=== PATIENT | male | born 1945 | race Caucasian/White ===

== ENCOUNTER 2018-07-14 09:45 | Inpatient (IN) ==
--- NOTE | 2018-07-14 09:51 | ED ---
HPI General Chief Complaint: Neuro Symptoms/Deficit Stated Complaint: Neuro Symptoms/Evac Time Seen by Provider: 07/14/18 09:47 Source: patient and EMS Mode of arrival: ambulatory Limitations: language barrier (aphasia) History of Present Illness HPI Narrative: 72-year-old man brought in for right-sided neurological deficit. He was found down in his house at about 930 this morning. His family yelled at him through the door at about 8:30 AM and asked if he was okay to which she responded in the affirmative. However patient's last known normal was last night prior to bed. When asked the patient states that he woke up with his neurological symptoms. He is unable to articulate how he fell and ended up on the floor. He was found covered in stool. He had jumbled dysarthric speech, right arm weakness and right leg weakness. The history is limited by the patient's poor recall the events and aphasia. Related Data Home Medications Medication Instructions Recorded Confirmed atorvastatin 20 mg PO DAILY 07/14/18 07/14/18 buspirone 5 mg PO BID 07/14/18 07/14/18 glimepiride 4 mg PO QAM 07/14/18 07/14/18 lisinopril-hydrochlorothiazide 1 tab PO DAILY 07/14/18 07/14/18 metformin 1,000 mg PO BID 07/14/18 07/14/18 Allergies Allergy/AdvReac Type Severity Reaction Status Date / Time No Known Allergies Allergy Unverified 07/14/18 09:47 Review of Systems ROS Unobtainable ROS Unobtainable: other (aphasia) PENDING SALE TO [facility] Medical History Medical History High cholesterol (Acute) Diabetes type 2, controlled (Acute) Hypertension (Acute) Surgical History Surgical History No history of previous surgery (Acute) Family History Family History Other CAD (coronary artery disease) Diabetes Social History Social History Substance History: No History of Abuse Second Hand Smoke Exposure: No Smoking Status: Light tobacco smoker Tobacco Type: Cigars How Often Do You Have a Drink Containing Alcohol: 2 to 3 times a week Recent Travel in [facility] within the Last 8 Weeks: No Recent Out of Country Travel within the Last 8 Weeks: No Exam Narrative Exam Narrative: GENERAL: 72-year-old man lying on stretcher calmly. He smells of stool and there are streaks of stool on his hands and clothing. No family at bedside. SKIN: Focused skin assessment warm/dry. No lacerations, hematomas, or bruising. HEAD: Atraumatic. Normocephalic. No trauma visible above the level the clavicles. EYES: Pupils equal and round. No scleral icterus. No injection or drainage. ENT: No nasal bleeding or discharge. Mucous membranes pink and moist. NECK: Trachea midline. No JVD. CARDIOVASCULAR: Normal rate and irregularly irregular rhythm.. No murmur appreciated. RESPIRATORY: No accessory muscle use. Clear to auscultation. Breath sounds equal bilaterally. GASTROINTESTINAL: Abdomen soft, non-tender, nondistended. Overweight abdomen. MUSCULOSKELETAL: No obvious deformities. No clubbing. No cyanosis. No edema. NEUROLOGICAL: Awake and alert. Dysarthric and jumbled speech; expressive aphasia. Follows commands. Right upper extremity 3 out of 5, left upper extremity 5 out of 5, right lower extremity 2 out of 5, left lower extremity 5 out of 5. Decreased sensation to light touch right upper and lower extremity, with worse loss of sensation in lower extremity. Unable to test gait as patient is unable to stand. PSYCHIATRIC: Calm but unable to fully assess due to patient's aphasia. Course Reevaluation(s) Reevaluation #1: Patient's and adult daughter here at this time in the emergency department. Per their recounts patient was last normal last night and they found him like this this morning on the floor. He is never had a stroke before. He is never been diagnosed with atrial fibrillation before. He has never had a heart attack before. On reassessment patient's right arm and right leg weakness is resolving, and is almost completely back to normal. Likewise his speech is recovering. Time: 10:35 Consultations Consultation #1: I spoke with Dr. Walsh of neurology regarding the patient's resolving neurological symptoms. Discussed the negative head imaging with her. She recommends admission to floor for TIA workup. She requested a call [facility] for hospitalist admission. Time: 11:17 Consultation #2: Spoke with Dr. CARTER regarding the patient's case. He will admit for TIA workup. Time: 11:23 Initial Documented Vital Signs Pulse Oximetry 100 07/14/18 09:45 Last Documented Vital Signs Temperature 98.9 F 07/14/18 17:00 Pulse Rate 81 07/14/18 17:00 Respiratory Rate 18 07/14/18 17:00 Blood Pressure 154/88 H 07/14/18 17:00 Pulse Oximetry 97 07/14/18 17:00 NIH Stroke Scale NIHSS Time Completed NIHSS Time Completed: 09:46 NIH Stroke Scale Level of Consciousness: 0-Alert Orientation Questions: 2-Neither task correct Responds to Commands: 0-Both tasks correct Gaze Eye Movement: 0-Horizontal movement WNL Visual Henson: 0-No visual field defect Facial Movement: 1-Minor facial palsy Motor Functions Arm LEFT: 0-No drift Motor Functions Arm RIGHT: 2-Falls before 10 seconds Motor Functions Leg LEFT: 0-No drift Motor Functions Leg RIGHT: 3-No effort against gravity Limb Ataxia: 0-No ataxia Sensory Loss: 2-Severe sensory loss Best Language: 2-Severe aphasia Articulation: 1-Mild dysarthia Extinction or Inattention Sensory: 0-Absent Total: 13 Medical Decision Making MDM Narrative Medical decision making narrative: 72-year-old man with what appears to be a wake-up stroke. He does not meet stroke alert criteria. IH stroke scale is 13. I will order CT of brain in addition to CTA of head and neck to evaluate for large vessel occlusion. He may be a candidate for interventional radiology but he is not a TPA candidate at this time. Shortly after returning from CT, the patient's neurological symptoms resolved completely. Most likely this event was a transient ischemic attack. Medical Screen Exam Complete: Yes Emergency Medical Condition: Yes Differential Diagnosis Differential Diagnosis: Cerebrovascular accident, brain bleed, transient ischemic attack, complex migraine Medical Records Medical records reviewed: Yes I reviewed the patient's medical records. Lab Data Lab results reviewed: Yes I reviewed the patient's lab results. Result diagrams: 07/14/18 18:04 07/14/18 09:50 Lab Results 07/14/18 07/14/18 07/14/18 Range/Units 09:48 09:50 09:50 CBC w Diff Slide review pending WBC 10.6 (4.0-11.0) th/mm3 RBC 4.29 L (4.50-5.90) mil/mm3 Hgb 14.3 (13.0-17.0) gm/dL Hct 41.3 (39.0-51.0) % MCV 96.3 (80.0-100.0) fL MCH 33.2 (27.0-34.0) pg MCHC 34.5 (32.0-36.0) % RDW 12.6 (11.6-17.2) % Plt Count 173 (150-450) th/mm3 MPV 8.7 (7.0-11.0) fL Neut % (Auto) 81.6 H (16.0-70.0) % Lymph % (Auto) 10.7 (9.0-44.0) % [place] % (Auto) 3.0 (0.0-8.0) % Eos % (Auto) 2.0 (0.0-4.0) % Baso % (Auto) 2.7 H (0.0-2.0) % Neut # (Auto) 8.7 H (1.8-7.7) th/mm3 Lymph # (Auto) 1.1 (1.0-4.8) th/mm3 [place] # (Auto) 0.3 (0.0-0.9) th/mm3 Eos # (Auto) 0.2 (0.0-0.4) th/mm3 Baso # (Auto) 0.3 H (0.0-0.2) th/mm3 WBC Differential . Diff Scan Auto diff confirmed Differential Comment . Platelet Estimate Normal (Normal) Platelet Morphology Normal (Normal) PT 10.6 (9.8-11.6) sec INR 1.0 Ratio APTT 23.8 L (24.3-30.1) sec Fibrinogen 282 (227-377) mg/dL Sodium 139 (136-145) meq/L Potassium 3.8 (3.5-5.1) meq/L Chloride 102 (98-107) meq/L Carbon Dioxide 22.9 (21.0-32.0) meq/L Anion Gap 14 (5-15) meq/L BUN 15 (7-18) mg/dL Creatinine 0.97 (0.60-1.30) mg/dL Estimated GFR 77 L (>89) mL/min POC Glucose (68-110) mg/dl Random Glucose 180 H (74-106) mg/dL Calcium 9.1 (8.5-10.1) mg/dL Total Bilirubin 0.6 (0.2-1.0) mg/dL AST 24 (15-37) U/L ALT 31 (12-78) U/L Alkaline Phosphatase 58 (45-117) U/L Total Creatine Kinase 95 (39-308) U/L Troponin I Less than 0.02 L (0.02-0.05) ng/mL Total Protein 8.1 (6.4-8.2) g/dL Albumin 4.0 (3.4-5.0) g/dL Ur Collection Type Urine Color Urine Clarity Urine pH Ur Specific Preemption Urine Protein Urine Glucose (UA) Urine Ketones Urine Occult Blood Urine Nitrate Urine Bilirubin Urine Ictotest Urine Urobilinogen Ur Leukocyte Esterase Urine RBC Urine WBC Urine WBC Clumps Ur Squamous Epith Cells Ur Transition Epith Cell Ur Renal Epithelial Cell Calcium Carbonate Cryst Calcium Oxalate Crystal Leucine Crystals Cystine Crystals Uric Acid Crystals Triple Phos Crystals Cholesterol Crystals Tyrosine Crystals Amorphous Sediment Urine Bacteria Hyaline Casts Granular Casts Fine Granular Casts Coarse Granular Casts Waxy Casts RBC Casts WBC Casts Urine Mucus Urine Trichomonas Urine Yeast Ur Yeast w Hyphae Urine Sperm Ur Oval Fat Bodies Micro UA Comment Ur Microscopic Review Urine Culture Comments Urine Collection Time Urine Comment Urine Opiates Screen (Neg) Ur Barbiturates Screen (Neg) Ur Amphetamines Screen (Neg) U Benzodiazepines Scrn (Neg) Urine Cocaine Screen (Neg) U Cannabinoids Screen (Neg) Blood Type Blood Type Recheck Antibody Screen 07/14/18 07/14/18 07/14/18 Range/Units 09:50 10:28 12:15 CBC w Diff WBC (4.0-11.0) th/mm3 RBC (4.50-5.90) mil/mm3 Hgb (13.0-17.0) gm/dL Hct (39.0-51.0) % MCV (80.0-100.0) fL MCH (27.0-34.0) pg MCHC (32.0-36.0) % RDW (11.6-17.2) % Plt Count (150-450) th/mm3 MPV (7.0-11.0) fL Neut % (Auto) (16.0-70.0) % Lymph % (Auto) (9.0-44.0) % [place] % (Auto) (0.0-8.0) % Eos % (Auto) (0.0-4.0) % Baso % (Auto) (0.0-2.0) % Neut # (Auto) (1.8-7.7) th/mm3 Lymph # (Auto) (1.0-4.8) th/mm3 [place] # (Auto) (0.0-0.9) th/mm3 Eos # (Auto) (0.0-0.4) th/mm3 Baso # (Auto) (0.0-0.2) th/mm3 WBC Differential Diff Scan Differential Comment Platelet Estimate (Normal) Platelet Morphology (Normal) PT (9.8-11.6) sec INR Ratio APTT (24.3-30.1) sec Fibrinogen (227-377) mg/dL Sodium (136-145) meq/L Potassium (3.5-5.1) meq/L Chloride (98-107) meq/L Carbon Dioxide (21.0-32.0) meq/L Anion Gap (5-15) meq/L BUN (7-18) mg/dL Creatinine (0.60-1.30) mg/dL Estimated GFR (>89) mL/min POC Glucose 167 H 172 H (68-110) mg/dl Random Glucose (74-106) mg/dL Calcium (8.5-10.1) mg/dL Total Bilirubin (0.2-1.0) mg/dL AST (15-37) U/L ALT (12-78) U/L Alkaline Phosphatase (45-117) U/L Total Creatine Kinase (39-308) U/L Troponin I (0.02-0.05) ng/mL Total Protein (6.4-8.2) g/dL Albumin (3.4-5.0) g/dL Ur Collection Type Urine Color Urine Clarity Urine pH Ur Specific Preemption Urine Protein Urine Glucose (UA) Urine Ketones Urine Occult Blood Urine Nitrate Urine Bilirubin Urine Ictotest Urine Urobilinogen Ur Leukocyte Esterase Urine RBC Urine WBC Urine WBC Clumps Ur Squamous Epith Cells Ur Transition Epith Cell Ur Renal Epithelial Cell Calcium Carbonate Cryst Calcium Oxalate Crystal Leucine Crystals Cystine Crystals Uric Acid Crystals Triple Phos Crystals Cholesterol Crystals Tyrosine Crystals Amorphous Sediment Urine Bacteria Hyaline Casts Granular Casts Fine Granular Casts Coarse Granular Casts Waxy Casts RBC Casts WBC Casts Urine Mucus Urine Trichomonas Urine Yeast Ur Yeast w Hyphae Urine Sperm Ur Oval Fat Bodies Micro UA Comment Ur Microscopic Review Urine Culture Comments Urine Collection Time Urine Comment Urine Opiates Screen (Neg) Ur Barbiturates Screen (Neg) Ur Amphetamines Screen (Neg) U Benzodiazepines Scrn (Neg) Urine Cocaine Screen (Neg) U Cannabinoids Screen (Neg) Blood Type AB Positive Blood Type Recheck Required Antibody Screen Negative 07/14/18 07/14/18 07/14/18 Range/Units 13:00 13:00 13:00 CBC w Diff WBC (4.0-11.0) th/mm3 RBC (4.50-5.90) mil/mm3 Hgb (13.0-17.0) gm/dL Hct (39.0-51.0) % MCV (80.0-100.0) fL MCH (27.0-34.0) pg MCHC (32.0-36.0) % RDW (11.6-17.2) % Plt Count (150-450) th/mm3 MPV (7.0-11.0) fL Neut % (Auto) (16.0-70.0) % Lymph % (Auto) (9.0-44.0) % [place] % (Auto) (0.0-8.0) % Eos % (Auto) (0.0-4.0) % Baso % (Auto) (0.0-2.0) % Neut # (Auto) (1.8-7.7) th/mm3 Lymph # (Auto) (1.0-4.8) th/mm3 [place] # (Auto) (0.0-0.9) th/mm3 Eos # (Auto) (0.0-0.4) th/mm3 Baso # (Auto) (0.0-0.2) th/mm3 WBC Differential Diff Scan Differential Comment Platelet Estimate (Normal) Platelet Morphology (Normal) PT (9.8-11.6) sec INR Ratio APTT (24.3-30.1) sec Fibrinogen (227-377) mg/dL Sodium (136-145) meq/L Potassium (3.5-5.1) meq/L Chloride (98-107) meq/L Carbon Dioxide (21.0-32.0) meq/L Anion Gap (5-15) meq/L BUN (7-18) mg/dL Creatinine (0.60-1.30) mg/dL Estimated GFR (>89) mL/min POC Glucose (68-110) mg/dl Random Glucose (74-106) mg/dL Calcium (8.5-10.1) mg/dL Total Bilirubin (0.2-1.0) mg/dL AST (15-37) U/L ALT (12-78) U/L Alkaline Phosphatase (45-117) U/L Total Creatine Kinase (39-308) U/L Troponin I (0.02-0.05) ng/mL Total Protein (6.4-8.2) g/dL Albumin (3.4-5.0) g/dL Ur Collection Type Cancelled Cath Urine Color Cancelled Straw Urine Clarity Cancelled Clear Urine pH Cancelled 8.5 Ur Specific Preemption Cancelled 1.010 Urine Protein Cancelled 100 H Urine Glucose (UA) Cancelled 500 H Urine Ketones Cancelled 80 or greater H Urine Occult Blood Cancelled Small H Urine Nitrate Cancelled Negative Urine Bilirubin Cancelled Negative Urine Ictotest Cancelled Urine Urobilinogen Cancelled 1.0 Ur Leukocyte Esterase Cancelled Negative Urine RBC Cancelled Urine WBC Cancelled Urine WBC Clumps Cancelled Ur Squamous Epith Cells Cancelled Ur Transition Epith Cell Cancelled Ur Renal Epithelial Cell Cancelled Calcium Carbonate Cryst Cancelled Calcium Oxalate Crystal Cancelled Leucine Crystals Cancelled Cystine Crystals Cancelled Uric Acid Crystals Cancelled Triple Phos Crystals Cancelled Cholesterol Crystals Cancelled Tyrosine Crystals Cancelled Amorphous Sediment Cancelled Urine Bacteria Cancelled Hyaline Casts Cancelled Granular Casts Cancelled Fine Granular Casts Cancelled Coarse Granular Casts Cancelled Waxy Casts Cancelled RBC Casts Cancelled WBC Casts Cancelled Urine Mucus Cancelled Urine Trichomonas Cancelled Urine Yeast Cancelled Ur Yeast w Hyphae Cancelled Urine Sperm Cancelled Ur Oval Fat Bodies Cancelled Micro UA Comment Cancelled Culture not ind Ur Microscopic Review Cancelled Microscopic reviewed Urine Culture Comments Cancelled Culture not ind Urine Collection Time Cancelled Urine Comment Cancelled Urine Opiates Screen Neg (Neg) Ur Barbiturates Screen Neg (Neg) Ur Amphetamines Screen Neg (Neg) U Benzodiazepines Scrn Neg (Neg) Urine Cocaine Screen Neg (Neg) U Cannabinoids Screen Neg (Neg) Blood Type Blood Type Recheck Antibody Screen 07/14/18 07/14/18 07/14/18 Range/Units 17:35 18:04 18:04 CBC w Diff WBC 12.6 H (4.0-11.0) th/mm3 RBC 4.42 L (4.50-5.90) mil/mm3 Hgb 14.3 (13.0-17.0) gm/dL Hct 43.0 (39.0-51.0) % MCV 97.3 (80.0-100.0) fL MCH 32.3 (27.0-34.0) pg MCHC 33.2 (32.0-36.0) % RDW 13.3 (11.6-17.2) % Plt Count 174 (150-450) th/mm3 MPV 9.4 (7.0-11.0) fL Neut % (Auto) (16.0-70.0) % Lymph % (Auto) (9.0-44.0) % [place] % (Auto) (0.0-8.0) % Eos % (Auto) (0.0-4.0) % Baso % (Auto) (0.0-2.0) % Neut # (Auto) (1.8-7.7) th/mm3 Lymph # (Auto) (1.0-4.8) th/mm3 [place] # (Auto) (0.0-0.9) th/mm3 Eos # (Auto) (0.0-0.4) th/mm3 Baso # (Auto) (0.0-0.2) th/mm3 WBC Differential Diff Scan Differential Comment Platelet Estimate (Normal) Platelet Morphology (Normal) PT (9.8-11.6) sec INR Ratio APTT 27.5 (24.3-30.1) sec Fibrinogen (227-377) mg/dL Sodium (136-145) meq/L Potassium (3.5-5.1) meq/L Chloride (98-107) meq/L Carbon Dioxide (21.0-32.0) meq/L Anion Gap (5-15) meq/L BUN (7-18) mg/dL Creatinine (0.60-1.30) mg/dL Estimated GFR (>89) mL/min POC Glucose 150 H (68-110) mg/dl Random Glucose (74-106) mg/dL Calcium (8.5-10.1) mg/dL Total Bilirubin (0.2-1.0) mg/dL AST (15-37) U/L ALT (12-78) U/L Alkaline Phosphatase (45-117) U/L Total Creatine Kinase (39-308) U/L Troponin I (0.02-0.05) ng/mL Total Protein (6.4-8.2) g/dL Albumin (3.4-5.0) g/dL Ur Collection Type Urine Color Urine Clarity Urine pH Ur Specific Preemption Urine Protein Urine Glucose (UA) Urine Ketones Urine Occult Blood Urine Nitrate Urine Bilirubin Urine Ictotest Urine Urobilinogen Ur Leukocyte Esterase Urine RBC Urine WBC Urine WBC Clumps Ur Squamous Epith Cells Ur Transition Epith Cell Ur Renal Epithelial Cell Calcium Carbonate Cryst Calcium Oxalate Crystal Leucine Crystals Cystine Crystals Uric Acid Crystals Triple Phos Crystals Cholesterol Crystals Tyrosine Crystals Amorphous Sediment Urine Bacteria Hyaline Casts Granular Casts Fine Granular Casts Coarse Granular Casts Waxy Casts RBC Casts WBC Casts Urine Mucus Urine Trichomonas Urine Yeast Ur Yeast w Hyphae Urine Sperm Ur Oval Fat Bodies Micro UA Comment Ur Microscopic Review Urine Culture Comments Urine Collection Time Urine Comment Urine Opiates Screen (Neg) Ur Barbiturates Screen (Neg) Ur Amphetamines Screen (Neg) U Benzodiazepines Scrn (Neg) Urine Cocaine Screen (Neg) U Cannabinoids Screen (Neg) Blood Type Blood Type Recheck Antibody Screen Imaging Data Radiologist's impression: Head MRI 07/14/18 00:00 CONCLUSION: 1. Large left-sided cerebral stroke with the abnormal area on diffusion measuring 4.5 x 9.0 cm across. 2 small areas of stroke within the external capsule on the left. Chest X-Ray 07/14/18 09:48 CONCLUSION: Prominence of the cardiac silhouette and pulmonary vasculature may be secondary to supine technique. No evidence of pneumonia or pneumothorax. Head CT 07/14/18 09:48 CONCLUSION: 1. Negative CT Head non contrast. . Head CTA 07/14/18 09:48 CONCLUSION: 1. Atherosclerosis. No significant stenosis is present. There is a small right- sided pleural effusion present. Neck CTA 07/14/18 09:48 CONCLUSION: 1. Negative CTA Carotid. ECG Data Attestation: I personally reviewed and interpreted this ECG as follows: Interpretation: Atrial fibrillation with rate of 88 bpm, QRS interval 114 ms, QTc interval 426 ms, incomplete right bundle branch block, ST segment depression in leads V2, V3, V4, V5 and V6 as well as some in the inferior lead, no STEMI present. Discharge Plan Discharge Disposition Patient Disposition: 30 Still Patient Discharge Condition Condition: Fair Discharge Details Diagnosis: Transient ischemic attack Physicians Team ED Provider: Asad Main Primary Care Provider: UNKNOWN, Attending Provider: Kaushik Atkins Other Providers: Ashley Holden ; Rohit Gomez Carolyn Discharge Interventions Interventions: ED Discharge Assessment Last Done: 07/14/18 11:57 Status ED Status: Left Department Discharge Information Discharge Date/Time: 07/14/18 12:22
[2018-07-14 10:00] LABS: Baso # (Auto) 0.3 th/mm3 (0.0-0.2); Baso % (Auto) 2.7 % (0.0-2.0); Eos # (Auto) 0.2 th/mm3 (0.0-0.4); Hematocrit 41.3 % (39.0-51.0); Hemoglobin 14.3 gm/dL (13.0-17.0); Lymph # (Auto) 1.1 th/mm3 (1.0-4.8); Lymph % (Auto) 10.7 % (9.0-44.0); Mean Corpuscular HGB Conc 34.5 % (32.0-36.0); Mean Corpuscular Hemoglobin 33.2 pg (27.0-34.0); Mean Corpuscular Volume 96.3 fL (80.0-100.0); Mean Platelet Volume 8.7 fL (7.0-11.0); Mono # (Auto) 0.3 th/mm3 (0.0-0.9); Neut # (Auto) 8.7 th/mm3 (1.8-7.7); Neut % (Auto) 81.6 % (16.0-70.0); Platelet Count 173 th/mm3 (150-450); Red Blood Count 4.29 mil/mm3 (4.50-5.90); Red Cell Distribution Width 12.6 % (11.6-17.2); White Blood Count 10.6 th/mm3 (4.0-11.0)
[2018-07-14 10:14] LABS: Chloride 102 meq/L (98-107); Potassium 3.8 meq/L (3.5-5.1); Sodium 139 meq/L (136-145)
[2018-07-14 10:14] LABS: Activated Partial Thrombo Time 23.8 sec (24.3-30.1); Prothrombin Time 10.6 sec (9.8-11.6)
[2018-07-14 10:17] LABS: Calcium 9.1 mg/dL (8.5-10.1)
[2018-07-14 10:18] LABS: Anion Gap 14 meq/L (5-15); Carbon Dioxide 22.9 meq/L (21.0-32.0); Glucose,Random 180 mg/dL (74-106)
[2018-07-14 10:19] LABS: Blood Urea Nitrogen 15 mg/dL (7-18)
[2018-07-14 10:21] LABS: Alanine Aminotransferase 31 U/L (12-78); Aspartate Aminotransferase 24 U/L (15-37); Glomerular Filtration Rate 77 mL/min (>89)
[2018-07-14 10:23] LABS: Total Protein 8.1 g/dL (6.4-8.2)
[2018-07-14 10:24] LABS: Alkaline Phosphatase 58 U/L (45-117)
--- NOTE | 2018-07-14 10:25 | CT ---
EXAM DATE: 07/14/2018 10:21 AM EDT AGE/SEX: 72 years / Male INDICATIONS: Found on floor. Right upper and lower extremity weakness. CLINICAL DATA: This is the patient's initial encounter. Patient reports that signs and symptoms have been present for 1 day and indicates a pain score of 0/10. MEDICAL/SURGICAL HISTORY: None. None. RADIATION DOSE: 58.46 CTDI (mGy) COMPARISON: No prior exams available for comparison. TECHNIQUE: CT of the head without contrast. Using automated exposure control and adjustment of the mA and/or kV according to patient size, radiation dose was kept as low as reasonably achievable to ob tain optimal diagnostic quality images. DICOM format image data is available electronically for revi ew and comparison. FINDINGS: Cerebrum: The ventricles are normal for age. No evidence of midline shift, mass lesion, hemorrhage or acute infarction. No extraaxial fluid collections are seen. Posterior Fossa: The cerebellum and brainstem are intact. The 4th ventricle is midline. The cerebe llopontine angle is unremarkable. Extracranial: The visualized portion of the orbits is intact. Skull: The calvaria is intact. No evidence of skull fracture. CONCLUSION: 1. Negative CT Head non contrast. . Electronically signed by: Pallavi Elizondo MD 07/14/2018 10:24 AM EDT
--- NOTE | 2018-07-14 10:33 | XR ---
EXAM DATE: 07/14/2018 10:30 AM EDT AGE/SEX: 72 years / Male INDICATIONS: Neurological deficits, found on floor CLINICAL DATA: This is the patient's initial encounter. Patient reports that signs and symptoms have been present for 1 day and indicates a pain score of Nonresponsive. MEDICAL/SURGICAL HISTORY: Non-responsive. Non-responsive. COMPARISON: No prior exams available for comparison. FINDINGS: A single AP view of the chest demonstrates the lungs to be symmetrically aerated without evidence of mass, infiltrate or effusion. Heart size appears mildly enlarged and there is prominence of the centr al pulmonary vasculature. Osseous structures are intact. CONCLUSION: Prominence of the cardiac silhouette and pulmonary vasculature may be secondary to supine technique. No evidence of pneumonia or pneumothorax. Electronically signed by: Pallavi Elizondo MD 07/14/2018 10:32 AM EDT
[2018-07-14 10:37] LABS: Creatine Kinase 95 U/L (39-308)
[2018-07-14 10:42] LABS: Platelet Estimate Normal (Normal); Platelet Morphology Normal (Normal)
[2018-07-14] MEDS: Sod Chloride 0.9% Inj 1,000 ML IV.CONT SCH (10:45)
--- NOTE | 2018-07-14 10:55 | CT ---
EXAM DATE: 07/14/2018 10:46 AM EDT AGE/SEX: 72 years / Male INDICATIONS: Found on floor. Right upper and lower extremity weakness. CLINICAL DATA: This is the patient's initial encounter. Patient reports that signs and symptoms have been present for 1 day and indicates a pain score of 0/10. MEDICAL/SURGICAL HISTORY: None. None. RADIATION DOSE: 42.25 CTDI (mGy) ; Combined studies COMPARISON: [facility], CT HEAD W/O CONTRAST, 07/14/2018. . TECHNIQUE: Volumetric scanning was performed using a multi-row detector CT scanner during bolus infu parveen of 95 ml Visipaque 320 (iodixanol) nonionic water-soluble contrast as a cumulative dose for mul tiple exams. The data was post processed with a variety of visualization algorithms including full volume maximum intensity projection, multi-planar sliding thin slab reformation, curved planar reform ation, and surface rendering techniques. Using automated exposure control and adjustment of the mA a nd/or kV according to patient size, radiation dose was kept as low as reasonably achievable to obtain optimal diagnostic quality images. DICOM format image data is available electronically for review a nd comparison. FINDINGS: There is excellent visualization of the major intracranial arteries out to the second-order branch ve ssels. There is no evidence for aneurysm, vessel truncation or stenosis, and no evidence for vascula r malformation. Imaged portions of the lungs demonstrate a small right-sided pleural effusion. CONCLUSION: 1. Atherosclerosis. No significant stenosis is present. There is a small right-sided pleural effusio n present. Electronically signed by: Pallavi Elizondo MD 07/14/2018 10:54 AM EDT
--- NOTE | 2018-07-14 11:10 | CT ---
EXAM DATE: 07/14/2018 11:05 AM EDT AGE/SEX: 72 years / Male INDICATIONS: Found on floor. Right upper and lower extremity weakness. CLINICAL DATA: This is the patient's initial encounter. Patient reports that signs and symptoms have been present for 1 day and indicates a pain score of 0/10. MEDICAL/SURGICAL HISTORY: None. None. RADIATION DOSE: 42.25 CTDI (mGy) ; Combined studies COMPARISON: No prior exams available for comparison. TECHNIQUE: Volumetric scanning was performed using a multirow detector CT scanner during bolus infus ion of 95 ml Visipaque 320 (iodixanol) nonionic water-soluble contrast as a cumulative dose for mult iple exams. The data was postprocessed with a variety of visualization algorithms including full-vo lume maximum intensity projection, multiplanar sliding thin-slab reformation, curved-planar reformati on, and surface-rendering techniques. Using automated exposure control and adjustment of the mA and/ or kV according to patient size, radiation dose was kept as low as reasonably achievable to obtain op timal diagnostic quality images. DICOM format image data is available electronically for review and comparison. FINDINGS: Aortic Arch: There is a three-vessel origin of the great vessels from the aorta. No evidence of ost ial narrowing Right Carotid: The common carotid artery is intact. The carotid bulb has a normal configuration wit hout ulceration or narrowing. The internal carotid artery lumen is smooth without stenosis. The ext ernal carotid artery is intact. Left Carotid: The common carotid artery is intact. The carotid bulb has a normal configuration with out ulceration or narrowing. The internal carotid artery lumen is smooth without stenosis. The exte rnal carotid artery is intact. Vertebrals: The vertebral arteries have a symmetric diameter. No stenotic lesions are seen. Percent stenosis is calculated using the diameter of the stenotic region over the diameter of the nor mal distal internal carotid artery. CONCLUSION: 1. Negative CTA Carotid. Electronically signed by: Pallavi Elizondo MD 07/14/2018 11:09 AM EDT
[2018-07-14] MEDS ORDERED: Dextrose 50% in Water 50 ML Vial IV.PUSH PRN (11:23)
[2018-07-14] MEDS ORDERED: Enoxaparin Inj 30 MG/0.3 ML Syringe SQ SCH (12:00)
[2018-07-14] MEDS: Insulin NovoLOG Aspart Correctional Sugar Inj SQ SCH ×3 (13:07→22:59)
[2018-07-14] MEDS: Heparin Drip 25,000 UNIT/250 ML BAG IV.CONT PRN (13:43)
--- NOTE | 2018-07-14 13:48 | P.HPIM ---
History of Present Illness Primary Care Physician: UNKNOWN Chief Complaint: Speech disturbance History of Present Illness: The patient is a 72-year-old male with a past medical history of diabetes and hypertension who is presenting to the hospital with speech disturbances. The patient was seen doing well last night where he was celebrating somebody's birthday alliance party. At around 830 this morning he was noted to have difficulty speaking. He could not say the words that he intended to say. EMS was called and noticed that the patient had some right sided weakness on top of speech difficulties. The patient complained of severe pain in the bladder area. He denied any fevers. He said he was breathing sufficiently. The family denies any new medications. They deny any recent travel or any sick contacts. In the emergency department the patient's symptoms improved but once on the floor he did continue to have difficulty with speech and right-sided weakness. Review of Systems All other systems reviewed negative except as stated in HPI PMFSH - History History Provided By: Family Member - Medical History Medical History: Medical History (Last Updated 07/14/18 @ 13:52 by Kaushik Atkins DO) High cholesterol (Acute) Diabetes type 2, controlled (Acute) Hypertension - Surgical History Surgical History: Surgical History (Last Updated 07/14/18 @ 10:32 by Aubrie Wells RN) No history of previous surgery - Family History Family History: Family History (Last Updated 07/14/18 @ 13:52 by Kaushik Atkins DO) Other CAD (coronary artery disease) Diabetes - Social History I have reviewed the patient's Social History: Yes - Tobacco History Second Hand Smoke Exposure: No Tobacco Use In Past 30 Days: Yes Smoking Status: Current some day smoker Tobacco Type: Cigars - Alcohol History How Often Do You Have a Drink Containing Alcohol: 2 to 4 times a month - Substance Use History Substance History: No History of Abuse - Immunization History Tetanus Immunization: Unsure Medications and Allergies Active Medications: Active Medications Acetaminophen (Tylenol) 650 mg PO Q4H PRN PRN Reason: Temp > 100.4 Atorvastatin Calcium (Lipitor) 20 mg PO DAILY [facility] Last Admin: 07/14/18 13:08 Dose: Not Given Buspirone HCl (Buspar) 5 mg PO BID [facility] Dextrose (D50w Vial) 50 ml IV.PUSH UNSCH PRN PRN Reason: PER HYPOGLYCEMIA PROTOCOL Glucagon (Glucagon Inj) 1 mg OTHER PRN PRN PRN Reason: for Hypoglycemia Protocol Sodium Chloride (Ns Inj) 1,000 mls @ 70 mls/hr IV.CONT .[id number] [facility] Last Admin: 07/14/18 10:45 Dose: 70 mls/hr Heparin Sodium/Dextrose (Heparin/D5w 25,000 U/250 Ml) 25,000 unit in 250 mls @ 0 mls/hr IV.CONT TITRATE PRN; Protocol PRN Reason: Per Protocol Last Admin: 07/14/18 13:43 Dose: 900 units/hr, 9 mls/hr Insulin Aspart (Novolog Insulin Correctional Sugar Inj) 0 unit SQ ACHS [facility]; Protocol Last Admin: 07/14/18 13:07 Dose: Not Given Allergies Allergy/AdvReac Type Severity Reaction Status Date / Time No Known Allergies Allergy Unverified 07/14/18 09:47 Home Medications Medication Instructions Recorded Confirmed Type atorvastatin 20 mg PO DAILY 07/14/18 07/14/18 History buspirone 5 mg PO BID 07/14/18 07/14/18 History glimepiride 4 mg PO QAM 07/14/18 07/14/18 History lisinopril-hydrochlorothiazide 1 tab PO DAILY 07/14/18 07/14/18 History metformin 1,000 mg PO BID 07/14/18 07/14/18 History Exam Vital signs: Vital Signs 07/14/18 09:45 07/14/18 11:35 Pulse Rate 90 Respiratory Rate 17 Blood Pressure 152/74 H Pulse Oximetry 100 95 Intake & Output 07/13/18 07/14/18 07/14/18 18:59 06:59 18:59 Weight 77.5 kg Narrative: GENERAL: Appears comfortable. SKIN: Focused skin assessment warm/dry. No lacerations, hematomas, or bruising. HEAD: Atraumatic. Normocephalic. No trauma visible above the level the clavicles. EYES: Pupils equal and round. No scleral icterus. No injection or drainage. Horizontal nystagmus. ENT: No nasal bleeding or discharge. Mucous membranes pink and moist. NECK: Trachea midline. No JVD. CARDIOVASCULAR: Irregularly irregular rhythm. No murmur appreciated. RESPIRATORY: No accessory muscle use. Clear to auscultation. Breath sounds equal bilaterally. GASTROINTESTINAL: Abdomen soft, non-tender, nondistended. Overweight abdomen. MUSCULOSKELETAL: No obvious deformities. No clubbing. No cyanosis. No edema. NEUROLOGICAL: Awake and alert. Dysarthric and jumbled speech; expressive aphasia. Follows commands. Right upper extremity 3 out of 5, left upper extremity 5 out of 5, right lower extremity 2 out of 5, left lower extremity 5 out of 5. Results - Labs CBC & Chem 7: 07/14/18 09:50 07/14/18 09:50 Labs: Short CBC 07/14/18 Range/Units 09:50 WBC 10.6 (4.0-11.0) th/mm3 Hgb 14.3 (13.0-17.0) gm/dL Hct 41.3 (39.0-51.0) % Plt Count 173 (150-450) th/mm3 BMP 07/14/18 09:50 Sodium 139 Potassium 3.8 Chloride 102 Carbon Dioxide 22.9 BUN 15 Creatinine 0.97 Calcium 9.1 Cardiac Enzymes 07/14/18 Range/Units 09:50 Total Creatine Kinase 95 (39-308) U/L Troponin I Less than 0.02 L (0.02-0.05) ng/mL Liver Function 07/14/18 Range/Units 09:50 Total Bilirubin 0.6 (0.2-1.0) mg/dL AST 24 (15-37) U/L ALT 31 (12-78) U/L Alkaline Phosphatase 58 (45-117) U/L Albumin 4.0 (3.4-5.0) g/dL - Imaging Impressions Chest X-Ray 07/14/18 09:48 CONCLUSION: Prominence of the cardiac silhouette and pulmonary vasculature may be secondary to supine technique. No evidence of pneumonia or pneumothorax. Head CT 07/14/18 09:48 CONCLUSION: 1. Negative CT Head non contrast. . Head CTA 07/14/18 09:48 CONCLUSION: 1. Atherosclerosis. No significant stenosis is present. There is a small right- sided pleural effusion present. Neck CTA 07/14/18 09:48 CONCLUSION: 1. Negative CTA Carotid. Caprini VTE Risk Assessment Caprini VTE Risk Assessment: Moderate/High Risk (score >= 2) Caprini Risk Assessment Model: Point Value = 1 Point Value = 2 Point Value = 3 Point Value = 5 Age 41-60 Minor surgery BMI > 25 kg/m2 Swollen legs Varicose veins or History of unexplained or recurrent spontaneous Oral contraceptives or hormone replacement Sepsis (< 1 month) Serious lung disease, including pneumonia (< 1 month) Abnormal pulmonary function Acute myocardial infarction Congestive heart failure (< 1 month) History of inflammatory bowel disease Medical patient at bed rest Age 61-74 Arthroscopic surgery Major open surgery (> 45 min) Laparoscopic surgery (> 45 min) Malignancy Confined to bed (> 72 hours) Immobilizing plaster cast Central venous access Age >= 75 History of VTE Family history of VTE Factor V Leiden Prothrombin [id number] Lupus anticoagulant Anticardiolipin antibodies Elevated serum homocysteine Heparin-induced thrombocytopenia Other congenital or acquired thrombophilia Stroke (< 1 month) Elective arthroplasty Hip, pelvis, or leg fracture Acute spinal cord injury (< 1 month) Prophylaxis Regimen: Total Risk Factor Score Risk Level Prophylaxis Regimen 0-1 Low Early ambulation 2 Moderate Order ONE of the following: *Sequential Compression Device (SCD) *Heparin 5000 units SQ BID 3-4 Higher Order ONE of the following medications: *Heparin 5000 units SQ TID *Enoxaparin/Lovenox 40 mg SQ daily (WT < 150 kg, CrCl > 30 mL/min) *Enoxaparin/Lovenox 30 mg SQ daily (WT < 150 kg, CrCl > 10-29 mL/min) *Enoxaparin/Lovenox 30 mg SQ BID (WT < 150 kg, CrCl > 30 mL/min) AND/OR *Sequential Compression Device (SCD) 5 or more Highest Order ONE of the following medications: *Heparin 5000 units SQ TID (Preferred with Epidurals) *Enoxaparin/Lovenox 40 mg SQ daily (WT < 150 kg, CrCl > 30 mL/min) *Enoxaparin/Lovenox 30 mg SQ daily (WT < 150 kg, CrCl > 10-29 mL/min) *Enoxaparin/Lovenox 30 mg SQ BID (WT < 150 kg, CrCl > 30 mL/min) AND *Sequential Compression Device (SCD) Assessment and Plan - Plan CVA/ TIA The patient presented with expressive aphasia and found to have right sided weakness. Has A fib on EKG. Imaging negative for acute CVA. -neurology consulted. -check an MRI and echocardiogram. -check an EEG. -PT/OT/ST. -IVFs. Keep NPO for now. -heparin gtt. A fib. Rate controlled at this time. No prior history. -heparin gtt. -cardiology consult. -echocardiogram. -telemetry. DM On glimepiride and metformin as an outpt. -hold home meds. -insulin sliding scale. HTN On lisinopril/HCTZ as an outpt. -hold home meds for now. PPx: Heparin gtt
[2018-07-14 14:51] LABS: Amphetamine Screen,Urine Neg (Neg); Barbiturate Screen,Urine Neg (Neg); Cannabinoid Screen,Urine Neg (Neg); Cocaine Screen,Urine Neg (Neg)
[2018-07-14 14:59] LABS: Opiate Screen,Urine Neg (Neg)
--- NOTE | 2018-07-14 15:56 | MR ---
EXAM DATE: 07/14/2018 3:51 PM EDT AGE/SEX: 72 years / Male INDICATIONS: Right sided weakness. Aphasia. CLINICAL DATA: This is the patient's initial encounter. Patient reports that signs and symptoms have been present for 1 day and indicates a pain score of 8/10. MEDICAL/SURGICAL HISTORY: Diabetes mellitus type II. Hypertension. Hypercholesterolemia. None . COMPARISON: [facility], CT HEAD W/O CONTRAST, 07/14/2018. . TECHNIQUE: Multiplanar, multisequence examination of the brain was performed without contrast. FINDINGS: Cerebrum: The ventricles are normal for age. No evidence of midline shift, mass lesion, hemorrhage or acute infarction. No extraaxial fluid collections are seen. The pituitary gland and suprasellar cistern are normal in configuration. White Matter: No significant signal abnormalities are seen in the white matter. Posterior Fossa: The cerebellum and brainstem are intact. The 4th ventricle is midline. The cerebel lopontine angle is unremarkable. The cerebellar tonsils are normal in position. Diffusion Imaging: There is abnormal areas of signal within the external capsule on the left side co nsistent with 2 small lacunar strokes. There is a large area of abnormal diffusion involving the left occipital lobe and medial temporal lobe and the left [employer] distribution of stroke. Extracranial: The visualized portions of the orbits and paranasal sinuses are unremarkable. CONCLUSION: 1. Large left-sided cerebral stroke with the abnormal area on diffusion measuring 4.5 x 9.0 cm acros s. 2 small areas of stroke within the external capsule on the left. Electronically signed by: Juanjo Leblanc MD 07/14/2018 3:55 PM EDT
[2018-07-14 15:58] LABS: Bilirubin,Urine Negative (Negative); Clarity,Urine Clear (Clear); Glucose,Urine (UA) 500 mg/dL (Negative); Leukocyte Esterase,Urine Negative (Negative); Nitrite,Urine Negative (Negative); PH,Urine 8.5 (5.0-8.5)
[2018-07-14 16:00] LABS: Color,Urine Straw (Yellw/Straw)
--- NOTE | 2018-07-14 17:15 | ECHRPT ---
Indication: CVA/TIA CONCLUSIONS The left ventricular systolic function is normal with an estimated ejection fraction in the range of 60-65%. Normal left ventricular size. Wall thickness is normal. No regional wall motion abnormalities are present. Mild thickening of the mitral valve leaflets. Mitral annular calcification is present. Aortic valve sclerosis is present. There is trace tricuspid valve regurgitation. The estimated pulmonary arterial pressure is 31.7 mmHg. BP: / HR: Rhythm: Sinus MEASUREMENTS (Male / Female) Normal Values Technical Quality:Fair 2D ECHO LV Diastolic Diameter PLAX 4.0 cm 4.2 - 5.9 / 3.9 - 5.3 cm LV Systolic Diameter PLAX 2.8 cm IVS Diastolic Thickness 1.1 cm 0.6 - 1.0 / 0.6 - 0.9 cm LVPW Diastolic Thickness 1.1 cm 0.6 - 1.0 / 0.6 - 0.9 cm LV Relative Wall Thickness 0.6 RV Internal Dim ED PLAX 2.1 cm LVOT Diameter 1.9 cm LA Systolic Diameter LX 3.2 cm 3.0 - 4.0 / 2.7 - 3.8 cm LV Ejection Fraction MOD 4C 63.2 % LV Ejection Fraction 4C AL 64.4 % M-MODE Aortic Root Diameter MM 2.1 cm LA Systolic Diameter MM 3.6 cm LA Ao Ratio MM 1.7 AV Cusp Separation MM 1.3 cm DOPPLER AV Peak Velocity 117.0 cm/s AV Peak Gradient 5.5 mmHg LVOT Peak Velocity 106.0 cm/s LVOT Peak Gradient 4.5 mmHg AV Area Cont Eq pk 2.6 cm MV Area PHT 4.9 cm LV E' Lateral Velocity 3.3 cm/s LV E' Septal Velocity 3.0 cm/s TR Peak Velocity 233.0 cm/s TR Peak Gradient 21.7 mmHg Right Atrial Pressure 10.0 mmHg Pulmonary Artery Systolic Pressu 31.7 mmHg Right Ventricular Systolic Press 31.7 mmHg PV Peak Velocity 124.0 cm/s PV Peak Gradient 6.2 mmHg FINDINGS LEFT VENTRICLE The left ventricular systolic function is normal with an estimated ejection fraction in the range of 60-65%. Normal left ventricular size. Wall thickness is normal. No regional wall motion abnormalities are present. RIGHT VENTRICLE Normal right ventricular size and systolic function. LEFT ATRIUM The left atrial size is normal. RIGHT ATRIUM The right atrial size is normal. ATRIAL SEPTUM Normal atrial septal thickness without atrial level shunting by limited color doppler interrogation. AORTA The aortic root and proximal ascending aorta are normal in size on limited imaging. MITRAL VALVE Mild thickening of the mitral valve leaflets. Mitral annular calcification is present. AORTIC VALVE Trileaflet aortic valve. Aortic valve sclerosis is present. TRICUSPID VALVE Structurally normal tricuspid valve. There is trace tricuspid valve regurgitation. The estimated pulmonary arterial pressure is 31.7 mmHg. PULMONARY VALVE No pulmonary valve regurgitation or stenosis. VESSELS The inferior vena cava is normal in size. PERICARDIUM No pericardial effusion. Juanjo Ricks MD, FACC (Electronically Signed) Final Date:14 July 2018 17:15
--- NOTE | 2018-07-14 18:21 | MB ---
cc: Ashley Holden MD DATE: 07/14/2018 REASON FOR CONSULTATION: Stroke. HISTORY OF PRESENT ILLNESS: The patient is a 72-year-old man, brought in for right-sided deficits and aphasia. Found down in house about 9:30 in the morning. Apparently, the family yelled at him through the door about 8:30 in the morning, asked if he was okay, to which he said yes, per chart notes; however, last known normal was prior to going to bed last night. He was unable to tell the ED how he ended up on the floor, found covered in stool, aphasic, right-sided weakness. The patient has a history of hyperlipidemia, diabetes. No surgical history. SOCIAL HISTORY: He is a daily smoker of cigars, drinks 2-4 times a month. [facility] care [facility] ALLERGIES TO MEDICINE: NONE. MEDICATIONS: Please refer to his EMR. OBJECTIVE: VITAL SIGNS: Temperature 96.5, pulse 97, respiratory rate 17, blood pressure 163/97, saturating at 97% on room air. NECK: Supple, currently no bruits. HEART: Irregularly irregular. NEUROLOGIC: He is awake and alert. He is aphasic, receptive as well as expressive. Does not really follow any commands appropriately with cueing. He can lift his right arm up, the best of 4/5 in the right arm and the right leg; left is intact. He has a right facial droop as well. Toes withdraw. Cerebellar, does not follow. Gait is not to be assessed at this time. LABORATORY DATA: Reviewed. UDS is negative. Urine not done. Glucose 172. GFR 77. Coag panel: PTT 23.8. CBC: White count is normal, platelets 173,000. Neck CTA negative. Head CTA: Arthrosclerosis, but no significant stenosis. Head CT was negative, noncontrast. IMPRESSION: This is a 72-year-old man with a history of hypertension, diabetes, hyperlipidemia, with stroke symptoms; right-sided deficit, expressive and receptive aphasia, and new onset atrial fibrillation. RECOMMENDATIONS: He is started on a heparin drip without bolus. Get an MRI brain, get a 2-D echo. Check a lipid panel. PT, OT, speech therapy, rehab consult, Stroke navigator consult, SCDs. Permissible hypertension. Further recommendations will be made accordingly. I would recommend transferring him [place] to the ICU at least overnight to make sure he does not progress and is able to protect his airway. At this point in time, I think he can, but clinical course may vary. Continue current recommendations. MD CIARRA Mata/tavon , 03:26 PM , 03:35 PM
[2018-07-14 19:40] LABS: Hemoglobin 14.3 gm/dL (13.0-17.0); Mean Corpuscular HGB Conc 33.2 % (32.0-36.0); Mean Corpuscular Hemoglobin 32.3 pg (27.0-34.0); Mean Corpuscular Volume 97.3 fL (80.0-100.0); Mean Platelet Volume 9.4 fL (7.0-11.0); Platelet Count 174 th/mm3 (150-450); Red Blood Count 4.42 mil/mm3 (4.50-5.90); Red Cell Distribution Width 13.3 % (11.6-17.2); White Blood Count 12.6 th/mm3 (4.0-11.0)
[2018-07-14 20:31] LABS: Chol/HDL Ratio 1.84 Ratio; HDL Cholesterol 49.9 mg/dL (40.0-60.0); Thyroid Stimulating Hormone 0.326 uIU/mL (0.358-3.740); Troponin I 0.03 ng/mL (0.02-0.05)
[2018-07-15] MEDS: Sod Chloride 0.9% Inj 1,000 ML IV.CONT SCH ×2 (01:00→15:37)
[2018-07-15 03:57] LABS: Baso % (Auto) 0.1 % (0.0-2.0); Eos % (Auto) 0.1 % (0.0-4.0); Hematocrit 37.1 % (39.0-51.0); Hemoglobin 12.7 gm/dL (13.0-17.0); Lymph # (Auto) 0.9 th/mm3 (1.0-4.8); Lymph % (Auto) 8.1 % (9.0-44.0); Mean Corpuscular HGB Conc 34.3 % (32.0-36.0); Mean Corpuscular Hemoglobin 32.8 pg (27.0-34.0); Mean Corpuscular Volume 95.7 fL (80.0-100.0); Mean Platelet Volume 8.9 fL (7.0-11.0); Mono # (Auto) 0.8 th/mm3 (0.0-0.9); Mono % (Auto) 6.6 % (0.0-8.0); Neut # (Auto) 9.9 th/mm3 (1.8-7.7); Neut % (Auto) 85.1 % (16.0-70.0); Platelet Count 162 th/mm3 (150-450); Red Blood Count 3.88 mil/mm3 (4.50-5.90); Red Cell Distribution Width 13.4 % (11.6-17.2); White Blood Count 11.7 th/mm3 (4.0-11.0)
[2018-07-15 04:15] LABS: Albumin 3.4 g/dL (3.4-5.0); Anion Gap 15 meq/L (5-15); Aspartate Aminotransferase 20 U/L (15-37); Blood Urea Nitrogen 17 mg/dL (7-18); Chloride 101 meq/L (98-107); Glomerular Filtration Rate 76 mL/min (>89); Glucose,Random 149 mg/dL (74-106); Potassium 3.6 meq/L (3.5-5.1); Sodium 138 meq/L (136-145)
[2018-07-15 04:16] LABS: Alanine Aminotransferase 23 U/L (12-78)
[2018-07-15 04:18] LABS: Alkaline Phosphatase 49 U/L (45-117); Total Protein 7.1 g/dL (6.4-8.2)
[2018-07-15] MEDS: Insulin NovoLOG Aspart Correctional Sugar Inj SQ SCH ×4 (08:32→21:27)
--- NOTE | 2018-07-15 10:01 | P.CONCA ---
History of Present Illness Consult date: 07/15/18 Primary Care Provider: UNKNOWN Chief Complaint: Speech disturbance History of Present Illness: The patient is a very pleasant 72 year old gentleman who has a PMH of Dm2, HTN who presented with aphasia. The patient reportedly was at a birthday celebration when he was found to have aphasia and right sided weakness. He presented to [facility] and was found to be in afib. Curently he is in aflutter with variable AV block. No prior history of atrial arrhythmias per patient's . No CP/SOB/PND/Orthopnea. Review of Systems All other systems reviewed negative except as stated in [facility] - History History Provided By: Family Member, Significant Other - Medical History Medical History: Medical History (Last Reviewed 07/15/18 @ 10:14 by Paulino Bowser) High cholesterol (Acute) Diabetes type 2, controlled (Acute) Hypertension - Surgical History Surgical History: Surgical History (Last Reviewed 07/15/18 @ 10:14 by Paulino Bowser) No history of previous surgery - Family History Family History: Family History (Last Reviewed 07/14/18 @ 19:41 by Asad Main MD) Other CAD (coronary artery disease) Diabetes - Tobacco History Second Hand Smoke Exposure: No Tobacco Use In Past 30 Days: No Smoking Status: Light tobacco smoker Tobacco Type: Cigars - Alcohol History How Often Do You Have a Drink Containing Alcohol: 2 to 3 times a week - Substance Use History Substance History: No History of Abuse - Travel History Recent Travel in the [place] Within the Last 8 Weeks: No Recent Travel Out of the Country Within the Last 8 Weeks: No - Immunization History Tetanus Immunization: Unsure Hx Influenza Vaccine This Season: No Medications and Allergies Active Medications: Active Medications Acetaminophen (Tylenol) 650 mg PO Q4H PRN PRN Reason: Temp > 100.4 Atorvastatin Calcium (Lipitor) 20 mg PO DAILY [facility] Last Admin: 07/15/18 08:32 Dose: Not Given Buspirone HCl (Buspar) 5 mg PO BID [facility] Last Admin: 07/15/18 08:32 Dose: Not Given Dextrose (D50w Vial) 50 ml IV.PUSH UNSCH PRN PRN Reason: PER HYPOGLYCEMIA PROTOCOL Glucagon (Glucagon Inj) 1 mg OTHER PRN PRN PRN Reason: for Hypoglycemia Protocol Sodium Chloride (Ns Inj) 1,000 mls @ 70 mls/hr IV.CONT .[id number] [facility] Last Admin: 07/15/18 01:00 Dose: 70 mls/hr Heparin Sodium/Dextrose (Heparin/D5w 25,000 U/250 Ml) 25,000 unit in 250 mls @ 0 mls/hr IV.CONT TITRATE PRN; Protocol PRN Reason: Per Protocol Last Admin: 07/14/18 13:43 Dose: 900 units/hr, 9 mls/hr Insulin Aspart (Novolog Insulin Correctional Sugar Inj) 0 unit SQ ACHS [facility]; Protocol Last Admin: 07/15/18 08:32 Dose: Not Given Allergies Allergy/AdvReac Type Severity Reaction Status Date / Time No Known Allergies Allergy Unverified 07/14/18 09:47 Home Medications Medication Instructions Recorded Confirmed Type atorvastatin 20 mg PO DAILY 07/14/18 07/14/18 History buspirone 5 mg PO BID 07/14/18 07/14/18 History glimepiride 4 mg PO QAM 07/14/18 07/14/18 History lisinopril-hydrochlorothiazide 1 tab PO DAILY 07/14/18 07/14/18 History metformin 1,000 mg PO BID 07/14/18 07/14/18 History Exam Vital signs: Vital Signs 07/14/18 11:35 07/14/18 12:08 07/14/18 17:00 Temperature 96.5 F L 98.9 F Pulse Rate 90 97 H 81 Respiratory Rate 17 17 18 Blood Pressure 152/74 H 163/97 H 154/88 H Pulse Oximetry 95 97 97 07/14/18 20:00 07/15/18 00:00 07/15/18 04:00 Temperature 98.5 F 98.8 F 98.8 F Pulse Rate 85 81 78 Respiratory Rate 18 18 18 Blood Pressure 140/72 126/68 126/66 Pulse Oximetry 96 96 99 Intake & Output 07/14/18 07/15/18 07/15/18 18:59 06:59 18:59 Intake Total 1000 / 1000 Output Total 1075 / 1075 250 / 250 Balance -1075 / -1075 750 / 750 Weight 76.7 kg 76.9 kg Intake: IV 1000 / 1000 NS Inj 1,000 ML @ 70 mls/hr IV. 1000 / 1000 CONT .[id number] [facility] Rx#: [id number] Oral 0 / 0 Output: Urine Amount (Catheter) 1075 / 1075 250 / 250 Indwelling Urethral Catheter 1075 / 1075 250 / 250 Other: Date of Last Bowel Movement 07/14/18 07/14/18 Weight On Admission 76.7 kg - Constitutional no acute distress - Routine HEENT Exam Head: Present: normocephalic Eye: Present: EOMI ENT: Present: mucous membranes moist - Routine Neck Exam Present: supple. Absent: JVD - Routine Chest/Breast/Axilla Exam Chest wall: Absent: tenderness - Routine Respiratory Exam Present: CTA bilaterally - Routine Cardiovascular Exam Present: S1, S2, irregular rhythm. Absent: murmur - Routine Abdominal Exam Present: soft, normoactive bowel sounds. Absent: tenderness - Routine Extremities Exam Absent: edema - Routine Neurological Exam Present: alert, sensory deficit (expressive aphasia), motor deficit (RUE 3/5 strengt, RLE 2/5 strength) Results 07/16/18 02:23 07/15/18 03:30 Cardiac Enzymes 07/14/18 07/14/18 07/15/18 Range/Units 09:50 18:04 00:01 AST 24 (15-37) U/L Troponin I Less than 0.02 L 0.03 0.02 (0.02-0.05) ng/mL 07/15/18 Range/Units 03:30 AST 20 (15-37) U/L Troponin I (0.02-0.05) ng/mL Coagulation 07/14/18 07/14/18 07/15/18 Range/Units 09:48 18:04 03:30 PT 10.6 (9.8-11.6) sec APTT 23.8 L 27.5 42.7 H D (24.3-30.1) sec Lipids 07/14/18 Range/Units 18:04 Triglycerides 42 (42-150) mg/dL Cholesterol 92 L (120-200) mg/dL HDL Cholesterol 49.9 (40.0-60.0) mg/dL Cholesterol/HDL Ratio 1.84 Ratio CBC 07/14/18 07/14/18 07/15/18 Range/Units 09:50 18:04 03:30 WBC 10.6 12.6 H 11.7 H (4.0-11.0) th/mm3 RBC 4.29 L 4.42 L 3.88 L (4.50-5.90) mil/mm3 Hgb 14.3 14.3 12.7 L (13.0-17.0) gm/dL Hct 41.3 43.0 37.1 L (39.0-51.0) % Plt Count 173 174 162 (150-450) th/mm3 Neut # (Auto) 8.7 H 9.9 H (1.8-7.7) th/mm3 Lymph # (Auto) 1.1 0.9 L (1.0-4.8) th/mm3 [place] # (Auto) 0.3 0.8 (0.0-0.9) th/mm3 Eos # (Auto) 0.2 0.0 (0.0-0.4) th/mm3 Baso # (Auto) 0.3 H 0.0 (0.0-0.2) th/mm3 Comprehensive Metabolic Panel 07/14/18 07/15/18 Range/Units 09:50 03:30 Sodium 139 138 (136-145) meq/L Potassium 3.8 3.6 (3.5-5.1) meq/L Chloride 102 101 (98-107) meq/L Carbon Dioxide 22.9 22.0 (21.0-32.0) meq/L BUN 15 17 (7-18) mg/dL Creatinine 0.97 0.98 (0.60-1.30) mg/dL Calcium 9.1 8.0 L D (8.5-10.1) mg/dL AST 24 20 (15-37) U/L ALT 31 23 (12-78) U/L Alkaline Phosphatase 58 49 (45-117) U/L Total Protein 8.1 7.1 D (6.4-8.2) g/dL Albumin 4.0 3.4 D (3.4-5.0) g/dL Intake and Output 07/14/18 07/15/18 07/15/18 22:59 06:59 14:59 Intake Total 1000 / 1000 Output Total 225 / 225 250 / 250 Balance -225 / -225 750 / 750 Intake: IV 1000 / 1000 NS Inj 1,000 ML @ 70 mls/hr IV. 1000 / 1000 CONT .[id number] [facility] Rx#: [id number] Oral 0 / 0 Output: Urine Amount (Catheter) 225 / 225 250 / 250 Indwelling Urethral Catheter 225 / 225 250 / 250 Other: Date of Last Bowel Movement 07/14/18 07/14/18 Weight 76.9 kg EKG interpretations - Dysrhythmias Supraventricular dysrhythmia: atrial flutter Assessment and Plan - Plan Afib/Aflutter-rate controlled on telemetry appears to be in aflutter Agree with heparin, when cleared by Neurology would start Eliquis 5mg po BID. Would hold off on DCCV at this time in the setting of an acute stroke and asymptomatic rate controlled flutter TTE pending Allowing for permissive HTN so hold on antihypertensive or AV laquita unless in RVR Will have patient follow up as outpatient and re-evaluate need for DCCV at that time. Thank you for allowing me to participate please feel free to contact me with further questions.
--- NOTE | 2018-07-15 11:19 | P.PNIM ---
Subjective Interval history: Patient sitting in a chair. Does not appear to be in any acute distress. Dysphasia noted. Physical Exam Vital signs: Vital Signs 07/14/18 11:35 07/14/18 12:08 07/14/18 17:00 Temperature 96.5 F L 98.9 F Pulse Rate 90 97 H 81 Respiratory Rate 17 18 Blood Pressure 152/74 H 163/97 H 154/88 H Pulse Oximetry 95 97 97 07/14/18 20:00 07/15/18 00:00 07/15/18 04:00 Temperature 98.5 F 98.8 F 98.8 F Pulse Rate 85 81 78 Respiratory Rate 18 18 18 Blood Pressure 140/72 126/68 126/66 Pulse Oximetry 96 96 99 07/15/18 08:00 07/15/18 10:05 Temperature 98.6 F Pulse Rate 79 Respiratory Rate 12 Blood Pressure 133/66 Pulse Oximetry 98 96 Intake & Output 07/14/18 07/15/18 07/15/18 18:59 06:59 18:59 Intake Total 1000 / 1000 Output Total 1075 / 1075 250 / 250 Balance -1075 / -1075 750 / 750 Weight 76.7 kg 76.9 kg Intake: IV 1000 / 1000 NS Inj 1,000 ML @ 70 mls/hr IV. 1000 / 1000 CONT .[id number] [facility] Rx#: [id number] Oral 0 / 0 Output: Urine Amount (Catheter) 1075 / 1075 250 / 250 Indwelling Urethral Catheter 1075 / 1075 250 / 250 Other: Date of Last Bowel Movement 07/14/18 07/14/18 07/14/18 Weight On Admission 76.7 kg Narrative: General patient in no acute distress HEENT extraocular movements are intact, clear oropharyngeal mucosa, no JVD Cardiovascular S1-S2 audible, irregularly irregular rhythm. Respiratory clear to auscultation bilaterally Abdomen soft, nontender, nondistended, normal bowel sounds Extremities no edema 2+ distal pulses in bilateral upper and lower extremities Neuro right-sided facial droop, patient has weakness of the right upper extremity 2-3 out of 5 strength, 2 out of 3 strength of the right lower extremity. Significant dysarthria also noted. Expressive aphasia. Does not follow commands however is able to imitate. - Urinary Catheter Management Indwelling Urethral Catheter Cath placed during this visit: yes Reason for continuing: Acute urinary retention Insertion date: 07/14/18 Insertion time: 12:40 Results - Labs CBC & Chem 7: 07/15/18 03:30 07/15/18 03:30 Laboratory Results - last 24 hr 07/14/18 07/14/18 07/14/18 09:50 12:15 13:00 WBC RBC Hgb Hct MCV MCH MCHC RDW Plt Count MPV Neut % (Auto) Lymph % (Auto) [place] % (Auto) Eos % (Auto) Baso % (Auto) Neut # (Auto) Lymph # (Auto) [place] # (Auto) Eos # (Auto) Baso # (Auto) WBC Differential Differential Comment APTT Sodium Potassium Chloride Carbon Dioxide Anion Gap BUN Creatinine Estimated GFR POC Glucose 172 H Random Glucose Calcium Total Bilirubin AST ALT Alkaline Phosphatase Troponin I Total Protein Albumin Triglycerides Cholesterol LDL Cholesterol, Calc HDL Cholesterol Cholesterol/HDL Ratio TSH Ur Collection Type Urine Color Urine Clarity Urine pH Ur Specific [place] Urine Protein Urine Glucose (UA) Urine Ketones Urine Occult Blood Urine Nitrate Urine Bilirubin Urine Ictotest Urine Urobilinogen Ur Leukocyte Esterase Urine RBC Urine WBC Urine WBC Clumps Ur Squamous Epith Cells Ur Transition Epith Cell Ur Renal Epithelial Cell Calcium Carbonate Cryst Calcium Oxalate Crystal Leucine Crystals Cystine Crystals Uric Acid Crystals Triple Phos Crystals Cholesterol Crystals Tyrosine Crystals Amorphous Sediment Urine Bacteria Hyaline Casts Granular Casts Fine Granular Casts Coarse Granular Casts Waxy Casts RBC Casts WBC Casts Urine Mucus Urine Trichomonas Urine Yeast Ur Yeast w Hyphae Urine Sperm Ur Oval Fat Bodies Micro UA Comment Ur Microscopic Review Urine Culture Comments Urine Collection Time Urine Comment Nasal Screen MRSA (PCR) Urine Opiates Screen Neg Ur Barbiturates Screen Neg Ur Amphetamines Screen Neg U Benzodiazepines Scrn Neg Urine Cocaine Screen Neg U Cannabinoids Screen Neg Blood Type AB Positive Blood Type Recheck Required Antibody Screen Negative 07/14/18 07/14/18 07/14/18 13:00 13:00 17:25 WBC RBC Hgb Hct MCV MCH MCHC RDW Plt Count MPV Neut % (Auto) Lymph % (Auto) [place] % (Auto) Eos % (Auto) Baso % (Auto) Neut # (Auto) Lymph # (Auto) [place] # (Auto) Eos # (Auto) Baso # (Auto) WBC Differential Differential Comment APTT Sodium Potassium Chloride Carbon Dioxide Anion Gap BUN Creatinine Estimated GFR POC Glucose Random Glucose Calcium Total Bilirubin AST ALT Alkaline Phosphatase Troponin I Total Protein Albumin Triglycerides Cholesterol LDL Cholesterol, Calc HDL Cholesterol Cholesterol/HDL Ratio TSH Ur Collection Type Cancelled Cath Urine Color Cancelled Straw Urine Clarity Cancelled Clear Urine pH Cancelled 8.5 Ur Specific [place] Cancelled 1.010 Urine Protein Cancelled 100 H Urine Glucose (UA) Cancelled 500 H Urine Ketones Cancelled 80 or greater H Urine Occult Blood Cancelled Small H Urine Nitrate Cancelled Negative Urine Bilirubin Cancelled Negative Urine Ictotest Cancelled Urine Urobilinogen Cancelled 1.0 Ur Leukocyte Esterase Cancelled Negative Urine RBC Cancelled Urine WBC Cancelled Urine WBC Clumps Cancelled Ur Squamous Epith Cells Cancelled Ur Transition Epith Cell Cancelled Ur Renal Epithelial Cell Cancelled Calcium Carbonate Cryst Cancelled Calcium Oxalate Crystal Cancelled Leucine Crystals Cancelled Cystine Crystals Cancelled Uric Acid Crystals Cancelled Triple Phos Crystals Cancelled Cholesterol Crystals Cancelled Tyrosine Crystals Cancelled Amorphous Sediment Cancelled Urine Bacteria Cancelled Hyaline Casts Cancelled Granular Casts Cancelled Fine Granular Casts Cancelled Coarse Granular Casts Cancelled Waxy Casts Cancelled RBC Casts Cancelled WBC Casts Cancelled Urine Mucus Cancelled Urine Trichomonas Cancelled Urine Yeast Cancelled Ur Yeast w Hyphae Cancelled Urine Sperm Cancelled Ur Oval Fat Bodies Cancelled Micro UA Comment Cancelled Culture not ind Ur Microscopic Review Cancelled Microscopic reviewed Urine Culture Comments Cancelled Culture not ind Urine Collection Time Cancelled Urine Comment Cancelled Nasal Screen MRSA (PCR) Not detected Urine Opiates Screen Ur Barbiturates Screen Ur Amphetamines Screen U Benzodiazepines Scrn Urine Cocaine Screen U Cannabinoids Screen Blood Type Blood Type Recheck Antibody Screen 07/14/18 07/14/18 07/14/18 17:35 18:04 18:04 WBC 12.6 H RBC 4.42 L Hgb 14.3 Hct 43.0 MCV 97.3 MCH 32.3 MCHC 33.2 RDW 13.3 Plt Count 174 MPV 9.4 Neut % (Auto) Lymph % (Auto) [place] % (Auto) Eos % (Auto) Baso % (Auto) Neut # (Auto) Lymph # (Auto) [place] # (Auto) Eos # (Auto) Baso # (Auto) WBC Differential Differential Comment APTT Sodium Potassium Chloride Carbon Dioxide Anion Gap BUN Creatinine Estimated GFR POC Glucose 150 H Random Glucose Calcium Total Bilirubin AST ALT Alkaline Phosphatase Troponin I 0.03 Total Protein Albumin Triglycerides 42 Cholesterol 92 L LDL Cholesterol, Calc 34 HDL Cholesterol 49.9 Cholesterol/HDL Ratio 1.84 TSH 0.326 L Ur Collection Type Urine Color Urine Clarity Urine pH Ur Specific [place] Urine Protein Urine Glucose (UA) Urine Ketones Urine Occult Blood Urine Nitrate Urine Bilirubin Urine Ictotest Urine Urobilinogen Ur Leukocyte Esterase Urine RBC Urine WBC Urine WBC Clumps Ur Squamous Epith Cells Ur Transition Epith Cell Ur Renal Epithelial Cell Calcium Carbonate Cryst Calcium Oxalate Crystal Leucine Crystals Cystine Crystals Uric Acid Crystals Triple Phos Crystals Cholesterol Crystals Tyrosine Crystals Amorphous Sediment Urine Bacteria Hyaline Casts Granular Casts Fine Granular Casts Coarse Granular Casts Waxy Casts RBC Casts WBC Casts Urine Mucus Urine Trichomonas Urine Yeast Ur Yeast w Hyphae Urine Sperm Ur Oval Fat Bodies Micro UA Comment Ur Microscopic Review Urine Culture Comments Urine Collection Time Urine Comment Nasal Screen MRSA (PCR) Urine Opiates Screen Ur Barbiturates Screen Ur Amphetamines Screen U Benzodiazepines Scrn Urine Cocaine Screen U Cannabinoids Screen Blood Type Blood Type Recheck Antibody Screen 07/14/18 07/14/18 07/15/18 18:04 22:28 00:01 WBC RBC Hgb Hct MCV MCH MCHC RDW Plt Count MPV Neut % (Auto) Lymph % (Auto) [place] % (Auto) Eos % (Auto) Baso % (Auto) Neut # (Auto) Lymph # (Auto) [place] # (Auto) Eos # (Auto) Baso # (Auto) WBC Differential Differential Comment APTT 27.5 Sodium Potassium Chloride Carbon Dioxide Anion Gap BUN Creatinine Estimated GFR POC Glucose 134 H Random Glucose Calcium Total Bilirubin AST ALT Alkaline Phosphatase Troponin I 0.02 Total Protein Albumin Triglycerides Cholesterol LDL Cholesterol, Calc HDL Cholesterol Cholesterol/HDL Ratio TSH Ur Collection Type Urine Color Urine Clarity Urine pH Ur Specific [place] Urine Protein Urine Glucose (UA) Urine Ketones Urine Occult Blood Urine Nitrate Urine Bilirubin Urine Ictotest Urine Urobilinogen Ur Leukocyte Esterase Urine RBC Urine WBC Urine WBC Clumps Ur Squamous Epith Cells Ur Transition Epith Cell Ur Renal Epithelial Cell Calcium Carbonate Cryst Calcium Oxalate Crystal Leucine Crystals Cystine Crystals Uric Acid Crystals Triple Phos Crystals Cholesterol Crystals Tyrosine Crystals Amorphous Sediment Urine Bacteria Hyaline Casts Granular Casts Fine Granular Casts Coarse Granular Casts Waxy Casts RBC Casts WBC Casts Urine Mucus Urine Trichomonas Urine Yeast Ur Yeast w Hyphae Urine Sperm Ur Oval Fat Bodies Micro UA Comment Ur Microscopic Review Urine Culture Comments Urine Collection Time Urine Comment Nasal Screen MRSA (PCR) Urine Opiates Screen Ur Barbiturates Screen Ur Amphetamines Screen U Benzodiazepines Scrn Urine Cocaine Screen U Cannabinoids Screen Blood Type Blood Type Recheck Antibody Screen 07/15/18 07/15/18 07/15/18 03:30 03:30 03:30 WBC 11.7 H RBC 3.88 L Hgb 12.7 L Hct 37.1 L MCV 95.7 MCH 32.8 MCHC 34.3 RDW 13.4 Plt Count 162 MPV 8.9 Neut % (Auto) 85.1 H Lymph % (Auto) 8.1 L [place] % (Auto) 6.6 Eos % (Auto) 0.1 Baso % (Auto) 0.1 Neut # (Auto) 9.9 H Lymph # (Auto) 0.9 L [place] # (Auto) 0.8 Eos # (Auto) 0.0 Baso # (Auto) 0.0 WBC Differential . Differential Comment Auto diff final APTT 42.7 H D Sodium 138 Potassium 3.6 Chloride 101 Carbon Dioxide 22.0 Anion Gap 15 BUN 17 Creatinine 0.98 Estimated GFR 76 L POC Glucose Random Glucose 149 H Calcium 8.0 L D Total Bilirubin 0.8 AST 20 ALT 23 Alkaline Phosphatase 49 Troponin I Total Protein 7.1 D Albumin 3.4 D Triglycerides Cholesterol LDL Cholesterol, Calc HDL Cholesterol Cholesterol/HDL Ratio TSH Ur Collection Type Urine Color Urine Clarity Urine pH Ur Specific [place] Urine Protein Urine Glucose (UA) Urine Ketones Urine Occult Blood Urine Nitrate Urine Bilirubin Urine Ictotest Urine Urobilinogen Ur Leukocyte Esterase Urine RBC Urine WBC Urine WBC Clumps Ur Squamous Epith Cells Ur Transition Epith Cell Ur Renal Epithelial Cell Calcium Carbonate Cryst Calcium Oxalate Crystal Leucine Crystals Cystine Crystals Uric Acid Crystals Triple Phos Crystals Cholesterol Crystals Tyrosine Crystals Amorphous Sediment Urine Bacteria Hyaline Casts Granular Casts Fine Granular Casts Coarse Granular Casts Waxy Casts RBC Casts WBC Casts Urine Mucus Urine Trichomonas Urine Yeast Ur Yeast w Hyphae Urine Sperm Ur Oval Fat Bodies Micro UA Comment Ur Microscopic Review Urine Culture Comments Urine Collection Time Urine Comment Nasal Screen MRSA (PCR) Urine Opiates Screen Ur Barbiturates Screen Ur Amphetamines Screen U Benzodiazepines Scrn Urine Cocaine Screen U Cannabinoids Screen Blood Type Blood Type Recheck Antibody Screen 07/15/18 07/15/18 08:23 09:50 WBC RBC Hgb Hct MCV MCH MCHC RDW Plt Count MPV Neut % (Auto) Lymph % (Auto) [place] % (Auto) Eos % (Auto) Baso % (Auto) Neut # (Auto) Lymph # (Auto) [place] # (Auto) Eos # (Auto) Baso # (Auto) WBC Differential Differential Comment APTT 35.2 H Sodium Potassium Chloride Carbon Dioxide Anion Gap BUN Creatinine Estimated GFR POC Glucose 141 H Random Glucose Calcium Total Bilirubin AST ALT Alkaline Phosphatase Troponin I Total Protein Albumin Triglycerides Cholesterol LDL Cholesterol, Calc HDL Cholesterol Cholesterol/HDL Ratio TSH Ur Collection Type Urine Color Urine Clarity Urine pH Ur Specific [place] Urine Protein Urine Glucose (UA) Urine Ketones Urine Occult Blood Urine Nitrate Urine Bilirubin Urine Ictotest Urine Urobilinogen Ur Leukocyte Esterase Urine RBC Urine WBC Urine WBC Clumps Ur Squamous Epith Cells Ur Transition Epith Cell Ur Renal Epithelial Cell Calcium Carbonate Cryst Calcium Oxalate Crystal Leucine Crystals Cystine Crystals Uric Acid Crystals Triple Phos Crystals Cholesterol Crystals Tyrosine Crystals Amorphous Sediment Urine Bacteria Hyaline Casts Granular Casts Fine Granular Casts Coarse Granular Casts Waxy Casts RBC Casts WBC Casts Urine Mucus Urine Trichomonas Urine Yeast Ur Yeast w Hyphae Urine Sperm Ur Oval Fat Bodies Micro UA Comment Ur Microscopic Review Urine Culture Comments Urine Collection Time Urine Comment Nasal Screen MRSA (PCR) Urine Opiates Screen Ur Barbiturates Screen Ur Amphetamines Screen U Benzodiazepines Scrn Urine Cocaine Screen U Cannabinoids Screen Blood Type Blood Type Recheck Antibody Screen - Imaging Impressions Head MRI 07/14/18 00:00 CONCLUSION: 1. Large left-sided cerebral stroke with the abnormal area on diffusion measuring 4.5 x 9.0 cm across. 2 small areas of stroke within the external capsule on the left. Assessment and Plan - Plan This patient is a 72-year-old male with a diagnosis of hypertension, diabetes mellitus, dyslipidemia. Patient presented to our emergency department after he was found down by family members and had dysarthria, and significant right- sided hemiparesis. He was sent to our emergency department for evaluation. 1. Acute ischemic left sided CVA with right-sided hemiparesis. He was out of the window for TPA. MRI of the brain shows a large left-sided infarct. Blood pressure medications were held to allow for permissive hypertension. 2D echocardiogram did not show any significant findings, CT of the head and neck negative, CT head is negative. Continue PT/OT, he is tolerating a mechanical soft diet patient was evaluated by speech therapy. Heparin drip will be discontinued patient will be started on Eliquis as per cardiology and neurology recommendations. I will follow up with neurology on their recommendations for when to switch to po anticoagulant. Continue statin. Repeat CT Head tomorrow AM. 2. Diabetes mellitus type 2 Continue low-dose insulin sliding scale. His diabetes medication regimen will be adjusted as needed 3. Hypertension Allowing for permissive hypertension, currently blood pressure is within normal limits. 4. Dyslipidemia Continue statin.
--- NOTE | 2018-07-15 11:39 | P.PN ---
Subjective Interval history: sitting up in chair in icu aphasic Physical Exam Vital signs: Vital Signs 07/14/18 11:35 07/14/18 12:08 07/14/18 17:00 Temperature 96.5 F L 98.9 F Pulse Rate 90 97 H 81 Respiratory Rate 17 17 18 Blood Pressure 152/74 H 163/97 H 154/88 H Pulse Oximetry 95 97 97 07/14/18 20:00 07/15/18 00:00 07/15/18 04:00 Temperature 98.5 F 98.8 F 98.8 F Pulse Rate 85 81 78 Respiratory Rate 18 18 18 Blood Pressure 140/72 126/68 126/66 Pulse Oximetry 96 96 99 07/15/18 08:00 07/15/18 10:05 Temperature 98.6 F Pulse Rate 79 Respiratory Rate 12 Blood Pressure 133/66 Pulse Oximetry 98 96 Intake & Output 07/14/18 07/15/18 07/15/18 18:59 06:59 18:59 Intake Total 1000 / 1000 Output Total 1075 / 1075 250 / 250 Balance -1075 / -1075 750 / 750 Weight 76.7 kg 76.9 kg Intake: IV 1000 / 1000 NS Inj 1,000 ML @ 70 mls/hr IV. 1000 / 1000 CONT .[id number] [facility] Rx#: [id number] Oral 0 / 0 Output: Urine Amount (Catheter) 1075 / 1075 250 / 250 Indwelling Urethral Catheter 1075 / 1075 250 / 250 Other: Date of Last Bowel Movement 07/14/18 07/14/18 07/14/18 Weight On Admission 76.7 kg Narrative: awake alert right droop of face moves right side ?mild weakness aphasic not able to follow commands only imitate gait held - Constitutional no acute distress - Routine HEENT Exam Head: Present: normocephalic Eye: Present: EOMI - Urinary Catheter Management Indwelling Urethral Catheter Cath placed during this visit: yes Reason for continuing: Acute urinary retention Insertion date: 07/14/18 Insertion time: 12:40 Results - Labs CBC & Chem 7: 07/15/18 03:30 07/15/18 03:30 Laboratory Results - last 24 hr 07/14/18 07/14/18 07/14/18 09:50 12:15 13:00 WBC RBC Hgb Hct MCV MCH MCHC RDW Plt Count MPV Neut % (Auto) Lymph % (Auto) [place] % (Auto) Eos % (Auto) Baso % (Auto) Neut # (Auto) Lymph # (Auto) [place] # (Auto) Eos # (Auto) Baso # (Auto) WBC Differential Differential Comment APTT Sodium Potassium Chloride Carbon Dioxide Anion Gap BUN Creatinine Estimated GFR POC Glucose 172 H Random Glucose Calcium Total Bilirubin AST ALT Alkaline Phosphatase Troponin I Total Protein Albumin Triglycerides Cholesterol LDL Cholesterol, Calc HDL Cholesterol Cholesterol/HDL Ratio TSH Ur Collection Type Urine Color Urine Clarity Urine pH Ur Specific [place] Urine Protein Urine Glucose (UA) Urine Ketones Urine Occult Blood Urine Nitrate Urine Bilirubin Urine Ictotest Urine Urobilinogen Ur Leukocyte Esterase Urine RBC Urine WBC Urine WBC Clumps Ur Squamous Epith Cells Ur Transition Epith Cell Ur Renal Epithelial Cell Calcium Carbonate Cryst Calcium Oxalate Crystal Leucine Crystals Cystine Crystals Uric Acid Crystals Triple Phos Crystals Cholesterol Crystals Tyrosine Crystals Amorphous Sediment Urine Bacteria Hyaline Casts Granular Casts Fine Granular Casts Coarse Granular Casts Waxy Casts RBC Casts WBC Casts Urine Mucus Urine Trichomonas Urine Yeast Ur Yeast w Hyphae Urine Sperm Ur Oval Fat Bodies Micro UA Comment Ur Microscopic Review Urine Culture Comments Urine Collection Time Urine Comment Nasal Screen MRSA (PCR) Urine Opiates Screen Neg Ur Barbiturates Screen Neg Ur Amphetamines Screen Neg U Benzodiazepines Scrn Neg Urine Cocaine Screen Neg U Cannabinoids Screen Neg Blood Type AB Positive Blood Type Recheck Required Antibody Screen Negative 07/14/18 07/14/18 07/14/18 13:00 13:00 17:25 WBC RBC Hgb Hct MCV MCH MCHC RDW Plt Count MPV Neut % (Auto) Lymph % (Auto) [place] % (Auto) Eos % (Auto) Baso % (Auto) Neut # (Auto) Lymph # (Auto) [place] # (Auto) Eos # (Auto) Baso # (Auto) WBC Differential Differential Comment APTT Sodium Potassium Chloride Carbon Dioxide Anion Gap BUN Creatinine Estimated GFR POC Glucose Random Glucose Calcium Total Bilirubin AST ALT Alkaline Phosphatase Troponin I Total Protein Albumin Triglycerides Cholesterol LDL Cholesterol, Calc HDL Cholesterol Cholesterol/HDL Ratio TSH Ur Collection Type Cancelled Cath Urine Color Cancelled Straw Urine Clarity Cancelled Clear Urine pH Cancelled 8.5 Ur Specific [place] Cancelled 1.010 Urine Protein Cancelled 100 H Urine Glucose (UA) Cancelled 500 H Urine Ketones Cancelled 80 or greater H Urine Occult Blood Cancelled Small H Urine Nitrate Cancelled Negative Urine Bilirubin Cancelled Negative Urine Ictotest Cancelled Urine Urobilinogen Cancelled 1.0 Ur Leukocyte Esterase Cancelled Negative Urine RBC Cancelled Urine WBC Cancelled Urine WBC Clumps Cancelled Ur Squamous Epith Cells Cancelled Ur Transition Epith Cell Cancelled Ur Renal Epithelial Cell Cancelled Calcium Carbonate Cryst Cancelled Calcium Oxalate Crystal Cancelled Leucine Crystals Cancelled Cystine Crystals Cancelled Uric Acid Crystals Cancelled Triple Phos Crystals Cancelled Cholesterol Crystals Cancelled Tyrosine Crystals Cancelled Amorphous Sediment Cancelled Urine Bacteria Cancelled Hyaline Casts Cancelled Granular Casts Cancelled Fine Granular Casts Cancelled Coarse Granular Casts Cancelled Waxy Casts Cancelled RBC Casts Cancelled WBC Casts Cancelled Urine Mucus Cancelled Urine Trichomonas Cancelled Urine Yeast Cancelled Ur Yeast w Hyphae Cancelled Urine Sperm Cancelled Ur Oval Fat Bodies Cancelled Micro UA Comment Cancelled Culture not ind Ur Microscopic Review Cancelled Microscopic reviewed Urine Culture Comments Cancelled Culture not ind Urine Collection Time Cancelled Urine Comment Cancelled Nasal Screen MRSA (PCR) Not detected Urine Opiates Screen Ur Barbiturates Screen Ur Amphetamines Screen U Benzodiazepines Scrn Urine Cocaine Screen U Cannabinoids Screen Blood Type Blood Type Recheck Antibody Screen 07/14/18 07/14/18 07/14/18 17:35 18:04 18:04 WBC 12.6 H RBC 4.42 L Hgb 14.3 Hct 43.0 MCV 97.3 MCH 32.3 MCHC 33.2 RDW 13.3 Plt Count 174 MPV 9.4 Neut % (Auto) Lymph % (Auto) [place] % (Auto) Eos % (Auto) Baso % (Auto) Neut # (Auto) Lymph # (Auto) [place] # (Auto) Eos # (Auto) Baso # (Auto) WBC Differential Differential Comment APTT Sodium Potassium Chloride Carbon Dioxide Anion Gap BUN Creatinine Estimated GFR POC Glucose 150 H Random Glucose Calcium Total Bilirubin AST ALT Alkaline Phosphatase Troponin I 0.03 Total Protein Albumin Triglycerides 42 Cholesterol 92 L LDL Cholesterol, Calc 34 HDL Cholesterol 49.9 Cholesterol/HDL Ratio 1.84 TSH 0.326 L Ur Collection Type Urine Color Urine Clarity Urine pH Ur Specific [place] Urine Protein Urine Glucose (UA) Urine Ketones Urine Occult Blood Urine Nitrate Urine Bilirubin Urine Ictotest Urine Urobilinogen Ur Leukocyte Esterase Urine RBC Urine WBC Urine WBC Clumps Ur Squamous Epith Cells Ur Transition Epith Cell Ur Renal Epithelial Cell Calcium Carbonate Cryst Calcium Oxalate Crystal Leucine Crystals Cystine Crystals Uric Acid Crystals Triple Phos Crystals Cholesterol Crystals Tyrosine Crystals Amorphous Sediment Urine Bacteria Hyaline Casts Granular Casts Fine Granular Casts Coarse Granular Casts Waxy Casts RBC Casts WBC Casts Urine Mucus Urine Trichomonas Urine Yeast Ur Yeast w Hyphae Urine Sperm Ur Oval Fat Bodies Micro UA Comment Ur Microscopic Review Urine Culture Comments Urine Collection Time Urine Comment Nasal Screen MRSA (PCR) Urine Opiates Screen Ur Barbiturates Screen Ur Amphetamines Screen U Benzodiazepines Scrn Urine Cocaine Screen U Cannabinoids Screen Blood Type Blood Type Recheck Antibody Screen 07/14/18 07/14/18 07/15/18 18:04 22:28 00:01 WBC RBC Hgb Hct MCV MCH MCHC RDW Plt Count MPV Neut % (Auto) Lymph % (Auto) [place] % (Auto) Eos % (Auto) Baso % (Auto) Neut # (Auto) Lymph # (Auto) [place] # (Auto) Eos # (Auto) Baso # (Auto) WBC Differential Differential Comment APTT 27.5 Sodium Potassium Chloride Carbon Dioxide Anion Gap BUN Creatinine Estimated GFR POC Glucose 134 H Random Glucose Calcium Total Bilirubin AST ALT Alkaline Phosphatase Troponin I 0.02 Total Protein Albumin Triglycerides Cholesterol LDL Cholesterol, Calc HDL Cholesterol Cholesterol/HDL Ratio TSH Ur Collection Type Urine Color Urine Clarity Urine pH Ur Specific [place] Urine Protein Urine Glucose (UA) Urine Ketones Urine Occult Blood Urine Nitrate Urine Bilirubin Urine Ictotest Urine Urobilinogen Ur Leukocyte Esterase Urine RBC Urine WBC Urine WBC Clumps Ur Squamous Epith Cells Ur Transition Epith Cell Ur Renal Epithelial Cell Calcium Carbonate Cryst Calcium Oxalate Crystal Leucine Crystals Cystine Crystals Uric Acid Crystals Triple Phos Crystals Cholesterol Crystals Tyrosine Crystals Amorphous Sediment Urine Bacteria Hyaline Casts Granular Casts Fine Granular Casts Coarse Granular Casts Waxy Casts RBC Casts WBC Casts Urine Mucus Urine Trichomonas Urine Yeast Ur Yeast w Hyphae Urine Sperm Ur Oval Fat Bodies Micro UA Comment Ur Microscopic Review Urine Culture Comments Urine Collection Time Urine Comment Nasal Screen MRSA (PCR) Urine Opiates Screen Ur Barbiturates Screen Ur Amphetamines Screen U Benzodiazepines Scrn Urine Cocaine Screen U Cannabinoids Screen Blood Type Blood Type Recheck Antibody Screen 07/15/18 07/15/18 07/15/18 03:30 03:30 03:30 WBC 11.7 H RBC 3.88 L Hgb 12.7 L Hct 37.1 L MCV 95.7 MCH 32.8 MCHC 34.3 RDW 13.4 Plt Count 162 MPV 8.9 Neut % (Auto) 85.1 H Lymph % (Auto) 8.1 L [place] % (Auto) 6.6 Eos % (Auto) 0.1 Baso % (Auto) 0.1 Neut # (Auto) 9.9 H Lymph # (Auto) 0.9 L [place] # (Auto) 0.8 Eos # (Auto) 0.0 Baso # (Auto) 0.0 WBC Differential . Differential Comment Auto diff final APTT 42.7 H D Sodium 138 Potassium 3.6 Chloride 101 Carbon Dioxide 22.0 Anion Gap 15 BUN 17 Creatinine 0.98 Estimated GFR 76 L POC Glucose Random Glucose 149 H Calcium 8.0 L D Total Bilirubin 0.8 AST 20 ALT 23 Alkaline Phosphatase 49 Troponin I Total Protein 7.1 D Albumin 3.4 D Triglycerides Cholesterol LDL Cholesterol, Calc HDL Cholesterol Cholesterol/HDL Ratio TSH Ur Collection Type Urine Color Urine Clarity Urine pH Ur Specific [place] Urine Protein Urine Glucose (UA) Urine Ketones Urine Occult Blood Urine Nitrate Urine Bilirubin Urine Ictotest Urine Urobilinogen Ur Leukocyte Esterase Urine RBC Urine WBC Urine WBC Clumps Ur Squamous Epith Cells Ur Transition Epith Cell Ur Renal Epithelial Cell Calcium Carbonate Cryst Calcium Oxalate Crystal Leucine Crystals Cystine Crystals Uric Acid Crystals Triple Phos Crystals Cholesterol Crystals Tyrosine Crystals Amorphous Sediment Urine Bacteria Hyaline Casts Granular Casts Fine Granular Casts Coarse Granular Casts Waxy Casts RBC Casts WBC Casts Urine Mucus Urine Trichomonas Urine Yeast Ur Yeast w Hyphae Urine Sperm Ur Oval Fat Bodies Micro UA Comment Ur Microscopic Review Urine Culture Comments Urine Collection Time Urine Comment Nasal Screen MRSA (PCR) Urine Opiates Screen Ur Barbiturates Screen Ur Amphetamines Screen U Benzodiazepines Scrn Urine Cocaine Screen U Cannabinoids Screen Blood Type Blood Type Recheck Antibody Screen 07/15/18 07/15/18 08:23 09:50 WBC RBC Hgb Hct MCV MCH MCHC RDW Plt Count MPV Neut % (Auto) Lymph % (Auto) [place] % (Auto) Eos % (Auto) Baso % (Auto) Neut # (Auto) Lymph # (Auto) [place] # (Auto) Eos # (Auto) Baso # (Auto) WBC Differential Differential Comment APTT 35.2 H Sodium Potassium Chloride Carbon Dioxide Anion Gap BUN Creatinine Estimated GFR POC Glucose 141 H Random Glucose Calcium Total Bilirubin AST ALT Alkaline Phosphatase Troponin I Total Protein Albumin Triglycerides Cholesterol LDL Cholesterol, Calc HDL Cholesterol Cholesterol/HDL Ratio TSH Ur Collection Type Urine Color Urine Clarity Urine pH Ur Specific [place] Urine Protein Urine Glucose (UA) Urine Ketones Urine Occult Blood Urine Nitrate Urine Bilirubin Urine Ictotest Urine Urobilinogen Ur Leukocyte Esterase Urine RBC Urine WBC Urine WBC Clumps Ur Squamous Epith Cells Ur Transition Epith Cell Ur Renal Epithelial Cell Calcium Carbonate Cryst Calcium Oxalate Crystal Leucine Crystals Cystine Crystals Uric Acid Crystals Triple Phos Crystals Cholesterol Crystals Tyrosine Crystals Amorphous Sediment Urine Bacteria Hyaline Casts Granular Casts Fine Granular Casts Coarse Granular Casts Waxy Casts RBC Casts WBC Casts Urine Mucus Urine Trichomonas Urine Yeast Ur Yeast w [place]phae Urine Sperm Ur Oval Fat Bodies Micro UA Comment Ur Microscopic Review Urine Culture Comments Urine Collection Time Urine Comment Nasal Screen MRSA (PCR) Urine Opiates Screen Ur Barbiturates Screen Ur Amphetamines Screen U Benzodiazepines Scrn Urine Cocaine Screen U Cannabinoids Screen Blood Type Blood Type Recheck Antibody Screen - Imaging Impressions Head MRI 07/14/18 00:00 CONCLUSION: 1. Large left-sided cerebral stroke with the abnormal area on diffusion measuring 4.5 x 9.0 cm across. 2 small areas of stroke within the external capsule on the left. Assessment and Plan - Assessment (1) CVA (cerebral vascular accident) Code(s): I63.9 - Cerebral infarction, unspecified Status: Acute - Plan large left sided cva-on heparin needs to be monitored for worsening symptoms and will need ct in am watch for hemor conversion-if stable next 48hrs anticipate change to po [id number],rehab permissible htn next 1-2 days avoid hypotension. a fib/flutter-cardiology on case w/u ongoing.
--- NOTE | 2018-07-15 13:16 | MG ---
cc: Kevin Dangelo MD, PhD TEST NUMBER: [id number] TECHNIQUE: This is a 17-channel EEG. DESCRIPTION: Background rhythm reveals slowing in the theta frequency, roughly 5-6 Hz. There is some beta activity, which is probably medication effect as well as muscle artifact. There are no lateralizing features seen. There are no epileptiform discharges present. Hyperventilation was not performed. Photic results in a modest driving response. INTERPRETATION: Mildly abnormal study consistent with a mild to moderate encephalopathy. Kevin Dangelo MD, PhD ARIE/viviana , 12:52 PM , 12:58 PM
[2018-07-15 15:55] LABS: Hemoglobin A1c 6.8 % (4.3-6.0)
--- NOTE | 2018-07-15 16:46 | ECG ---
Date Performed: 07/14/2018 Time Performed: 10:32:51 PTAGE: 72 years EKG: Atrial fibrillation/flutter. INCOMPLETE RIGHT BUNDLE BRANCH BLOCK with secondary ST-T Wave changes. POSSIBLE LATERAL MYOCARDIAL INFARCTION ABNORMAL ECG NO PREVIOUS TRACING DOCTOR: Juan Alberto Dias Interpretating Date/Time 07/15/2018 16:46:11
[2018-07-16 02:47] LABS: Hematocrit 38.2 % (39.0-51.0); Hemoglobin 13.1 gm/dL (13.0-17.0); Mean Corpuscular HGB Conc 34.4 % (32.0-36.0); Mean Corpuscular Hemoglobin 33.3 pg (27.0-34.0); Mean Platelet Volume 8.9 fL (7.0-11.0); Platelet Count 144 th/mm3 (150-450); Red Blood Count 3.94 mil/mm3 (4.50-5.90); Red Cell Distribution Width 13.2 % (11.6-17.2); White Blood Count 10.1 th/mm3 (4.0-11.0)
--- NOTE | 2018-07-16 04:56 | CT ---
EXAM DATE: 07/16/2018 4:40 AM EDT AGE/SEX: 72 years / Male INDICATIONS: Follow up stroke. CLINICAL DATA: This is the patient's subsequent encounter. Patient reports that signs and symptoms h ave been present for 2 days and indicates a pain score of Nonresponsive. MEDICAL/SURGICAL HISTORY: Cardiovascular disease. Hypertension. Diabetes mellitus type II. None. RADIATION DOSE: 44.52 CTDI (mGy) COMPARISON: [facility], MR HEAD W/O CONTRAST, 07/14/2018. . TECHNIQUE: CT of the head without contrast. Using automated exposure control and adjustment of the mA and/or kV according to patient size, radiation dose was kept as low as reasonably achievable to ob tain optimal diagnostic quality images. DICOM format image data is available electronically for revi ew and comparison. FINDINGS: Cerebrum: There is an evolving infarct in the left occipital lobe and medial temporal lobe and in th e area of the left external capsule. Mild localized sulcal effacement. No significant midline shift. No significant hemorrhage. Posterior Fossa: The cerebellum and brainstem are intact. The 4th ventricle is midline. The cerebe llopontine angle is unremarkable. Extracranial: The visualized portion of the orbits is intact. Skull: The calvaria is intact. No evidence of skull fracture. CONCLUSION: 1. Evolving infarct on the left as above without significant mass effect or shift. . Electronically signed by: Mars White MD 07/16/2018 4:54 AM EDT
[2018-07-16] MEDS: Insulin NovoLOG Aspart Correctional Sugar Inj SQ SCH ×4 (10:49→20:40)
[2018-07-16] MEDS: Heparin Drip 25,000 UNIT/250 ML BAG IV.CONT PRN (10:50)
--- NOTE | 2018-07-16 14:03 | P.PNIM ---
Subjective Interval history: Patient remains aphasic. Discussed with his daughter at bedside. He does not follow commands well. Physical Exam Vital signs: Vital Signs 07/15/18 16:00 07/15/18 20:00 07/15/18 20:53 Temperature 98.3 F 98.5 F Pulse Rate 80 76 Respiratory Rate 17 19 Blood Pressure 137/70 158/74 H Pulse Oximetry 94 L 95 95 07/16/18 00:00 07/16/18 04:00 07/16/18 08:00 Temperature 98.8 F 98.8 F 98.5 F Pulse Rate 78 78 78 Respiratory Rate 16 16 14 Blood Pressure 168/81 H 160/79 H 148/83 H Pulse Oximetry 92 L 95 94 L 07/16/18 12:00 Temperature 98.4 F Pulse Rate 86 Respiratory Rate 18 Blood Pressure 149/81 H Pulse Oximetry 97 Intake & Output 07/15/18 07/16/18 07/16/18 18:59 06:59 18:59 Intake Total 1480 / 1480 250 / 250 Output Total 450 / 450 700 / 700 Balance 1030 / 1030 -450 / -450 Weight 79.3 kg Intake: IV 1000 / 1000 250 / 250 Heparin/D5W 25,000 U/250 mL 25, 250 / 250 000 unit In 250 ml @ Per Protocol IV.CONT TITRATE PRN Rx #:[id number] NS Inj 1,000 ML @ 70 mls/hr IV. 1000 / 1000 CONT .[id number] Rx#: [id number] Oral 480 / 480 Output: Urine Amount (Catheter) 450 / 450 700 / 700 Indwelling Urethral Catheter 450 / 450 700 / 700 Other: Date of Last Bowel Movement 07/14/18 07/14/18 07/14/18 # Bowel Movements 0 0 Narrative: GENERAL: This is a well-nourished, well-developed patient, in no apparent distress. CARDIOVASCULAR: Normal rate and regular rhythm without murmurs, gallops, or rubs. RESPIRATORY: Good respiratory efforts. Breath sounds equal and clear to auscultation bilaterally. GASTROINTESTINAL: Abdomen soft, non-tender, non-distended. Normal active bowel sounds MUSCULOSKELETAL: Extremities without cyanosis, or edema. NEURO: right-sided facial droop, right upper extremity 1 out of 5 strength. He does not following commands for the lower extremities. Does not follow commands. PSYCH: Calm - Urinary Catheter Management Indwelling Urethral Catheter Cath placed during this visit: yes Reason for continuing: Acute urinary retention Insertion date: 07/14/18 Insertion time: 12:40 Results - Labs CBC & Chem 7: 07/16/18 02:23 07/15/18 03:30 Laboratory Results - last 24 hr 07/14/18 07/15/18 07/15/18 09:50 17:30 18:02 WBC RBC Hgb Hct MCV MCH MCHC RDW Plt Count MPV APTT 38.3 H POC Glucose 225 H Hemoglobin A1c 6.8 H 07/15/18 07/16/18 07/16/18 21:01 02:23 03:20 WBC 10.1 RBC 3.94 L Hgb 13.1 Hct 38.2 L MCV 97.0 MCH 33.3 MCHC 34.4 RDW 13.2 Plt Count 144 L MPV 8.9 APTT 47.3 H D POC Glucose 168 H Hemoglobin A1c 07/16/18 07/16/18 08:12 12:20 WBC RBC Hgb Hct MCV MCH MCHC RDW Plt Count MPV APTT POC Glucose 197 H 160 H Hemoglobin A1c - Imaging Impressions Head CT 07/16/18 10:00 CONCLUSION: 1. Evolving infarct on the left as above without significant mass effect or shift. . Assessment and Plan - Plan 72-year-old male with acute left-sided CVA: 1. 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 He was out of the window for TPA. MRI of the brain shows a large left-sided infarct. Blood pressure medications were held to allow for permissive hypertension. 2D echocardiogram did not show any significant findings, CT of the head and neck negative, CT head is negative. Continue PT/OT, he is tolerating a mechanical soft diet Continue heparin drip. To be transitioned to Eliquis in another 24 hours per neurology recommendations. Continue statin. 2. Diabetes mellitus type 2 Continue low-dose insulin sliding scale. Diabetes medication regimen will be adjusted as needed 3. Hypertension Allowing for permissive hypertension, currently blood pressure acceptable. 4. Dyslipidemia Continue statin. Discharge Planning: Stable for transfer to the medical floor.
[2018-07-16] MEDS: Sod Chloride 0.9% Inj 1,000 ML IV.CONT SCH ×2 (15:15→20:43)
[2018-07-16] MEDS: Acetaminophen 325 MG Tablet PO PRN (19:56)
--- NOTE | 2018-07-17 09:29 | P.PNIM ---
Subjective Interval history: Patient remains aphasic. He does not follow commands well. Discussed with RN. No new issues. Physical Exam Vital signs: Vital Signs 07/16/18 12:00 07/16/18 16:00 07/16/18 19:54 Temperature 98.4 F 98.3 F Pulse Rate 86 80 Respiratory Rate 18 18 Blood Pressure 149/81 H 158/85 H Pulse Oximetry 97 95 96 07/16/18 20:00 07/17/18 00:00 07/17/18 04:00 Temperature 100.1 F H 98.4 F 98.1 F Pulse Rate 86 80 86 Respiratory Rate 17 19 21 Blood Pressure 164/82 H 162/84 H 175/81 H Pulse Oximetry 95 92 L 95 07/17/18 07:51 Temperature Pulse Rate Respiratory Rate Blood Pressure Pulse Oximetry 97 Intake & Output 07/16/18 07/17/18 07/17/18 18:59 06:59 18:59 Intake Total 1480 / 1480 Output Total 725 / 725 725 / 725 Balance 755 / 755 -725 / -725 Weight 79.7 kg Intake: IV 1000 / 1000 NS Inj 1,000 ML @ 70 mls/hr IV. 1000 / 1000 CONT .[id number] Rx#: [id number] Oral 480 / 480 Output: Stool 0 / 0 Urine Amount (Catheter) 725 / 725 725 / 725 Indwelling Urethral Catheter 725 / 725 725 / 725 Other: Date of Last Bowel Movement 07/14/18 07/14/18 # Bowel Movements 0 Narrative: GENERAL: This is a well-nourished, well-developed patient, in no apparent distress. CARDIOVASCULAR: Normal rate and regular rhythm without murmurs, gallops, or rubs. RESPIRATORY: Good respiratory efforts. Breath sounds equal and clear to auscultation bilaterally. GASTROINTESTINAL: Abdomen soft, non-tender, non-distended. Normal active bowel sounds MUSCULOSKELETAL: Extremities without cyanosis, or edema. NEURO: right-sided facial droop, right upper extremity 1 out of 5 strength. He is able to move the lower extremities but has significant weakness. PSYCH: Calm - Urinary Catheter Management Indwelling Urethral Catheter Cath placed during this visit: yes Reason for continuing: Acute urinary retention Insertion date: 07/14/18 Insertion time: 12:40 Results - Labs CBC & Chem 7: 07/16/18 02:23 07/15/18 03:30 Laboratory Results - last 24 hr 07/16/18 07/16/18 07/16/18 12:20 17:17 20:06 APTT POC Glucose 160 H 195 H 220 H 07/16/18 07/17/18 23:22 08:22 APTT 42.0 H POC Glucose 162 H Assessment and Plan - Plan 72-year-old male with acute left-sided CVA: 1. 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 He was out of the window for TPA. MRI of the brain shows a large left-sided infarct. Blood pressure medications were held to allow for permissive hypertension. 2D echocardiogram did not show any significant findings, CT of the head and neck negative, CT head is negative. Continue PT/OT, he is tolerating a mechanical soft diet Discontinue heparin drip. Transition to Eliquis Continue statin. 2. Diabetes mellitus type 2 Continue low-dose insulin sliding scale. Diabetes medication regimen will be adjusted as needed 3. Hypertension Resume lisinopril. Continue to monitor 4. Dyslipidemia Continue statin. Discharge Planning: Stable for transfer to the medical floor. Will need rehab. [facility] versus SNF.
[2018-07-17] MEDS: Insulin NovoLOG Aspart Correctional Sugar Inj SQ SCH ×4 (09:40→22:55)
[2018-07-17] MEDS: Lisinopril 10 MG Tablet PO SCH (12:59)
[2018-07-17] MEDS: Acetaminophen 325 MG Tablet PO PRN (17:50)
[2018-07-18] MEDS: Insulin NovoLOG Aspart Correctional Sugar Inj SQ SCH ×4 (09:04→22:45)
[2018-07-18] MEDS: Lisinopril 10 MG Tablet PO SCH (09:04)
--- NOTE | 2018-07-18 10:02 | P.PN ---
Subjective Interval history: decreased motor in rue>rle aphasic not following commands Physical Exam Vital signs: Vital Signs 07/17/18 12:00 07/17/18 16:00 07/17/18 20:00 Temperature 99.4 F 101.3 F H 98.3 F Pulse Rate 86 92 H 98 H Respiratory Rate 21 21 18 Blood Pressure 156/70 H 157/78 H 159/85 H Pulse Oximetry 100 93 L 98 07/18/18 00:00 07/18/18 04:00 07/18/18 07:36 Temperature 97.9 F 99.4 F Pulse Rate 86 81 Respiratory Rate 19 18 Blood Pressure 163/88 H 168/87 H Pulse Oximetry 95 95 98 07/18/18 08:00 Temperature 98.6 F Pulse Rate 85 Respiratory Rate 18 Blood Pressure 163/87 H Pulse Oximetry 95 Intake & Output 07/17/18 07/18/18 07/18/18 18:59 06:59 18:59 Intake Total 250 / 250 1000 / 1000 Output Total 1300 / 1300 Balance 250 / 250 -1300 / -1300 1000 / 1000 Weight 76.9 kg Intake: IV 250 / 250 1000 / 1000 Heparin/D5W 25,000 U/250 mL 25, 250 / 250 000 unit In 250 ml @ Per Protocol IV.CONT TITRATE PRN Rx #:[id number] NS Inj 1,000 ML @ 70 mls/hr IV. 1000 / 1000 CONT .[id number] Rx#: [id number] Output: Urine 1300 / 1300 Other: Date of Last Bowel Movement 07/14/18 07/18/18 Narrative: awake alert nonverbal aphasic does not follow left side nl left leg can w/d with noxious stimuli left arm flaccid toes up right - Urinary Catheter Management Indwelling Urethral Catheter Cath placed during this visit: yes, but has since been removed by the nurse Reason for continuing: Decision to DC catheter Insertion date: 07/14/18 Insertion time: 12:40 Removal date: 07/17/18 Removal time: 17:30 Results - Labs CBC & Chem 7: 07/16/18 02:23 07/15/18 03:30 Laboratory Results - last 24 hr 07/17/18 07/17/18 07/17/18 12:37 18:15 22:46 POC Glucose 178 H 192 H 205 H 09/13/18 07:01 POC Glucose 161 H Assessment and Plan - Assessment (1) CVA (cerebral vascular accident) Code(s): I63.9 - Cerebral infarction, unspecified Status: Acute - Plan repeat mri today for progression/extension eliquis 5mg bid pt-ot-st rehab sherrie may need another swallow evaluation by ST.
--- NOTE | 2018-07-18 15:57 | P.PNIM ---
Subjective Interval history: Patient is not moving the right upper extremity. Discussed with Dr. Holden. Concern for stroke extension/progression. Profoundly weak in bilateral lower extremity Physical Exam Vital signs: Vital Signs 07/17/18 16:00 07/17/18 20:00 07/18/18 00:00 Temperature 101.3 F H 98.3 F 97.9 F Pulse Rate 92 H 98 H 86 Respiratory Rate 21 18 19 Blood Pressure 157/78 H 159/85 H 163/88 H Pulse Oximetry 93 L 98 95 07/18/18 04:00 07/18/18 07:36 07/18/18 08:00 Temperature 99.4 F 98.6 F Pulse Rate 81 85 Respiratory Rate 18 18 Blood Pressure 168/87 H 163/87 H Pulse Oximetry 95 98 95 Intake & Output 07/17/18 07/18/18 07/18/18 18:59 06:59 18:59 Intake Total 250 / 250 1000 / 1000 Output Total 1300 / 1300 Balance 250 / 250 -1300 / -1300 1000 / 1000 Weight 76.9 kg Intake: IV 250 / 250 1000 / 1000 Heparin/D5W 25,000 U/250 mL 25, 250 / 250 000 unit In 250 ml @ Per Protocol IV.CONT TITRATE PRN Rx #:[id number] NS Inj 1,000 ML @ 70 mls/hr IV. 1000 / 1000 CONT .[id number] [facility] Rx#: [id number] Output: Urine 1300 / 1300 Other: Date of Last Bowel Movement 07/14/18 07/18/18 Narrative: GENERAL: Awake, not following commands. CARDIOVASCULAR: Normal rate and regular rhythm without murmurs, gallops, or rubs. RESPIRATORY: Good respiratory efforts. Breath sounds equal and clear to auscultation bilaterally. GASTROINTESTINAL: Abdomen soft, non-tender, non-distended. Normal active bowel sounds MUSCULOSKELETAL: Extremities without cyanosis, or edema. NEURO: right-sided facial droop, right upper extremity is flaccid compared to 1 out of 5 yesterday. He is able to wiggle his toes intermittently. Not following commands well. PSYCH: Calm - Urinary Catheter Management Indwelling Urethral Catheter Cath placed during this visit: yes, but has since been removed by the nurse Reason for continuing: Decision to DC catheter Insertion date: 07/14/18 Insertion time: 12:40 Removal date: 07/17/18 Removal time: 17:30 Results - Labs CBC & Chem 7: 07/16/18 02:23 07/15/18 03:30 Laboratory Results - last 24 hr 07/17/18 07/17/18 07/18/18 18:15 22:46 07:01 POC Glucose 192 H 205 H 161 H 07/18/18 11:35 POC Glucose 167 H Assessment and Plan - Plan 72-year-old male with acute left-sided CVA: 1. 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 He was out of the window for TPA. MRI of the brain shows a large left-sided infarct. Blood pressure medications were held to allow for permissive hypertension. 2D echocardiogram did not show any significant findings, CT of the head and neck negative, CT head is negative. Continue PT/OT, he is tolerating a mechanical soft diet Heparin drip previously discontinued. Currently on Eliquis Continue statin. Discussed with neurology, repeat MRI to evaluate for extension/progression of stroke given worsening of symptoms. 2. Diabetes mellitus type 2 Continue low-dose insulin sliding scale. Diabetes medication regimen will be adjusted as needed 3. Hypertension Resume lisinopril. Continue to monitor 4. Dyslipidemia Continue statin. Discharge Planning: Will need rehab. [facility] versus SNF.
[2018-07-19 08:34] LABS: Hematocrit 38.2 % (39.0-51.0); Hemoglobin 13.2 gm/dL (13.0-17.0); Mean Corpuscular HGB Conc 34.5 % (32.0-36.0); Mean Corpuscular Hemoglobin 33.1 pg (27.0-34.0); Mean Corpuscular Volume 95.9 fL (80.0-100.0); Platelet Count 171 th/mm3 (150-450); Red Blood Count 3.99 mil/mm3 (4.50-5.90); Red Cell Distribution Width 12.9 % (11.6-17.2); White Blood Count 7.2 th/mm3 (4.0-11.0)
[2018-07-19] MEDS: Insulin NovoLOG Aspart Correctional Sugar Inj SQ SCH ×4 (08:42→22:05)
[2018-07-19] MEDS: Lisinopril 10 MG Tablet PO SCH (08:43)
[2018-07-19 09:02] LABS: Anion Gap 13 meq/L (5-15); Blood Urea Nitrogen 21 mg/dL (7-18); Calcium 8.4 mg/dL (8.5-10.1); Chloride 105 meq/L (98-107); Glomerular Filtration Rate Greater Than 89 mL/min (>89); Glucose,Random 152 mg/dL (74-106); Potassium 3.3 meq/L (3.5-5.1); Sodium 141 meq/L (136-145)
--- NOTE | 2018-07-19 09:29 | MR ---
EXAM DATE: 07/18/2018 1:16 PM EDT AGE/SEX: 72 years / Male INDICATIONS: CVA. Right sided weakness. CLINICAL DATA: This is the patient's initial encounter. Patient reports that signs and symptoms have been present for 1 day and indicates a pain score of 0/10. MEDICAL/SURGICAL HISTORY: Diabetes mellitus type II. Hypertension. Coronary artery disease. N one. COMPARISON: [facility], MR HEAD W/O CONTRAST, 07/14/2018. . TECHNIQUE: Multiplanar, multisequence examination of the brain was performed without contrast. FINDINGS: Again seen are signal changes involving the left occipital lobe, temporal lobe, and parietal lobe con sistent with infarction. The area of infarction is becoming more delineated on the current study. Th ere is an area of restricted diffusion involving the cortex and subcortical white matter of the left parietal lobe extending down to the lateral ventricle which was not present on the prior study. Multi ple foci of restricted diffusion involving the external capsule on the left, left thalamus and basal ganglia on the left consistent with smaller areas of infarction. Some of these areas are new relative to the prior study. There has been progression in the edema involving the left occipital lobe and te mporal lobe with effacement of the sulcal pattern. There is also narrowing of the atria of the latera l ventricle. No herniation seen. Blooming artifact is seen on the gradient echo sequence within the a [place] of infarction consistent with underlying blood product. Gross hemorrhage is not observed. CONCLUSION: 1. Maturation of the infarction involving the left cerebral hemisphere as detailed above. There are new areas of infarction seen involving the basal ganglia and left parietal lobe when compared to the prior study. There has been development of blooming artifact involving the infarct bed on the gradien t echo sequence consistent with underlying hemosiderin products but no gross intracranial hemorrhage is observed. Electronically signed by: Mike Yuen MD 07/18/2018 1:28 PM EDT
--- NOTE | 2018-07-19 16:57 | P.PNIM ---
Subjective Interval history: Patient is better today from a neurological standpoint. Discussed with his . He is able to say a few words on and off. Right upper extremity strength has been intermittently Physical Exam Vital signs: Vital Signs 07/18/18 20:00 07/18/18 20:43 07/19/18 00:00 Temperature 98.7 F 99.3 F Pulse Rate 94 H 82 Respiratory Rate 18 18 Blood Pressure 177/85 H 160/98 H Pulse Oximetry 97 97 96 07/19/18 04:00 07/19/18 07:28 07/19/18 08:00 Temperature 98.3 F 97.9 F Pulse Rate 92 H 100 H Respiratory Rate 18 20 Blood Pressure 167/91 H 166/94 H Pulse Oximetry 95 96 96 07/19/18 10:30 07/19/18 12:00 07/19/18 15:57 Temperature 98.3 F 99.4 F Pulse Rate 93 H 96 H Respiratory Rate 18 20 Blood Pressure 163/89 H 161/93 H Pulse Oximetry 96 98 96 Intake & Output 07/18/18 07/19/18 07/19/18 18:59 06:59 18:59 Intake Total 1480 / 1480 240 / 240 720 / 720 Output Total 200 / 200 700 / 700 450 / 450 Balance 1280 / 1280 -460 / -460 270 / 270 Weight 76.7 kg Intake: IV 1000 / 1000 NS Inj 1,000 ML @ 70 mls/hr IV. 1000 / 1000 CONT .[id number] Rx#: [id number] Oral 480 / 480 240 / 240 720 / 720 Output: Urine 200 / 200 700 / 700 450 / 450 Other: Date of Last Bowel Movement 07/18/18 07/18/18 07/18/18 # Incontinent Bowel Movements 1 Narrative: GENERAL: Awake, not following commands. CARDIOVASCULAR: Normal rate and regular rhythm without murmurs, gallops, or rubs. RESPIRATORY: Good respiratory efforts. Breath sounds equal and clear to auscultation bilaterally. GASTROINTESTINAL: Abdomen soft, non-tender, non-distended. Normal active bowel sounds MUSCULOSKELETAL: Extremities without cyanosis, or edema. NEURO: right-sided facial droop, right upper extremity is 1 out of 5 today. He is able to wiggle his toes. Following commands better. He said a couple of words. PSYCH: Calm - Urinary Catheter Management Indwelling Urethral Catheter Cath placed during this visit: yes, but has since been removed by the nurse Reason for continuing: Not indwelling catheter Insertion date: 07/14/18 Insertion time: 12:40 Removal date: 07/17/18 Removal time: 17:30 Results - Labs CBC & Chem 7: 07/19/18 08:11 07/19/18 08:11 Laboratory Results - last 24 hr 07/18/18 07/18/18 07/19/18 17:00 20:22 07:14 WBC RBC Hgb Hct MCV MCH MCHC RDW Plt Count MPV Sodium Potassium Chloride Carbon Dioxide Anion Gap BUN Creatinine Estimated GFR POC Glucose 222 H 202 H 182 H Random Glucose Calcium 07/19/18 07/19/18 07/19/18 08:11 08:11 11:20 WBC 7.2 RBC 3.99 L Hgb 13.2 Hct 38.2 L MCV 95.9 MCH 33.1 MCHC 34.5 RDW 12.9 Plt Count 171 MPV 9.0 Sodium 141 Potassium 3.3 L Chloride 105 Carbon Dioxide 23.0 Anion Gap 13 BUN 21 H Creatinine 0.62 Estimated GFR Greater than 89 POC Glucose 235 H Random Glucose 152 H Calcium 8.4 L - Imaging Impressions Head MRI 07/18/18 00:00 CONCLUSION: 1. Maturation of the infarction involving the left cerebral hemisphere as detailed above. There are new areas of infarction seen involving the basal ganglia and left parietal lobe when compared to the prior study. There has been development of blooming artifact involving the infarct bed on the gradient echo sequence consistent with underlying hemosiderin products but no gross intracranial hemorrhage is observed. Assessment and Plan - Plan 72-year-old male with acute left-sided CVA: 1. 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 He was out of the window for TPA. MRI of the brain shows a large left-sided infarct. Blood pressure medications were held to allow for permissive hypertension. 2D echocardiogram did not show any significant findings, CT of the head and neck negative, CT head is negative. Continue PT/OT, he is tolerating a mechanical soft diet Heparin drip previously discontinued. Currently on Eliquis Continue statin. Discussed with neurology, repeat MRI on 07/18/18 shows new areas of infarction seen involving the basal ganglia and left parietal lobe when compared to the prior study. Symptoms improving today. Will continue to monitor him for another 24 hours with plan to discharge to [place] tomorrow. 2. Diabetes mellitus type 2 Continue low-dose insulin sliding scale. Diabetes medication regimen will be adjusted as needed 3. Hypertension Resume lisinopril. Continue to monitor 4. Dyslipidemia Continue statin. Discharge Planning: Probable DC tomorrow
--- NOTE | 2018-07-19 19:21 | P.CONREH ---
History of Present Illness Service: Physical medicine and rehabilitation Consult date: 07/19/18 Reason for Consult: Comprehensive rehabilitation evaluation Primary Care Provider: UNKNOWN Chief Complaint: Speech disturbance History of Present Illness: Serge Rae is a 72-year-old male admitted [facility] 07/14/18 with right- sided weakness and difficulty speaking. Head CT was negative. Brain MRI showed left cerebral stroke 4.5 x 9 cm and left external capsule stroke. He was found to have atrial fibrillation on EKG. He was evaluated by cardiology who recommended Eliquis. Repeat head CT 07/16/18 showed evolving left-sided infarct. On 07/18/18 he was noted to have increased right upper and lower extremity weakness. Follow-up MRI 07/18/18 showed new infarct in the left parietal and basal ganglia. He is currently tolerating mechanical soft diet per speech therapy recommendations. He requires moderate to maximal assistance for transfers and is able to ambulate 2-3 feet with a rolling walker and assistance for chief operating officer on the right. Review of Systems other (Limited due to aphasia but patient appears to deny any pain complaints ) PMF - History History Provided By: Family Member, Significant Other - Medical History Medical History: Medical History (Last Reviewed 07/19/18 @ 08:05 by Kaushik Sheppard) High cholesterol (Acute) Diabetes type 2, controlled (Acute) Hypertension - Surgical History Surgical History: Surgical History (Last Reviewed 07/19/18 @ 08:05 by Kaushik Sheppard) No history of previous surgery - Family History Family History: Family History (Last Reviewed 07/17/18 @ 08:06 by Pawel Spencer) Other CAD (coronary artery disease) Diabetes - Tobacco History Second Hand Smoke Exposure: No Tobacco Use In Past 30 Days: No Smoking Status: Light tobacco smoker Tobacco Type: Cigars - Alcohol History How Often Do You Have a Drink Containing Alcohol: 2 to 3 times a week - Substance Use History Substance History: No History of Abuse - Travel History Recent Travel in the [place] Within the Last 8 Weeks: No Recent Travel Out of the Country Within the Last 8 Weeks: No - Immunization History Tetanus Immunization: Unsure Hx Influenza Vaccine This Season: No Medications and Allergies Active Medications: Active Medications Acetaminophen (Tylenol) 650 mg PO Q4H PRN PRN Reason: Temp > 100.4 Last Admin: 07/17/18 17:50 Dose: 650 mg Apixaban (Eliquis) 5 mg PO BID [facility] Last Admin: 07/19/18 08:43 Dose: 5 mg Atorvastatin Calcium (Lipitor) 40 mg PO HS [facility] Last Admin: 07/18/18 22:45 Dose: 40 mg Buspirone HCl (Buspar) 5 mg PO BID [facility] Last Admin: 07/19/18 08:43 Dose: 5 mg Dextrose (D50w Vial) 50 ml IV.PUSH UNSCH PRN PRN Reason: PER HYPOGLYCEMIA PROTOCOL Glucagon (Glucagon Inj) 1 mg OTHER PRN PRN PRN Reason: for Hypoglycemia Protocol Insulin Aspart (Novolog Insulin Correctional Sugar Inj) 0 unit SQ ACHS [facility]; Protocol Last Admin: 07/19/18 17:44 Dose: 3 unit Lisinopril (Prinivil) 10 mg PO DAILY [facility] Last Admin: 07/19/18 08:43 Dose: 10 mg Allergies Allergy/AdvReac Type Severity Reaction Status Date / Time No Known Allergies Allergy Unverified 07/14/18 09:47 Home Medications Medication Instructions Recorded Confirmed Type atorvastatin 20 mg PO DAILY 07/14/18 07/14/18 History buspirone 5 mg PO BID 07/14/18 07/14/18 History glimepiride 4 mg PO QAM 07/14/18 07/14/18 History lisinopril-hydrochlorothiazide 1 tab PO DAILY 07/14/18 07/14/18 History metformin 1,000 mg PO BID 07/14/18 07/14/18 History Exam - Physical Examination Vital Signs / I&O: Vital Signs 07/18/18 20:00 07/18/18 20:43 07/19/18 00:00 Temperature 98.7 F 99.3 F Pulse Rate 94 H 82 Respiratory Rate 18 18 Blood Pressure 177/85 H 160/98 H Pulse Oximetry 97 97 96 07/19/18 04:00 07/19/18 07:28 07/19/18 08:00 Temperature 98.3 F 97.9 F Pulse Rate 92 H 100 H Respiratory Rate 18 20 Blood Pressure 167/91 H 166/94 H Pulse Oximetry 95 96 96 07/19/18 10:30 07/19/18 12:00 07/19/18 15:57 Temperature 98.3 F 99.4 F Pulse Rate 93 H 96 H Respiratory Rate 18 20 Blood Pressure 163/89 H 161/93 H Pulse Oximetry 96 98 96 Intake & Output 07/19/18 07/19/18 07/20/18 06:59 18:59 06:59 Intake Total 240 / 240 1200 / 1200 Output Total 700 / 700 650 / 650 Balance -460 / -460 550 / 550 Weight 76.7 kg Intake: Oral 240 / 240 1200 / 1200 Output: Urine 700 / 700 650 / 650 Other: Date of Last Bowel Movement 07/18/18 07/18/18 # Bowel Movements 1 Intake & Output 07/17/18 07/18/18 07/19/18 07/20/18 06:59 06:59 06:59 06:59 Intake Total 1480 / 1480 250 / 250 1720 / 1720 1200 / 1200 Output Total 1450 / 1450 1300 / 1300 900 / 900 650 / 650 Balance 30 / 30 -1050 / -1050 820 / 820 550 / 550 Weight 79.7 kg 76.9 kg 76.7 kg General: No acute distress, Other (Awake and alert) Respiratory: Lungs CTA, Non-labored respirations, BS equal Gastrointestinal: Positive bowel sounds, Non-distended, Non-tender Date of Last Bowel Movement: 07/18/18 Cardiovascular: Normal rate, No edema, Irregular rhythm Skin: No rash Musculoskeletal: Swelling (No distal lower extremity edema) Psychiatric: Cooperative - Neurologic Orientation: oriented to: Self, unable to assess: Place, Time, Situation Neurologic: Pupils (PERRLA), Facial symmetry (Right facial droop), Speech ( Expressive and receptive aphasia; patient is able to repeat a single word), Other (Follows approximately 50% of simple gestured commands) Motor: Right Upper Extremity (0/5 and flaccid), Left Upper Extremity (Grossly 5/ 5), Right Lower Extremity (Grossly 3/5), Left Lower Extremity (Grossly 5/5) Spasticity: None noted Sensory: Difficult to assess but appears to be impaired in the right upper and lower extremity DTRs: Abnormal (0 in the right upper extremity; one in the right lower extremity ) Babinski: Positive (Right) Clonus: Negative Results - Labs CBC & Chem 7: 07/19/18 08:11 07/19/18 08:11 Labs: Laboratory Results - last 24 hr 07/18/18 07/19/18 07/19/18 20:22 07:14 08:11 WBC 7.2 RBC 3.99 L Hgb 13.2 Hct 38.2 L MCV 95.9 MCH 33.1 MCHC 34.5 RDW 12.9 Plt Count 171 MPV 9.0 Sodium Potassium Chloride Carbon Dioxide Anion Gap BUN Creatinine Estimated GFR POC Glucose 202 H 182 H Random Glucose Calcium 07/19/18 07/19/18 07/19/18 08:11 11:20 16:57 WBC RBC Hgb Hct MCV MCH MCHC RDW Plt Count MPV Sodium 141 Potassium 3.3 L Chloride 105 Carbon Dioxide 23.0 Anion Gap 13 BUN 21 H Creatinine 0.62 Estimated GFR Greater than 89 POC Glucose 235 H 233 H Random Glucose 152 H Calcium 8.4 L - Imaging Impressions Head MRI 07/18/18 00:00 CONCLUSION: 1. Maturation of the infarction involving the left cerebral hemisphere as detailed above. There are new areas of infarction seen involving the basal ganglia and left parietal lobe when compared to the prior study. There has been development of blooming artifact involving the infarct bed on the gradient echo sequence consistent with underlying hemosiderin products but no gross intracranial hemorrhage is observed. Assessment and Plan (1) CVA (cerebral vascular accident) Status: Acute Code(s): I63.9 - Cerebral infarction, unspecified - Plan Assessment: 1. Left MCA CVA with right hemiparesis, right hemisensory impairment, expressive and receptive aphasia 2. Atrial fibrillation 3. Hypertension 4. Hyperlipidemia 5. Tobacco use 6. Hypokalemia 7. Elevated glucose Recommendations: 1. Patient is now mod to max assist for transfers and gait 2-3 feet with physical therapy. Continue to mobilize. Stabilize right ankle for mobilization to avoid injury 2. Min to mod assist for feeding and grooming with occupational therapy and maximal assistance for upper body dressing. Continue to address independence with ADLs. 3. Speech therapy is addressing swallow and now tolerating mechanical soft diet with thin liquids. Also addressing moderate to severe expressive and receptive aphasia. 4. Case management is addressing discharge planning and [id number] review has been requested per insurance carrier for inpatient rehabilitation. 5. Will follow while hospitalized and at discharge Thank you for this consult. (1) CVA (cerebral vascular accident) Qualifiers: CVA mechanism: embolism Precerebral and cerebral artery: middle cerebral artery Laterality of affected vessel: left Qualified Code(s): I63.412 - Cerebral infarction due to embolism of left middle cerebral artery
[2018-07-20] MEDS: Lisinopril 10 MG Tablet PO SCH (08:15)
[2018-07-20] MEDS: Insulin NovoLOG Aspart Correctional Sugar Inj SQ SCH ×4 (08:15→21:57)
--- NOTE | 2018-07-20 14:08 | P.PNIM ---
Subjective Interval history: Patient is more alert today. Saying some words. He is able to lift the right arm against gravity. Physical Exam Vital signs: Vital Signs 07/19/18 15:57 07/19/18 19:54 07/19/18 20:00 Temperature 99.4 F 98.5 F Pulse Rate 96 H 96 H Respiratory Rate 20 20 Blood Pressure 161/93 H 157/94 H Pulse Oximetry 96 95 96 07/20/18 00:00 07/20/18 04:00 07/20/18 07:40 Temperature 98.1 F 97.7 F 97.4 F L Pulse Rate 91 H 99 H 95 H Respiratory Rate 20 20 18 Blood Pressure 166/92 H 157/93 H 163/91 H Pulse Oximetry 94 L 96 99 07/20/18 08:00 07/20/18 10:57 07/20/18 12:00 Temperature 98.3 F Pulse Rate 90 Respiratory Rate 18 Blood Pressure 154/89 H Pulse Oximetry 96 96 95 Intake & Output 07/19/18 07/20/18 07/20/18 18:59 06:59 18:59 Intake Total 1200 / 1200 Output Total 650 / 650 900 / 900 500 / 500 Balance 550 / 550 -900 / -900 -500 / -500 Weight 76.1 kg Intake: Oral 1200 / 1200 Output: Urine 650 / 650 900 / 900 500 / 500 Other: Date of Last Bowel Movement 07/18/18 07/18/18 07/18/18 # Bowel Movements 1 Narrative: GENERAL: Awake, not following commands. CARDIOVASCULAR: Normal rate and regular rhythm without murmurs, gallops, or rubs. RESPIRATORY: Good respiratory efforts. Breath sounds equal and clear to auscultation bilaterally. GASTROINTESTINAL: Abdomen soft, non-tender, non-distended. Normal active bowel sounds MUSCULOSKELETAL: Extremities without cyanosis, or edema. NEURO: right-sided facial droop, right upper extremity is 3 out of 5 today. He is able to move his legs better. Following commands better. He said a couple of words. PSYCH: Calm - Urinary Catheter Management Indwelling Urethral Catheter Cath placed during this visit: yes, but has since been removed by the nurse Reason for continuing: Not indwelling catheter Insertion date: 07/14/18 Insertion time: 12:40 Removal date: 07/17/18 Removal time: 17:30 Results - Labs CBC & Chem 7: 07/19/18 08:11 07/19/18 08:11 Laboratory Results - last 24 hr 07/19/18 07/19/18 07/20/18 16:57 21:56 07:01 POC Glucose 233 H 202 H 158 H 07/20/18 11:09 POC Glucose 292 H Assessment and Plan - Plan 72-year-old male with acute left-sided CVA: 1. 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 He was out of the window for TPA. MRI of the brain shows a large left-sided infarct. Blood pressure medications were held to allow for permissive hypertension. 2D echocardiogram did not show any significant findings, CT of the head and neck negative, CT head is negative. Continue PT/OT, he is tolerating a mechanical soft diet Heparin drip previously discontinued. Currently on Eliquis Continue statin. Discussed with neurology, repeat MRI on 07/18/18 shows new areas of infarction seen involving the basal ganglia and left parietal lobe when compared to the prior study. Symptoms improving. [facility] is following and awaiting insurance authorization 2. Diabetes mellitus type 2 Continue low-dose insulin sliding scale. Diabetes medication regimen will be adjusted as needed 3. Hypertension Resume lisinopril. Continue to monitor 4. Dyslipidemia Continue statin. Discharge Planning: DC to [place] once arrangements are made.
[2018-07-21] MEDS: Insulin NovoLOG Aspart Correctional Sugar Inj SQ SCH ×4 (09:00→22:05)
[2018-07-21] MEDS: Lisinopril 10 MG Tablet PO SCH (09:00)
--- NOTE | 2018-07-21 14:34 | P.PNIM ---
Subjective Interval history: Should reports he is feeling okay. Can say some words. Right upper extremity weakness persist. Physical Exam Vital signs: Vital Signs 07/20/18 16:00 07/20/18 20:00 07/21/18 00:00 Temperature 98 F 99.4 F 97.3 F L Pulse Rate 98 H 99 H 80 Respiratory Rate 18 18 18 Blood Pressure 150/94 H 165/95 H 140/79 Pulse Oximetry 96 96 96 07/21/18 04:00 07/21/18 08:00 07/21/18 12:00 Temperature 98.2 F 98.1 F 98 F Pulse Rate 92 H 95 H 90 Respiratory Rate 18 20 20 Blood Pressure 145/94 H 154/91 H 152/95 H Pulse Oximetry 98 97 97 Intake & Output 07/20/18 07/21/18 07/21/18 18:59 06:59 18:59 Intake Total 720 / 720 Output Total 1900 / 1900 450 / 450 Balance -1180 / -1180 -450 / -450 Weight 77.2 kg Intake: Oral 720 / 720 Output: Urine 1900 / 1900 450 / 450 Other: Date of Last Bowel Movement 07/18/18 07/20/18 07/20/18 # Bowel Movements 0 Narrative: GENERAL: Awake, not following commands. CARDIOVASCULAR: Normal rate and regular rhythm without murmurs, gallops, or rubs. RESPIRATORY: Good respiratory efforts. Breath sounds equal and clear to auscultation bilaterally. GASTROINTESTINAL: Abdomen soft, non-tender, non-distended. Normal active bowel sounds MUSCULOSKELETAL: Extremities without cyanosis, or edema. NEURO: right-sided facial droop, right upper extremity is 2 out of 5 today. He is able to move his legs better. Following commands better. He said a couple of words. PSYCH: Calm - Urinary Catheter Management Indwelling Urethral Catheter Cath placed during this visit: yes, but has since been removed by the nurse Reason for continuing: Not indwelling catheter Insertion date: 07/14/18 Insertion time: 12:40 Removal date: 07/17/18 Removal time: 17:30 Results - Labs CBC & Chem 7: 07/19/18 08:11 07/19/18 08:11 Laboratory Results - last 24 hr 07/20/18 07/20/18 07/21/18 16:55 21:35 07:13 POC Glucose 239 H 228 H 162 H 07/21/18 10:59 POC Glucose 245 H Assessment and Plan - Plan 72-year-old male with acute left-sided CVA: 1. 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 He was out of the window for TPA. MRI of the brain shows a large left-sided infarct. Blood pressure medications were held to allow for permissive hypertension. 2D echocardiogram did not show any significant findings, CT of the head and neck negative, CT head is negative. Continue PT/OT, he is tolerating a mechanical soft diet Heparin drip previously discontinued. Currently on Eliquis Continue statin. Repeat MRI on 07/18/18 shows new areas of infarction seen involving the basal ganglia and left parietal lobe when compared to the prior study. Neurology aware. Symptoms improving. [facility] is following and awaiting insurance authorization 2. Diabetes mellitus type 2 Continue low-dose insulin sliding scale. Diabetes medication regimen will be adjusted as needed 3. Hypertension Resume lisinopril. Continue to monitor 4. Dyslipidemia Continue statin. Discharge Planning: DC to [facility] once arrangements are made.
[2018-07-22] MEDS: Lisinopril 10 MG Tablet PO SCH (09:25)
[2018-07-22] MEDS: Insulin NovoLOG Aspart Correctional Sugar Inj SQ SCH ×4 (09:37→22:37)
--- NOTE | 2018-07-22 16:50 | P.PNIM ---
Subjective Interval history: NO NEW COMPLAINTS STILL WITH RIGHT SIDE WEAKNESS AWAITS APPROVAL FOR [facility] RN AND PT AND CM MAY NEED SNF IF [employer] DOES NOT APPROVE INPT REHAB PT AND OT AND ST Physical Exam Vital signs: Vital Signs 07/21/18 20:00 07/22/18 00:00 07/22/18 04:00 Temperature 97.6 F 98.8 F 97.6 F Pulse Rate 99 H 83 92 H Respiratory Rate 20 20 20 Blood Pressure 138/77 137/81 139/91 H Pulse Oximetry 95 96 98 07/22/18 08:00 07/22/18 12:00 Temperature 98.0 F 98.7 F Pulse Rate 89 91 H Respiratory Rate 16 14 Blood Pressure 158/89 H 136/90 Pulse Oximetry 96 98 Intake & Output 07/21/18 07/22/18 07/22/18 18:59 06:59 18:59 Intake Total 560 / 560 Output Total 2 / 2 Balance 558 / 558 Weight 77.8 kg Intake: Oral 560 / 560 Output: Urine 2 / 2 Other: # Incontinent Voids 3 1 Date of Last Bowel Movement 07/20/18 07/20/18 # Bowel Movements 0 Narrative: GENERAL: Awake, not following commands. CARDIOVASCULAR: Normal rate and regular rhythm without murmurs, gallops, or rubs. RESPIRATORY: Good respiratory efforts. Breath sounds equal and clear to auscultation bilaterally. GASTROINTESTINAL: Abdomen soft, non-tender, non-distended. Normal active bowel sounds MUSCULOSKELETAL: Extremities without cyanosis, or edema. NEURO: right-sided facial droop, right upper extremity is 2 out of 5 today. He is able to move his legs better. Following commands better. He said a couple of words. PSYCH: Calm - Urinary Catheter Management Indwelling Urethral Catheter Cath placed during this visit: yes, but has since been removed by the nurse Reason for continuing: Not indwelling catheter Insertion date: 07/14/18 Insertion time: 12:40 Removal date: 07/17/18 Removal time: 17:30 Results - Labs CBC & Chem 7: 07/19/18 08:11 07/19/18 08:11 Laboratory Results - last 24 hr 07/21/18 07/21/18 07/22/18 16:36 21:50 09:28 POC Glucose 333 H 212 H 157 H 07/22/18 07/22/18 12:31 16:22 POC Glucose 200 H 265 H Assessment and Plan - Plan 72-year-old male with acute left-sided CVA: 1. 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 He was out of the window for TPA. MRI of the brain shows a large left-sided infarct. Blood pressure medications were held to allow for permissive hypertension. 2D echocardiogram did not show any significant findings, CT of the head and neck negative, CT head is negative. Continue PT/OT, he is tolerating a mechanical soft diet Heparin drip previously discontinued. Currently on Eliquis Continue statin. Repeat MRI on 07/18/18 shows new areas of infarction seen involving the basal ganglia and left parietal lobe when compared to the prior study. Neurology aware. Symptoms improving. [facility] is following and awaiting insurance authorization 2. Diabetes mellitus type 2 Continue low-dose insulin sliding scale. Diabetes medication regimen will be adjusted as needed 3. Hypertension Resume lisinopril. Continue to monitor 4. Dyslipidemia Continue statin. WE AWAIT [facility] TO APPROVE [facility]F [facility] Discharge Planning: DC to [facility] once arrangements are made. Code Status: FULL CODE Discussed Condition With: RN AND PT AND CM Discharge Planning: PENDING SAFE DC TO INPT REHAB VS OTHER
[2018-07-23 08:52] LABS: Albumin 2.4 g/dL (3.4-5.0); Anion Gap 7 meq/L (5-15); Aspartate Aminotransferase 13 U/L (15-37); Blood Urea Nitrogen 16 mg/dL (7-18); Calcium 8.3 mg/dL (8.5-10.1); Chloride 103 meq/L (98-107); Glomerular Filtration Rate 83 mL/min (>89); Glucose,Random 208 mg/dL (74-106); Magnesium 1.9 mg/dL (1.5-2.5); Potassium 3.7 meq/L (3.5-5.1); Sodium 140 meq/L (136-145)
[2018-07-23 09:04] LABS: Alanine Aminotransferase 17 U/L (12-78); Alkaline Phosphatase 48 U/L (45-117); Free T4 (Free Thyroxine) 1.39 ng/dL (0.76-1.46); Phosphorus 3.5 mg/dL (2.5-4.9); Thyroid Stimulating Hormone 0.792 uIU/mL (0.358-3.740); Total Protein 6.1 g/dL (6.4-8.2)
[2018-07-23] MEDS: Insulin NovoLOG Aspart Correctional Sugar Inj SQ SCH ×4 (09:37→21:59)
[2018-07-23] MEDS: Lisinopril 10 MG Tablet PO SCH (09:37)
--- NOTE | 2018-07-23 15:08 | P.PNIM ---
Subjective Interval history: NO NEW COMPLAINTS STILL WITH RIGHT SIDE WEAKNESS AWAITS APPROVAL FOR [facility] RN AND PT AND CM MAY NEED SNF IF [employer] DOES NOT APPROVE INPT REHAB PT AND OT AND ST 9-18 CAN GO TO SNF WHEN [facility] APPROVES [facility] RN AND PT AND CM WILL NOT GET AUTHORIZED FOR [facility] DC TO SNF TODAY SEE 3008 MED REC Physical Exam Vital signs: Vital Signs 07/22/18 16:00 07/22/18 20:00 07/23/18 00:00 Temperature 99.7 F H 99.1 F 97.9 F Pulse Rate 93 H 94 H 71 Respiratory Rate 16 19 18 Blood Pressure 114/80 136/75 181/80 H Pulse Oximetry 97 97 97 07/23/18 04:34 07/23/18 08:00 07/23/18 12:00 Temperature 97.2 F L 97.7 F 98.2 F Pulse Rate 92 H 70 87 Respiratory Rate 19 12 16 Blood Pressure 158/90 H 133/77 152/86 H Pulse Oximetry 94 L 94 L 97 Intake & Output 07/22/18 07/23/18 07/23/18 18:59 06:59 18:59 Intake Total 446 / 446 Output Total 0 / 0 Balance 446 / 446 Weight 78.6 kg Intake: Oral 442 / 442 Other 4 / 4 Output: Stool 0 / 0 Other: # Incontinent Voids 2 Date of Last Bowel Movement 07/20/18 # Bowel Movements 0 Narrative: GENERAL: Awake, not following commands. CARDIOVASCULAR: Normal rate and regular rhythm without murmurs, gallops, or rubs. RESPIRATORY: Good respiratory efforts. Breath sounds equal and clear to auscultation bilaterally. GASTROINTESTINAL: Abdomen soft, non-tender, non-distended. Normal active bowel sounds MUSCULOSKELETAL: Extremities without cyanosis, or edema. NEURO: right-sided facial droop, right upper extremity is 2 out of 5 today. He is able to move his legs better. Following commands better. He said a couple of words. APHASIC PSYCH: Calm - Urinary Catheter Management Indwelling Urethral Catheter Cath placed during this visit: yes, but has since been removed by the nurse Reason for continuing: Not indwelling catheter Insertion date: 07/14/18 Insertion time: 12:40 Removal date: 07/17/18 Removal time: 17:30 Results - Labs CBC & Chem 7: 07/19/18 08:11 07/23/18 07:50 Laboratory Results - last 24 hr 07/22/18 07/22/18 07/23/18 16:22 20:50 07:50 Sodium Potassium Chloride Carbon Dioxide Anion Gap BUN Creatinine Estimated GFR POC Glucose 265 H 261 H Random Glucose Hemoglobin A1c 7.0 H Calcium Phosphorus Magnesium Total Bilirubin AST ALT Alkaline Phosphatase Total Protein Albumin TSH Free T4 07/23/18 07/23/18 07:50 11:19 Sodium 140 Potassium 3.7 Chloride 103 Carbon Dioxide 30.0 Anion Gap 7 BUN 16 Creatinine 0.90 Estimated GFR 83 L POC Glucose 273 H Random Glucose 208 H Hemoglobin A1c Calcium 8.3 L Phosphorus 3.5 Magnesium 1.9 Total Bilirubin 0.5 AST 13 L ALT 17 Alkaline Phosphatase 48 Total Protein 6.1 L Albumin 2.4 L TSH 0.792 Free T4 1.39 - Imaging ITS Impressions Chest X-Ray 07/14/18 09:48 CONCLUSION: Prominence of the cardiac silhouette and pulmonary vasculature may be secondary to supine technique. No evidence of pneumonia or pneumothorax. Head CTA 07/14/18 09:48 CONCLUSION: 1. Atherosclerosis. No significant stenosis is present. There is a small right- sided pleural effusion present. Neck CTA 07/14/18 09:48 CONCLUSION: 1. Negative CTA Carotid. Head CT 07/16/18 10:00 CONCLUSION: 1. Evolving infarct on the left as above without significant mass effect or shift. . Head MRI 07/18/18 00:00 CONCLUSION: 1. Maturation of the infarction involving the left cerebral hemisphere as detailed above. There are new areas of infarction seen involving the basal ganglia and left parietal lobe when compared to the prior study. There has been development of blooming artifact involving the infarct bed on the gradient echo sequence consistent with underlying hemosiderin products but no gross intracranial hemorrhage is observed. - Procedures NONE Assessment and Plan - Plan 72-year-old male with acute left-sided CVA: 1. 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 He was out of the window for TPA. MRI of the brain shows a large left-sided infarct. Blood pressure medications were held to allow for permissive hypertension. 2D echocardiogram did not show any significant findings, CT of the head and neck negative, CT head is negative. Continue PT/OT, he is tolerating a mechanical soft diet Heparin drip previously discontinued. Currently on Eliquis Continue statin. Repeat MRI on 07/18/18 shows new areas of infarction seen involving the basal ganglia and left parietal lobe when compared to the prior study. Neurology aware. Symptoms improving. [facility] is following and awaiting insurance authorization WILL DC TO SNF [facility] NOT AUTHORIZED 2. Diabetes mellitus type 2 Continue low-dose insulin sliding scale. Diabetes medication regimen will be adjusted as needed 3. Hypertension Resume lisinopril. Continue to monitor 4. Dyslipidemia Continue statin. WE AWAIT [facility] TO APPROVE [facility] OR [facility]F [facility] Discharge Planning: DC to SNF WHEN APPROVED Code Status: FULL CODE Discussed Condition With: RN AND PT AND SENIOR GEOLOGIST Discharge Planning: PENDING SAFE DC TO SNF
--- NOTE | 2018-07-23 15:17 | P.DS ---
Date of admission: 07/14/18 17:44 Primary care physician: UNKNOWN Attending physician on discharge: Charles Keith Anticipated date of discharge: 07/23/18 Brief History from admission: The patient is a 72-year-old male with a past medical history of diabetes and hypertension who is presenting to the hospital with speech disturbances. The patient was seen doing well last night where he was celebrating somebody's birthday republican. At around 830 this morning he was noted to have difficulty speaking. He could not say the words that he intended to say. EMS was called and noticed that the patient had some right sided weakness on top of speech difficulties. The patient complained of severe pain in the bladder area. He denied any fevers. He said he was breathing sufficiently. The family denies any new medications. They deny any recent travel or any sick contacts. In the emergency department the patient's symptoms improved but once on the floor he did continue to have difficulty with speech and right-sided weakness. Patient update on day of discharge: The patient is a 72-year-old male with a past medical history of diabetes and hypertension who is presenting to the hospital with speech disturbances. The patient was seen doing well last night where he was celebrating somebody's birthday republican. At around 830 this morning he was noted to have difficulty speaking. He could not say the words that he intended to say. EMS was called and noticed that the patient had some right sided weakness on top of speech difficulties. The patient complained of severe pain in the bladder area. He denied any fevers. He said he was breathing sufficiently. The family denies any new medications. They deny any recent travel or any sick contacts. In the emergency department the patient's symptoms improved but once on the floor he did continue to have difficulty with speech and right-sided weakness. NO NEW COMPLAINTS STILL WITH RIGHT SIDE WEAKNESS AWAITS APPROVAL FOR [facility] RN AND PT AND CM MAY NEED SNF IF [facility] DOES NOT APPROVE INPT REHAB PT AND OT AND 07-23 CAN GO TO SNF WHEN [employer] APPROVES [facility] RN AND PT AND CM WILL NOT GET AUTHORIZED FOR [facility] DC TO SNF TODAY SEE 0927 MED REC DS: Diagnosis - Discharge Diagnosis (1) CVA (cerebral vascular accident) Status: Acute (2) Diabetes type 2, controlled Status: Acute (3) High cholesterol Status: Acute (4) Transient ischemic attack Status: Acute DS: Medications - Discharge Medications Prescriptions: apixaban [Eliquis] 5 mg PO BID #62 tab atorvastatin 40 mg PO HS #30 tab buspirone 5 mg PO BID #62 tab glimepiride 4 mg PO QAM #30 tab lisinopril-hydrochlorothiazide 1 tab PO DAILY #30 tab metformin 1,000 mg PO BID #62 tab DS: Summary Hospital Course: The patient is a 72-year-old male with a past medical history of diabetes and hypertension who is presenting to the hospital with speech disturbances. The patient was seen doing well last night where he was celebrating somebody's birthday republican. At around 830 this morning he was noted to have difficulty speaking. He could not say the words that he intended to say. EMS was called and noticed that the patient had some right sided weakness on top of speech difficulties. The patient complained of severe pain in the bladder area. He denied any fevers. He said he was breathing sufficiently. The family denies any new medications. They deny any recent travel or any sick contacts. In the emergency department the patient's symptoms improved but once on the floor he did continue to have difficulty with speech and right-sided weakness. NO NEW COMPLAINTS STILL WITH RIGHT SIDE WEAKNESS AWAITS APPROVAL FOR [facility]TO RN AND PT AND CM MAY NEED SNF IF [facility] DOES NOT APPROVE INPT REHAB PT AND OT AND 07-23 CAN GO TO SNF WHEN [employer] APPROVES MILLIE RN AND PT AND CM WILL NOT GET AUTHORIZED FOR [facility] DC TO SNF TODAY SEE 3008 MED REC 72-year-old male with acute left-sided CVA: 1. 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 He was out of the window for TPA. MRI of the brain shows a large left-sided infarct. Blood pressure medications were held to allow for permissive hypertension. 2D echocardiogram did not show any significant findings, CT of the head and neck negative, CT head is negative. Continue PT/OT, he is tolerating a mechanical soft diet Heparin drip previously discontinued. Currently on Eliquis Continue statin. Repeat MRI on 07/18/18 shows new areas of infarction seen involving the basal ganglia and left parietal lobe when compared to the prior study. Neurology aware. Symptoms improving. Cole is following and awaiting insurance authorization WILL DC TO SNF [facility] NOT AUTHORIZED 2. Diabetes mellitus type 2 Continue low-dose insulin sliding scale. Diabetes medication regimen will be adjusted as needed 3. Hypertension Resume lisinopril. Continue to monitor 4. Dyslipidemia Continue statin. - Time Spent with Patient Total time spent providing and/or coordinating discharge services: Greater than 30 minutes - Quality: VTE Deep Vein Thrombosis/Pulmonary Embolism Present on Admission: No Exam Vital signs: Vital Signs 07/22/18 16:00 07/22/18 20:00 07/23/18 00:00 Temperature 99.7 F H 99.1 F 97.9 F Pulse Rate 93 H 94 H 71 Respiratory Rate 16 19 18 Blood Pressure 114/80 136/75 181/80 H Pulse Oximetry 97 97 97 07/23/18 04:34 07/23/18 08:00 07/23/18 12:00 Temperature 97.2 F L 97.7 F 98.2 F Pulse Rate 92 H 70 87 Respiratory Rate 19 12 16 Blood Pressure 158/90 H 133/77 152/86 H Pulse Oximetry 94 L 94 L 97 Intake & Output 07/22/18 07/23/18 07/23/18 18:59 06:59 18:59 Intake Total 446 / 446 Output Total 0 / 0 Balance 446 / 446 Weight 78.6 kg Intake: Oral 442 / 442 Other 4 / 4 Output: Stool 0 / 0 Other: # Incontinent Voids 2 Date of Last Bowel Movement 07/20/18 # Bowel Movements 0 Narrative: GENERAL: Awake, not following commands. CARDIOVASCULAR: Normal rate and regular rhythm without murmurs, gallops, or rubs. RESPIRATORY: Good respiratory efforts. Breath sounds equal and clear to auscultation bilaterally. GASTROINTESTINAL: Abdomen soft, non-tender, non-distended. Normal active bowel sounds MUSCULOSKELETAL: Extremities without cyanosis, or edema. NEURO: right-sided facial droop, right upper extremity is 2 out of 5 today. He is able to move his legs better. Following commands better. He said a couple of words. APHASIC PSYCH: Calm Results Procedures completed during hospitalization: NONE Completed studies during hospitalization: Laboratory Results CBC w Diff Slide review pending 07/14/18 09:50 WBC 7.2 th/mm3 (4.0-11.0) 07/19/18 08:11 RBC 3.99 mil/mm3 (4.50-5.90) L 07/19/18 08:11 Hgb 13.2 gm/dL (13.0-17.0) 07/19/18 08:11 Hct 38.2 % (39.0-51.0) L 07/19/18 08:11 MCV 95.9 fL (80.0-100.0) 07/19/18 08:11 MCH 33.1 pg (27.0-34.0) 07/19/18 08:11 MCHC 34.5 % (32.0-36.0) 07/19/18 08:11 RDW 12.9 % (11.6-17.2) 07/19/18 08:11 Plt Count 171 th/mm3 (150-450) 07/19/18 08:11 MPV 9.0 fL (7.0-11.0) 07/19/18 08:11 Neut % (Auto) 85.1 % (16.0-70.0) H 07/15/18 03:30 Lymph % (Auto) 8.1 % (9.0-44.0) L 07/15/18 03:30 [place] % (Auto) 6.6 % (0.0-8.0) 07/15/18 03:30 Eos % (Auto) 0.1 % (0.0-4.0) 07/15/18 03:30 Baso % (Auto) 0.1 % (0.0-2.0) 07/15/18 03:30 Neut # (Auto) 9.9 th/mm3 (1.8-7.7) H 07/15/18 03:30 Lymph # (Auto) 0.9 th/mm3 (1.0-4.8) L 07/15/18 03:30 [place] # (Auto) 0.8 th/mm3 (0.0-0.9) 07/15/18 03:30 Eos # (Auto) 0.0 th/mm3 (0.0-0.4) 07/15/18 03:30 Baso # (Auto) 0.0 th/mm3 (0.0-0.2) 07/15/18 03:30 WBC Differential . 07/15/18 03:30 Diff Scan Auto diff confirmed 07/14/18 09:50 Differential Comment Auto diff final 07/15/18 03:30 Platelet Estimate Normal (Normal) 07/14/18 09:50 Platelet Morphology Normal (Normal) 07/14/18 09:50 PT 10.6 sec (9.8-11.6) 07/14/18 09:48 INR 1.0 Ratio 07/14/18 09:48 APTT 42.0 sec (24.3-30.1) H 07/16/18 23:22 Fibrinogen 282 mg/dL (227-377) 07/14/18 09:48 Sodium 140 meq/L (136-145) 07/23/18 07:50 Potassium 3.7 meq/L (3.5-5.1) 07/23/18 07:50 Chloride 103 meq/L (98-107) 07/23/18 07:50 Carbon Dioxide 30.0 meq/L (21.0-32.0) 07/23/18 07:50 Anion Gap 7 meq/L (5-15) 07/23/18 07:50 BUN 16 mg/dL (7-18) 07/23/18 07:50 Creatinine 0.90 mg/dL (0.60-1.30) 07/23/18 07:50 Estimated GFR 83 mL/min (>89) L 07/23/18 07:50 POC Glucose 273 mg/dl (68-110) H 07/23/18 11:19 Random Glucose 208 mg/dL (74-106) H 07/23/18 07:50 Hemoglobin A1c 7.0 % (4.3-6.0) H 07/23/18 07:50 Calcium 8.3 mg/dL (8.5-10.1) L 07/23/18 07:50 Phosphorus 3.5 mg/dL (2.5-4.9) 07/23/18 07:50 Magnesium 1.9 mg/dL (1.5-2.5) 07/23/18 07:50 Total Bilirubin 0.5 mg/dL (0.2-1.0) 07/23/18 07:50 AST 13 U/L (15-37) L 07/23/18 07:50 ALT 17 U/L (12-78) 07/23/18 07:50 Alkaline Phosphatase 48 U/L (45-117) 07/23/18 07:50 Total Creatine Kinase 95 U/L (39-308) 07/14/18 09:50 Troponin I 0.02 ng/mL (0.02-0.05) 07/15/18 00:01 Total Protein 6.1 g/dL (6.4-8.2) L 07/23/18 07:50 Albumin 2.4 g/dL (3.4-5.0) L 07/23/18 07:50 Triglycerides 42 mg/dL (42-150) 07/14/18 18:04 Cholesterol 92 mg/dL (120-200) L 07/14/18 18:04 LDL Cholesterol, Calc 34 mg/dL (0-99) 07/14/18 18:04 HDL Cholesterol 49.9 mg/dL (40.0-60.0) 07/14/18 18:04 Cholesterol/HDL Ratio 1.84 Ratio 07/14/18 18:04 TSH 0.792 uIU/mL (0.358-3.740) 07/23/18 07:50 Free T4 1.39 ng/dL (0.76-1.46) 07/23/18 07:50 Ur Collection Type Cath 07/14/18 13:00 Urine Color Straw (Yellw/Straw) 07/14/18 13:00 Urine Clarity Clear (Clear) 07/14/18 13:00 Urine pH 8.5 (5.0-8.5) 07/14/18 13:00 Ur Specific [place] 1.010 (1.002-1.035) 07/14/18 13:00 Urine Protein 100 mg/dL (Neg-Trace) H 07/14/18 13:00 Urine Glucose (UA) 500 mg/dL (Negative) H 07/14/18 13:00 Urine Ketones 80 or greater mg/dL (Negative) H 07/14/18 13:00 Urine Occult Blood Small (Negative) H 07/14/18 13:00 Urine Nitrate Negative (Negative) 07/14/18 13:00 Urine Bilirubin Negative (Negative) 07/14/18 13:00 Urine Ictotest Cancelled 07/14/18 13:00 Urine Urobilinogen 1.0 mg/dL (Less than 2) 07/14/18 13:00 Ur Leukocyte Esterase Negative (Negative) 07/14/18 13:00 Urine RBC Cancelled 07/14/18 13:00 Urine WBC Cancelled 07/14/18 13:00 Urine WBC Clumps Cancelled 07/14/18 13:00 Ur Squamous Epith Cells Cancelled 07/14/18 13:00 Ur Transition Epith Cell Cancelled 07/14/18 13:00 Ur Renal Epithelial Cell Cancelled 07/14/18 13:00 Calcium Carbonate Cryst Cancelled 07/14/18 13:00 Calcium Oxalate Crystal Cancelled 07/14/18 13:00 Leucine Crystals Cancelled 07/14/18 13:00 Cystine Crystals Cancelled 07/14/18 13:00 Uric Acid Crystals Cancelled 07/14/18 13:00 Triple Phos Crystals Cancelled 07/14/18 13:00 Cholesterol Crystals Cancelled 07/14/18 13:00 Tyrosine Crystals Cancelled 07/14/18 13:00 Amorphous Sediment Cancelled 07/14/18 13:00 Urine Bacteria Cancelled 07/14/18 13:00 Hyaline Casts Cancelled 07/14/18 13:00 Granular Casts Cancelled 07/14/18 13:00 Fine Granular Casts Cancelled 07/14/18 13:00 Coarse Granular Casts Cancelled 07/14/18 13:00 Waxy Casts Cancelled 07/14/18 13:00 RBC Casts Cancelled 07/14/18 13:00 WBC Casts Cancelled 07/14/18 13:00 Urine Mucus Cancelled 07/14/18 13:00 Urine Trichomonas Cancelled 07/14/18 13:00 Urine Yeast Cancelled 07/14/18 13:00 Ur Yeast w Hyphae Cancelled 07/14/18 13:00 Urine Sperm Cancelled 07/14/18 13:00 Ur Oval Fat Bodies Cancelled 07/14/18 13:00 Micro UA Comment Culture not ind 07/14/18 13:00 Ur Microscopic Review Microscopic reviewed 07/14/18 13:00 Urine Culture Comments Culture not ind 07/14/18 13:00 Urine Collection Time Cancelled 07/14/18 13:00 Urine Comment Cancelled 07/14/18 13:00 Nasal Screen MRSA (PCR) Not detected (Negative) 07/14/18 17:25 Urine Opiates Screen Neg (Neg) 07/14/18 13:00 Ur Barbiturates Screen Neg (Neg) 07/14/18 13:00 Ur Amphetamines Screen Neg (Neg) 07/14/18 13:00 U Benzodiazepines Scrn Neg (Neg) 07/14/18 13:00 Urine Cocaine Screen Neg (Neg) 07/14/18 13:00 U Cannabinoids Screen Neg (Neg) 07/14/18 13:00 Blood Type AB Positive 07/14/18 09:50 Blood Type Recheck Required 07/14/18 09:50 Antibody Screen Negative 07/14/18 09:50 Impressions Chest X-Ray 07/14/18 09:48 CONCLUSION: Prominence of the cardiac silhouette and pulmonary vasculature may be secondary to supine technique. No evidence of pneumonia or pneumothorax. Head CTA 07/14/18 09:48 CONCLUSION: 1. Atherosclerosis. No significant stenosis is present. There is a small right- sided pleural effusion present. Neck CTA 07/14/18 09:48 CONCLUSION: 1. Negative CTA Carotid. Head CT 07/16/18 10:00 CONCLUSION: 1. Evolving infarct on the left as above without significant mass effect or shift. . Head MRI 07/18/18 00:00 CONCLUSION: 1. Maturation of the infarction involving the left cerebral hemisphere as detailed above. There are new areas of infarction seen involving the basal ganglia and left parietal lobe when compared to the prior study. There has been development of blooming artifact involving the infarct bed on the gradient echo sequence consistent with underlying hemosiderin products but no gross intracranial hemorrhage is observed. Labs on day of discharge: Labs from last 24 hours 07/23/18 07/23/18 07/23/18 11:19 07:50 07:50 Sodium 140 Potassium 3.7 Chloride 103 Carbon Dioxide 30.0 Anion Gap 7 BUN 16 Creatinine 0.90 Estimated GFR 83 L POC Glucose 273 H Random Glucose 208 H Hemoglobin A1c 7.0 H Calcium 8.3 L Phosphorus 3.5 Magnesium 1.9 Total Bilirubin 0.5 AST 13 L ALT 17 Alkaline Phosphatase 48 Total Protein 6.1 L Albumin 2.4 L TSH 0.792 Free T4 1.39 07/22/18 07/22/18 20:50 16:22 Sodium Potassium Chloride Carbon Dioxide Anion Gap BUN Creatinine Estimated GFR POC Glucose 261 H 265 H Random Glucose Hemoglobin A1c Calcium Phosphorus Magnesium Total Bilirubin AST ALT Alkaline Phosphatase Total Protein Albumin TSH Free T4 - Impressions ITS Impressions Chest X-Ray 07/14/18 09:48 CONCLUSION: Prominence of the cardiac silhouette and pulmonary vasculature may be secondary to supine technique. No evidence of pneumonia or pneumothorax. Head CTA 07/14/18 09:48 CONCLUSION: 1. Atherosclerosis. No significant stenosis is present. There is a small right- sided pleural effusion present. Neck CTA 07/14/18 09:48 CONCLUSION: 1. Negative CTA Carotid. Head CT 07/16/18 10:00 CONCLUSION: 1. Evolving infarct on the left as above without significant mass effect or shift. . Head MRI 07/18/18 00:00 CONCLUSION: 1. Maturation of the infarction involving the left cerebral hemisphere as detailed above. There are new areas of infarction seen involving the basal ganglia and left parietal lobe when compared to the prior study. There has been development of blooming artifact involving the infarct bed on the gradient echo sequence consistent with underlying hemosiderin products but no gross intracranial hemorrhage is observed. Discharge Plan - Discharge Disposition Patient Disposition: 03 Discharge to SNF - Discharge Condition Condition: Good - Discharge Order Discharge Orders: Discharge Order (Routine); Ordered 07/23/18 Ordered By: Charles Keith - Discharge Details Anticipated Discharge Date: 07/23/18 Discharge Comment: DC TO SNF - Physicians Team Primary Care Provider: UNKNOWN, Attending Provider: Charles Keith Other Providers: Ashley Holden MD ; Rohit Gomez MD ; Arleth Yu MD ; [employer] ,[employer] ; [facility],Agency ; [facility],Agency
[2018-07-24 09:57] VITALS: BP 176/84; PULSE 92; RESP 16; TEMP 98.4; O2SAT 98
[2018-07-24] MEDS: Insulin NovoLOG Aspart Correctional Sugar Inj SQ SCH ×2 (10:07→12:13)
[2018-07-24] MEDS: Lisinopril 10 MG Tablet PO SCH (10:07)
--- NOTE | 2018-07-24 12:20 | P.PNIM ---
Subjective Interval history: The patient is a 72-year-old male with a past medical history of diabetes and hypertension who is presenting to the hospital with speech disturbances. The patient was seen doing well last night where he was celebrating somebody's birthday libertarian. At around 830 this morning he was noted to have difficulty speaking. He could not say the words that he intended to say. EMS was called and noticed that the patient had some right sided weakness on top of speech difficulties. The patient complained of severe pain in the bladder area. He denied any fevers. He said he was breathing sufficiently. The family denies any new medications. They deny any recent travel or any sick contacts. In the emergency department the patient's symptoms improved but once on the floor he did continue to have difficulty with speech and right-sided weakness. NO NEW COMPLAINTS STILL WITH RIGHT SIDE WEAKNESS AWAITS APPROVAL FOR [facility]TO RN AND PT AND CM MAY NEED SNF IF [facility] DOES NOT APPROVE INPT REHAB PT AND OT AND ST 18 CAN GO TO SNF WHEN [employer] APPROVES [facility] CARRERA AND PT AND CM WILL NOT GET AUTHORIZED FOR [facility] DC TO SNF TODAY SEE 3008 9-19 BED AT SNF FINALLY DC TO SNF TODAY SEE 3008 SEE MED REC Physical Exam Vital signs: Vital Signs 07/23/18 16:00 07/23/18 20:00 07/24/18 00:00 Temperature 98.2 F 98.3 F 97.8 F Pulse Rate 90 92 H 68 Respiratory Rate 14 18 Blood Pressure 123/78 142/83 H 141/79 H Pulse Oximetry 94 L 96 96 07/24/18 04:00 07/24/18 08:00 Temperature 97.8 F 98.4 F Pulse Rate 90 92 H Respiratory Rate 18 16 Blood Pressure 162/86 H 176/84 H Pulse Oximetry 97 98 Intake & Output 07/23/18 07/24/18 07/24/18 18:59 06:59 18:59 Other: # Voids 3 Date of Last Bowel Movement 07/22/18 Narrative: GENERAL: Awake, not following commands. CARDIOVASCULAR: Normal rate and regular rhythm without murmurs, gallops, or rubs. RESPIRATORY: Good respiratory efforts. Breath sounds equal and clear to auscultation bilaterally. GASTROINTESTINAL: Abdomen soft, non-tender, non-distended. Normal active bowel sounds MUSCULOSKELETAL: Extremities without cyanosis, or edema. NEURO: right-sided facial droop, right upper extremity is 2 out of 5 today. He is able to move his legs better. Following commands better. He said a couple of words. APHASIC PSYCH: Calm - Urinary Catheter Management Indwelling Urethral Catheter Cath placed during this visit: yes, but has since been removed by the nurse Reason for continuing: Not indwelling catheter Insertion date: 07/14/18 Insertion time: 12:40 Removal date: 07/17/18 Removal time: 17:30 Results - Labs CBC & Chem 7: 07/19/18 08:11 07/23/18 07:50 Laboratory Results - last 24 hr 07/23/18 07/23/18 07/24/18 15:28 20:43 07:24 POC Glucose 270 H 284 H 165 H 07/24/18 12:03 POC Glucose 260 H - Procedures NONE Assessment and Plan - Assessment (1) CVA (cerebral vascular accident) Code(s): I63.9 - Cerebral infarction, unspecified Status: Acute (2) Diabetes type 2, controlled Code(s): E11.9 - Type 2 diabetes mellitus without complications Status: Acute (3) High cholesterol Code(s): E78.00 - Pure hypercholesterolemia, unspecified Status: Acute (4) Transient ischemic attack Code(s): G45.9 - Transient cerebral ischemic attack, unspecified Status: Acute - Plan 72-year-old male with acute left-sided CVA: 1. 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 He was out of the window for TPA. MRI of the brain shows a large left-sided infarct. Blood pressure medications were held to allow for permissive hypertension. 2D echocardiogram did not show any significant findings, CT of the head and neck negative, CT head is negative. Continue PT/OT, he is tolerating a mechanical soft diet Heparin drip previously discontinued. Currently on Eliquis Continue statin. Repeat MRI on 07/18/18 shows new areas of infarction seen involving the basal ganglia and left parietal lobe when compared to the prior study. Neurology aware. Symptoms improving. Zeke is following and awaiting insurance authorization WILL DC TO SNF [facility] NOT AUTHORIZED 2. Diabetes mellitus type 2 Continue low-dose insulin sliding scale. Diabetes medication regimen will be adjusted as needed 3. Hypertension Resume lisinopril. Continue to monitor 4. Dyslipidemia Continue statin. WE AWAIT [employer] TO APPROVE [facility] OR SNF PREFER [facility] Discharge Planning: DC to SNF WHEN APPROVED APPROVED FOR SNF TODAY 07-24 Code Status: FULL CODE Discussed Condition With: RN AND PT AND CM Discharge Planning: PENDING SAFE DC TO SNF (1) CVA (cerebral vascular accident) Qualifiers: CVA mechanism: embolism Precerebral and cerebral artery: middle cerebral artery Laterality of affected vessel: left Qualified Code(s): I63.412 - Cerebral infarction due to embolism of left middle cerebral artery
== END 2018-07-24 12:25 ==
LOC: PHED 09:45 → PHEDA 09:45 → PH3 12:09 → N03 17:01 → N05 07-17 19:38
PROVIDERS: ADMIT Hospitalist; ATTEND Hospitalist

== ENCOUNTER 2018-07-28 04:03 | Inpatient (IN) ==
[2018-07-28] MEDS ORDERED: HYDROmorphone PF Inj 0.5 MG/0.5 ML Syringe IV.PUSH STA (04:14)
[2018-07-28] MEDS ORDERED: Pantoprazole Inj 80 MG in Sodium Chlor 0.9% Inj 35 ML IV.SIG ONE (04:14)
[2018-07-28 04:41] LABS: Baso % (Auto) 0.2 % (0.0-2.0); Eos % (Auto) 0.1 % (0.0-4.0); Hematocrit 39.8 % (39.0-51.0); Hemoglobin 13.4 gm/dL (13.0-17.0); Lymph # (Auto) 0.5 th/mm3 (1.0-4.8); Lymph % (Auto) 2.6 % (9.0-44.0); Mean Corpuscular HGB Conc 33.7 % (32.0-36.0); Mean Corpuscular Hemoglobin 32.6 pg (27.0-34.0); Mean Platelet Volume 8.2 fL (7.0-11.0); Mono # (Auto) 1.1 th/mm3 (0.0-0.9); Mono % (Auto) 6.4 % (0.0-8.0); Neut # (Auto) 15.7 th/mm3 (1.8-7.7); Neut % (Auto) 90.7 % (16.0-70.0); Platelet Count 299 th/mm3 (150-450); Red Cell Distribution Width 13.6 % (11.6-17.2); White Blood Count 17.3 th/mm3 (4.0-11.0)
[2018-07-28] MEDS ORDERED: HYDROmorphone PF Inj 2 MG/ML Vial IV.PUSH ONE (04:45)
[2018-07-28 04:52] LABS: Activated Partial Thrombo Time 27.2 sec (24.3-30.1); INR 1.2 Ratio; Prothrombin Time 12.3 sec (9.8-11.6)
[2018-07-28] MEDS: Pantoprazole Inj 80 MG in Sodium Chlor 0.9% Inj 100 ML IV.CONT SCH ×2 (05:02→14:13)
[2018-07-28 05:07] LABS: Albumin 3.2 g/dL (3.4-5.0); Anion Gap 13 meq/L (5-15); Aspartate Aminotransferase 17 U/L (15-37); Blood Urea Nitrogen 54 mg/dL (7-18); Calcium 8.7 mg/dL (8.5-10.1); Carbon Dioxide 23.7 meq/L (21.0-32.0); Chloride 100 meq/L (98-107); Glomerular Filtration Rate 44 mL/min (>89); Glucose,Random 343 mg/dL (74-106); Potassium 4.2 meq/L (3.5-5.1); Sodium 137 meq/L (136-145)
[2018-07-28 05:08] LABS: Alanine Aminotransferase 17 U/L (12-78)
[2018-07-28 05:10] LABS: Alkaline Phosphatase 67 U/L (45-117); Total Protein 7.4 g/dL (6.4-8.2)
--- NOTE | 2018-07-28 05:35 | ED ---
HPI General Chief complaint: GI Bleed Stated complaint: GI Issues Time Seen by Provider: 07/28/18 04:14 Source: patient Mode of arrival: ambulatory Limitations: no limitations History of Present Illness HPI Narrative: 72-year-old male arrives due to coffee-ground emesis at [facility]. Symptoms started approximately 11 PM. The patient takes Eliquis for A. fib with RVR. History is markedly limited due to his aphasic state. EMS provides a history which includes coffee-ground emesis. MD complaint: coffee ground emesis Onset (ago): hour(s) (2) Context: other (pt is on eliquis) Associated symptoms: other (unable to assess ) Treatments Prior to Arrival: none Related Data Previous Rx's Medication Instructions Recorded apixaban [Eliquis] 5 mg PO BID #62 tab 07/23/18 atorvastatin 40 mg PO HS #30 tab 07/23/18 buspirone 5 mg PO BID #62 tab 07/23/18 glimepiride 4 mg PO QAM #30 tab 07/23/18 lisinopril-hydrochlorothiazide 1 tab PO DAILY #30 tab 07/23/18 metformin 1,000 mg PO BID #62 tab 07/23/18 Allergies Allergy/AdvReac Type Severity Reaction Status Date / Time No Known Allergies Allergy Unverified 07/14/18 09:47 Review of Systems ROS Unobtainable ROS Unobtainable: unobtainable due to mental condition and unobtainable due to mental status PMFSH Social History Social History Substance History: Unable to Obtain Second Hand Smoke Exposure: No Smoking Status: Unknown if ever smoked Tobacco Type: Cigars How Often Do You Have a Drink Containing Alcohol: Unable to Obtain Recent Travel in [place] within the Last 8 Weeks: No Recent Out of Country Travel within the Last 8 Weeks: No Immunization History Tetanus Immunization: Unable to Assess Hx Influenza Vaccine This Season: Unable to Assess Exam Narrative Exam Narrative: GENERAL: 72-year-old male elderly mild to moderate distress RECTAL: Stool guaiac positive, brown stool. No bright red blood. No rectal mass. SKIN: Focused skin assessment warm/dry. HEAD: Atraumatic. Normocephalic. EYES: Pupils equal and round. No scleral icterus. No injection or drainage. ENT: No nasal bleeding or discharge. Mucous membranes pink and moist. NECK: Trachea midline. No JVD. CARDIOVASCULAR: Irregular. Tachycardia. RESPIRATORY: No accessory muscle use. Clear to auscultation. Breath sounds equal bilaterally. GASTROINTESTINAL: Soft. Generalized nonspecific tenderness. MUSCULOSKELETAL: No obvious deformities. No clubbing. No cyanosis. No edema. NEUROLOGICAL: Patient is nonverbal. Eyes are open and open wider in response to voice. Patient is unable to communicate otherwise. He is known to have a right-sided deficit following a previous CVA. PSYCHIATRIC: Unable to assess Course Initial Documented Vital Signs Pulse Oximetry 95 07/28/18 04:14 Last Documented Vital Signs Temperature 98.2 F 07/28/18 05:09 Pulse Rate 100 H 07/28/18 04:27 Respiratory Rate 18 07/28/18 04:18 Blood Pressure 129/73 07/28/18 04:18 Pulse Oximetry 95 07/28/18 04:27 Critical Care Time Critical Care Time: Yes Total Critical Care Time: 35 Attestation: Aggregate critical care time was 35 minutes. Time to perform other separately billable procedures was not included in the critical care time. My time did not include minutes spent treating any other patients simultaneously or on activities that did not directly contribute to the patient's treatment. The services I provided to this patient were to treat and/or prevent clinically significant deterioration that could result in: Hemorrhagic shock, multiorgan dysfunction I provided critical care services requiring my management, as noted below: Chart data review, documentation time, medication orders and management, vital sign assessments/reviewing monitor data, ordering and reviewing lab tests, ordering and interpreting/reviewing x-rays and diagnostic studies, care of the patient and discussion of the patient with the admitting physicians. Medical Decision Making MDM Narrative Medical decision making narrative: The patient is 72 years old and he is on Eliquis and arrives with coffee-ground emesis. The guaiac is positive. Protonix drip and bolus started. Rocephin started. IV fluids started patient typed and screened. His hemoglobin is an acceptable/normal range for the patient. The BUN/creatinine ratio is markedly elevated concerning for upper GI bleed. Case discussed with Dr. Pinto for the hospitalist service. Patient received 20 mg IV diltiazem. Heart rate decreased to 80s. Medical Screen Exam Complete: Yes Emergency Medical Condition: Yes Differential Diagnosis Differential Diagnosis: GI bleed, lower GI bleed, acute anemia Lab Data Lab results reviewed: Yes I reviewed the patient's lab results. Result diagrams: 07/28/18 04:30 07/28/18 04:30 Lab Results 07/28/18 07/28/18 07/28/18 Range/Units 04:30 04:30 04:30 WBC 17.3 H (4.0-11.0) th/mm3 RBC 4.10 L (4.50-5.90) mil/mm3 Hgb 13.4 (13.0-17.0) gm/dL Hct 39.8 (39.0-51.0) % MCV 97.0 (80.0-100.0) fL MCH 32.6 (27.0-34.0) pg MCHC 33.7 (32.0-36.0) % RDW 13.6 (11.6-17.2) % Plt Count 299 D (150-450) th/mm3 MPV 8.2 (7.0-11.0) fL Neut % (Auto) 90.7 H (16.0-70.0) % Lymph % (Auto) 2.6 L (9.0-44.0) % [place] % (Auto) 6.4 (0.0-8.0) % Eos % (Auto) 0.1 (0.0-4.0) % Baso % (Auto) 0.2 (0.0-2.0) % Neut # (Auto) 15.7 H (1.8-7.7) th/mm3 Lymph # (Auto) 0.5 L (1.0-4.8) th/mm3 [place] # (Auto) 1.1 H (0.0-0.9) th/mm3 Eos # (Auto) 0.0 (0.0-0.4) th/mm3 Baso # (Auto) 0.0 (0.0-0.2) th/mm3 WBC Differential . Differential Comment Auto diff final PT 12.3 H (9.8-11.6) sec INR 1.2 Ratio APTT 27.2 (24.3-30.1) sec Sodium 137 (136-145) meq/L Potassium 4.2 (3.5-5.1) meq/L Chloride 100 (98-107) meq/L Carbon Dioxide 23.7 (21.0-32.0) meq/L Anion Gap 13 (5-15) meq/L BUN 54 H (7-18) mg/dL Creatinine 1.57 H (0.60-1.30) mg/dL Estimated GFR 44 L (>89) mL/min Random Glucose 343 H (74-106) mg/dL Calcium 8.7 (8.5-10.1) mg/dL Total Bilirubin 1.0 (0.2-1.0) mg/dL AST 17 (15-37) U/L ALT 17 (12-78) U/L Alkaline Phosphatase 67 (45-117) U/L Total Protein 7.4 D (6.4-8.2) g/dL Albumin 3.2 L (3.4-5.0) g/dL Blood Type Antibody Screen 07/28/18 Range/Units 04:30 WBC (4.0-11.0) th/mm3 RBC (4.50-5.90) mil/mm3 Hgb (13.0-17.0) gm/dL Hct (39.0-51.0) % MCV (80.0-100.0) fL MCH (27.0-34.0) pg MCHC (32.0-36.0) % RDW (11.6-17.2) % Plt Count (150-450) th/mm3 MPV (7.0-11.0) fL Neut % (Auto) (16.0-70.0) % Lymph % (Auto) (9.0-44.0) % [place] % (Auto) (0.0-8.0) % Eos % (Auto) (0.0-4.0) % Baso % (Auto) (0.0-2.0) % Neut # (Auto) (1.8-7.7) th/mm3 Lymph # (Auto) (1.0-4.8) th/mm3 [place] # (Auto) (0.0-0.9) th/mm3 Eos # (Auto) (0.0-0.4) th/mm3 Baso # (Auto) (0.0-0.2) th/mm3 WBC Differential Differential Comment PT (9.8-11.6) sec INR Ratio APTT (24.3-30.1) sec Sodium (136-145) meq/L Potassium (3.5-5.1) meq/L Chloride (98-107) meq/L Carbon Dioxide (21.0-32.0) meq/L Anion Gap (5-15) meq/L BUN (7-18) mg/dL Creatinine (0.60-1.30) mg/dL Estimated GFR (>89) mL/min Random Glucose (74-106) mg/dL Calcium (8.5-10.1) mg/dL Total Bilirubin (0.2-1.0) mg/dL AST (15-37) U/L ALT (12-78) U/L Alkaline Phosphatase (45-117) U/L Total Protein (6.4-8.2) g/dL Albumin (3.4-5.0) g/dL Blood Type AB Positive Antibody Screen Negative Discharge Plan Discharge Disposition Patient Disposition: 30 Still Patient Physicians Team ED Provider: Quique Oleary Primary Care Provider: UNKNOWN, Attending Provider: Hugo Restrepo Other Providers: Deja Short Discharge Interventions Interventions: Vital Signs Last Done: 07/28/18 05:09 Status ED Status: Admitted Patient
[2018-07-28] MEDS ORDERED: Dextrose 50% in Water 50 ML Vial IV.PUSH PRN ×2 (05:50→10:24)
[2018-07-28] MEDS ORDERED: Bisacodyl 10 MG Supp RECTAL PRN (05:52)
[2018-07-28] MEDS ORDERED: Acetaminophen 325 MG Tablet PO PRN (05:52)
[2018-07-28] MEDS: Sod Chloride 0.9% Inj 1,000 ML IV.CONT SCH ×2 (06:28→16:26)
[2018-07-28] MEDS ORDERED: Insulin NovoLOG Aspart Correctional Sugar Inj SQ SCH (08:00)
[2018-07-28] MEDS: Senna/Docusate Sodium 8.6/50 MG Tablet PO SCH ×2 (08:07→20:06)
--- NOTE | 2018-07-28 10:01 | P.CONGI ---
History of Present Illness Consult date: 07/28/18 Consult reason: GI bleed Chief complaint: GI bleed, AFIB RVR History of Present Illness: This is a 72-year-old male who was brought to the hospital on 07/28/2018 with coffee-ground emesis [facility] at the [facility]. According to the record symptoms started less than 24 hours ago, 11 PM on 07/27/2018. Patient is a poor historian as well as communicator so most of the information is being gathered from the record. Patient has been on Eliquis and is currently in atrial fib with RVR heart rate between 125 and 130. Current hemoglobin 13.4, WBC count 17.3, PT/INR 1.2, bilirubin and LFTs are normal. Patient is having some mild bloating and belching, possible nausea but no vomiting. Patient has some epigastric tenderness to light palpation no obvious diarrhea or constipation. Gastroenterology has been consulted to evaluate patient's coffee-ground emesis possible GI bleed and assist with his plan of care. There is no family members present <Lidya Mcintyre - Last Filed: 07/28/18 09:52> Review of Systems All other systems reviewed negative except as stated in HPI <Lidya Mcintyre - Last Filed: 07/28/18 09:52> PMFSH - History History Provided By: Cotton Expert / EMT - Medical History Medical History: Medical History (Last Reviewed 07/24/18 @ 08:56 by Roberta Marquez) High cholesterol (Acute) Diabetes type 2, controlled (Acute) Hypertension - Surgical History Surgical History: Surgical History (Last Reviewed 07/24/18 @ 08:56 by Roberta Marquez) No history of previous surgery - Family History Family History: Family History (Last Reviewed 07/24/18 @ 08:56 by Roberta Marquez) Other CAD (coronary artery disease) Diabetes - Tobacco History Second Hand Smoke Exposure: No Smoking Status: Unknown if ever smoked Tobacco Type: Cigars - Alcohol History How Often Do You Have a Drink Containing Alcohol: Unable to Obtain - Substance Use History Substance History: Unable to Obtain - Travel History Recent Travel in the [place] Within the Last 8 Weeks: No Recent Travel Out of the Country Within the Last 8 Weeks: No - Immunization History Tetanus Immunization: Unable to Assess Hx Influenza Vaccine This Season: Unable to Assess <Lidya Mcintyre - Last Filed: 07/28/18 09:52> - Medical History Medical History: Medical History (Last Reviewed 07/24/18 @ 08:56 by Roberta Marquez) High cholesterol (Acute) Diabetes type 2, controlled (Acute) Hypertension - Surgical History Surgical History: Surgical History (Last Reviewed 07/24/18 @ 08:56 by Roberta Marquez) No history of previous surgery - Family History Family History: Family History (Last Reviewed 07/24/18 @ 08:56 by Roberta Marquez) Other CAD (coronary artery disease) Diabetes <John Bruner - Last Filed: 07/28/18 20:49> Medications and Allergies Active Medications: Active Medications Acetaminophen (Tylenol) 650 mg PO Q4H PRN PRN Reason: Temp > 100.4 Al Hydroxide/Mg Hydroxide (Milk Of Magnesia Liq) 30 ml PO Q12H PRN PRN Reason: Mild Constipation Atorvastatin Calcium (Lipitor) 40 mg PO HS [facility] Bisacodyl (Dulcolax Supp) 10 mg RECTAL DAILY PRN PRN Reason: SEVERE CONSITIPATION Buspirone HCl (Buspar) 5 mg PO BID [facility] Last Admin: 07/28/18 08:07 Dose: 5 mg Dextrose (D50w Vial) 50 ml IV.PUSH UNSCH PRN PRN Reason: PER HYPOGLYCEMIA PROTOCOL Glucagon (Glucagon Inj) 1 mg OTHER PRN PRN PRN Reason: for Hypoglycemia Protocol Pantoprazole Sodium 80 mg/ (Sodium Chloride) 100 mls @ 10 mls/hr IV.CONT CONT [facility] Last Admin: 07/28/18 05:02 Dose: 10 mls/hr Sodium Chloride (Ns Inj) 1,000 mls @ 100 mls/hr IV.CONT .Q10H [facility] Last Admin: 07/28/18 06:28 Dose: 100 mls/hr Insulin Aspart (Novolog Insulin Correctional Sugar Inj) 0 unit SQ ACHS [facility]; Protocol Last Admin: 07/28/18 08:07 Dose: 5 unit Lactulose (Lactulose Liq) 30 ml PO DAILY PRN PRN Reason: SEVERE CONSITIPATION Ondansetron HCl (Zofran Inj) 4 mg IV.PUSH Q6H PRN PRN Reason: NAUSEA OR VOMITING Senna/Docusate Sodium (Imelda-Colace) 1 tab PO BID [facility] Last Admin: 07/28/18 08:07 Dose: 1 tab Sennosides (Senokot) 17.2 mg PO Q12H PRN PRN Reason: Moderate Constipation Sodium Chloride (Ns Flush) 2 ml IV.FLUSH PRN PRN PRN Reason: FLUSH AFTER USING IV ACCESS <Lidya Mcintyre M - Last Filed: 07/28/18 09:52> Active Medications: Active Medications Acetaminophen (Tylenol) 650 mg PO Q4H PRN PRN Reason: Temp > 100.4 Al Hydroxide/Mg Hydroxide (Milk Of Magnesia Liq) 30 ml PO Q12H PRN PRN Reason: Mild Constipation Atorvastatin Calcium (Lipitor) 40 mg PO [facility] Last Admin: 07/28/18 20:06 Dose: 40 mg Bisacodyl (Dulcolax Supp) 10 mg RECTAL DAILY PRN PRN Reason: SEVERE CONSITIPATION Buspirone HCl (Buspar) 5 mg PO BID [facility] Last Admin: 07/28/18 20:06 Dose: 5 mg Dextrose (D50w Vial) 50 ml IV.PUSH UNSCH PRN PRN Reason: PER HYPOGLYCEMIA PROTOCOL Glucagon (Glucagon Inj) 1 mg OTHER PRN PRN PRN Reason: for Hypoglycemia Protocol Pantoprazole Sodium 80 mg/ (Sodium Chloride) 100 mls @ 10 mls/hr IV.CONT CONT [facility] Last Admin: 07/28/18 14:13 Dose: 10 mls/hr Sodium Chloride (Ns Inj) 1,000 mls @ 100 mls/hr IV.CONT .Q10H [facility] Last Admin: 07/28/18 16:26 Dose: 100 mls/hr Diltiazem HCl 125 mg/ Sodium (Chloride) 125 mls @ 5 mls/hr IV.CONT TITRATE PRN ; Protocol PRN Reason: Per Protocol Insulin Aspart (Novolog Insulin Correctional Sugar Inj) 0 unit SQ ACHS [facility]; Protocol Last Admin: 07/28/18 16:27 Dose: 1 unit Lactulose (Lactulose Liq) 30 ml PO DAILY PRN PRN Reason: SEVERE CONSITIPATION Ondansetron HCl (Zofran Inj) 4 mg IV.PUSH Q6H PRN PRN Reason: NAUSEA OR VOMITING Senna/Docusate Sodium (Imelda-Colace) 1 tab PO BID [facility] Last Admin: 07/28/18 20:06 Dose: 1 tab Sennosides (Senokot) 17.2 mg PO Q12H PRN PRN Reason: Moderate Constipation Sodium Chloride (Ns Flush) 2 ml IV.FLUSH PRN PRN PRN Reason: FLUSH AFTER USING IV ACCESS <John Bruner - Last Filed: 07/28/18 20:49> Allergies Allergy/AdvReac Type Severity Reaction Status Date / Time No Known Allergies Allergy Unverified 07/14/18 09:47 Exam Vital signs: Vital Signs 07/28/18 04:14 07/28/18 04:18 07/28/18 04:27 Temperature Pulse Rate 117 H 100 H Respiratory Rate 18 Blood Pressure 129/73 Pulse Oximetry 95 95 95 07/28/18 05:09 07/28/18 07:00 07/28/18 07:05 Temperature 98.2 F 97.8 F Pulse Rate 109 H 108 H Respiratory Rate 20 Blood Pressure 152/91 H Pulse Oximetry 98 98 07/28/18 09:00 Temperature 97.9 F Pulse Rate 100 H Respiratory Rate 18 Blood Pressure 140/82 Pulse Oximetry 98 Intake & Output 07/27/18 07/28/18 07/28/18 18:59 06:59 18:59 Intake Total 135 / 135 Balance 135 / 135 Weight 79.379 kg Intake: IV 135 / 135 Protonix Inj 80 MG In NS Inj 35 35 / 35 ML @ 420 mls/hr IV.SIG BOLUS ONE Rx#:[id number] Rocephin Inj 1,000 MG In NS Inj 100 / 100 100 ML @ 200 mls/hr IV.SIG ONCE ONE Rx#:[id number] Other: # Urine Diapers 1 - Constitutional mild distress, thin, cachectic - Routine HEENT Exam Head: Present: normocephalic ENT: Present: mucous membranes dry - Routine Respiratory Exam Present: accessory muscle use (Low volumes but no obvious wheezing or rhonchi) - Routine Cardiovascular Exam Present: S1, S2, tachycardia, irregular rhythm - Routine Abdominal Exam Present: soft (Mild epigastric tenderness to light palpation otherwise no abdominal pain) <Lidya Mcintyre - Last Filed: 07/28/18 09:52> Vital signs: Vital Signs 07/28/18 04:14 07/28/18 04:18 07/28/18 04:27 Temperature Pulse Rate 117 H 100 H Respiratory Rate 18 Blood Pressure 129/73 Pulse Oximetry 95 95 95 07/28/18 05:09 07/28/18 07:00 07/28/18 07:05 Temperature 98.2 F 97.8 F Pulse Rate 109 H 108 H Respiratory Rate 20 Blood Pressure 152/91 H Pulse Oximetry 98 98 07/28/18 09:00 07/28/18 10:00 07/28/18 11:56 Temperature 97.9 F 97.9 F 97.9 F Pulse Rate 100 H 99 H 108 H Respiratory Rate 18 17 18 Blood Pressure 140/82 124/79 123/98 H Pulse Oximetry 98 99 98 07/28/18 14:12 07/28/18 15:54 07/28/18 17:21 Temperature 98 F 98.1 F 97.8 F Pulse Rate 108 H 118 H 116 H Respiratory Rate 18 17 17 Blood Pressure 144/76 H 145/82 H 150/79 H Pulse Oximetry 98 98 98 07/28/18 18:30 Temperature 97.9 F Pulse Rate 116 H Respiratory Rate 16 Blood Pressure 134/81 Pulse Oximetry 98 Intake & Output 07/28/18 07/28/18 07/29/18 06:59 18:59 06:59 Intake Total 135 / 135 1100 / 1100 Balance 135 / 135 1100 / 1100 Weight 79.379 kg Intake: IV 135 / 135 1100 / 1100 Protonix Inj 80 MG In NS Inj 100 / 100 100 ML @ 10 mls/hr IV.CONT CONT [facility] Rx#:[id number] NS Inj 1,000 ML @ 100 mls/hr IV 1000 / 1000 .CONT .Q10H [facility] Rx#:[id number] Protonix Inj 80 MG In NS Inj 35 35 / 35 ML @ 420 mls/hr IV.SIG BOLUS ONE Rx#:[id number] Rocephin Inj 1,000 MG In NS Inj 100 / 100 100 ML @ 200 mls/hr IV.SIG ONCE ONE Rx#:[id number] Other: # Urine Diapers 1 <John Bruner E - Last Filed: 07/28/18 20:49> Results - Labs CBC & Chem 7: 07/28/18 04:30 07/28/18 04:30 Labs: Laboratory Results - last 24 hr 07/28/18 07/28/18 07/28/18 04:30 04:30 04:30 WBC 17.3 H RBC 4.10 L Hgb 13.4 Hct 39.8 MCV 97.0 MCH 32.6 MCHC 33.7 RDW 13.6 Plt Count 299 D MPV 8.2 Neut % (Auto) 90.7 H Lymph % (Auto) 2.6 L [place] % (Auto) 6.4 Eos % (Auto) 0.1 Baso % (Auto) 0.2 Neut # (Auto) 15.7 H Lymph # (Auto) 0.5 L [place] # (Auto) 1.1 H Eos # (Auto) 0.0 Baso # (Auto) 0.0 WBC Differential . Differential Comment Auto diff final PT 12.3 H INR 1.2 APTT 27.2 Sodium 137 Potassium 4.2 Chloride 100 Carbon Dioxide 23.7 Anion Gap 13 BUN 54 H Creatinine 1.57 H Estimated GFR 44 L Random Glucose 343 H Calcium 8.7 Total Bilirubin 1.0 AST 17 ALT 17 Alkaline Phosphatase 67 Total Protein 7.4 D Albumin 3.2 L Blood Type Antibody Screen 07/28/18 04:30 WBC RBC Hgb Hct MCV MCH MCHC RDW Plt Count MPV Neut % (Auto) Lymph % (Auto) [place] % (Auto) Eos % (Auto) Baso % (Auto) Neut # (Auto) Lymph # (Auto) [place] # (Auto) Eos # (Auto) Baso # (Auto) WBC Differential Differential Comment PT INR APTT Sodium Potassium Chloride Carbon Dioxide Anion Gap BUN Creatinine Estimated GFR Random Glucose Calcium Total Bilirubin AST ALT Alkaline Phosphatase Total Protein Albumin Blood Type AB Positive Antibody Screen Negative <Lidya Mcintyre - Last Filed: 07/28/18 09:52> - Labs CBC & Chem 7: 07/28/18 04:30 07/28/18 04:30 Labs: Laboratory Results - last 24 hr 07/28/18 07/28/18 07/28/18 04:30 04:30 04:30 WBC 17.3 H RBC 4.10 L Hgb 13.4 Hct 39.8 MCV 97.0 MCH 32.6 MCHC 33.7 RDW 13.6 Plt Count 299 D MPV 8.2 Neut % (Auto) 90.7 H Lymph % (Auto) 2.6 L [place] % (Auto) 6.4 Eos % (Auto) 0.1 Baso % (Auto) 0.2 Neut # (Auto) 15.7 H Lymph # (Auto) 0.5 L [place] # (Auto) 1.1 H Eos # (Auto) 0.0 Baso # (Auto) 0.0 WBC Differential . Differential Comment Auto diff final PT 12.3 H INR 1.2 APTT 27.2 Sodium 137 Potassium 4.2 Chloride 100 Carbon Dioxide 23.7 Anion Gap 13 BUN 54 H Creatinine 1.57 H Estimated GFR 44 L Random Glucose 343 H Calcium 8.7 Total Bilirubin 1.0 AST 17 ALT 17 Alkaline Phosphatase 67 Total Protein 7.4 D Albumin 3.2 L Blood Type Antibody Screen 07/28/18 04:30 WBC RBC Hgb Hct MCV MCH MCHC RDW Plt Count MPV Neut % (Auto) Lymph % (Auto) [place] % (Auto) Eos % (Auto) Baso % (Auto) Neut # (Auto) Lymph # (Auto) [place] # (Auto) Eos # (Auto) Baso # (Auto) WBC Differential Differential Comment PT INR APTT Sodium Potassium Chloride Carbon Dioxide Anion Gap BUN Creatinine Estimated GFR Random Glucose Calcium Total Bilirubin AST ALT Alkaline Phosphatase Total Protein Albumin Blood Type AB Positive Antibody Screen Negative <John Bruner - Last Filed: 07/28/18 20:49> Assessment and Plan - Plan Coffee-ground emesis, probably related to upper GI bleed as well as Eliquis the patient takes for cardiovascular disease. Onset of symptoms approximately 11 PM this past evening, 07/27/2018. Current hemoglobin appears stable at 13.4, PT/ INR 1.2, Patient currently in atrial fib with RVR heart rate between 125 and 130. Will need heart rate control before any EGD or GI procedures can be performed. Epigastric tenderness, with symptoms of mild bloating and belching, possibly some nausea but no emesis for now. Could be related to inflammation versus ulcers. Leukocytosis, unspecified. No documented diarrhea. Bilirubin and LFTs are normal Unknown history of colon cancer or EGD colonoscopy Plan Diet n.p.o. for now Continue Protonix drip Hold Eliquis Monitor labs with special attention to any drop in hemoglobin Consider EGD if patient's hemoglobin drops or coffee-ground emesis continues. Patient's heart rate and rapid atrial fib will need to be stable before any GI testing Further recommendations to follow Patient was seen per myself and Dr. Bruner, note was written on his behalf <Lidya Mcintyre M - Last Filed: 07/28/18 09:52> - Plan Patient seen and examined Agree with above Continue with current supportive care Monitor labs Plan for an EGD tomorrow <John Bruner - Last Filed: 07/28/18 20:49>
--- NOTE | 2018-07-28 10:23 | P.HP ---
History of Present Illness Primary Care Physician: UNKNOWN History of Present Illness: 72-year-old white male being admitted for coffee-ground emesis. History is limited as the patient is quite aphasic and there is no other family member at the bedside. Obtained mainly from emergency room records and nursing. Patient was in his usual state of health until he was noted to have emesis at the longterm facility. He is brought in by [facility]. Blood work was demonstrating stable hemoglobin around 13+ with an elevated white count around 17+. Stool guiac was positive w/ brown stool. Was noted to be tachycardic in the 110s, given multiple doses of diltiazem IV and then started on a diltiazem drip. CMP was unremarkable except for acute kidney injury. There were no further emesis episodes in the emergency department. Patient was given a Protonix bolus IV. He was also given dose of Rocephin. Gastroenterology had been consulted. About 2 weeks ago the patient was released to SNF from hospitalization for an MCA that left him aphasic. Inpatient Certification: I certify that the inpatient services were ordered in accordance with Medicare regulations governing the order. This includes certification that hospital inpatient services are reasonable and necessary and in the case of services not specified as inpatient-only under 42 CFR 419.22(n), that they are appropriately provided as inpatient services in accordance to with the 2-midnight benchmark under 43 CFR 412.3(e) Estimated Total Length of Stay (Days): 2 Plans for Post Hospital Care: Not yet determined Review of Systems unobtainable due to mental status PMFSH - History History Provided By: Medical Record, Reject Opener And Filler / EMT - Medical History Medical History: Medical History (Last Updated 07/28/18 @ 10:19 by Hugo Restrepo MD) High cholesterol (Acute) Diabetes type 2, controlled (Acute) Afib Aphasia Stroke Hypertension - Surgical History Surgical History: Surgical History (Last Reviewed 07/28/18 @ 10:19 by Hugo Restrepo MD) No history of previous surgery - Family History Family History: Family History (Last Reviewed 07/28/18 @ 10:20 by Hugo Restrepo MD) Other CAD (coronary artery disease) Diabetes - Social History I have reviewed the patient's Social History: Yes - Tobacco History Second Hand Smoke Exposure: No Smoking Status: Unknown if ever smoked Tobacco Type: Cigars - Alcohol History How Often Do You Have a Drink Containing Alcohol: Unable to Obtain - Substance Use History Substance History: Unable to Obtain - Travel History Recent Travel in the [place] Within the Last 8 Weeks: No Recent Travel Out of the Country Within the Last 8 Weeks: No - Immunization History Tetanus Immunization: Unable to Assess Hx Influenza Vaccine This Season: Unable to Assess Medications and Allergies Active Medications: Active Medications Acetaminophen (Tylenol) 650 mg PO Q4H PRN PRN Reason: Temp > 100.4 Al Hydroxide/Mg Hydroxide (Milk Of Magnesia Liq) 30 ml PO Q12H PRN PRN Reason: Mild Constipation Atorvastatin Calcium (Lipitor) 40 mg PO HS [facility] Bisacodyl (Dulcolax Supp) 10 mg RECTAL DAILY PRN PRN Reason: SEVERE CONSITIPATION Buspirone HCl (Buspar) 5 mg PO BID [facility] Last Admin: 07/28/18 08:07 Dose: 5 mg Dextrose (D50w Vial) 50 ml IV.PUSH UNSCH PRN PRN Reason: PER HYPOGLYCEMIA PROTOCOL Glucagon (Glucagon Inj) 1 mg OTHER PRN PRN PRN Reason: for Hypoglycemia Protocol Pantoprazole Sodium 80 mg/ (Sodium Chloride) 100 mls @ 10 mls/hr IV.CONT CONT [facility] Last Admin: 07/28/18 05:02 Dose: 10 mls/hr Sodium Chloride (Ns Inj) 1,000 mls @ 100 mls/hr IV.CONT .Q10H [facility] Last Admin: 07/28/18 06:28 Dose: 100 mls/hr Insulin Aspart (Novolog Insulin Correctional Sugar Inj) 0 unit SQ ACHS [facility]; Protocol Last Admin: 07/28/18 08:07 Dose: 5 unit Lactulose (Lactulose Liq) 30 ml PO DAILY PRN PRN Reason: SEVERE CONSITIPATION Ondansetron HCl (Zofran Inj) 4 mg IV.PUSH Q6H PRN PRN Reason: NAUSEA OR VOMITING Senna/Docusate Sodium (Imelda-Colace) 1 tab PO BID [facility] Last Admin: 07/28/18 08:07 Dose: 1 tab Sennosides (Senokot) 17.2 mg PO Q12H PRN PRN Reason: Moderate Constipation Sodium Chloride (Ns Flush) 2 ml IV.FLUSH PRN PRN PRN Reason: FLUSH AFTER USING IV ACCESS Allergies Allergy/AdvReac Type Severity Reaction Status Date / Time No Known Allergies Allergy Unverified 07/14/18 09:47 Exam Vital signs: Vital Signs 07/28/18 04:14 07/28/18 04:18 07/28/18 04:27 Temperature Pulse Rate 117 H 100 H Respiratory Rate 18 Blood Pressure 129/73 Pulse Oximetry 95 95 95 07/28/18 05:09 07/28/18 07:00 07/28/18 07:05 Temperature 98.2 F 97.8 F Pulse Rate 109 H 108 H Respiratory Rate 20 Blood Pressure 152/91 H Pulse Oximetry 98 98 07/28/18 09:00 Temperature 97.9 F Pulse Rate 100 H Respiratory Rate 18 Blood Pressure 140/82 Pulse Oximetry 98 Intake & Output 07/27/18 07/28/18 07/28/18 18:59 06:59 18:59 Intake Total 135 / 135 Balance 135 / 135 Weight 79.379 kg Intake: IV 135 / 135 Protonix Inj 80 MG In NS Inj 35 35 / 35 ML @ 420 mls/hr IV.SIG BOLUS ONE Rx#:[id number] Rocephin Inj 1,000 MG In NS Inj 100 / 100 100 ML @ 200 mls/hr IV.SIG ONCE ONE Rx#:[id number] Other: # Urine Diapers 1 Narrative: VS: afebrile GENERAL: Elderly white male, well-nourished, lying in bed, no acute distress SKIN: Warm and dry. EYES: Pupils equal and round. No scleral icterus. No injection or drainage. ENT: No nasal bleeding or discharge. Mucous membranes pink and moist. CARDIOVASCULAR: Regular rate and rhythm. no murmurs RESPIRATORY: No accessory muscle use. Clear to auscultation. Breath sounds equal bilaterally. GASTROINTESTINAL: Abdomen soft, non-tender, nondistended. Slightly tender abdomen diffusely. Extremities: No clubbing, cyanosis, or edema. No obvious deformities. MUSCULOSKELETAL: adequate muscle bulk and tone for age and habitus NEUROLOGICAL: Awake and alert. Has an obvious facial droop to the right. Quite aphasic but is able related that he wants some water and garbled speech. Is otherwise unable to answer questions correctly. PSYCHIATRIC: Unable to assess due to aphasia Results - Labs CBC & Chem 7: 07/29/18 05:31 07/29/18 05:31 Labs: Laboratory Results - last 24 hr 09/07/28/18 07/28/18 04:30 04:30 04:30 WBC 17.3 H RBC 4.10 L Hgb 13.4 Hct 39.8 MCV 97.0 MCH 32.6 MCHC 33.7 RDW 13.6 Plt Count 299 D MPV 8.2 Neut % (Auto) 90.7 H Lymph % (Auto) 2.6 L [place] % (Auto) 6.4 Eos % (Auto) 0.1 Baso % (Auto) 0.2 Neut # (Auto) 15.7 H Lymph # (Auto) 0.5 L [place] # (Auto) 1.1 H Eos # (Auto) 0.0 Baso # (Auto) 0.0 WBC Differential . Differential Comment Auto diff final PT 12.3 H INR 1.2 APTT 27.2 Sodium 137 Potassium 4.2 Chloride 100 Carbon Dioxide 23.7 Anion Gap 13 BUN 54 H Creatinine 1.57 H Estimated GFR 44 L Random Glucose 343 H Calcium 8.7 Total Bilirubin 1.0 AST 17 ALT 17 Alkaline Phosphatase 67 Total Protein 7.4 D Albumin 3.2 L Blood Type Antibody Screen 07/28/18 04:30 WBC RBC Hgb Hct MCV MCH MCHC RDW Plt Count MPV Neut % (Auto) Lymph % (Auto) [place] % (Auto) Eos % (Auto) Baso % (Auto) Neut # (Auto) Lymph # (Auto) [place] # (Auto) Eos # (Auto) Baso # (Auto) WBC Differential Differential Comment PT INR APTT Sodium Potassium Chloride Carbon Dioxide Anion Gap BUN Creatinine Estimated GFR Random Glucose Calcium Total Bilirubin AST ALT Alkaline Phosphatase Total Protein Albumin Blood Type AB Positive Antibody Screen Negative Caprini VTE Risk Assessment Caprini VTE Risk Assessment: Moderate/High Risk (score >= 2) VTE Pharmacological Exception Reason: Active bleeding Caprini Risk Assessment Model: Point Value = 1 Point Value = 2 Point Value = 3 Point Value = 5 Age 41-60 Minor surgery BMI > 25 kg/m2 Swollen legs Varicose veins or History of unexplained or recurrent spontaneous Oral contraceptives or hormone replacement Sepsis (< 1 month) Serious lung disease, including pneumonia (< 1 month) Abnormal pulmonary function Acute myocardial infarction Congestive heart failure (< 1 month) History of inflammatory bowel disease Medical patient at bed rest Age 61-74 Arthroscopic surgery Major open surgery (> 45 min) Laparoscopic surgery (> 45 min) Malignancy Confined to bed (> 72 hours) Immobilizing plaster cast Central venous access Age >= 75 History of VTE Family history of VTE Factor V Leiden Prothrombin [id number] Lupus anticoagulant Anticardiolipin antibodies Elevated serum homocysteine Heparin-induced thrombocytopenia Other congenital or acquired thrombophilia Stroke (< 1 month) Elective arthroplasty Hip, pelvis, or leg fracture Acute spinal cord injury (< 1 month) Prophylaxis Regimen: Total Risk Factor Score Risk Level Prophylaxis Regimen 0-1 Low Early ambulation 2 Moderate Order ONE of the following: *Sequential Compression Device (SCD) *Heparin 5000 units SQ BID 3-4 Higher Order ONE of the following medications: *Heparin 5000 units SQ TID *Enoxaparin/Lovenox 40 mg SQ daily (WT < 150 kg, CrCl > 30 mL/min) *Enoxaparin/Lovenox 30 mg SQ daily (WT < 150 kg, CrCl > 10-29 mL/min) *Enoxaparin/Lovenox 30 mg SQ BID (WT < 150 kg, CrCl > 30 mL/min) AND/OR *Sequential Compression Device (SCD) 5 or more Highest Order ONE of the following medications: *Heparin 5000 units SQ TID (Preferred with Epidurals) *Enoxaparin/Lovenox 40 mg SQ daily (WT < 150 kg, CrCl > 30 mL/min) *Enoxaparin/Lovenox 30 mg SQ daily (WT < 150 kg, CrCl > 10-29 mL/min) *Enoxaparin/Lovenox 30 mg SQ BID (WT < 150 kg, CrCl > 30 mL/min) AND *Sequential Compression Device (SCD) Assessment and Plan - Plan 72-year-old white male being admitted for coffee-ground emesis Coffee-ground emesis with + guaiac stool Suspected upper GI bleed until proven otherwise, GI following, will switch over to n.p.o. Continue Protonix drip, hold Eliquis which likely has exacerbated a potential bleed Trend hemoglobin, if stable over next 24 hours may possibly resume Eliquis if cleared with GI and may be discharged Avoid all NSAIDs History of recent stroke Continue home Lipitor Afib/flutter - on diltiazem drip, start oral cardizem Acute kidney injury Possibly secondary to vomiting, IV fluids, recheck in a.m. -resume home Zestoretic when improved Continue home buspirone Diabetes Hold home metformin and glimepiride, low-dose sliding scale with Accu-Cheks SCDs
[2018-07-28] MEDS: Insulin NovoLOG Aspart Correctional Sugar Inj SQ SCH ×3 (11:57→22:42)
[2018-07-28] MEDS ORDERED: dilTIAZem 30 MG Tablet PO SCH (21:30)
[2018-07-28] MEDS ORDERED: NIFEdipine 10 MG Capsule PO SCH (21:30)
[2018-07-29] MEDS: Pantoprazole Inj 80 MG in Sodium Chlor 0.9% Inj 100 ML IV.CONT SCH ×2 (01:13→12:00)
[2018-07-29] MEDS: dilTIAZem Inj 125 MG in Sodium Chlor 0.9% Inj 100 ML IV.CONT PRN ×2 (01:14→10:06)
[2018-07-29] MEDS: Sod Chloride 0.9% Inj 1,000 ML IV.CONT SCH ×2 (01:15→12:31)
[2018-07-29 06:43] LABS: Baso % (Auto) 0.2 % (0.0-2.0); Hematocrit 36.5 % (39.0-51.0); Hemoglobin 11.9 gm/dL (13.0-17.0); Lymph # (Auto) 0.5 th/mm3 (1.0-4.8); Lymph % (Auto) 3.4 % (9.0-44.0); Mean Corpuscular HGB Conc 32.5 % (32.0-36.0); Mean Corpuscular Hemoglobin 32.1 pg (27.0-34.0); Mean Corpuscular Volume 98.6 fL (80.0-100.0); Mean Platelet Volume 8.5 fL (7.0-11.0); Mono # (Auto) 1.2 th/mm3 (0.0-0.9); Mono % (Auto) 7.4 % (0.0-8.0); Platelet Count 255 th/mm3 (150-450); Red Cell Distribution Width 13.4 % (11.6-17.2); White Blood Count 15.7 th/mm3 (4.0-11.0)
[2018-07-29 07:04] LABS: Calcium 8.5 mg/dL (8.5-10.1); Carbon Dioxide 19.6 meq/L (21.0-32.0); Potassium 3.8 meq/L (3.5-5.1)
[2018-07-29] MEDS: Insulin NovoLOG Aspart Correctional Sugar Inj SQ SCH ×4 (08:30→20:10)
[2018-07-29] MEDS: Senna/Docusate Sodium 8.6/50 MG Tablet PO SCH ×2 (08:30→20:09)
[2018-07-29] MEDS: dilTIAZem 60 MG Tablet PO SCH ×4 (08:38→20:09)
[2018-07-29] MEDS ORDERED: Lidocaine PF 1% Inj 5 ML Syringe OTHER ONE (10:15)
--- NOTE | 2018-07-29 10:33 | GIPROC ---
[facility] [address] [facility]. [facility], [address] EGD PROCEDURE REPORT EXAM DATE: 07/29/2018 PATIENT NAME: Serge Rae MR #: [id number] BIRTHDATE: 1945 ATTENDING: Pelon Orlando MD ORDER #: [id number] [employer] DEVELOPER: Qasim Vasquez Pena, Gabriela, and Carola Pak STATUS: inpatient INDICATIONS: The patient is a 72 yr old male here for an EGD due to dyspepsia, vomiting, and hematemesis PROCEDURE PERFORMED: EGD w/ biopsy MEDICATIONS: Per Anesthesia and None. TOPICAL ANESTHETIC: CONSENT: The patient understands the risks and benefits of the procedure and understands that these risks include, but are not limited to: sedation, allergic reaction, infection, perforation and/or bleeding. Alternative means of evaluation and treatment include, among others: physical exam, x-rays, and/or surgical intervention. The patient elects to proceed with this endoscopic procedure. medical equipment was checked for proper function. Hand hygiene and appropriate measures for infection prevention was taken. After the risks, benefits and alternatives of the procedure were thoroughly explained, Informed consent was verified, confirmed and timeout was successfully executed by the treatment team. The patient was anesthetized with topical anesthesia and the Pentax EG-[id number] endoscope was introduced through the mouth and advanced to the second portion of the duodenum. Retroflexed views revealed a hiatal hernia The gastroscope was then slowly withdrawn and removed. ESOPHAGUS: There was LA Class B esophagitis noted. A biopsy was performed using cold forceps. Sample sent for histology. STOMACH: There was moderate gastritis in the gastric antrum. A biopsy was performed using cold forceps. Sample sent for histology. DUODENUM: The duodenal mucosa appeared normal in the bulb and second portion of the duodenum. ADVERSE EVENTS: There were no complications. IMPRESSIONS: 1. There was LA Class B esophagitis noted; biopsy was performed 2. There was gastritis in the gastric antrum; biopsy was performed 3. Normal duodenal mucosa in the bulb and second portion of the duodenum 4. Retroflexed views revealed a hiatal hernia RECOMMENDATIONS: 1. Await biopsy results. Biopsy results will not be ready for 7-10 days. If you don't hear from us in two weeks, call our office for biopsy results. 2. Anti-reflux regimen 3. Continue PPI 4. Avoid NSAIDS PATIENT CONDITION: stable DISPOSITION: Inpatient REPEAT EXAM: Return 1 year EGD pending biopsy results Pelon Orlando MD eSigned: Pelon Orlando MD 07/29/2018 10:32 AM cc: PATIENT NAME: Serge Rae MR#: [id number]
--- NOTE | 2018-07-29 13:58 | P.PN ---
Subjective Interval history: Nursing denies any deterioration since last night. Patient underwent endoscopy , found to have some gastritis., Still on diltiazem drip. Physical Exam Vital signs: Vital Signs 07/28/18 14:12 07/28/18 15:54 07/28/18 17:21 Temperature 98 F 98.1 F 97.8 F Pulse Rate 108 H 118 H 116 H Respiratory Rate 18 17 17 Blood Pressure 144/76 H 145/82 H 150/79 H Pulse Oximetry 98 98 98 07/28/18 18:30 07/28/18 19:00 07/28/18 20:00 Temperature 97.9 F 97.6 F Pulse Rate 116 H 112 H 122 H Respiratory Rate 16 18 Blood Pressure 134/81 140/95 H Pulse Oximetry 98 99 07/28/18 21:00 07/28/18 22:00 07/28/18 23:00 Temperature Pulse Rate 116 H 116 H 128 H Respiratory Rate Blood Pressure Pulse Oximetry 07/28/18 23:45 07/29/18 00:00 07/29/18 01:00 Temperature 97.8 F Pulse Rate 127 H 120 H Respiratory Rate 18 Blood Pressure 137/85 Pulse Oximetry 98 97 07/29/18 02:00 07/29/18 03:00 07/29/18 04:00 Temperature 97.8 F Pulse Rate 122 H 114 H 102 H Respiratory Rate 20 Blood Pressure 120/73 Pulse Oximetry 96 07/29/18 05:00 07/29/18 06:00 07/29/18 07:00 Temperature Pulse Rate 104 H 110 H 101 H Respiratory Rate Blood Pressure Pulse Oximetry 98 07/29/18 08:00 07/29/18 09:00 07/29/18 09:09 Temperature 97.9 F 98.3 F Pulse Rate 100 H 100 H 99 H Respiratory Rate 18 23 Blood Pressure 128/72 131/71 Pulse Oximetry 98 91 L 07/29/18 10:00 07/29/18 10:43 07/29/18 10:45 Temperature 98.9 F Pulse Rate 96 H 126 H 109 H Respiratory Rate 9 L 20 Blood Pressure 84/52 L 84/50 L Pulse Oximetry 86 L 96 07/29/18 11:00 07/29/18 11:02 07/29/18 11:15 Temperature Pulse Rate 90 91 H Respiratory Rate 21 20 Blood Pressure 120/64 133/64 Pulse Oximetry 98 94 L 98 07/29/18 12:00 Temperature 98.9 F Pulse Rate 102 H Respiratory Rate 18 Blood Pressure 136/70 Pulse Oximetry 97 Intake & Output 07/28/18 07/29/18 07/29/18 18:59 06:59 18:59 Intake Total 1100 / 1100 1150 / 1150 1295 / 1295 Balance 1100 / 1100 1150 / 1150 1295 / 1295 Weight 72.6 kg Intake: IV 1100 / 1100 1100 / 1100 1195 / 1195 Protonix Inj 80 MG In NS Inj 100 / 100 100 / 100 100 / 100 100 ML @ 10 mls/hr IV.CONT CONT [facility] Rx#:[id number] NS Inj 1,000 ML @ 100 mls/hr IV 1000 / 1000 1000 / 1000 970 / 970 .CONT .Q10H [facility] Rx#:[id number] Cardizem Inj 125 MG In NS Inj 125 / 125 100 ML @ 5 MG/HR 5 mls/hr IV. CONT TITRATE PRN Rx#:[id number] Oral 50 / 50 Anesthesia Amount 100 / 100 Other: # Incontinent Voids 1 # Urine Diapers 1 Date of Last Bowel Movement 07/29/18 07/29/18 # Incontinent Bowel Movements 1 Narrative: Patient is able to answer that his name is Serge Rae but otherwise answers incorrectly to all other questions Lying in bed, clear lungs bilaterally, unlabored breathing Abdomen soft, nontender, nondistended Results - Labs CBC & Chem 7: 07/29/18 05:31 07/29/18 05:31 Laboratory Results - last 24 hr 07/28/18 07/29/18 07/29/18 22:42 05:31 05:31 WBC 15.7 H RBC 3.70 L Hgb 11.9 L Hct 36.5 L MCV 98.6 MCH 32.1 MCHC 32.5 RDW 13.4 Plt Count 255 MPV 8.5 Neut % (Auto) 89.0 H Lymph % (Auto) 3.4 L [place] % (Auto) 7.4 Eos % (Auto) 0.0 Baso % (Auto) 0.2 Neut # (Auto) 14.0 H Lymph # (Auto) 0.5 L [place] # (Auto) 1.2 H Eos # (Auto) 0.0 Baso # (Auto) 0.0 WBC Differential . Differential Comment Auto diff final Sodium 142 Potassium 3.8 Chloride 107 Carbon Dioxide 19.6 L Anion Gap 15 BUN 58 H Creatinine 2.06 H Estimated GFR 32 L POC Glucose 221 H Random Glucose 269 H Calcium 8.5 07/29/18 07/29/18 07/29/18 07:49 11:23 11:36 WBC RBC Hgb Hct MCV MCH MCHC RDW Plt Count MPV Neut % (Auto) Lymph % (Auto) [place] % (Auto) Eos % (Auto) Baso % (Auto) Neut # (Auto) Lymph # (Auto) [place] # (Auto) Eos # (Auto) Baso # (Auto) WBC Differential Differential Comment Sodium Potassium Chloride Carbon Dioxide Anion Gap BUN Creatinine Estimated GFR POC Glucose 281 H 248 H 269 H Random Glucose Calcium Assessment and Plan - Plan 72-year-old white male being admitted for coffee-ground emesis Coffee-ground emesis with + guaiac stool No active source of bleeding found on endoscopy, may now eat a p.o. diet, will resume Eliquis tomorrow, trend hemoglobin for tomorrow History of recent stroke Continue home Lipitor Afib/flutter - on diltiazem drip, increasing Cardizem dose Acute kidney injury Seems to be getting worse, could be possibly secondary to A. fib with RVR, will await until tachyarrhythmia proves likely shows improvement tomorrow Continue home buspirone Diabetes Hold home metformin and glimepiride, low-dose sliding scale with Accu-Cheks SCDs, resume Eliquis tomorrow
[2018-07-29] MEDS: Sodium Chloride 0.9% 2 ML Flush BID IV.FLUSH SCH (20:10)
[2018-07-30] MEDS: Sod Chloride 0.9% Inj 1,000 ML IV.CONT SCH ×2 (00:15→19:12)
[2018-07-30 06:48] LABS: Calcium 7.8 mg/dL (8.5-10.1); Carbon Dioxide 17.6 meq/L (21.0-32.0); Potassium 3.2 meq/L (3.5-5.1)
[2018-07-30] MEDS: dilTIAZem 60 MG Tablet PO SCH ×4 (08:52→20:14)
[2018-07-30] MEDS: Senna/Docusate Sodium 8.6/50 MG Tablet PO SCH ×2 (08:52→20:14)
[2018-07-30] MEDS: Insulin NovoLOG Aspart Correctional Sugar Inj SQ SCH ×4 (08:53→21:55)
--- NOTE | 2018-07-30 14:16 | P.PNIM ---
Subjective Interval history: Discussed with RN and the patient's at bedside. He has been having waxing and waning levels of alertness, at times restless. He briefly open his eyes to my voice but is not following commands. Physical Exam Vital signs: Vital Signs 07/29/18 15:00 07/29/18 16:00 07/29/18 20:00 Temperature 99.0 F 99.6 F Pulse Rate 96 H 95 H 84 Respiratory Rate 18 16 Blood Pressure 116/67 144/73 H Pulse Oximetry 92 L 100 07/30/18 00:00 07/30/18 01:29 07/30/18 04:00 Temperature 98.6 F 98 F Pulse Rate 99 H 94 H Respiratory Rate 19 20 Blood Pressure 142/68 H 133/64 Pulse Oximetry 93 L 92 L 95 07/30/18 08:00 07/30/18 09:43 07/30/18 11:00 Temperature 97.4 F L Pulse Rate 96 H 92 H 98 H Respiratory Rate 20 Blood Pressure 142/67 H Pulse Oximetry 92 L Intake & Output 07/29/18 07/30/18 07/30/18 18:59 06:59 18:59 Intake Total 1355 / 1355 1000 / 1000 Output Total 450 / 450 Balance 1355 / 1355 550 / 550 Weight 77.1 kg Intake: IV 1255 / 1255 1000 / 1000 Protonix Inj 80 MG In NS Inj 135 / 135 100 ML @ 10 mls/hr IV.CONT CONT [facility] Rx#:[id number] NS Inj 1,000 ML @ 100 mls/hr IV 970 / 970 1000 / 1000 .CONT .Q10H [facility] Rx#:[id number] Cardizem Inj 125 MG In NS Inj 150 / 150 100 ML @ 5 MG/HR 5 mls/hr IV. CONT TITRATE PRN Rx#:[id number] Anesthesia Amount 100 / 100 Output: Urine 450 / 450 Other: # Incontinent Voids 4 Date of Last Bowel Movement 07/29/18 07/29/18 # Incontinent Bowel Movements 1 Narrative: GENERAL: No acute distress. Briefly wake up to stimulation but does not interact much. CARDIOVASCULAR: Normal rate and regular rhythm without murmurs, gallops, or rubs. RESPIRATORY: Breath sounds equal and clear to auscultation bilaterally. GASTROINTESTINAL: Abdomen soft, non-tender, non-distended. Normal active bowel sounds NEURO: Awake to voice. Does not follow commands or interact much. Occasionally say 1 or 2 words. PSYCH: Somewhat restless. Results - Labs CBC & Chem 7: 07/29/18 05:31 07/30/18 05:22 Laboratory Results - last 24 hr 07/29/18 07/30/18 17:01 05:22 Sodium 139 Potassium 3.2 L Chloride 107 Carbon Dioxide 17.6 L Anion Gap 14 BUN 55 H Creatinine 2.38 H Estimated GFR 27 L POC Glucose 330 H Random Glucose 279 H Calcium 7.8 L Assessment and Plan - Plan 72-year-old white male being admitted for coffee-ground emesis Coffee-ground emesis with + guaiac stool Suspected upper GI bleed . -Appreciate GI input. Patient is status post EGD which revealed esophagitis and gastritis. Continue Protonix, Eliquis initially held Hemoglobin remained stable. Encephalopathy/history of recent stroke. Patient's mental status has been waxing and waning. Based on his previous hospitalization he did have some episodes similar to this. However he is more restless and seems to be more confused. Will obtain an MRI to rule out any new process or stroke. - Continue Lipitor - Resume Eliquis but at half the dose given renal issues. Afib/flutter -Rate controlled on oral cardizem Acute kidney injury Possibly secondary to vomiting, continue IV fluid. Follow-up BMP in a.m. Continue home buspirone Diabetes Hold home metformin and glimepiride, low-dose sliding scale with Accu-Cheks
--- NOTE | 2018-07-30 16:30 | P.PNGI ---
Subjective Interval history: Patient is resting in the bed soft wrist restraints on Speech is mumbled but is attempting to communicate. Abdomen is soft with palpable bowel, BM x1 today no obvious nausea vomiting <Lidya Mcintyre - Last Filed: 07/30/18 16:36> Interval history: Seen and examined with RESPIRATORY THERAPIST ASSISTANT, no bleeding. H/H stable. More confused today. Monitor H/H. GI will sign off, reconsult as needed. thank you The exam, history, and the medical decision-making described in the above note were completed with the assistance of the mid-level provider. I reviewed and agree with the findings presented. I attest that I had a [id number] encounter with the patient on the same day, and personally performed and documented my assessment and findings in the medical record. <Pelon Orlando - Last Filed: 07/30/18 18:01> Physical Exam Vital signs: Vital Signs 07/29/18 20:00 07/30/18 00:00 07/30/18 01:29 Temperature 99.6 F 98.6 F Pulse Rate 84 99 H Respiratory Rate 16 19 Blood Pressure 144/73 H 142/68 H Pulse Oximetry 100 93 L 92 L 07/30/18 04:00 07/30/18 08:00 07/30/18 09:43 Temperature 98 F 97.4 F L Pulse Rate 94 H 96 H 92 H Respiratory Rate 20 20 Blood Pressure 133/64 142/67 H Pulse Oximetry 95 92 L 07/30/18 11:00 07/30/18 12:00 07/30/18 16:00 Temperature 98.7 F Pulse Rate 98 H 56 L 56 L Respiratory Rate 20 Blood Pressure 132/65 Pulse Oximetry 91 L Intake & Output 07/29/18 07/30/18 07/30/18 18:59 06:59 18:59 Intake Total 1355 / 1355 1000 / 1000 Output Total 450 / 450 Balance 1355 / 1355 550 / 550 Weight 77.1 kg Intake: IV 1255 / 1255 1000 / 1000 Protonix Inj 80 MG In NS Inj 135 / 135 100 ML @ 10 mls/hr IV.CONT CONT [facility] Rx#:[id number] NS Inj 1,000 ML @ 100 mls/hr IV 970 / 970 1000 / 1000 .CONT .Q10H [facility] Rx#:[id number] Cardizem Inj 125 MG In NS Inj 150 / 150 100 ML @ 5 MG/HR 5 mls/hr IV. CONT TITRATE PRN Rx#:[id number] Anesthesia Amount 100 / 100 Output: Urine 450 / 450 Other: # Incontinent Voids 4 Date of Last Bowel Movement 07/29/18 07/29/18 # Incontinent Bowel Movements 1 - Constitutional mild distress, obese, disheveled - Routine HEENT Exam Head: Present: normocephalic ENT: Present: mucous membranes dry - Routine Neck Exam Present: supple - Routine Respiratory Exam Present: accessory muscle use (No obvious shortness of breath) <Lidya Mcintyre - Last Filed: 07/30/18 16:36> Vital signs: Vital Signs 07/29/18 20:00 07/30/18 00:00 07/30/18 01:29 Temperature 99.6 F 98.6 F Pulse Rate 84 99 H Respiratory Rate 16 19 Blood Pressure 144/73 H 142/68 H Pulse Oximetry 100 93 L 92 L 07/30/18 04:00 07/30/18 08:00 07/30/18 09:43 Temperature 98 F 97.4 F L Pulse Rate 94 H 96 H 92 H Respiratory Rate 20 20 Blood Pressure 133/64 142/67 H Pulse Oximetry 95 92 L 07/30/18 11:00 07/30/18 12:00 07/30/18 16:00 Temperature 98.7 F 99.4 F Pulse Rate 98 H 56 L 103 H Respiratory Rate 20 20 Blood Pressure 132/65 139/75 Pulse Oximetry 91 L 92 L Intake & Output 07/29/18 07/30/18 07/30/18 18:59 06:59 18:59 Intake Total 1355 / 1355 1000 / 1000 Output Total 450 / 450 Balance 1355 / 1355 550 / 550 Weight 77.1 kg Intake: IV 1255 / 1255 1000 / 1000 Protonix Inj 80 MG In NS Inj 135 / 135 100 ML @ 10 mls/hr IV.CONT CONT [facility] Rx#:[id number] NS Inj 1,000 ML @ 100 mls/hr IV 970 / 970 1000 / 1000 .CONT .Q10H [facility] Rx#:[id number] Cardizem Inj 125 MG In NS Inj 150 / 150 100 ML @ 5 MG/HR 5 mls/hr IV. CONT TITRATE PRN Rx#:[id number] Anesthesia Amount 100 / 100 Output: Urine 450 / 450 Other: # Incontinent Voids 4 Date of Last Bowel Movement 07/29/18 07/29/18 07/30/18 # Incontinent Bowel Movements 1 <DarionBird - Last Filed: 07/30/18 18:01> Results - Labs CBC & Chem 7: 07/29/18 05:31 07/30/18 05:22 Laboratory Results - last 24 hr 07/29/18 07/30/18 17:01 05:22 Sodium 139 Potassium 3.2 L Chloride 107 Carbon Dioxide 17.6 L Anion Gap 14 BUN 55 H Creatinine 2.38 H Estimated GFR 27 L POC Glucose 330 H Random Glucose 279 H Calcium 7.8 L <Lidya cMintyre - Last Filed: 07/30/18 16:36> - Labs CBC & Chem 7: 07/29/18 05:31 07/30/18 05:22 Laboratory Results - last 24 hr 07/30/18 05:22 Sodium 139 Potassium 3.2 L Chloride 107 Carbon Dioxide 17.6 L Anion Gap 14 BUN 55 H Creatinine 2.38 H Estimated GFR 27 L Random Glucose 279 H Calcium 7.8 L <DarionBird - Last Filed: 07/30/18 18:01> Assessment and Plan - Plan Coffee-ground emesis, probably related to upper GI bleed as well as Eliquis the patient takes for cardiovascular disease. Onset of symptoms approximately 11 PM this past evening, 07/27/2018. Current hemoglobin appears stable at 13.4, PT/ INR 1.2, Patient currently in atrial fib with RVR heart rate between 125 and 130. Will need heart rate control before any EGD or GI procedures can be performed. Epigastric tenderness, with symptoms of mild bloating and belching, possibly some nausea but no emesis for now. Could be related to inflammation versus ulcers. Leukocytosis, unspecified. No documented diarrhea. Bilirubin and LFTs are normal Unknown history of colon cancer or EGD colonoscopy 07/30/2018, patient is resting in the bed no acute nausea or vomiting, abdomen soft but palpable bowel. BM x1 today Patient is status post EGD on 07/29/2018 with LA class B esophagitis noted, gastritis in the antrum and hiatal hernia. Biopsies were taken. Redo EGD in 1 year. Patient is now back on Eliquis. Patient will be high risk for bleeding episodes. Plan Diet n.p.o. for now PPI, transition to p.o. Avoid NSAIDs Antireflux regimen with head of bed elevated, no late night eating and chewing food well Monitor labs with special attention to any drop in hemoglobin Follow-up with GI after discharge and repeat EGD in 1 year Patient was seen per myself and Dr. Orlando, note was written on his behalf <Lidya Mcintyre - Last Filed: 07/30/18 16:36>
[2018-07-30] MEDS: Potassium Chloride Inj 10 MEQ in Sod Chloride 0.9% Inj 1,000 ML IV.CONT SCH (17:44)
[2018-07-30] MEDS: Sodium Chloride 0.9% 2 ML Flush BID IV.FLUSH SCH ×2 (17:44→21:57)
--- NOTE | 2018-07-30 23:25 | MR ---
EXAM DATE: 07/30/2018 6:24 PM EDT AGE/SEX: 72 years / Male INDICATIONS: Altered mental status. CLINICAL DATA: This is the patient's initial encounter. Patient reports that signs and symptoms have been present for 2 days and indicates a pain score of Nonresponsive. MEDICAL/SURGICAL HISTORY: Diabetes mellitus type I. Cerebrovascular disease. Hypertension. No ne. COMPARISON: [facility] [place], MR HEAD W/O CONTRAST, 07/18/2018. . TECHNIQUE: Multiplanar, multisequence examination of the brain was performed without contrast. FINDINGS: Large evolving infarct of the left cerebral hemisphere again identified involving the parietal, occip ital, and posterior temporal regions. No new areas of restricted diffusion identified. No new mass ef fect. No midline shift. No evidence of intracranial mass lesion or acute intracranial hemorrhage. No extra-axial fluid collection. CONCLUSION: 1. Large evolving left cerebral hemisphere infarct again seen. No new areas of infarct identified. 2. No significant mass effect or midline shift. Electronically signed by: Watson Heck MD 07/30/2018 11:24 PM EDT
[2018-07-31] MEDS: Potassium Chloride Inj 10 MEQ in Sod Chloride 0.9% Inj 1,000 ML IV.CONT SCH ×2 (02:14→12:17)
[2018-07-31] MEDS: dilTIAZem 60 MG Tablet PO SCH ×4 (08:53→20:55)
[2018-07-31] MEDS: Insulin NovoLOG Aspart Correctional Sugar Inj SQ SCH ×4 (08:53→20:56)
[2018-07-31] MEDS: Sodium Chloride 0.9% 2 ML Flush BID IV.FLUSH SCH ×2 (08:53→20:59)
[2018-07-31] MEDS: Senna/Docusate Sodium 8.6/50 MG Tablet PO SCH ×2 (08:53→20:55)
--- NOTE | 2018-07-31 16:18 | P.PNIM ---
Subjective Interval history: Patient is doing much better today. He is awake and alert. More cooperative. Still with significant word salad. He is following commands. Physical Exam Vital signs: Vital Signs 07/30/18 16:00 07/30/18 18:00 07/30/18 19:45 Temperature 99.4 F Pulse Rate 103 H 103 H Respiratory Rate 20 Blood Pressure 139/75 Pulse Oximetry 92 L 97 07/30/18 20:00 07/31/18 00:00 07/31/18 04:00 Temperature 97.6 F 97.6 F 98.0 F Pulse Rate 70 62 99 H Respiratory Rate 21 20 18 Blood Pressure 134/78 145/78 H 160/80 H Pulse Oximetry 93 L 95 98 07/31/18 08:00 07/31/18 08:25 07/31/18 12:00 Temperature 98.0 F 98.7 F Pulse Rate 62 57 L Respiratory Rate 20 20 Blood Pressure 142/76 H 164/83 H Pulse Oximetry 95 95 94 L Intake & Output 07/30/18 07/31/18 07/31/18 18:59 06:59 18:59 Intake Total 500 / 500 1825 / 1825 Output Total 450 / 450 Balance 50 / 50 1825 / 1825 Weight 77.9 kg Intake: IV 1705 / 1705 KCl Inj 10 MEQ In NS Inj 1,000 1005 / 1005 ML @ 100 mls/hr IV.CONT .Q10H3M [facility] Rx#:[id number] NS Inj 1,000 ML @ 100 mls/hr IV 700 / 700 .CONT .Q10H [facility] Rx#:[id number] Oral 400 / 400 120 / 120 Anesthesia Amount 100 / 100 Output: Urine 450 / 450 Other: # Incontinent Voids 3 1 # Urine Diapers 1 Date of Last Bowel Movement 07/30/18 07/30/18 # Incontinent Bowel Movements 1 Narrative: GENERAL: No acute distress. Awake and alert. CARDIOVASCULAR: Normal rate and regular rhythm without murmurs, gallops, or rubs. RESPIRATORY: Breath sounds equal and clear to auscultation bilaterally. GASTROINTESTINAL: Abdomen soft, non-tender, non-distended. Normal active bowel sounds NEURO: Awake and alert. Right upper extremity strength is 4 out of 5. Rest of the major muscle groups 5 out of 5. Word salad. PSYCH: Cooperative. Calm. Results - Labs CBC & Chem 7: 07/29/18 05:31 07/30/18 05:22 Laboratory Results - last 24 hr 07/30/18 07/31/18 07/31/18 20:37 07:58 12:12 POC Glucose 319 H 230 H 280 H - Imaging Impressions Head MRI 07/30/18 00:00 CONCLUSION: 1. Large evolving left cerebral hemisphere infarct again seen. No new areas of infarct identified. 2. No significant mass effect or midline shift. Assessment and Plan - Plan 72-year-old white male being admitted for coffee-ground emesis Coffee-ground emesis with + guaiac stool Suspected upper GI bleed . -Appreciate GI input. Patient is status post EGD which revealed esophagitis and gastritis. Continue Protonix, Eliquis initially held Hemoglobin remained stable. No further signs of bleeding. Encephalopathy/history of recent stroke. Patient's mental status has been waxing and waning. Based on his previous hospitalization he did have some episodes similar to this. However he is more restless and seems to be more confused. Repeat MRI showed the known large stroke but no acute findings. - Continue Lipitor - Eliquis at half the dose given renal issues. Afib/flutter -Rate controlled on oral cardizem Acute kidney injury Possibly secondary to vomiting, continue IV fluid. Follow-up BMP in a.m. Continue home buspirone Diabetes Hold home metformin and glimepiride, low-dose sliding scale with Accu-Cheks Discharge Planning: Probable discharge tomorrow morning to SNF.
[2018-08-01] MEDS: Potassium Chloride Inj 10 MEQ in Sod Chloride 0.9% Inj 1,000 ML IV.CONT SCH ×2 (04:27→09:12)
[2018-08-01 07:53] LABS: Hematocrit 33.1 % (39.0-51.0); Hemoglobin 11.3 gm/dL (13.0-17.0); Mean Corpuscular HGB Conc 34.3 % (32.0-36.0); Mean Corpuscular Hemoglobin 32.6 pg (27.0-34.0); Mean Corpuscular Volume 95.2 fL (80.0-100.0); Mean Platelet Volume 8.6 fL (7.0-11.0); Platelet Count 203 th/mm3 (150-450); Red Blood Count 3.48 mil/mm3 (4.50-5.90); Red Cell Distribution Width 13.2 % (11.6-17.2); White Blood Count 9.7 th/mm3 (4.0-11.0)
[2018-08-01 08:28] LABS: Calcium 8.4 mg/dL (8.5-10.1); Carbon Dioxide 23.6 meq/L (21.0-32.0); Potassium 3.1 meq/L (3.5-5.1)
[2018-08-01] MEDS: Senna/Docusate Sodium 8.6/50 MG Tablet PO SCH ×2 (09:09→20:13)
[2018-08-01] MEDS: dilTIAZem 60 MG Tablet PO SCH ×4 (09:10→20:14)
[2018-08-01] MEDS: Insulin NovoLOG Aspart Correctional Sugar Inj SQ SCH ×4 (09:11→20:15)
[2018-08-01] MEDS: Sodium Chloride 0.9% 2 ML Flush BID IV.FLUSH SCH ×2 (09:12→20:14)
--- NOTE | 2018-08-01 13:16 | P.PNIM ---
Subjective Interval history: Patient required restraints overnight again. However he is completely cooperative this morning. He is calm. Physical Exam Vital signs: Vital Signs 07/31/18 16:00 07/31/18 19:00 07/31/18 20:00 Temperature 98.2 F 97.7 F Pulse Rate 105 H 114 H Respiratory Rate 20 16 Blood Pressure 161/81 H 151/79 H Pulse Oximetry 94 L 96 95 08/01/18 00:00 08/01/18 04:00 08/01/18 08:00 Temperature 98.2 F 98.4 F 98.1 F Pulse Rate 87 80 103 H Respiratory Rate 20 20 20 Blood Pressure 126/68 137/79 149/83 H Pulse Oximetry 94 L 95 92 L 08/01/18 10:52 Temperature Pulse Rate Respiratory Rate Blood Pressure Pulse Oximetry 94 L Intake & Output 07/31/18 08/01/18 08/01/18 18:59 06:59 18:59 Intake Total 1365 / 1365 1005 / 1005 1005 / 1005 Balance 1365 / 1365 1005 / 1005 1005 / 1005 Intake: IV 1005 / 1005 1005 / 1005 1005 / 1005 KCl Inj 10 MEQ In NS Inj 1,000 1005 / 1005 1005 / 1005 1005 / 1005 ML @ 100 mls/hr IV.CONT .Q10H3M [facility] Rx#:[id number] Oral 360 / 360 Other: # Incontinent Voids 3 Date of Last Bowel Movement 07/30/18 Narrative: GENERAL: No acute distress. Awake and alert. CARDIOVASCULAR: Normal rate and regular rhythm without murmurs, gallops, or rubs. RESPIRATORY: Breath sounds equal and clear to auscultation bilaterally. GASTROINTESTINAL: Abdomen soft, non-tender, non-distended. Normal active bowel sounds NEURO: Awake and alert. Right upper extremity strength is 4 out of 5. Rest of the major muscle groups 5 out of 5. Word salad. PSYCH: Cooperative. Calm. Results - Labs CBC & Chem 7: 08/01/18 06:35 08/01/18 06:35 Laboratory Results - last 24 hr 07/31/18 08/01/18 08/01/18 17:12 06:35 06:35 WBC 9.7 RBC 3.48 L Hgb 11.3 L Hct 33.1 L MCV 95.2 MCH 32.6 MCHC 34.3 RDW 13.2 Plt Count 203 MPV 8.6 Sodium 143 Potassium 3.1 L Chloride 109 H Carbon Dioxide 23.6 Anion Gap 10 BUN 25 H Creatinine 1.32 H Estimated GFR 54 L POC Glucose 210 H Random Glucose 225 H Calcium 8.4 L Assessment and Plan - Plan 72-year-old white male being admitted for coffee-ground emesis Coffee-ground emesis with + guaiac stool Suspected upper GI bleed . -Appreciate GI input. Patient is status post EGD which revealed esophagitis and gastritis. Continue Protonix, Eliquis initially held Hemoglobin remained stable. No further signs of bleeding. Encephalopathy/history of recent stroke. Patient's mental status has been waxing and waning. Repeat MRI showed the known large stroke but no acute findings. -Mental status seemed to be back to baseline except for agitation at night - Continue Lipitor - Eliquis resumed at half the dose given renal issues. -OT to evaluate. Aphasia is a serious source of frustration for him. Afib/flutter -Rate controlled on oral cardizem Acute kidney injury Possibly secondary to vomiting, continue IV fluid. Follow-up BMP in a.m. Delirium: Likely sundowning. Continue buspirone. Add low-dose Seroquel at night. Frequent redirection. Diabetes Hold home metformin and glimepiride, low-dose sliding scale with Accu-Cheks Discharge Planning: Probable discharge tomorrow morning to SNF if he can stay out of restraints.
[2018-08-01] MEDS ORDERED: QUEtiapine 25 MG Tablet PO SCH (21:00)
--- NOTE | 2018-08-02 08:51 | P.DS ---
Date of admission: 07/28/18 05:39 Primary care physician: UNKNOWN Brief History from admission: HPI from the admitting physician 72-year-old white male being admitted for coffee-ground emesis. History is limited as the patient is quite aphasic and there is no other family member at the bedside. Obtained mainly from emergency room records and nursing. Patient was in his usual state of health until he was noted to [facility]. He is brought in by [facility]. Blood work was demonstrating stable hemoglobin around 13+ with an elevated white count around 17+. Stool guiac was positive w/ brown stool. Was noted to be tachycardic in the 110s, given multiple doses of diltiazem IV and then started on a diltiazem drip. CMP was unremarkable except for acute kidney injury. There were no further emesis episodes in the emergency department. Patient was given a Protonix bolus IV. He was also given dose of Rocephin. Gastroenterology had been consulted. About 2 weeks ago the patient was released to SNF from hospitalization for an MCA that left him aphasic. Patient update on day of discharge: Patient reports he is feeling ok. Can say some words. Cooperative today. He slept well last night after receiving Seroquel. DS: Diagnosis - Discharge Diagnosis (1) GIB (gastrointestinal bleeding) Status: Acute (2) CVA (cerebral vascular accident) Status: Acute (3) High cholesterol Status: Acute (4) Diabetes type 2, controlled Status: Acute DS: Medications - Discharge Medications Prescriptions: diltiazem HCl [Cardizem LA] 180 mg PO DAILY #30 tab insulin detemir U-100 [Levemir U-100 Insulin] 10 unit SUBCUT QPM 30 Days #3 ml DS: Summary Hospital Course: 72-year-old white male being admitted for coffee-ground emesis. Evaluation and treatment course detailed below: Coffee-ground emesis with + guaiac stool -Appreciate GI input. Patient is status post EGD which revealed esophagitis and gastritis. Continue Protonix, Eliquis initially held Hemoglobin remained stable. No further signs of bleeding. Eliquis resumed at a lower dose. No other signs of bleeding. Encephalopathy/history of recent stroke. Patient's mental status has been waxing and waning. Repeat MRI showed the known large stroke but no acute findings. -Mental status back to baseline. However he did require Seroquel at night which helped him sleep and function better during the day. -Continue Lipitor -Eliquis resumed at half the dose given renal issues. -OT to be continued in rehab Afib/flutter -Rate controlled on oral Cardizem. Patient is discharged on the same. MILLIE RN to call the SNF for updated med rec. Acute kidney injury Possibly secondary to vomiting. Renal function improved and stabilized. Delirium: Likely sundowning. Continue buspirone. Resolved with low-dose Seroquel at night. Frequent redirection. Diabetes Hold home metformin and glimepiride, low-dose sliding scale with Accu-Cheks - Time Spent with Patient Total time spent providing and/or coordinating discharge services: Greater than 30 minutes Exam Vital signs: Vital Signs 08/01/18 10:52 08/01/18 12:00 08/01/18 16:00 Temperature 98.3 F 98.4 F Pulse Rate 113 H 106 H Respiratory Rate 20 20 Blood Pressure 174/89 H 167/81 H Pulse Oximetry 94 L 92 L 91 L 08/01/18 20:00 08/02/18 00:00 08/02/18 04:00 Temperature 98.2 F 98.2 F 98.2 F Pulse Rate 93 H 91 H 100 H Respiratory Rate 20 18 16 Blood Pressure 154/87 H 152/86 H 120/71 Pulse Oximetry 94 L 97 96 Intake & Output 08/01/18 08/02/18 08/02/18 18:59 06:59 18:59 Intake Total 1485 / 1485 1245 / 1245 Balance 1485 / 1485 1245 / 1245 Weight 77.7 kg Intake: IV 1005 / 1005 1005 / 1005 KCl Inj 10 MEQ In NS Inj 1,000 1005 / 1005 1005 / 1005 ML @ 100 mls/hr IV.CONT .Q10H3M [facility] Rx#:[id number] Oral 480 / 480 240 / 240 Other: # Voids 2 2 Narrative: GENERAL: No acute distress. Awake and alert. CARDIOVASCULAR: Normal rate and regular rhythm without murmurs, gallops, or rubs. RESPIRATORY: Breath sounds equal and clear to auscultation bilaterally. GASTROINTESTINAL: Abdomen soft, non-tender, non-distended. Normal active bowel sounds NEURO: Awake and alert. Right upper extremity strength is 4 out of 5. Rest of the major muscle groups 5 out of 5. Word salad. Occasional full words. PSYCH: Cooperative. Calm. Results Procedures completed during hospitalization: EGD Completed studies during hospitalization: Pending at discharge 07/29/18 13:54 Surgical [PTH] Routine Labs on day of discharge: Labs from last 24 hours 08/02/18 08/01/18 08/01/18 07:43 19:58 17:48 POC Glucose 244 H 256 H 228 H - Impressions ITS Impressions Head MRI 07/30/18 00:00 CONCLUSION: 1. Large evolving left cerebral hemisphere infarct again seen. No new areas of infarct identified. 2. No significant mass effect or midline shift. Discharge Plan - Discharge Disposition Patient Disposition: Discharge to SNF - Discharge Condition Condition: Good - Discharge Order Discharge Orders: Discharge Order (Routine); Ordered 08/02/18 Ordered By: Gloria Arias - Physicians Team Primary Care Provider: UNKNOWN, Attending Provider: Gloria Arias Other Providers: John Bruner MD ; [employer] ; [facility] ; [facility]
[2018-08-02] MEDS: dilTIAZem 60 MG Tablet PO SCH (09:19)
[2018-08-02] MEDS: Senna/Docusate Sodium 8.6/50 MG Tablet PO SCH (09:19)
[2018-08-02] MEDS: Sodium Chloride 0.9% 2 ML Flush BID IV.FLUSH SCH (09:20)
[2018-08-02] MEDS: Insulin NovoLOG Aspart Correctional Sugar Inj SQ SCH (09:20)
[2018-08-02 10:19] VITALS: BP 129/80; RESP 20; TEMP 98.3; O2SAT 97
[2018-08-02 10:39] VITALS: PULSE 100
== END 2018-08-02 11:56 ==
LOC: NEPE 04:03 → NEDA 05:39 → NEDH 09:20 → HCIS 18:40 → N04 07-29 16:16
PROVIDERS: ADMIT Family Medicine; ATTEND Family Medicine
PROC: PANENDO (2018-07-29 10:14)

== ENCOUNTER 2018-08-26 12:34 | Inpatient (IN) ==
--- NOTE | 2018-08-26 13:00 | ED ---
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 As per residential, they were concerned for a possible alerted mental status as patient was tearful last night and was not acting like his normal self. At baseline, he is unable to express his thoughts as he is aphasic. Patient cannot provide any HPI. He is able to nod yes and no to questions asked to him. Patient denies headache/dizzyness, denies chest pain /sob, denies abdominal pain. Patient with no complaints Related Data Home Medications Medication Instructions Recorded Confirmed apixaban 2.5 mg PO BID 08/02/18 08/02/18 atorvastatin 40 mg PO DAILY 08/02/18 08/02/18 buspirone 15 mg PO BID 08/02/18 08/02/18 insulin detemir U-100 10 unit SUBCUT QPM 08/02/18 08/02/18 insulin lispro [Humalog U-100 1 sliding scale dose SUBCUT UD 08/02/18 08/02/18 Insulin] pantoprazole [Protonix] 40 mg PO DAILY 08/02/18 08/02/18 quetiapine 25 mg PO DAILY 08/02/18 08/02/18 Previous Rx's Medication Instructions Recorded diltiazem HCl [Cardizem LA] 180 mg PO DAILY #30 tab 08/02/18 Allergies Allergy/AdvReac Type Severity Reaction Status Date / Time No Known Allergies Allergy Verified 08/26/18 12:55 Review of Systems ROS: all other systems reviewed are negative PMFSH History History Provided By: Medical Record Medical History Medical History High cholesterol (Acute) Diabetes type 2, controlled (Acute) Afib (Acute) Aphasia (Acute) Hypertension (Acute) Stroke (Acute) Surgical History Surgical History No history of previous surgery (Acute) Family History Family History Other CAD (coronary artery disease) Diabetes Social History Social History Substance History: Unable to Obtain Second Hand Smoke Exposure: No Smoking Status: Cognitive impairment Tobacco Type: Cigars How Often Do You Have a Drink Containing Alcohol: Unable to Obtain Recent Travel in [facility] within the Last 8 Weeks: No Recent Out of Country Travel within the Last 8 Weeks: No Exam Narrative Exam Narrative: GENERAL: NAD SKIN: Focused skin assessment warm/dry. HEAD: Atraumatic. Normocephalic. EYES: Pupils equal and round. No scleral icterus. No injection or drainage. ENT: No nasal bleeding or discharge. Mucous membranes pink and moist. NECK: Trachea midline. No JVD. CARDIOVASCULAR: Regular rate and rhythm. No murmur appreciated. RESPIRATORY: No accessory muscle use. Clear to auscultation. Breath sounds equal bilaterally. GASTROINTESTINAL: Abdomen soft, non-tender, nondistended. Hepatic and splenic margins not palpable. MUSCULOSKELETAL: No obvious deformities. No clubbing. No cyanosis. No edema. NEUROLOGICAL: Awake and alert. Patient aphasic, weakness to RUE as well as b/l lower extremities PSYCHIATRIC: Appropriate mood and affect; insight and judgment normal. Course Initial Documented Vital Signs Temperature 98.2 F 08/26/18 12:40 Pulse Rate 104 H 08/26/18 12:40 Respiratory Rate 16 08/26/18 12:40 Blood Pressure 142/87 H 08/26/18 12:40 Pulse Oximetry 95 08/26/18 12:40 Last Documented Vital Signs Temperature 98.2 F 08/26/18 12:40 Pulse Rate 93 H 08/26/18 14:10 Respiratory Rate 16 08/26/18 14:10 Blood Pressure 142/88 H 08/26/18 14:10 Pulse Oximetry 98 08/26/18 14:10 Critical Care Time Critical Care Time: Yes Total Critical Care Time: 30 Attestation: Aggregate critical care time was 30 minutes. Time to perform other separately billable procedures was not included in the critical care time. My time did not include minutes spent treating any other patients simultaneously or on activities that did not directly contribute to the patient's treatment. The services I provided to this patient were to treat and/or prevent clinically significant deterioration that could result in: , decompensation, deterioration I provided critical care services requiring my management, as noted below: Chart data review, documentation time, medication orders and management, vital sign assessments/reviewing monitor data, ordering and reviewing lab tests, ordering and interpreting/reviewing x-rays and diagnostic studies, care of the patient and discussion of the patient with the admitting physicians. Medical Decision Making MDM Narrative Medical decision making narrative: During the course of the patients emergency department visit, the patients history, examination, and differential diagnosis were reviewed with the patient. The patient was placed on a desk monitor with oximetry and frequent blood pressure monitoring. The patient had an IV access obtained and blood work sent for analysis. The patient's blood glucose is 259 The patients laboratory studies were reviewed and remarkable for: WBC 5.9, hemoglobin 9.8, hematocrit 29.6, platelets 210 Sodium 139, potassium 3.6, chloride 102, carbon dioxide 29.9, BUN 14, creatinine 1.30, glucose 251 LFTs are within normal limits. Albumin is 2.7 UA: pending CT of head: pending Xray of chest with patchy intersitial opacities with possible small effusion - patient is aphasic and cannot provide HPI = he has been pancultured - he was given azithromycin as well as rocephin As per pt's ct of head, she was evolving hemorrhagic infarction of the left parieto-occipital mid to low convexities. He is currently taking Eliquis as he does have history of atrial fibrillation and has had a recent stroke. I did put a call out to neurologist wildland fire operations specialist I did review patient's chart, patient suffered an acute ischemic left-sided CVA with right-sided hemiparesis and expressive a aphasia in the beginning of July. On 07/30, MRI of the brain was done which showed no acute ICH but did show a large evolving left cerebral hemisphere infarct. Patient was seen in the emergency room on 08/02 and was found to have hemorrhage on his CT of his head, as per physicians note - hemorrhage was comparable to previous MRI and patient was discharged from the ER. Patient's hgb is 9.8 - which is a 2.6 gram drop from 08/02/18. He is on eliquis and ct today shows an evolving hemorrhagic infarction of the left parietal occipital mid to lower convexities with decreasing blood products improving mass -effect in the left lateral ventricle case reviewed with Dr. Dangelo - patient with most likely evolving CVA, request MRI of brain as well as eliquis to be discontinued as he does have a 3 gram drop in his hgb and is on eliquis - will place consult to his group Previous records were reviewed, he does have a recent GI bleed due to gastritis , patient will require admission to [facility]. case reviewed with Dr. Lind who accepts pt to service Medical Screen Exam Complete: Yes Emergency Medical Condition: Yes Differential Diagnosis Differential Diagnosis: UTI, CVA, electrolyte abnormality, depression, ACS, Arrythmia Medical Records Medical records reviewed: Yes I reviewed the patient's medical records. Lab Data Result diagrams: 08/26/18 13:04 08/26/18 13:04 Lab Results 08/26/18 08/26/18 08/26/18 Range/Units 12:39 13:04 13:04 CBC w Diff Auto diff final WBC 5.4 (4.0-11.0) th/mm3 RBC 3.14 L (4.50-5.90) mil/mm3 Hgb 9.8 L (13.0-17.0) gm/dL Hct 29.6 L (39.0-51.0) % MCV 94.3 (80.0-100.0) fL MCH 31.3 (27.0-34.0) pg MCHC 33.2 (32.0-36.0) % RDW 13.3 (11.6-17.2) % Plt Count 210 (150-450) th/mm3 MPV 7.9 (7.0-11.0) fL Neut % (Auto) 75.0 H (16.0-70.0) % Lymph % (Auto) 13.7 (9.0-44.0) % Todd % (Auto) 9.1 H (0.0-8.0) % Eos % (Auto) 1.5 (0.0-4.0) % Baso % (Auto) 0.7 (0.0-2.0) % Neut # (Auto) 4.1 (1.8-7.7) th/mm3 Lymph # (Auto) 0.7 L (1.0-4.8) th/mm3 Todd # (Auto) 0.5 (0.0-0.9) th/mm3 Eos # (Auto) 0.1 (0.0-0.4) th/mm3 Baso # (Auto) 0.0 (0.0-0.2) th/mm3 WBC Differential . Differential Comment . PT 12.6 H (9.8-11.6) sec INR 1.2 Ratio APTT 25.7 (24.3-30.1) sec Sodium (136-145) meq/L Potassium (3.5-5.1) meq/L Chloride (98-107) meq/L Carbon Dioxide (21.0-32.0) meq/L Anion Gap (5-15) meq/L BUN (7-18) mg/dL Creatinine (0.60-1.30) mg/dL Estimated GFR (>89) mL/min POC Glucose 259 H (68-110) mg/dl Random Glucose (74-106) mg/dL Calcium (8.5-10.1) mg/dL Magnesium (1.5-2.5) mg/dL Total Bilirubin (0.2-1.0) mg/dL AST (15-37) U/L ALT (12-78) U/L Alkaline Phosphatase (45-117) U/L Troponin I (0.02-0.05) ng/mL Total Protein (6.4-8.2) g/dL Albumin (3.4-5.0) g/dL 08/26/18 Range/Units 13:04 CBC w Diff WBC (4.0-11.0) th/mm3 RBC (4.50-5.90) mil/mm3 Hgb (13.0-17.0) gm/dL Hct (39.0-51.0) % MCV (80.0-100.0) fL MCH (27.0-34.0) pg MCHC (32.0-36.0) % RDW (11.6-17.2) % Plt Count (150-450) th/mm3 MPV (7.0-11.0) fL Neut % (Auto) (16.0-70.0) % Lymph % (Auto) (9.0-44.0) % Todd % (Auto) (0.0-8.0) % Eos % (Auto) (0.0-4.0) % Baso % (Auto) (0.0-2.0) % Neut # (Auto) (1.8-7.7) th/mm3 Lymph # (Auto) (1.0-4.8) th/mm3 Todd # (Auto) (0.0-0.9) th/mm3 Eos # (Auto) (0.0-0.4) th/mm3 Baso # (Auto) (0.0-0.2) th/mm3 WBC Differential Differential Comment PT (9.8-11.6) sec INR Ratio APTT (24.3-30.1) sec Sodium 139 (136-145) meq/L Potassium 3.6 (3.5-5.1) meq/L Chloride 102 (98-107) meq/L Carbon Dioxide 29.9 (21.0-32.0) meq/L Anion Gap 7 (5-15) meq/L BUN 14 (7-18) mg/dL Creatinine 1.30 (0.60-1.30) mg/dL Estimated GFR 55 L (>89) mL/min POC Glucose (68-110) mg/dl Random Glucose 251 H (74-106) mg/dL Calcium 8.1 L (8.5-10.1) mg/dL Magnesium 1.6 (1.5-2.5) mg/dL Total Bilirubin 0.8 (0.2-1.0) mg/dL AST 16 (15-37) U/L ALT 20 (12-78) U/L Alkaline Phosphatase 70 (45-117) U/L Troponin I 0.03 (0.02-0.05) ng/mL Total Protein 6.9 (6.4-8.2) g/dL Albumin 2.7 L (3.4-5.0) g/dL Imaging Data Radiologist's impression: Chest X-Ray 08/26/18 12:51 CONCLUSION: Patchy interstitial opacities. Possible small right effusion Head CT 08/26/18 12:51 CONCLUSION: 1. Evolving hemorrhagic infarction of the left parieto-occipital mid to low convexities with decreasing blood products and improving mass effect on the left lateral ventricle. 2. No midline shift, intercurrent hemorrhage or hydrocephalus. . Discharge Plan Discharge Disposition Patient Disposition: 30 Still Patient Discharge Condition Condition: Stable Discharge Details Diagnosis: CVA (cerebral vascular accident), GIB (gastrointestinal bleeding), Pneumonia Physicians Team ED Provider: Joy Rubio Primary Care Provider: Primary Care Physici,No Other Providers: Kevin Dangelo Rxs /Orders / Referrals /Forms Prescriptions: No Action diltiazem HCl [Cardizem LA] 180 mg Tablet Extended Release 24 Hr 180 mg PO DAILY Qty: 30 RF: 0 quetiapine 25 mg Tablet 25 mg PO DAILY RF: 0 atorvastatin 40 mg Tablet 40 mg PO DAILY RF: 0 pantoprazole [Protonix] 40 mg Tablet,Delayed Release (Dr/Ec) 40 mg PO DAILY RF: 0 insulin lispro [Humalog U-100 Insulin] 100 unit/mL Solution 1 sliding scale dose SUBCUT UD RF: 0 buspirone 15 mg Tablet 15 mg PO BID RF: 0 insulin detemir U-100 100 unit/mL Solution 10 unit SUBCUT QPM RF: 0 apixaban 2.5 mg Tablet 2.5 mg PO BID RF: 0 Status ED Status: Pending Admission
[2018-08-26 13:14] LABS: Baso % (Auto) 0.7 % (0.0-2.0); Eos # (Auto) 0.1 th/mm3 (0.0-0.4); Eos % (Auto) 1.5 % (0.0-4.0); Hematocrit 29.6 % (39.0-51.0); Hemoglobin 9.8 gm/dL (13.0-17.0); Lymph # (Auto) 0.7 th/mm3 (1.0-4.8); Lymph % (Auto) 13.7 % (9.0-44.0); Mean Corpuscular HGB Conc 33.2 % (32.0-36.0); Mean Corpuscular Hemoglobin 31.3 pg (27.0-34.0); Mean Corpuscular Volume 94.3 fL (80.0-100.0); Mean Platelet Volume 7.9 fL (7.0-11.0); Mono # (Auto) 0.5 th/mm3 (0.0-0.9); Mono % (Auto) 9.1 % (0.0-8.0); Neut # (Auto) 4.1 th/mm3 (1.8-7.7); Platelet Count 210 th/mm3 (150-450); Red Blood Count 3.14 mil/mm3 (4.50-5.90); Red Cell Distribution Width 13.3 % (11.6-17.2); White Blood Count 5.4 th/mm3 (4.0-11.0)
[2018-08-26 13:18] LABS: Chloride 102 meq/L (98-107); Potassium 3.6 meq/L (3.5-5.1); Sodium 139 meq/L (136-145)
[2018-08-26 13:22] LABS: Calcium 8.1 mg/dL (8.5-10.1)
[2018-08-26 13:23] LABS: Albumin 2.7 g/dL (3.4-5.0); Anion Gap 7 meq/L (5-15); Blood Urea Nitrogen 14 mg/dL (7-18); Carbon Dioxide 29.9 meq/L (21.0-32.0); Glucose,Random 251 mg/dL (74-106); Magnesium 1.6 mg/dL (1.5-2.5)
[2018-08-26 13:24] LABS: Activated Partial Thrombo Time 25.7 sec (24.3-30.1); INR 1.2 Ratio; Prothrombin Time 12.6 sec (9.8-11.6)
[2018-08-26 13:26] LABS: Alanine Aminotransferase 20 U/L (12-78); Aspartate Aminotransferase 16 U/L (15-37); Glomerular Filtration Rate 55 mL/min (>89)
[2018-08-26 13:27] LABS: Total Protein 6.9 g/dL (6.4-8.2)
[2018-08-26 13:29] LABS: Alkaline Phosphatase 70 U/L (45-117)
[2018-08-26 13:31] LABS: Troponin I 0.03 ng/mL (0.02-0.05)
--- NOTE | 2018-08-26 14:41 | CT ---
EXAM DATE: 08/26/2018 12:59 PM EDT AGE/SEX: 72 years / Male INDICATIONS: Altered mental status. CLINICAL DATA: This is the patient's initial encounter. Patient reports that signs and symptoms have been present for 2 days and indicates a pain score of 0/10. MEDICAL/SURGICAL HISTORY: Diabetes. Hypertension. Stroke. None. RADIATION DOSE: 57.96 CTDI (mGy) COMPARISON: [facility], CT HEAD W/O CONTRAST, 08/02/2018. . TECHNIQUE: CT of the head without contrast. Using automated exposure control and adjustment of the mA and/or kV according to patient size, radiation dose was kept as low as reasonably achievable to ob tain optimal diagnostic quality images. DICOM format image data is available electronically for revi ew and comparison. FINDINGS: Evolving hemorrhagic infarction of the left parieto-occipital mid to low convexities. Very minimal re sidual hyperdensities likely reflecting minimal residual blood products. Otherwise, no evidence for i ntercurrent hemorrhage. No significant new mass effect scratch that improved mass effect on the poste rior horn of the left lateral ventricle. Evolving subacute cerebral infarct on the left. Ventricles a re otherwise stable and there is no midline shift. Brainstem and cerebellum are intact. Remainder of the exam is unchanged. CONCLUSION: 1. Evolving hemorrhagic infarction of the left parieto-occipital mid to low convexities with decreas ing blood products and improving mass effect on the left lateral ventricle. 2. No midline shift, intercurrent hemorrhage or hydrocephalus. . Electronically signed by: Yang Venegas MD 08/26/2018 2:39 PM EDT
--- NOTE | 2018-08-26 14:47 | XR ---
EXAM DATE: 08/26/2018 12:51 PM EDT AGE/SEX: 72 years / Male INDICATIONS: Altered Mental Status, Short of Breath CLINICAL DATA: This is the patient's initial encounter. Patient reports that signs and symptoms have been present for 1 day and indicates a pain score of 0/10. MEDICAL/SURGICAL HISTORY: . Atrial fibrillation. Aphasia. Diabetes. High cholesterol. Hypertens ion. Stroke. None. COMPARISON: [facility], CHEST 1V SINGLE AP, 07/14/2018. . FINDINGS: Mild patchy bilateral interstitial prominence. Slight blunting of the right costophrenic angle which may reflect small effusion. Cardiac contours grossly unchanged. CONCLUSION: Patchy interstitial opacities. Possible small right effusion Electronically signed by: Milan Pfeiffer MD 08/26/2018 2:46 PM EDT
[2018-08-26] MEDS ORDERED: Azithromycin Inj 500 MG in Sodium Chlor 0.9% Inj 250 ML IV.SIG ONE (14:50)
[2018-08-26] MEDS ORDERED: CEFTRIAXONE IV.SIG ONE (15:15)
[2018-08-26] MEDS ORDERED: SODIUM CHLOR 0.9% IV.SIG ONE (15:15)
[2018-08-26] MEDS ORDERED: Dextrose 50% in Water 50 ML Vial IV.PUSH PRN (16:25)
[2018-08-26] MEDS ORDERED: Vancomycin Inj 1 GM/200 ML PIGGYBACK IV.SIG ONE (16:27)
--- NOTE | 2018-08-26 16:43 | P.HPIM ---
History of Present Illness Primary Care Physician: No Primary Care Physician Chief Complaint: altered mental status History of Present Illness: patient is a 72 y/o male with history of CVA, GI bleed, a-fib , diabetes mellitus who was brought to ER from rehab with altered mental status. patient was sedated at the time of my evaluation and most of the information was obtained from the and the daughter at the bedside. the says that he was at his usual state of health till last night when he started to feel agitated. she says that when she went to rehab this morning to visit him, ' he kept saying that he wanted to go home; his behavior changed and he was very anxious'. there's no report of headache,nausea,emesis, fever,or chest pain. the daughter says that he has expressive aphasia and for most part he's not very coherent. Inpatient Certification: I certify that the inpatient services were ordered in accordance with Medicare regulations governing the order. This includes certification that hospital inpatient services are reasonable and necessary and in the case of services not specified as inpatient-only under 42 CFR 419.22(n), that they are appropriately provided as inpatient services in accordance to with the 2-midnight benchmark under 43 CFR 412.3(e) Estimated Total Length of Stay (Days): 2 Plans for Post Hospital Care: Not yet determined Review of Systems unobtainable due to mental condition PMFSH - History History Provided By: Medical Record - Medical History Medical History: Medical History (Last Reviewed 08/26/18 @ 16:34 by Dipika Villanueva MD) High cholesterol (Acute) Diabetes type 2, controlled (Acute) Stroke Afib Aphasia Hypertension - Surgical History Surgical History: Surgical History (Last Reviewed 08/26/18 @ 16:34 by Dipika Villanueva MD) No history of previous surgery - Family History Family History: Family History (Last Reviewed 08/26/18 @ 16:34 by Dipika Villanueva MD) Other CAD (coronary artery disease) Diabetes - Tobacco History Second Hand Smoke Exposure: No Smoking Status: Cognitive impairment Tobacco Type: Cigars - Alcohol History How Often Do You Have a Drink Containing Alcohol: Unable to Obtain - Substance Use History Substance History: Unable to Obtain - Travel History Recent Travel in the [place] Within the Last 8 Weeks: No Recent Travel Out of the Country Within the Last 8 Weeks: No - Immunization History Tetanus Immunization: Unable to Assess Medications and Allergies Active Medications: Active Medications Sodium Chloride (Ns Flush) 2 ml IV.FLUSH PRN PRN PRN Reason: FLUSH AFTER USING IV ACCESS Allergies Allergy/AdvReac Type Severity Reaction Status Date / Time No Known Allergies Allergy Verified 08/26/18 12:55 Home Medications Medication Instructions Recorded Confirmed Type apixaban 2.5 mg PO BID 08/02/18 08/02/18 History atorvastatin 40 mg PO DAILY 08/02/18 08/02/18 History buspirone 15 mg PO BID 08/02/18 08/02/18 History insulin detemir U-100 10 unit SUBCUT QPM 08/02/18 08/02/18 History insulin lispro [Humalog U-100 1 sliding scale dose SUBCUT UD 08/02/18 08/02/18 History Insulin] pantoprazole [Protonix] 40 mg PO DAILY 08/02/18 08/02/18 History quetiapine 25 mg PO DAILY 08/02/18 08/02/18 History apixaban 2.5 mg PO BID 08/26/18 08/26/18 History buspirone 5 mg PO BID 08/26/18 08/26/18 History furosemide [Lasix] 20 mg PO DAILY 08/26/18 08/26/18 History insulin lispro 5 unit SUBCUT DIRECTED 08/26/18 08/26/18 History lisinopril 5 mg PO DAILY 08/26/18 08/26/18 History metoprolol tartrate 25 mg PO BID 08/26/18 08/26/18 History potassium chloride 10 meq PO DAILY 08/26/18 08/26/18 History Exam Vital signs: Vital Signs 08/26/18 12:40 08/26/18 12:51 08/26/18 14:10 Temperature 98.2 F Pulse Rate 104 H 104 H 93 H Respiratory Rate 16 16 Blood Pressure 142/87 H 142/88 H Pulse Oximetry 95 98 98 08/26/18 16:18 Temperature Pulse Rate 91 H Respiratory Rate 16 Blood Pressure 157/94 H Pulse Oximetry 100 Intake & Output 08/25/18 08/26/18 08/26/18 18:59 06:59 18:59 Intake Total 100 / 100 Balance 100 / 100 Weight 84.942 kg Intake: IV 100 / 100 Rocephin Inj 500 MG In NS Inj 100 / 100 100 ML @ 200 mls/hr IV.SIG ONCE ONE Rx#:[id number] - Constitutional no acute distress Comments: sedated. - Routine HEENT Exam Comments: miotic pupils. - Routine Neck Exam Present: supple - Routine Respiratory Exam Present: CTA bilaterally - Routine Cardiovascular Exam Present: RRR - Routine Abdominal Exam Present: soft - Routine Extremities Exam Comments: bilateral pedal edema with some erythema over both lower legs- more on the right lower leg and foot with some blisters over the right foot. - Routine Skin Exam Present: erythema (both lower legs/both feet.) - Routine Neurological Exam sedated. Results - Labs CBC & Chem 7: 08/26/18 13:04 08/26/18 13:04 Labs: Short CBC 08/26/18 Range/Units 13:04 WBC 5.4 (4.0-11.0) th/mm3 Hgb 9.8 L (13.0-17.0) gm/dL Hct 29.6 L (39.0-51.0) % Plt Count 210 (150-450) th/mm3 BMP 08/26/18 13:04 Sodium 139 Potassium 3.6 Chloride 102 Carbon Dioxide 29.9 BUN 14 Creatinine 1.30 Calcium 8.1 L Cardiac Enzymes 08/26/18 Range/Units 13:04 Troponin I 0.03 (0.02-0.05) ng/mL Liver Function 08/26/18 Range/Units 13:04 Total Bilirubin 0.8 (0.2-1.0) mg/dL AST 16 (15-37) U/L ALT 20 (12-78) U/L Alkaline Phosphatase 70 (45-117) U/L Albumin 2.7 L (3.4-5.0) g/dL - Imaging Impressions Chest X-Ray 08/26/18 12:51 CONCLUSION: Patchy interstitial opacities. Possible small right effusion Head CT 08/26/18 12:51 CONCLUSION: 1. Evolving hemorrhagic infarction of the left parieto-occipital mid to low convexities with decreasing blood products and improving mass effect on the left lateral ventricle. 2. No midline shift, intercurrent hemorrhage or hydrocephalus. . Caprini VTE Risk Assessment Caprini VTE Risk Assessment: Moderate/High Risk (score >= 2) VTE Pharmacological Exception Reason: High risk for bleeding Caprini Risk Assessment Model: Point Value = 1 Point Value = 2 Point Value = 3 Point Value = 5 Age 41-60 Minor surgery BMI > 25 kg/m2 Swollen legs Varicose veins or History of unexplained or recurrent spontaneous Oral contraceptives or hormone replacement Sepsis (< 1 month) Serious lung disease, including pneumonia (< 1 month) Abnormal pulmonary function Acute myocardial infarction Congestive heart failure (< 1 month) History of inflammatory bowel disease Medical patient at bed rest Age 61-74 Arthroscopic surgery Major open surgery (> 45 min) Laparoscopic surgery (> 45 min) Malignancy Confined to bed (> 72 hours) Immobilizing plaster cast Central venous access Age >= 75 History of VTE Family history of VTE Factor V Leiden Prothrombin [id number] Lupus anticoagulant Anticardiolipin antibodies Elevated serum homocysteine Heparin-induced thrombocytopenia Other congenital or acquired thrombophilia Stroke (< 1 month) Elective arthroplasty Hip, pelvis, or leg fracture Acute spinal cord injury (< 1 month) Prophylaxis Regimen: Total Risk Factor Score Risk Level Prophylaxis Regimen 0-1 Low Early ambulation 2 Moderate Order ONE of the following: *Sequential Compression Device (SCD) *Heparin 5000 units SQ BID 3-4 Higher Order ONE of the following medications: *Heparin 5000 units SQ TID *Enoxaparin/Lovenox 40 mg SQ daily (WT < 150 kg, CrCl > 30 mL/min) *Enoxaparin/Lovenox 30 mg SQ daily (WT < 150 kg, CrCl > 10-29 mL/min) *Enoxaparin/Lovenox 30 mg SQ BID (WT < 150 kg, CrCl > 30 mL/min) AND/OR *Sequential Compression Device (SCD) 5 or more Highest Order ONE of the following medications: *Heparin 5000 units SQ TID (Preferred with Epidurals) *Enoxaparin/Lovenox 40 mg SQ daily (WT < 150 kg, CrCl > 30 mL/min) *Enoxaparin/Lovenox 30 mg SQ daily (WT < 150 kg, CrCl > 10-29 mL/min) *Enoxaparin/Lovenox 30 mg SQ BID (WT < 150 kg, CrCl > 30 mL/min) AND *Sequential Compression Device (SCD) Assessment and Plan - Plan A/P - acute encephalopathy with history of recent CVA CT head with no acute abnormality- continue with neuro-checks- keep NPO for now- continue with IV fluid and permissive hypertension. will obtain MRI brain and consult neurology and PT. Woodrow on hold till MRI and neurology evaluation. -recent GI bleed- s/p EGD with gastritis now with some drop in H/H but with no reported active GI bleed. check the stool for c-diff- continue PPI and consult GI. -cellulitis of bilateral lower extremities- start on IV antibiotics and monitor the cultures. -questionable pneumonia; on antibiotics as noted above. -a-fib; hold Cardizem and Eliuis for now- continue to monitor. -diabetes mellitus; accu-check with SSI -DNR status per my d/w the family. -will consult palliative care to assist with goals of care -DVT prophylaxis with SCD's Code Status: DNR. Discussed Condition With: ER physician and the patient's family. Discharge Planning: pending w/u and clinical course.
[2018-08-26] MEDS ORDERED: Vancomycin Consult Pharmacy OTHER PRN (16:44)
--- NOTE | 2018-08-26 16:51 | P.PNPAL ---
Palliative care consulted to assist with goals of medical treatment, symptom management, and communication. Attempted to contact to set up family meeting for Monday 08/27 AM. Unable to reach and unable to leave message. Telephone call to patient's daughter, unable to reach, left message requesting call back. Received call back from daughter around 5pm. Family meeting arranged for 9am SundayAugust 27. Full consultation to follow pending family meeting arrangement.
[2018-08-26] MEDS ORDERED: Haloperidol Inj 5 MG/ML Ampul IM PRN (17:57)
[2018-08-26] MEDS: Insulin NovoLOG Aspart Correctional Sugar Inj SQ SCH ×2 (17:58→23:59)
[2018-08-26] MEDS ORDERED: Vancomycin Inj 1,000 MG in Sodium Chlor 0.9% Inj 250 ML IV.SIG ONE (18:00)
[2018-08-26] MEDS: Piperacil/Tazo 3.375 GM Premix 50 ML IV.SIG SCH (18:05)
[2018-08-26] MEDS: Pantoprazole Inj 40 MG Vial IV.PUSH SCH (18:05)
--- NOTE | 2018-08-26 21:40 | MB ---
cc: Pelon Orlando MD,Kevin DIA DATE: 08/26/2018 REFERRING PHYSICIAN: Kevin Villanueva MD REASON FOR CONSULTATION: Anemia and decrease in hemoglobin. HISTORY OF PRESENT ILLNESS: Mr. 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 He was in a rehab facility and he is brought back to the hospital now for altered mental status by the family. Apparently, there has been some drop in his hemoglobin and this has prompted a GI consultation. The patient is awake, but unable to provide any history. His at the bedside denies any GI symptoms or any recent GI bleeding. REVIEW OF SYSTEMS: No active bleeding noted. PAST MEDICAL HISTORY: Elevated cholesterol, diabetes, CVA, atrial fibrillation, aphasia, hypertension. PAST SURGICAL HISTORY: No recent surgeries. The patient did have an endoscopy on 08/04/2018 where he had esophagitis and gastritis. SOCIAL HISTORY: The patient has smoked cigars in the past. No alcohol reported. CURRENT MEDICATIONS: Include: 1. Haldol. 2. Insulin. 3. Protonix. 4. Zosyn. LABORATORY DATA: Reveal a hemoglobin of 9.8. INR is 1.2. Creatinine 1.30. PHYSICAL EXAMINATION: GENERAL: Reveals a well-nourished man in no apparent distress. VITAL SIGNS: Stable. HEAD AND NECK: Anicteric sclerae. CHEST: Bilateral air entry with rales. ABDOMEN: Soft, nontender. No hepatosplenomegaly. Bowel sounds are present. CENTRAL NERVOUS SYSTEM: Nonfocal. RECTAL: Deferred at this time. IMPRESSION: Anemia. RECOMMENDATIONS: Stool Hemoccult has been requested. At this time, the patient has no evidence of GI bleeding. Continue to monitor CBC. Protonix 40 mg daily. Would recommend further GI interventions if the patient has active bleeding. This has been discussed with the patient's at the bedside. Thank you for this referral. MD CRISTIANE De La Cruz/jhonny , 06:22 PM , 06:28 PM
[2018-08-26] MEDS: Sod Chloride 0.9% Inj 1,000 ML IV.CONT SCH (23:52)
[2018-08-27] MEDS: Piperacil/Tazo 3.375 GM Premix 50 ML IV.SIG SCH ×4 (00:37→16:34)
[2018-08-27] MEDS ORDERED: Vancomycin Inj 1,000 MG in Sodium Chlor 0.9% Inj 250 ML IV.SIG SCH ×2 (01:00→04:00)
[2018-08-27] MEDS: Sod Chloride 0.9% Inj 1,000 ML IV.CONT SCH ×2 (05:24→12:00)
[2018-08-27 06:25] LABS: Eos # (Auto) 0.1 th/mm3 (0.0-0.4); Eos % (Auto) 2.8 % (0.0-4.0); Hematocrit 30.9 % (39.0-51.0); Lymph # (Auto) 0.7 th/mm3 (1.0-4.8); Lymph % (Auto) 16.1 % (9.0-44.0); Mean Corpuscular HGB Conc 32.4 % (32.0-36.0); Mean Corpuscular Hemoglobin 30.6 pg (27.0-34.0); Mean Corpuscular Volume 94.5 fL (80.0-100.0); Mean Platelet Volume 8.1 fL (7.0-11.0); Mono # (Auto) 0.5 th/mm3 (0.0-0.9); Mono % (Auto) 11.6 % (0.0-8.0); Neut # (Auto) 2.8 th/mm3 (1.8-7.7); Neut % (Auto) 68.5 % (16.0-70.0); Platelet Count 222 th/mm3 (150-450); Red Blood Count 3.27 mil/mm3 (4.50-5.90); Red Cell Distribution Width 13.1 % (11.6-17.2); White Blood Count 4.1 th/mm3 (4.0-11.0)
[2018-08-27] MEDS: Insulin NovoLOG Aspart Correctional Sugar Inj SQ SCH ×4 (08:39→21:32)
--- NOTE | 2018-08-27 10:26 | P.PNIM ---
Subjective Interval history: f/u ; encephalopathy in no acute distress. agitated over night and now on restraints. awake today but confused. Physical Exam Vital signs: Vital Signs 08/26/18 12:40 08/26/18 12:51 08/26/18 14:10 Temperature 98.2 F Pulse Rate 104 H 104 H 93 H Respiratory Rate 16 16 Blood Pressure 142/87 H 142/88 H Pulse Oximetry 95 98 98 08/26/18 16:18 08/26/18 20:00 08/26/18 20:19 Temperature 97.9 F Pulse Rate 91 H 94 H 96 H Respiratory Rate 16 20 Blood Pressure 157/94 H 167/80 H Pulse Oximetry 100 96 08/26/18 20:30 08/27/18 00:17 Temperature 97.6 F Pulse Rate 94 H Respiratory Rate 20 Blood Pressure 165/85 H Pulse Oximetry 96 95 Intake & Output 08/26/18 08/27/18 08/27/18 18:59 06:59 18:59 Intake Total 100 / 100 50 / 50 Output Total 900 / 900 Balance 100 / 100 -850 / -850 Weight 84.942 kg 88.9 kg 88.9 kg Intake: IV 100 / 100 50 / 50 Zosyn 3.375 GM Premix 50 ML @ 50 / 50 100 mls/hr IV.SIG Q6H KWESI Rx#: [id number] Rocephin Inj 500 MG In NS Inj 100 / 100 100 ML @ 200 mls/hr IV.SIG ONCE ONE Rx#:[id number] Oral 0 / 0 Output: Urine 900 / 900 Other: # Voids 0 # Incontinent Voids 2 - Constitutional no acute distress - Routine Respiratory Exam Present: CTA bilaterally - Routine Cardiovascular Exam Present: RRR - Routine Abdominal Exam Present: soft - Routine Extremities Exam Comments: bilateral pedal edema. - Routine Skin Exam Present: erythema (both lower legs.) - Routine Neurological Exam awake but confused. Results - Labs CBC & Chem 7: 08/27/18 05:30 08/26/18 13:04 Laboratory Results - last 24 hr 08/26/18 08/26/18 08/26/18 12:39 13:04 13:04 CBC w Diff Auto diff final WBC 5.4 RBC 3.14 L Hgb 9.8 L Hct 29.6 L MCV 94.3 MCH 31.3 MCHC 33.2 RDW 13.3 Plt Count 210 MPV 7.9 Neut % (Auto) 75.0 H Lymph % (Auto) 13.7 [place] % (Auto) 9.1 H Eos % (Auto) 1.5 Baso % (Auto) 0.7 Neut # (Auto) 4.1 Lymph # (Auto) 0.7 L [place] # (Auto) 0.5 Eos # (Auto) 0.1 Baso # (Auto) 0.0 WBC Differential . Differential Comment . PT 12.6 H INR 1.2 APTT 25.7 Sodium Potassium Chloride Carbon Dioxide Anion Gap BUN Creatinine Estimated GFR POC Glucose 259 H Random Glucose Calcium Magnesium Total Bilirubin AST ALT Alkaline Phosphatase Troponin I Total Protein Albumin Blood Type Antibody Screen 08/26/18 08/26/18 08/27/18 13:04 15:59 05:30 CBC w Diff Auto diff final WBC 4.1 RBC 3.27 L Hgb 10.0 L Hct 30.9 L MCV 94.5 MCH 30.6 MCHC 32.4 RDW 13.1 Plt Count 222 MPV 8.1 Neut % (Auto) 68.5 Lymph % (Auto) 16.1 [place] % (Auto) 11.6 H Eos % (Auto) 2.8 Baso % (Auto) 1.0 Neut # (Auto) 2.8 Lymph # (Auto) 0.7 L [place] # (Auto) 0.5 Eos # (Auto) 0.1 Baso # (Auto) 0.0 WBC Differential . Differential Comment . PT INR APTT Sodium 139 Potassium 3.6 Chloride 102 Carbon Dioxide 29.9 Anion Gap 7 BUN 14 Creatinine 1.30 Estimated GFR 55 L POC Glucose Random Glucose 251 H Calcium 8.1 L Magnesium 1.6 Total Bilirubin 0.8 AST 16 ALT 20 Alkaline Phosphatase 70 Troponin I 0.03 Total Protein 6.9 Albumin 2.7 L Blood Type AB Positive Antibody Screen Negative 08/27/18 07:47 CBC w Diff WBC RBC Hgb Hct MCV MCH MCHC RDW Plt Count MPV Neut % (Auto) Lymph % (Auto) [place] % (Auto) Eos % (Auto) Baso % (Auto) Neut # (Auto) Lymph # (Auto) [place] # (Auto) Eos # (Auto) Baso # (Auto) WBC Differential Differential Comment PT INR APTT Sodium Potassium Chloride Carbon Dioxide Anion Gap BUN Creatinine Estimated GFR POC Glucose 204 H Random Glucose Calcium Magnesium Total Bilirubin AST ALT Alkaline Phosphatase Troponin I Total Protein Albumin Blood Type Antibody Screen - Imaging Impressions Chest X-Ray 08/26/18 12:51 CONCLUSION: Patchy interstitial opacities. Possible small right effusion Head CT 08/26/18 12:51 CONCLUSION: 1. Evolving hemorrhagic infarction of the left parieto-occipital mid to low convexities with decreasing blood products and improving mass effect on the left lateral ventricle. 2. No midline shift, intercurrent hemorrhage or hydrocephalus. . Assessment and Plan - Plan A/P - acute encephalopathy with history of recent CVA CT head with no acute abnormality- continue with neuro-checks- keep NPO for now- continue with IV fluid and permissive hypertension. will obtain MRI brain and consult neurology and PT/STDayton Fernandezis on hold till MRI and neurology evaluation. trial of Seroquel. -recent GI bleed- s/p EGD with gastritis now with some drop in H/H but with no reported active GI bleed. check the stool for c-diff- continue PPI and consulted GI. -cellulitis of bilateral lower extremities- start on IV antibiotics and monitor the cultures. check venous doppler of lower extremities. -questionable pneumonia; on antibiotics as noted above. -a-fib; hold Cardizem and Eliuis for now- continue to monitor. -diabetes mellitus; accu-check with SSI -DNR status per my d/w the family. - consulted palliative care to assist with goals of care -DVT prophylaxis with SCD's Discharge Planning: pending w/u , clinical course.
[2018-08-27] MEDS: QUEtiapine 25 MG Tablet PO SCH ×2 (10:38→20:36)
[2018-08-27] MEDS ORDERED: Haloperidol Inj 5 MG/ML Ampul IM PRN (10:42)
--- NOTE | 2018-08-27 12:33 | P.CONPAL ---
Consult Service: Palliative Care Requesting Physician: Dipika Villanueva (Right ear) Reason for Consult: a. To assist with evaluation and management of symptoms including: Agitation, confusion b. To assist medical decision maker(s) with: better understanding of current medical conditions; weighing benefits/burdens of medical treatment options; making medical treatment decisions. Primary Care Provider: No Primary Care Physician History of Present Illness History of Present Illness: This is a 72-year-old male with a history of diabetes and hypertension who initially presented to [facility] July 14, 2018 , after being found down in his house. He was diagnosed with a large left- sided MCA cerebral stroke with the abnormal area measuring 4.5 x 9 cm across with 2 small areas of stroke within the external capsule on the left. Echocardiogram at that time showed a normal ejection fraction of 60-65% with no significant valvular dysfunction or pulmonary hypertension. He was diagnosed with atrial fibrillation with rapid ventricular response and placed on Eliquis for thromboembolic prophylaxis. He had right-sided weakness and aphasia and after medical stabilization was discharged to [facility] for rehabilitation on 07/24/2018. He came back to the ED on 07/28/2018 with coffee ground emesis with guaiac positive stool. He underwent EGD by GI showing class B esophagitis , gastritis but no specific source of bleeding. Eliquis dose was cut in half and he was discharged back to the longterm facility on 08/02. On 08/26 he was again admitted to [facility] for altered mental status and agitation and CT of the head showed evolving hemorrhagic infarction of the left parieto-occipital mid to low convexities with decreasing blood products and improving mass-effect on the left lateral ventricle. No midline shift, intercurrent hemorrhage or hydrocephalus was noted. Diagnostic findings on admission * WBC 5.4, hemoglobin 9.8, hematocrit 29.6, platelets 210, sodium 139, potassium 3.6, BUN 14, creatinine 1.30, troponin 0 0.03, normal transaminase * Chest x-ray showed patchy interstitial opacities with a possible small right pleural effusion. Head CT as reported in the previous paragraph. Gastroenterology was again consulted for anemia and decrease in hemoglobin. As they found no evidence of GI bleeding and he had recently had an EGD, medical management was chosen with Protonix daily and monitoring of blood counts. When seen by palliative care in the presence of his daughter Kamille and his , patient was restless and kept repeating "no" over and over. Verbal reassurance did little to calm him and continued to say no through the entire physical exam. He was oriented to self, recognize his but did not respond to his daughter. He cooperated with physical therapy for a bed exam but remains in wrist restraints due to attempting to get out of bed and being a high fall risk. Haldol was given yesterday with little response. Per my discussion with Dr. Villanueva, will plan to consider Seroquel for better control of agitation. Past medical history Hyperlipidemia Diabetes mellitus type 2 Left MCA CVA Atrial fibrillation Aphasia Right-sided weakness Hypertension Surgical history No previous surgery per family Social history Smokes cigars intermittently, no cigarette use. Social alcohol use. Family history Father of a stroke. Function/Cognitive Trajectory: Prior to his initial presentation July 14, patient was completely independent and had a very active quality of life. Since July 14 he has been between hospital and care home for rehabilitation from the MCA stroke. He remains with some aphasia and right-sided weakness and has fallen several times since the initial stroke while in rehab. . Review of Systems Patient has aphasia and confusion and unable to provide their own ROS. A 12 part ROS taken as best as possible from medical record and available family. Neurologic: Reports confusion Psychiatric: Reports other (Agitation) PMFSH - History History Provided By: Family Member, Significant Other - Medical History Medical History: Medical History (Last Reviewed 08/27/18 @ 07:21 by Avel Hebert) High cholesterol (Acute) Diabetes type 2, controlled (Acute) Stroke Afib Aphasia Hypertension - Surgical History Surgical History: Surgical History (Last Reviewed 08/27/18 @ 07:21 by Avel Hebert) No history of previous surgery - Family History Family History: Family History (Last Reviewed 08/26/18 @ 16:34 by Dipika Villanueva MD) Other CAD (coronary artery disease) Diabetes - Tobacco History Second Hand Smoke Exposure: No Smoking Status: Cognitive impairment Tobacco Type: Cigars - Alcohol History How Often Do You Have a Drink Containing Alcohol: Unable to Obtain - Substance Use History Substance History: Unable to Obtain - Travel History Recent Travel in the [place] Within the Last 8 Weeks: No Recent Travel Out of the Country Within the Last 8 Weeks: No - Immunization History Tetanus Immunization: Unable to Assess Medications and Allergies Active Medications: Active Medications Dextrose (D50w Vial) 50 ml IV.PUSH UNSCH PRN PRN Reason: PER HYPOGLYCEMIA PROTOCOL Glucagon (Glucagon Inj) 1 mg OTHER PRN PRN PRN Reason: for Hypoglycemia Protocol Haloperidol Lactate (Haldol Inj) 5 mg IM Q6H PRN PRN Reason: AGITATION Sodium Chloride (Ns Inj) 1,000 mls @ 100 mls/hr IV.CONT .Q10H KWESI Last Admin: 08/27/18 05:24 Dose: Not Given Piperacillin/Tazobactam/Dextrose (Zosyn 3.375 Gm Premix) 50 mls @ 100 mls/hr IV.SIG Q6H KWESI Last Admin: 08/27/18 05:23 Dose: 100 mls/hr Vancomycin HCl 1,400 mg/ (Sodium Chloride) 514 mls @ 250 mls/hr IV.SIG Q18H KWESI Insulin Aspart (Novolog Insulin Correctional Sugar Inj) 0 unit SQ ACHS KWESI; Protocol Last Admin: 08/27/18 08:39 Dose: 3 unit Miscellaneous Information ([facility] Ordered Lab Info) 1 each OTHER ONCE ONE Stop: 08/29/18 17:46 Pantoprazole Sodium (Protonix Inj) 40 mg IV.PUSH Q24H [facility] Last Admin: 08/26/18 18:05 Dose: Not Given Pharmacy Profile Note (Vancomycin Consult Pharmacy) 1 each OTHER UNSCH PRN PRN Reason: Pharmacy to dose Quetiapine Fumarate (Seroquel) 25 mg PO BID [facility] Last Admin: 08/27/18 10:38 Dose: 25 mg Sodium Chloride (Ns Flush) 2 ml IV.FLUSH PRN PRN PRN Reason: FLUSH AFTER USING IV ACCESS Allergies Allergy/AdvReac Type Severity Reaction Status Date / Time No Known Allergies Allergy Verified 08/26/18 12:55 Home Medications Medication Instructions Recorded Confirmed Type apixaban 2.5 mg PO BID 08/02/18 08/02/18 History atorvastatin 40 mg PO DAILY 08/02/18 08/02/18 History buspirone 15 mg PO BID 08/02/18 08/02/18 History insulin detemir U-100 10 unit SUBCUT QPM 08/02/18 08/02/18 History insulin lispro [Humalog U-100 1 sliding scale dose SUBCUT UD 08/02/18 08/02/18 History Insulin] pantoprazole [Protonix] 40 mg PO DAILY 08/02/18 08/02/18 History quetiapine 25 mg PO DAILY 08/02/18 08/02/18 History apixaban 2.5 mg PO BID 08/26/18 08/26/18 History buspirone 5 mg PO BID 08/26/18 08/26/18 History furosemide [Lasix] 20 mg PO DAILY 08/26/18 08/26/18 History insulin lispro 5 unit SUBCUT DIRECTED 08/26/18 08/26/18 History lisinopril 5 mg PO DAILY 08/26/18 08/26/18 History metoprolol tartrate 25 mg PO BID 08/26/18 08/26/18 History potassium chloride 10 meq PO DAILY 08/26/18 08/26/18 History Advance Directives Living Will: No Healthcare Surrogate: No Power of Surtass Analyst: No Physical Exam Vital Signs: Vital Signs - 24 hr 08/26/18 12:40 08/26/18 12:51 08/26/18 14:10 Temperature 98.2 F Pulse Rate 104 H 104 H 93 H Respiratory Rate 16 16 Blood Pressure 142/87 H 142/88 H Pulse Oximetry 95 98 98 08/26/18 16:18 08/26/18 20:00 08/26/18 20:19 Temperature 97.9 F Pulse Rate 91 H 94 H 96 H Respiratory Rate 16 20 Blood Pressure 157/94 H 167/80 H Pulse Oximetry 100 96 08/26/18 20:30 08/27/18 00:17 08/27/18 11:37 Temperature 97.6 F 98.5 F Pulse Rate 94 H 87 Respiratory Rate 20 Blood Pressure 165/85 H 163/90 H Pulse Oximetry 96 95 08/27/18 11:40 Temperature 98.5 F Pulse Rate 87 Respiratory Rate Blood Pressure 163/90 H Pulse Oximetry 95 I&O: Intake & Output 08/25/18 08/26/18 08/27/18 08/28/18 06:59 06:59 06:59 06:59 Intake Total 150 / 150 Output Total 900 / 900 Balance -750 / -750 Weight 195 lb 15.855 oz 195 lb 15.855 oz Physical Exam: CONSTITUTIONAL/GENERAL: This is an adequately nourished patient, in mild distress. TUBES/LINES/DRAINS: PIV left hand SKIN: No jaundice, rashes, or lesions. Ecchymoses on upper extremities. No wounds seen anteriorly. Skin temperature appropriate. Not diaphoretic. HEAD: Atraumatic. Normocephalic. EYES: Pupils equal and round and reactive. Extraocular motions intact. No scleral icterus. No injection or drainage. Fundi not examined. ENT: Hearing grossly normal. Nose without bleeding or purulent drainage. Throat without visible erythema, exudates, masses, or lesions. NECK: Trachea midline. Supple, nontender. No palpable thyroid enlargement or nodularity. CARDIOVASCULAR: Irregular rhythm, controlled rate without murmurs, gallops, or rubs. No JVD. Peripheral pulses symmetric. RESPIRATORY/CHEST: Symmetric, unlabored respirations. Clear to auscultation. Breath sounds equal bilaterally. No wheezes, rales, or rhonchi. GASTROINTESTINAL: Abdomen soft, non-tender, nondistended. No hepato-splenomegaly , or palpable masses. No guarding. Bowel sounds present. GENITOURINARY: Without palpable bladder distension. Amador catheter in place. MUSCULOSKELETAL: Extremities without clubbing or cyanosis, 2+ dependent edema with blisters and erythema across both toes. No joint tenderness or effusion noted. No calf tenderness. No mottling or clubbing. LYMPHATICS: No palpable cervical or supraclavicular adenopathy. NEUROLOGICAL: Awake and alert. Right-sided weakness, expressive aphasia, oriented to self, recognizes his , otherwise disoriented. PSYCHIATRIC: Agitated, restrained. . Diagnostic Tests Laboratory: Laboratory Results - last 72 hr 08/26/18 08/26/18 08/26/18 12:39 13:04 13:04 CBC w Diff Auto diff final WBC 5.4 RBC 3.14 L Hgb 9.8 L Hct 29.6 L MCV 94.3 MCH 31.3 MCHC 33.2 RDW 13.3 Plt Count 210 MPV 7.9 Neut % (Auto) 75.0 H Lymph % (Auto) 13.7 [place] % (Auto) 9.1 H Eos % (Auto) 1.5 Baso % (Auto) 0.7 Neut # (Auto) 4.1 Lymph # (Auto) 0.7 L [place] # (Auto) 0.5 Eos # (Auto) 0.1 Baso # (Auto) 0.0 WBC Differential . Differential Comment . PT 12.6 H INR 1.2 APTT 25.7 Sodium Potassium Chloride Carbon Dioxide Anion Gap BUN Creatinine Estimated GFR POC Glucose 259 H Random Glucose Calcium Magnesium Total Bilirubin AST ALT Alkaline Phosphatase Troponin I Total Protein Albumin Blood Type Antibody Screen 08/26/18 08/26/18 08/27/18 13:04 15:59 05:30 CBC w Diff Auto diff final WBC 4.1 RBC 3.27 L Hgb 10.0 L Hct 30.9 L MCV 94.5 MCH 30.6 MCHC 32.4 RDW 13.1 Plt Count 222 MPV 8.1 Neut % (Auto) 68.5 Lymph % (Auto) 16.1 [place] % (Auto) 11.6 H Eos % (Auto) 2.8 Baso % (Auto) 1.0 Neut # (Auto) 2.8 Lymph # (Auto) 0.7 L [place] # (Auto) 0.5 Eos # (Auto) 0.1 Baso # (Auto) 0.0 WBC Differential . Differential Comment . PT INR APTT Sodium 139 Potassium 3.6 Chloride 102 Carbon Dioxide 29.9 Anion Gap 7 BUN 14 Creatinine 1.30 Estimated GFR 55 L POC Glucose Random Glucose 251 H Calcium 8.1 L Magnesium 1.6 Total Bilirubin 0.8 AST 16 ALT 20 Alkaline Phosphatase 70 Troponin I 0.03 Total Protein 6.9 Albumin 2.7 L Blood Type AB Positive Antibody Screen Negative 08/27/18 08/27/18 07:47 11:30 CBC w Diff WBC RBC Hgb Hct MCV MCH MCHC RDW Plt Count MPV Neut % (Auto) Lymph % (Auto) [place] % (Auto) Eos % (Auto) Baso % (Auto) Neut # (Auto) Lymph # (Auto) [place] # (Auto) Eos # (Auto) Baso # (Auto) WBC Differential Differential Comment PT INR APTT Sodium Potassium Chloride Carbon Dioxide Anion Gap BUN Creatinine Estimated GFR POC Glucose 204 H 141 H Random Glucose Calcium Magnesium Total Bilirubin AST ALT Alkaline Phosphatase Troponin I Total Protein Albumin Blood Type Antibody Screen Result Diagrams: 08/27/18 05:30 08/26/18 13:04 Microbiology: Microbiology 08/26/18 15:20 Aerobic Blood Culture - Preliminary Blood - Peripheral No growth in 1 day Anaerobic Blood Culture - Preliminary No growth in 1 day 08/26/18 15:20 Aerobic Blood Culture - Preliminary Blood - Peripheral No growth in 1 day Anaerobic Blood Culture - Preliminary No growth in 1 day Imaging: Chest X-Ray 08/26/18 12:51 CONCLUSION: Patchy interstitial opacities. Possible small right effusion Head CT 08/26/18 12:51 CONCLUSION: 1. Evolving hemorrhagic infarction of the left parieto-occipital mid to low convexities with decreasing blood products and improving mass effect on the left lateral ventricle. 2. No midline shift, intercurrent hemorrhage or hydrocephalus. . Patient/Family Conference Present at Family Conference: Spoke with his , daughter Kamille in conference room with patient's son, Kaushik, participating by telephone. Also attended by [facility] licensed nursing assistant Talon Alfred. Reviewed palliative care purpose and focus, the below listed items, patient's previously stated wishes and goals as well as family's goals of care. Reviewed various scenarios for treatment to assist family in balancing risk versus benefit. Discussed rehabilitation placement, long-term placement and benefits and burdens of hospice care. After an extensive discussion with the family, they all determined that he should be a DO NOT RESUSCITATE status and that they would like to have him discharged to rehabilitation at [facility] and rehab once medically stable and accepted by the facility. Once rehabilitation has been completed, they wish to transition to hospice care services. This was discussed with hospice admissions nurse Aniya to provide an information consultation and obtain contact information for further follow-up. . Family Conference Location: Consult Room Issues Discussed: * Palliative care role, purpose, approach * Additional medical, psychosocial, and spiritual history * Patients general health, functional status, and cognitive changes in the months leading up to the current hospitalization * Patient/family understanding of the current medical problems * Patient/family understanding of prognosis * Patients goals of care as best understood from advance directives and/or conversations and/or values * Current medical treatment options and benefits/burdens of those options * Likely scenarios comparing ongoing aggressive care with a transition to comfort measures only * Questions answered to the best of my ability * Palliative care contact information provided Assessment and Plan Pertinent Non-Medical Issues: Psychosocial: He was born in [place] and was 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 He is to his of many years and have 2 children Kamille and Kaushik. Spiritual: Car Attendant available. Legal: No healthcare surrogate form or living will available, however family is working together in support of their mother who would be the decision maker. Ethical issues impacting care: None noted. . Important Contacts: : Carmen Rae Daughter: Kamille Tinajero . Prognosis: His prognosis is guarded. He suffered an initial ischemic stroke, likely due to atrial fibrillation and was placed on Eliquis which resulted in a GI bleed and subsequently a hemorrhagic CVA. At this time he remains in atrial fibrillation but unable to be anticoagulated due to the hemorrhagic stroke. He is at risk for further thromboembolic events. He remains aphasic with right- sided weakness and a high risk for falls from the first stroke. Due to the configuration of their apartment which has multiple levels in different rooms, family feels he is unsafe to come home as no one will be there constantly to help him. Plan for discharge to rehab with hospice services once rehab is complete. . Code Status: No Code DNR Plan: PLAN: Legal decision maker: At this time the patient is not capacitated for decision-making and it is uncertain whether he will ever regain capacity. At this time his Carmen would be the healthcare proxy decision-maker per [place] statutes. Where she unable to serve, the patient has 2 adult children, Kamille and Kaushik, who would be next in the statutory hierarchy. Goals: Comfort oriented CODE STATUS: DO NOT RESUSCITATE SYMPTOMS: * Confusion: Baseline mental status is difficult to assess due to aphasia however the patient appears fearful, recognizes only his , is not responding to his daughter, does not appear to know where he is or the purpose of his presence here. He appears to have difficulty grasping his current situation. This is an acute decline since his CVA and at this time appears as though it may be permanent. * Agitation: He remains agitated, restrained, tries to get out of bed and frequently tries to refuse care. He has just pulled out another IV site in spite of restraints. He was given Haldol yesterday with no success. This was discussed with Dr. Villanueva who will initiate Seroquel to attenuate the agitation. SUMMARY This is a 72-year-old male who has now suffered both an ischemic and then a hemorrhagic stroke resulting in increasing incapacitation. It is the family's wish that he have the best quality of life going forward, understanding that his functional status will not likely improve to any significant degree. They are aware that he will need to live in a care home at this time and likely permanently unless the patient has some significant recovery. While they would like to attempt short-term rehab to help him recover what ever her right arm and leg strength he can to improve his mobility , once rehab is completed, they would like to enroll in hospice services. Hospice consult has been requested and that information transferred to the hospice nurseAniya who will establish contact, provide information and arrange follow-up contact. Palliative care will continue to follow the patient during hospital course as condition evolves, to assist patient/decision-maker with understanding of their medical conditions, weighing benefits/burdens of treatment options, for clarification of goals of treatment. Additionally will assist with any symptoms of palliative concern. . Appreciation Thank you for the opportunity to participate in the care of Serge Chocoelizabeth Butch Teran. Attestation Attestation: To help prompt me to consider important information that might be impacting today's encounter and assessment, information from prior notes written by myself or my colleagues may have been "brought forward" into today's note. My signature on this note, however, is an attestation that I personally performed the exam, history, and/or decision-making noted today, and, unless otherwise indicated, the interactions with patient, family, and staff as well as the review of records all occurred today. I also attest that the listed assessment and stated plan reflect my best clinical judgment today based on the combination of historical information, prior notes, and today's exam/ interactions. When time spent is documented, it refers only to time spent today by the signer, or if indicated, combined time spent today by collaborating physician/nurse practitioner. .
[2018-08-27] MEDS: Vancomycin Inj 1,400 MG in Sodium Chlor 0.9% Inj 500 ML IV.SIG SCH (13:57)
--- NOTE | 2018-08-27 14:33 | US ---
EXAM DATE: 08/27/2018 12:00 AM EDT AGE/SEX: 72 years / Male INDICATIONS: Bilateral leg edema. CLINICAL DATA: This is the patient's initial encounter. Patient reports that signs and symptoms have been present for 1 day and indicates a pain score of 0/10. MEDICAL/SURGICAL HISTORY: Diabetes mellitus type II. Hypertension. Afib. Aphasia. Hyperlipidem ia. Stroke. GI bleed. None. COMPARISON: No prior exams available for comparison. TECHNIQUE: Venous ultrasound of both lower extremities was performed from the inguinal ligament to t he proximal calf. Real-time, color Doppler and spectral tracing, compression and augmentation techni ques were used. FINDINGS: Right Leg: Normal compression of the deep venous system from the inguinal region to the proximal liane f. No echogenic clot is seen. Normal response of the venous system to augmentation and respiration. Left Leg: Normal compression of the deep venous system from the inguinal region to the proximal calf . No echogenic clot is seen. Normal response of the venous system to augmentation and respiration. Other: None. CONCLUSION: 1. The study is negative for bilateral lower extremity deep venous thrombosis. Electronically signed by: Brock Zazueta MD 08/27/2018 2:32 PM EDT
[2018-08-27] MEDS: Pantoprazole Inj 40 MG Vial IV.PUSH SCH (16:34)
--- NOTE | 2018-08-27 17:18 | P.PNGI ---
Subjective Interval history: No bleeding reported Physical Exam Vital signs: Vital Signs 08/26/18 20:00 08/26/18 20:19 08/26/18 20:30 Temperature 97.9 F Pulse Rate 94 H 96 H Respiratory Rate 20 Blood Pressure 167/80 H Pulse Oximetry 96 96 08/27/18 00:17 08/27/18 11:37 08/27/18 11:40 Temperature 97.6 F 98.5 F 98.5 F Pulse Rate 94 H 87 87 Respiratory Rate 20 Blood Pressure 165/85 H 163/90 H 163/90 H Pulse Oximetry 95 95 08/27/18 16:00 Temperature 98.1 F Pulse Rate 102 H Respiratory Rate 14 Blood Pressure 153/103 H Pulse Oximetry 96 Intake & Output 08/26/18 08/27/18 08/27/18 18:59 06:59 18:59 Intake Total 100 / 100 100 / 100 1514 / 1514 Output Total 900 / 900 Balance 100 / 100 -800 / -800 1514 / 1514 Weight 84.942 kg 88.9 kg 88.9 kg Intake: IV 100 / 100 100 / 100 1514 / 1514 NS Inj 1,000 ML @ 100 mls/hr IV 1000 / 1000 .CONT .Q10H KWESI Rx#:[id number] Zosyn 3.375 GM Premix 50 ML @ 100 / 100 100 mls/hr IV.SIG Q6H KWESI Rx#: [id number] Vancomycin Inj 1,400 MG In NS 514 / 514 Inj 500 ML @ 250 mls/hr IV.SIG Q18H KWESI Rx#:[id number] Rocephin Inj 500 MG In NS Inj 100 / 100 100 ML @ 200 mls/hr IV.SIG ONCE ONE Rx#:[id number] Oral 0 / 0 Output: Urine 900 / 900 Other: # Voids 0 # Incontinent Voids 2 Weight On Admission 88.9 kg - Constitutional no acute distress - Routine HEENT Exam Head: Present: normocephalic Eye: Present: EOMI - Routine Neck Exam Present: supple - Routine Respiratory Exam Present: CTA bilaterally - Routine Cardiovascular Exam Present: RRR - Routine Abdominal Exam Present: soft, normoactive bowel sounds Results - Labs CBC & Chem 7: 08/27/18 05:30 08/26/18 13:04 Laboratory Results - last 24 hr 08/26/18 08/27/18 08/27/18 15:59 05:30 07:47 CBC w Diff Auto diff final WBC 4.1 RBC 3.27 L Hgb 10.0 L Hct 30.9 L MCV 94.5 MCH 30.6 MCHC 32.4 RDW 13.1 Plt Count 222 MPV 8.1 Neut % (Auto) 68.5 Lymph % (Auto) 16.1 [place] % (Auto) 11.6 H Eos % (Auto) 2.8 Baso % (Auto) 1.0 Neut # (Auto) 2.8 Lymph # (Auto) 0.7 L [place] # (Auto) 0.5 Eos # (Auto) 0.1 Baso # (Auto) 0.0 WBC Differential . Differential Comment . POC Glucose 204 H Blood Type AB Positive Antibody Screen Negative 08/27/18 08/27/18 11:30 16:19 CBC w Diff WBC RBC Hgb Hct MCV MCH MCHC RDW Plt Count MPV Neut % (Auto) Lymph % (Auto) [place] % (Auto) Eos % (Auto) Baso % (Auto) Neut # (Auto) Lymph # (Auto) [place] # (Auto) Eos # (Auto) Baso # (Auto) WBC Differential Differential Comment POC Glucose 141 H 221 H Blood Type Antibody Screen Microbiology 08/26/18 15:20 Blood - Peripheral Aerobic Blood Culture - Preliminary No growth in 1 day 08/26/18 15:20 Blood - Peripheral Anaerobic Blood Culture - Preliminary No growth in 1 day 08/26/18 15:20 Blood - Peripheral Aerobic Blood Culture - Preliminary No growth in 1 day 08/26/18 15:20 Blood - Peripheral Anaerobic Blood Culture - Preliminary No growth in 1 day - Imaging Impressions Venous Doppler Study 08/27/18 00:00 CONCLUSION: 1. The study is negative for bilateral lower extremity deep venous thrombosis. Assessment and Plan - Plan Seen and examined with daughter in the room. No bleeding reported. H/H stable. Still confused in restraints. GI caal only if active bleeding. Discussed with daughter. GI will sign off, reconsult as needed. Thank you
--- NOTE | 2018-08-27 21:03 | MB ---
cc: Kevin Dangelo MD, PhD DATE: 08/27/2018 REASON FOR CONSULTATION: Mental status change. HISTORY OF PRESENT ILLNESS: Mr. Rae is a 72-year-old man who has a history of previous stroke, atrial fibrillation, diabetes. The patient was brought to the ER from rehab due to increasing confusion and sedation. He was on Eliquis because of atrial fibrillation. It was noted that he had a drop in his hemoglobin from previous counts and the Eliquis has been on hold. He had a CT scan of the brain performed in the emergency room which revealed evolution of the previous hemorrhagic infarction in the left parieto-occipital mid to low convexities with decreasing blood products and improving mass effect on the lateral ventricle, no acute changes identified, no acute hemorrhages identified. He has not had any other lateralizing features. The patient apparently has not had any obvious source of blood loss. NEUROLOGIC EXAMINATION: VITAL SIGNS: Blood pressure 163/90, pulse 87, respiratory rate 20, temperature 98.5 degrees. HIGHER CORTICAL FUNCTION: He is alert. He has what appears to be predominantly a Wernicke-type aphasia. He has fluent speech but makes numerous paraphasic errors. He cannot follow simple commands. He cannot repeat. CRANIAL NERVES: Intact. MOTOR: He has trace weakness on the right side at 4/5 compared with 5/5 on the left. LABORATORY DATA: White count 5400, hemoglobin 9.8, hematocrit 29.6%, platelet count 210,000. PT 12.6, INR 1.2, APTT 25.2. Sodium 139, potassium 3.6, chloride 102, CO2 of 29.9, BUN 14, creatinine 1.3, GFR 55, AST 16, ALT 20. IMPRESSION: Left hemisphere stroke with a small amount of hemorrhage. I reviewed the CT scan. There is no acute hemorrhage present. This does show resolving evidence of hemorrhage. He does have evidence of Wernicke aphasia. RECOMMENDATIONS: We will get an MRI of the brain to be sure there is no acute change. If no acute change, then from the neurology standpoint, there is no contraindication to starting him back on his Eliquis if no hemorrhagic risk from the gastrointestinal standpoint is identified. Kevin Dangelo MD, PhD ARIE/jhonny , 06:52 PM , 06:59 PM
[2018-08-28] MEDS: Piperacil/Tazo 3.375 GM Premix 50 ML IV.SIG SCH ×5 (00:30→23:57)
[2018-08-28] MEDS: Sod Chloride 0.9% Inj 1,000 ML IV.CONT SCH ×2 (02:18→08:52)
[2018-08-28] MEDS: Vancomycin Inj 1,400 MG in Sodium Chlor 0.9% Inj 500 ML IV.SIG SCH (06:14)
--- NOTE | 2018-08-28 08:05 | P.PNIM ---
Subjective Interval history: f/u; TIA vs CVA in no acute distress. looks comfortable. awake but still on restraints. Physical Exam Vital signs: Vital Signs 08/27/18 11:37 08/27/18 11:40 08/27/18 16:00 Temperature 98.5 F 98.5 F 98.1 F Pulse Rate 87 87 102 H Respiratory Rate 14 Blood Pressure 163/90 H 163/90 H 153/103 H Pulse Oximetry 95 96 08/27/18 20:00 08/27/18 20:28 08/28/18 00:00 Temperature 98.1 F 97.7 F Pulse Rate 89 91 H Respiratory Rate 18 18 Blood Pressure 156/89 H 166/89 H Pulse Oximetry 94 L 95 95 Intake & Output 08/27/18 08/28/18 08/28/18 18:59 06:59 18:59 Intake Total 1564 / 1564 200 / 200 Output Total 600 / 600 Balance 1564 / 1564 -400 / -400 Weight 88.9 kg 93 kg Intake: IV 1564 / 1564 50 / 50 NS Inj 1,000 ML @ 100 mls/hr IV 1000 / 1000 .CONT .Q10H [facility] Rx#:[id number] Zosyn 3.375 GM Premix 50 ML @ 50 / 50 50 / 50 100 mls/hr IV.SIG Q6H [facility] Rx#: [id number] Vancomycin Inj 1,400 MG In NS 514 / 514 Inj 500 ML @ 250 mls/hr IV.SIG Q18H [facility] Rx#:[id number] Oral 150 / 150 Output: Urine 600 / 600 Other: Weight On Admission 88.9 kg - Constitutional no acute distress - Routine Respiratory Exam Present: CTA bilaterally - Routine Cardiovascular Exam Present: RRR - Routine Abdominal Exam Present: soft - Routine Extremities Exam Comments: bilateral pedal edema. - Routine Skin Exam Present: erythema (bilateral legs - seems to be improving.) - Routine Neurological Exam Present: alert Results - Labs CBC & Chem 7: 08/27/18 05:30 08/26/18 13:04 Laboratory Results - last 24 hr 08/27/18 08/27/18 08/27/18 11:30 16:19 20:39 POC Glucose 141 H 221 H 244 H 08/28/18 06:53 POC Glucose 204 H Microbiology 08/26/18 15:20 Blood - Peripheral Aerobic Blood Culture - Preliminary No growth in 1 day 08/26/18 15:20 Blood - Peripheral Anaerobic Blood Culture - Preliminary No growth in 1 day 08/26/18 15:20 Blood - Peripheral Aerobic Blood Culture - Preliminary No growth in 1 day 08/26/18 15:20 Blood - Peripheral Anaerobic Blood Culture - Preliminary No growth in 1 day - Imaging Impressions Venous Doppler Study 08/27/18 00:00 CONCLUSION: 1. The study is negative for bilateral lower extremity deep venous thrombosis. Assessment and Plan - Plan A/P - acute encephalopathy with history of recent CVA CT head with no acute abnormality- continue with neuro-checks- MRI brain pending- neurology consult appreciated- PT/ST consulted. Eliquis on hold till MRI resulted. trial of Seroquel. -recent GI bleed- s/p EGD with gastritis H/H stable-with no reported active GI bleed. continue PPI - evaluated by GI and GI has signed off. -cellulitis of bilateral lower extremities-improving. started on IV antibiotics and monitor the cultures. venous doppler of lower extremities with no DVT. will deescalate the antibiotics within the next 24-48 hrs- -questionable pneumonia; on antibiotics as noted above. -a-fib; resume Cardizem and hold Eliuis for now- continue to monitor. -diabetes mellitus; accu-check with SSI -DNR status per my d/w the family. - consulted palliative care to assist with goals of care -DVT prophylaxis with SCD's Discharge Planning: SNF- when MRI resulted and off the restraints. the family would like to proceed with rehab and later on Hospice when rehab is completed.
[2018-08-28] MEDS: Insulin NovoLOG Aspart Correctional Sugar Inj SQ SCH ×4 (08:51→22:56)
[2018-08-28] MEDS: QUEtiapine 25 MG Tablet PO SCH ×2 (08:51→22:57)
--- NOTE | 2018-08-28 11:42 | MR ---
EXAM DATE: 08/28/2018 6:58 AM EDT AGE/SEX: 72 years / Male INDICATIONS: Altered mental status. CVA. CLINICAL DATA: This is the patient's subsequent encounter. Patient reports that signs and symptoms h ave been present for 3 days and indicates a pain score of 0/10. MEDICAL/SURGICAL HISTORY: Diabetes mellitus type II. . Cataracts. COMPARISON: [facility] [place]/O [place]AST, 07/30/2018. . TECHNIQUE: Multiplanar, multisequence examination of the brain was performed without contrast. FINDINGS: Today's examination is compared to the prior study of 07/30/2018. There continues to be a large subacu te infarct involving the left cerebral hemisphere without significant change in its overall appearanc e compared to the prior examination. There continues to be restricted diffusion in the left mid and l eft posterior parietal area. The axial T2 GRE images again demonstrate microhemorrhage in the posteri or left occipital lobe. This is not significantly changed compared to the prior examination. The vent ricles remain normal in size and midline in position. There is stable chronic white matter changes bi laterally. There appears to be less edema on today's examination compared to the prior study. The pos terior fossa is stable and unremarkable. There is no significant mass effect or midline shift. CONCLUSION: 1. No significant change in the overall appearance of the large cerebral infarct involving the left mid and left posterior parietal area compared to the prior examination. 2. Otherwise, no significant changes are seen compared to the prior study.. Electronically signed by: Donnie Jones MD 08/28/2018 11:40 AM EDT
[2018-08-28] MEDS: dilTIAZem CD 120 MG Capsule PO SCH (14:19)
[2018-08-28] MEDS: Pantoprazole Inj 40 MG Vial IV.PUSH SCH (17:18)
--- NOTE | 2018-08-28 17:49 | P.PNNEU ---
Subjective Subjective Comments: pt more alert, still with aphasia from prior cva Active Medications: Active Medications Dextrose (D50w Vial) 50 ml IV.PUSH UNSCH PRN PRN Reason: PER HYPOGLYCEMIA PROTOCOL Diltiazem HCl (Cardizem Cd 24hr) 120 mg PO DAILY [facility] Last Admin: 08/28/18 14:19 Dose: 120 mg Glucagon (Glucagon Inj) 1 mg OTHER PRN PRN PRN Reason: for Hypoglycemia Protocol Haloperidol Lactate (Haldol Inj) 5 mg IM Q6H PRN PRN Reason: AGITATION Last Admin: 08/27/18 12:53 Dose: 5 mg Sodium Chloride (Ns Inj) 1,000 mls @ 60 mls/hr IV.CONT .[id number] [facility] Last Admin: 08/28/18 08:52 Dose: 100 mls/hr Piperacillin/Tazobactam/Dextrose (Zosyn 3.375 Gm Premix) 50 mls @ 100 mls/hr IV.SIG Q6H [facility] Last Admin: 08/28/18 17:17 Dose: 100 mls/hr Vancomycin HCl 1,400 mg/ (Sodium Chloride) 514 mls @ 250 mls/hr IV.SIG Q18H [facility] Last Infusion: 08/28/18 08:53 Dose: Infused Insulin Aspart (Novolog Insulin Correctional Sugar Inj) 0 unit SQ ACHS [facility]; Protocol Last Admin: 08/28/18 14:18 Dose: 3 unit Miscellaneous Information ([facility] [place] Lab Info) 1 each OTHER ONCE ONE Stop: 08/29/18 17:46 Pantoprazole Sodium (Protonix Inj) 40 mg IV.PUSH Q24H [facility] Last Admin: 08/28/18 17:18 Dose: 40 mg Pharmacy Profile Note (Vancomycin Consult Pharmacy) 1 each OTHER UNSCH PRN PRN Reason: Pharmacy to dose Quetiapine Fumarate (Seroquel) 25 mg PO BID [facility] Last Admin: 08/28/18 08:51 Dose: 25 mg Sodium Chloride (Ns Flush) 2 ml IV.FLUSH PRN PRN PRN Reason: FLUSH AFTER USING IV ACCESS Allergies/Adverse Reactions: Allergies Allergy/AdvReac Type Severity Reaction Status Date / Time No Known Allergies Allergy Verified 08/26/18 12:55 Physical Exam Vital signs: Vital Signs 08/27/18 20:00 08/27/18 20:28 08/28/18 00:00 Temperature 98.1 F 97.7 F Pulse Rate 89 91 H Respiratory Rate 18 18 Blood Pressure 156/89 H 166/89 H Pulse Oximetry 94 L 95 95 08/28/18 08:00 08/28/18 12:00 08/28/18 16:00 Temperature 98.2 F 98.2 F 99.0 F Pulse Rate 98 H 101 H 83 Respiratory Rate 18 18 18 Blood Pressure 159/83 H 138/96 H 148/95 H Pulse Oximetry 95 95 94 L Intake & Output 08/27/18 08/28/18 08/28/18 18:59 06:59 18:59 Intake Total 1564 / 1564 250 / 250 1564 / 1564 Output Total 600 / 600 Balance 1564 / 1564 -350 / -350 1564 / 1564 Weight 88.9 kg 93 kg Intake: IV 1564 / 1564 100 / 100 1564 / 1564 NS Inj 1,000 ML @ 60 mls/hr IV. 1000 / 1000 1000 / 1000 CONT .[id number] [facility] Rx#: [id number] Zosyn 3.375 GM Premix 50 ML @ 50 / 50 100 / 100 50 / 50 100 mls/hr IV.SIG Q6H [facility] Rx#: [id number] Vancomycin Inj 1,400 MG In NS 514 / 514 514 / 514 Inj 500 ML @ 250 mls/hr IV.SIG Q18H [facility] Rx#:[id number] Oral 150 / 150 Output: Urine 600 / 600 Other: # Urine Diapers 5 Weight On Admission 88.9 kg - Routine Neurological Exam alert. He has an expressive and receptive aphasia with nonfluent speech and difficulty with comprehension CN intact MOTOR 4/5 RUE and RLE, 5/5 LUE and LLE Objective Radiology Results: MRI--large left hemisphere cva with microhemorrhage, unchanged from MRI of July. No evidence for new cva or increase in hemorrhage Laboratory Results - last 24 hr 08/27/18 08/28/18 08/28/18 20:39 06:53 16:54 POC Glucose 244 H 204 H 278 H Microbiology 08/26/18 15:20 Aerobic Blood Culture - Preliminary Blood - Peripheral No growth in 2 days Anaerobic Blood Culture - Preliminary No growth in 2 days 08/26/18 15:20 Aerobic Blood Culture - Preliminary Blood - Peripheral No growth in 2 days Anaerobic Blood Culture - Preliminary No growth in 2 days Review/Management - Diagnosis (1) CVA (cerebral vascular accident) Code(s): I63.9 - Cerebral infarction, unspecified Status: Acute Current Visit: No - Review/Management Plan: Ok from neurology standpoint to resume eliquis. Mental status change may have been encephalopathy superimposd on previous cva, but no evidence for recurrent cva. Consider trial of seroquel or zyprexa. No additional neurologic testing needed at this time. Ok from neuro standpoint to dc when ok with primary service. Please have patient follow up with me in outpatient office in 2-3 weeks. (1) CVA (cerebral vascular accident) Qualifiers: CVA mechanism: embolism Precerebral and cerebral artery: middle cerebral artery Laterality of affected vessel: left Qualified Code(s): I63.412 - Cerebral infarction due to embolism of left middle cerebral artery
[2018-08-28 23:25] LABS: Bilirubin,Urine Negative (Negative); Clarity,Urine Clear (Clear); Color,Urine Yellow (Yellw/Straw); Leukocyte Esterase,Urine Negative (Negative); Nitrite,Urine Negative (Negative); PH,Urine 6.5 (5.0-8.5); Specific Gravity,Urine Less/Equal 1.005 (1.002-1.035)
[2018-08-28 23:30] LABS: RBC,Urine 0-3 /hpf (0-3); Squamous Epithelial Cell,Urine 0-5 /hpf (0-5); WBC,Urine 0-5 /hpf (0-5)
[2018-08-29] MEDS: Vancomycin Inj 1,400 MG in Sodium Chlor 0.9% Inj 500 ML IV.SIG SCH ×2 (00:50→18:12)
[2018-08-29] MEDS: Sod Chloride 0.9% Inj 1,000 ML IV.CONT SCH ×3 (01:11→18:49)
--- NOTE | 2018-08-29 02:03 | ECG ---
Date Performed: 08/26/2018 Time Performed: 13:52:13 PTAGE: 72 years EKG: ATRIAL FLUTTER/TACHYCARDIA INCOMPLETE RIGHT BUNDLE BRANCH BLOCK NONSPECIFIC ST & T-WAVE ABN ORMALITY ABNORMAL ECG PREVIOUS TRACING : 08/02/2018 22.27 Since the previous tracing, no significant change noted DOCTOR: Abraham Oleary Interpretating Date/Time 08/29/2018 02:02:13
[2018-08-29] MEDS: Piperacil/Tazo 3.375 GM Premix 50 ML IV.SIG SCH ×3 (05:29→17:00)
[2018-08-29 07:04] LABS: Calcium 7.6 mg/dL (8.5-10.1)
[2018-08-29] MEDS: QUEtiapine 25 MG Tablet PO SCH ×2 (07:59→20:52)
[2018-08-29] MEDS: Insulin NovoLOG Aspart Correctional Sugar Inj SQ SCH ×4 (07:59→20:52)
[2018-08-29] MEDS: dilTIAZem CD 120 MG Capsule PO SCH (07:59)
--- NOTE | 2018-08-29 09:31 | P.PNIM ---
Subjective Interval history: f/u; TIA in no acute distress. looks comfortable. no fever. off restraints. Physical Exam Vital signs: Vital Signs 08/28/18 12:00 08/28/18 16:00 08/28/18 20:00 Temperature 98.2 F 99.0 F 98.4 F Pulse Rate 101 H 83 93 H Respiratory Rate 18 18 20 Blood Pressure 138/96 H 148/95 H 168/92 H Pulse Oximetry 95 94 L 94 L 08/29/18 00:00 Temperature 98.3 F Pulse Rate 96 H Respiratory Rate 20 Blood Pressure 153/89 H Pulse Oximetry 92 L Intake & Output 08/28/18 08/29/18 08/29/18 18:59 06:59 18:59 Intake Total 1614 / 1614 3444 / 3444 50 / 50 Output Total 1715 / 1715 Balance 1614 / 1614 1729 / 1729 50 / 50 Weight 92.8 kg Intake: IV 1614 / 1614 2564 / 2564 50 / 50 NS Inj 1,000 ML @ 60 mls/hr IV. 1000 / 1000 2000 / 2000 CONT .[id number] [facility] Rx#: [id number] Zosyn 3.375 GM Premix 50 ML @ 100 / 100 50 / 50 50 / 50 100 mls/hr IV.SIG Q6H [facility] Rx#: [id number] Vancomycin Inj 1,400 MG In NS 514 / 514 514 / 514 Inj 500 ML @ 250 mls/hr IV.SIG Q18H [facility] Rx#:[id number] Oral 880 / 880 Output: Urine 1715 / 1715 Other: # Incontinent Voids 1 # Urine Diapers 5 - Constitutional no acute distress - Routine Respiratory Exam Present: CTA bilaterally - Routine Cardiovascular Exam Present: RRR - Routine Abdominal Exam Present: soft - Routine Extremities Exam Present: edema (bilateral pedal edema.) - Routine Skin Exam Present: erythema (erythema over the lower legs has improved.) Results - Labs CBC & Chem 7: 08/27/18 05:30 08/29/18 05:35 Laboratory Results - last 24 hr 08/28/18 08/28/18 08/28/18 16:54 22:48 23:00 Sodium Potassium Chloride Carbon Dioxide Anion Gap BUN Creatinine Estimated GFR POC Glucose 278 H 275 H Random Glucose Calcium Urine Color Yellow Urine Clarity Clear Urine pH 6.5 Ur Specific [place] Less/equal 1.005 Urine Protein Negative Urine Glucose (UA) 1000 or greater H Urine Ketones Negative Urine Occult Blood Negative Urine Nitrate Negative Urine Bilirubin Negative Urine Urobilinogen 1.0 Ur Leukocyte Esterase Negative Urine RBC 0-3 Urine WBC 0-5 Ur Squamous Epith Cells 0-5 Micro UA Comment Culture not ind Ur Microscopic Review Microscopic reviewed Urine Culture Comments Culture not ind 08/29/18 08/29/18 05:35 07:43 Sodium 145 Potassium 3.0 L Chloride 108 H Carbon Dioxide 26.0 Anion Gap 11 BUN 11 Creatinine 1.20 Estimated GFR 60 L POC Glucose 226 H Random Glucose 205 H Calcium 7.6 L Urine Color Urine Clarity Urine pH Ur Specific [place] Urine Protein Urine Glucose (UA) Urine Ketones Urine Occult Blood Urine Nitrate Urine Bilirubin Urine Urobilinogen Ur Leukocyte Esterase Urine RBC Urine WBC Ur Squamous Epith Cells Micro UA Comment Ur Microscopic Review Urine Culture Comments Microbiology 08/26/18 15:20 Blood - Peripheral Aerobic Blood Culture - Preliminary No growth in 2 days 08/26/18 15:20 Blood - Peripheral Anaerobic Blood Culture - Preliminary gram positive cocci 08/26/18 15:20 Blood - Peripheral Aerobic Blood Culture - Preliminary No growth in 2 days 08/26/18 15:20 Blood - Peripheral Anaerobic Blood Culture - Preliminary No growth in 2 days - Imaging Impressions Head MRI 08/28/18 06:58 CONCLUSION: 1. No significant change in the overall appearance of the large cerebral infarct involving the left mid and left posterior parietal area compared to the prior examination. 2. Otherwise, no significant changes are seen compared to the prior study.. - Procedures none. Assessment and Plan - Plan A/P - acute encephalopathy with history of recent CVA CT head with no acute abnormality-MRI brain with njo significant change. neurology f/u appreciated; cleared for discharge on Eliquis.- PT/ST consulted. trial of Seroquel. -recent GI bleed- s/p EGD with gastritis H/H stable-with no reported active GI bleed. continue PPI - evaluated by GI and GI has signed off. -cellulitis of bilateral lower extremities-improving. started on IV antibiotics and monitor the cultures; will switch to oral antibiotics upon discharge. venous doppler of lower extremities with no DVT. -questionable pneumonia; on antibiotics as noted above. -a-fib; resume Cardizem and Eliuis - continue to monitor. -diabetes mellitus; accu-check with SSI -DNR status per my d/w the family. -Hypokalemia; will replace. - consulted palliative care to assist with goals of care -DVT prophylaxis with SCD's Discharge Planning: SNF- the family would like to proceed with rehab and later on Hospice when rehab is completed. f/u; pcp and neurology.
--- NOTE | 2018-08-29 09:40 | P.DS ---
Date of admission: 08/26/18 15:36 Primary care physician: No Primary Care Physician Brief History from admission: patient is a 72 y/o male with history of CVA, GI bleed, a-fib , diabetes mellitus who was brought to ER from rehab with altered mental status. patient was sedated at the time of my evaluation and most of the information was obtained from the and the daughter at the bedside. the says that he was at his usual state of health till last night when he started to feel agitated. she says that when she went to rehab this morning to visit him, ' he kept saying that he wanted to go home; his behavior changed and he was very anxious'. there's no report of headache,nausea,emesis, fever,or chest pain. the daughter says that he has expressive aphasia and for most part he's not very coherent. DS: Medications - Discharge Medications Prescriptions: amoxicillin-pot clavulanate [Augmentin] 1 tab PO Q12H 7 Days #14 tab quetiapine 25 mg PO BID 30 Days #60 tab DS: Summary Hospital Course: - acute encephalopathy with history of recent CVA CT head with no acute abnormality-MRI brain with njo significant change. neurology f/u appreciated; cleared for discharge on Eliquis.- PT/ST consulted. trial of Seroquel. -recent GI bleed- s/p EGD with gastritis H/H stable-with no reported active GI bleed. continue PPI - evaluated by GI and GI has signed off. -cellulitis of bilateral lower extremities-improving. started on IV antibiotics and monitor the cultures; will switch to oral antibiotics upon discharge. venous doppler of lower extremities with no DVT. -questionable pneumonia; on antibiotics as noted above. -a-fib; resume Cardizem and Eliuis - continue to monitor. -diabetes mellitus; accu-check with SSI -DNR status per my d/w the family. -Hypokalemia; will replace. - consulted palliative care to assist with goals of care - Time Spent with Patient Total time spent providing and/or coordinating discharge services: Less than 30 minutes - Quality: VTE Deep Vein Thrombosis/Pulmonary Embolism Present on Admission: No Exam Vital signs: Vital Signs 08/28/18 12:00 08/28/18 16:00 08/28/18 20:00 Temperature 98.2 F 99.0 F 98.4 F Pulse Rate 101 H 83 93 H Respiratory Rate 18 18 20 Blood Pressure 138/96 H 148/95 H 168/92 H Pulse Oximetry 95 94 L 94 L 08/29/18 00:00 Temperature 98.3 F Pulse Rate 96 H Respiratory Rate 20 Blood Pressure 153/89 H Pulse Oximetry 92 L Intake & Output 08/28/18 08/29/18 08/29/18 18:59 06:59 18:59 Intake Total 1614 / 1614 3444 / 3444 50 / 50 Output Total 1715 / 1715 Balance 1614 / 1614 1729 / 1729 50 / 50 Weight 92.8 kg Intake: IV 1614 / 1614 2564 / 2564 50 / 50 NS Inj 1,000 ML @ 60 mls/hr IV. 1000 / 1000 1999 / 1999 CONT .[id number] [facility] Rx#: [id number] Zosyn 3.375 GM Premix 50 ML @ 100 / 100 50 / 50 50 / 50 100 mls/hr IV.SIG Q6H [facility] Rx#: [id number] Vancomycin Inj 1,400 MG In NS 514 / 514 514 / 514 Inj 500 ML @ 250 mls/hr IV.SIG Q18H [facility] Rx#:[id number] Oral 880 / 880 Output: Urine 1715 / 1715 Other: # Incontinent Voids 1 # Urine Diapers 5 - Constitutional no acute distress - Routine Respiratory Exam Present: CTA bilaterally - Routine Cardiovascular Exam Present: RRR - Routine Abdominal Exam Present: soft - Routine Extremities Exam Comments: bilateral pedal edema. Results Procedures completed during hospitalization: none. Labs on day of discharge: Labs from last 24 hours 08/29/18 08/29/18 08/28/18 07:43 05:35 23:00 Sodium 145 Potassium 3.0 L Chloride 108 H Carbon Dioxide 26.0 Anion Gap 11 BUN 11 Creatinine 1.20 Estimated GFR 60 L POC Glucose 226 H Random Glucose 205 H Calcium 7.6 L Urine Color Yellow Urine Clarity Clear Urine pH 6.5 Ur Specific [place] Less/equal 1.005 Urine Protein Negative Urine Glucose (UA) 1000 or greater H Urine Ketones Negative Urine Occult Blood Negative Urine Nitrate Negative Urine Bilirubin Negative Urine Urobilinogen 1.0 Ur Leukocyte Esterase Negative Urine RBC 0-3 Urine WBC 0-5 Ur Squamous Epith Cells 0-5 Micro UA Comment Culture not ind Ur Microscopic Review Microscopic reviewed Urine Culture Comments Culture not ind 08/28/18 08/28/18 22:48 16:54 Sodium Potassium Chloride Carbon Dioxide Anion Gap BUN Creatinine Estimated GFR POC Glucose 275 H 278 H Random Glucose Calcium Urine Color Urine Clarity Urine pH Ur Specific [place] Urine Protein Urine Glucose (UA) Urine Ketones Urine Occult Blood Urine Nitrate Urine Bilirubin Urine Urobilinogen Ur Leukocyte Esterase Urine RBC Urine WBC Ur Squamous Epith Cells Micro UA Comment Ur Microscopic Review Urine Culture Comments Preliminary micro results at discharge 08/26/18 15:20 Aerobic Blood Culture - Preliminary Blood - Peripheral No growth in 2 days Anaerobic Blood Culture - Preliminary gram positive cocci 08/26/18 15:20 Aerobic Blood Culture - Preliminary Blood - Peripheral No growth in 2 days Anaerobic Blood Culture - Preliminary No growth in 2 days - Impressions ITS Impressions Chest X-Ray 08/26/18 12:51 CONCLUSION: Patchy interstitial opacities. Possible small right effusion Head CT 08/26/18 12:51 CONCLUSION: 1. Evolving hemorrhagic infarction of the left parieto-occipital mid to low convexities with decreasing blood products and improving mass effect on the left lateral ventricle. 2. No midline shift, intercurrent hemorrhage or hydrocephalus. . Venous Doppler Study 08/27/18 00:00 CONCLUSION: 1. The study is negative for bilateral lower extremity deep venous thrombosis. Head MRI 08/28/18 06:58 CONCLUSION: 1. No significant change in the overall appearance of the large cerebral infarct involving the left mid and left posterior parietal area compared to the prior examination. 2. Otherwise, no significant changes are seen compared to the prior study.. Discharge Plan - Discharge Disposition Patient Disposition: 03 Discharge to SNF - Discharge Condition Condition: Stable - Discharge Order Discharge Orders: Discharge Order (Routine); Ordered 08/29/18 Ordered By: Dipika Villanueva - Physicians Team Primary Care Provider: Primary Care Brendan,Aster Attending Provider: Dipika Villanueva Other Providers: Pelon Orlando MD ; Kevin Dangelo MD, PhD ; Santy Norris MD ; [employer] ; [facility],[place]
--- NOTE | 2018-08-29 15:36 | P.PNWCN ---
Wound Care Nurse Consult Description: wound consult ordered by for wound management. Communicated with: Renate CARRERA, Recommendation: 1.Reposition patient every 2 hours for comfort and offloading. 2. Cleanse bilateral feet with warm antibacterial soap and water rinse pat dry. 3. Apply Cavilon skin prep x2 to roofed/unroofed bulla.Daily 4. Encourage patient to elevate lower extremities often. 5. Cleanse sacral/coccyx region with remedy soft cloth barrier wipes apply thin even layer of Calazime skin barrier cream BID or as needed . Additional information: Patient was sen today by technical report writer and Renate CARRERA PO.Patient alert with confusion and aphasia. Resting in bed upon technical report writer arrival .Associate Account Director was able to visualize bilateral lower extremities.Patient noted to have diffuse roofed and unroofed [place] to digits 2-5 and met head base.Cleansed with normal saline pat dry skin prep applied and left open to air. New epithelial tissue noted to left foot digits and met head base may indicated prior healed unroofed [place] with staff infections .faint pedal pulse palpable to bilateral lower extremities.patient repositioned to right side with minimal assistance patient noted to have mild moisture associated skin breakdown pink blanchable tissue no open areas found Calazime cream applied in thick layer.
[2018-08-29] MEDS: Pantoprazole Inj 40 MG Vial IV.PUSH SCH (17:01)
[2018-08-29] MEDS ORDERED: Pharmacy Ordered Lab Info OTHER ONE (17:45)
[2018-08-30] MEDS: Piperacil/Tazo 3.375 GM Premix 50 ML IV.SIG SCH ×2 (00:19→04:09)
[2018-08-30] MEDS: dilTIAZem CD 120 MG Capsule PO SCH (08:43)
[2018-08-30] MEDS: Insulin NovoLOG Aspart Correctional Sugar Inj SQ SCH ×4 (08:43→20:56)
[2018-08-30] MEDS: QUEtiapine 25 MG Tablet PO SCH ×2 (08:43→20:56)
--- NOTE | 2018-08-30 10:03 | P.PNIM ---
Subjective Interval history: f/u; TIA in no acute distress. awake and alert. looks fairly comfortable. no fever. Physical Exam Vital signs: Vital Signs 08/29/18 12:00 08/29/18 16:00 08/29/18 20:00 Temperature 97.5 F L 96.1 F L 97.8 F Pulse Rate 86 93 H 80 Respiratory Rate 20 20 18 Blood Pressure 155/86 H 150/96 H 154/97 H Pulse Oximetry 91 L 93 L 94 L 08/30/18 00:00 08/30/18 08:00 Temperature 98.4 F 96.8 F L Pulse Rate 96 H 102 H Respiratory Rate 18 18 Blood Pressure 134/76 166/93 H Pulse Oximetry 92 L 95 Intake & Output 08/29/18 08/30/18 08/30/18 18:59 06:59 18:59 Intake Total 510 / 510 1514 / 1514 Output Total 750 / 750 Balance -240 / -240 1514 / 1514 Weight 93.7 kg Intake: IV 150 / 150 1514 / 1514 NS Inj 1,000 ML @ 60 mls/hr IV. 1000 / 1000 CONT .[id number] [facility] Rx#: [id number] Zosyn 3.375 GM Premix 50 ML @ 150 / 150 0 / 0 100 mls/hr IV.SIG Q6H [facility] Rx#: [id number] Vancomycin Inj 1,400 MG In NS 514 / 514 Inj 500 ML @ 250 mls/hr IV.SIG Q18H [facility] Rx#:[id number] Oral 360 / 360 Output: Urine 750 / 750 Other: # Incontinent Voids 2 # Urine Diapers 3 # Bowel Movements 2 - Constitutional no acute distress - Routine Respiratory Exam Present: CTA bilaterally - Routine Cardiovascular Exam Present: RRR - Routine Abdominal Exam Present: soft - Routine Extremities Exam Comments: no pedal edema. - Routine Skin Exam Present: erythema (of the legs improving.) - Routine Neurological Exam Present: alert Results - Labs CBC & Chem 7: 08/27/18 05:30 08/30/18 05:30 Laboratory Results - last 24 hr 08/29/18 08/29/18 08/29/18 11:45 16:54 18:15 Potassium POC Glucose 159 H 184 H Vancomycin Trough 16.4 H 08/29/18 08/30/18 08/30/18 20:50 05:30 07:23 Potassium 3.5 POC Glucose 158 H 223 H Vancomycin Trough Microbiology 08/29/18 15:00 Stool Stool Occult Blood (TRISTEN) - Final Hemoccult negative 08/26/18 15:20 Blood - Peripheral Aerobic Blood Culture - Preliminary No growth in 3 days 08/26/18 15:20 Blood - Peripheral Anaerobic Blood Culture - Final Staphylococcus coag negative 08/26/18 15:20 Blood - Peripheral Aerobic Blood Culture - Preliminary No growth in 3 days 08/26/18 15:20 Blood - Peripheral Anaerobic Blood Culture - Preliminary No growth in 3 days - Procedures none. Assessment and Plan - Plan A/P - acute encephalopathy with history of recent CVA CT head with no acute abnormality-MRI brain with njo significant change. neurology f/u appreciated; cleared for discharge on Eliquis.- PT/ST consulted. trial of Seroquel. -recent GI bleed- s/p EGD with gastritis H/H stable-with no reported active GI bleed. hemoccult negative. continue PPI - evaluated by GI and GI has signed off. -cellulitis of bilateral lower extremities-improving. started on IV antibiotics and monitor the cultures; will switch to oral antibiotics upon discharge. venous doppler of lower extremities with no DVT. -questionable pneumonia; on antibiotics as noted above. one bottle of blood cultures with staph. coag negative; likely contamination. -a-fib; resume Cardizem and Eliuis - continue to monitor. -diabetes mellitus; accu-check with SSI -DNR status per my d/w the family. -Hypokalemia; replaced. - consulted palliative care to assist with goals of care -DVT prophylaxis with SCD's Discharge Planning: SNF vs home. the family would like to proceed with rehab and later on Hospice when rehab is completed. f/u; pcp and neurology. d/w the case management.
[2018-08-30] MEDS: Amoxicillin/Clavulanate 500/125 MG Tablet PO SCH ×2 (12:34→17:33)
--- NOTE | 2018-08-30 16:41 | P.PNPAL ---
Reason for Visit Reason for visit: a. To assist with evaluation and management of symptoms including: Agitation, confusion b. To assist medical decision maker(s) with: better understanding of current medical conditions; weighing benefits/burdens of medical treatment options; making medical treatment decisions. Subjective Subjective/Interval History: Patient seen for follow-up of symptom management of agitation, confusion and assist family with goals of medical treatment. Patient is stable and calm on Seroquel 25 mg p.o. twice daily. He remains confused and aphasic status post hemorrhagic stroke. He was only recognizing his . Staff states he is more cooperative. Agitation has been improved by the addition of Seroquel. He last received Haldol 08/27 which was unsuccessful at controlling his agitation. Initial assessment showed agitation present constantly, patient shouting "no". Currently patient is resting quietly with eyes closed, cooperative with exam. Presenting CT scan done 08/26 shows an evolving hemorrhagic infarction of the left parieto-occipital mid to low convexities with decreasing blood products and improving mass-effect on the left lateral ventricle. MRI done 08/28 showed no significant change in the overall appearance of the large cerebral infarct involving the left mid and left posterior parietal area compared with the prior examination. Based on neurology's review, patient was cleared to resume Eliquis for thromboembolic prophylaxis. . Family/Friend Interactions: Calls placed to patient's and daughter, messages left pending return call. Family initially had requested for patient to return to [facility] to complete his rehabilitation and then convert to long-term care. [facility] was coordinating with [facility] to try to obtain authorization. While it is not stated in bottle caser's notes, it is presumed that [facility] declined as the family was then offered the option to return to [facility] and pay room and board [id number] with no rehab or go home and arrange 24-hour care. Family states they do not have the financial resources to be able to do either. There is some confusion with the Medicaid application which was previously completed by the daughterKriss but required redoing the application as some information had been omitted. Family states they are unable to take the patient home as there is no one available to care for him. His son lives out of state and both the daughter and the spouse work full-time and would not be home during the day. Their concern is that their home has multiple levels with steps into several of the rooms. The patient has severe visual limitations and the family is concerned for a fall with no one home. A fall could be catastrophic as he is on blood thinners. Family is now considering placement at [facility] and rehab. Objective Vital Signs: Vital Signs 08/29/18 20:00 08/30/18 00:00 08/30/18 08:00 Temperature 97.8 F 98.4 F 96.8 F L Pulse Rate 80 96 H 102 H Respiratory Rate 18 18 18 Blood Pressure 154/97 H 134/76 166/93 H Pulse Oximetry 94 L 92 L 95 08/30/18 12:00 Temperature 97.1 F L Pulse Rate 93 H Respiratory Rate 18 Blood Pressure 162/89 H Pulse Oximetry 96 Intake & Output 08/29/18 08/30/18 08/30/18 18:59 06:59 18:59 Intake Total 510 / 510 1514 / 1514 Output Total 750 / 750 Balance -240 / -240 1514 / 1514 Weight 206 lb 9.17 oz Intake: IV 150 / 150 1514 / 1514 NS Inj 1,000 ML @ 60 mls/hr IV. 1000 / 1000 CONT .[id number] [facility] Rx#: [id number] Zosyn 3.375 GM Premix 50 ML @ 150 / 150 0 / 0 100 mls/hr IV.SIG Q6H [facility] Rx#: [id number] Vancomycin Inj 1,400 MG In NS 514 / 514 Inj 500 ML @ 250 mls/hr IV.SIG Q18H [facility] Rx#:[id number] Oral 360 / 360 Output: Urine 750 / 750 Other: # Incontinent Voids 2 # Urine Diapers 3 # Bowel Movements 2 Physical Exam: CONSTITUTIONAL/GENERAL: This is an adequately nourished patient, in mild distress. TUBES/LINES/DRAINS: PIV SKIN: No jaundice, rashes, or lesions. Ecchymoses on upper extremities. No wounds seen anteriorly. Skin temperature appropriate. Not diaphoretic. HEAD: Atraumatic. Normocephalic. NECK: Trachea midline. Supple, nontender. No palpable thyroid enlargement or nodularity. CARDIOVASCULAR: Irregular rhythm, controlled rate without murmurs, gallops, or rubs. No JVD. Peripheral pulses symmetric. RESPIRATORY/CHEST: Symmetric, unlabored respirations. Clear to auscultation. Breath sounds equal bilaterally. No wheezes, rales, or rhonchi. GASTROINTESTINAL: Abdomen soft, non-tender, nondistended. No hepato-splenomegaly , or palpable masses. No guarding. Bowel sounds present. GENITOURINARY: Without palpable bladder distension. MUSCULOSKELETAL: Extremities without clubbing or cyanosis, 2+ dependent edema with blisters and erythema across both toes. No joint tenderness or effusion noted. No calf tenderness. No mottling or clubbing. NEUROLOGICAL: Lethargic, arousable, dozes off easily, remains aphasic, speaks 1 word occasionally. PSYCHIATRIC: Calm, cooperative. . Diagnostic Tests Laboratory: Laboratory Results - last 72 hr 08/27/18 08/27/18 08/28/18 16:19 20:39 06:53 Sodium Potassium Chloride Carbon Dioxide Anion Gap BUN Creatinine Estimated GFR POC Glucose 221 H 244 H 204 H Random Glucose Calcium Urine Color Urine Clarity Urine pH Ur Specific Morgan Urine Protein Urine Glucose (UA) Urine Ketones Urine Occult Blood Urine Nitrate Urine Bilirubin Urine Urobilinogen Ur Leukocyte Esterase Urine RBC Urine WBC Ur Squamous Epith Cells Micro UA Comment Ur Microscopic Review Urine Culture Comments Vancomycin Trough 08/28/18 08/28/18 08/28/18 16:54 22:48 23:00 Sodium Potassium Chloride Carbon Dioxide Anion Gap BUN Creatinine Estimated GFR POC Glucose 278 H 275 H Random Glucose Calcium Urine Color Yellow Urine Clarity Clear Urine pH 6.5 Ur Specific Morgan Less/equal 1.005 Urine Protein Negative Urine Glucose (UA) 1000 or greater H Urine Ketones Negative Urine Occult Blood Negative Urine Nitrate Negative Urine Bilirubin Negative Urine Urobilinogen 1.0 Ur Leukocyte Esterase Negative Urine RBC 0-3 Urine WBC 0-5 Ur Squamous Epith Cells 0-5 Micro UA Comment Culture not ind Ur Microscopic Review Microscopic reviewed Urine Culture Comments Culture not ind Vancomycin Trough 08/29/18 08/29/18 08/29/18 05:35 07:43 11:45 Sodium 145 Potassium 3.0 L Chloride 108 H Carbon Dioxide 26.0 Anion Gap 11 BUN 11 Creatinine 1.20 Estimated GFR 60 L POC Glucose 226 H 159 H Random Glucose 205 H Calcium 7.6 L Urine Color Urine Clarity Urine pH Ur Specific Morgan Urine Protein Urine Glucose (UA) Urine Ketones Urine Occult Blood Urine Nitrate Urine Bilirubin Urine Urobilinogen Ur Leukocyte Esterase Urine RBC Urine WBC Ur Squamous Epith Cells Micro UA Comment Ur Microscopic Review Urine Culture Comments Vancomycin Trough 08/29/18 08/29/18 08/29/18 16:54 18:15 20:50 Sodium Potassium Chloride Carbon Dioxide Anion Gap BUN Creatinine Estimated GFR POC Glucose 184 H 158 H Random Glucose Calcium Urine Color Urine Clarity Urine pH Ur Specific Morgan Urine Protein Urine Glucose (UA) Urine Ketones Urine Occult Blood Urine Nitrate Urine Bilirubin Urine Urobilinogen Ur Leukocyte Esterase Urine RBC Urine WBC Ur Squamous Epith Cells Micro UA Comment Ur Microscopic Review Urine Culture Comments Vancomycin Trough 16.4 H 08/30/18 08/30/18 08/30/18 05:30 07:23 11:12 Sodium Potassium 3.5 Chloride Carbon Dioxide Anion Gap BUN Creatinine Estimated GFR POC Glucose 223 H 214 H Random Glucose Calcium Urine Color Urine Clarity Urine pH Ur Specific Morgan Urine Protein Urine Glucose (UA) Urine Ketones Urine Occult Blood Urine Nitrate Urine Bilirubin Urine Urobilinogen Ur Leukocyte Esterase Urine RBC Urine WBC Ur Squamous Epith Cells Micro UA Comment Ur Microscopic Review Urine Culture Comments Vancomycin Trough 08/30/18 08/30/18 16:03 16:04 Sodium Potassium Chloride Carbon Dioxide Anion Gap BUN Creatinine Estimated GFR POC Glucose 202 H 207 H Random Glucose Calcium Urine Color Urine Clarity Urine pH Ur Specific Morgan Urine Protein Urine Glucose (UA) Urine Ketones Urine Occult Blood Urine Nitrate Urine Bilirubin Urine Urobilinogen Ur Leukocyte Esterase Urine RBC Urine WBC Ur Squamous Epith Cells Micro UA Comment Ur Microscopic Review Urine Culture Comments Vancomycin Trough Result Diagrams: 08/27/18 05:30 08/30/18 05:30 Microbiology: Microbiology 08/26/18 15:20 Aerobic Blood Culture - Preliminary Blood - Peripheral No growth in 4 days Anaerobic Blood Culture - Preliminary No growth in 4 days 08/26/18 15:20 Aerobic Blood Culture - Preliminary Blood - Peripheral No growth in 4 days Anaerobic Blood Culture - Final Staphylococcus coag negative 08/29/18 15:00 Stool Occult Blood (TRISTEN) - Final Stool Hemoccult negative Imaging: Chest X-Ray 08/26/18 12:51 CONCLUSION: Patchy interstitial opacities. Possible small right effusion Head CT 08/26/18 12:51 CONCLUSION: 1. Evolving hemorrhagic infarction of the left parieto-occipital mid to low convexities with decreasing blood products and improving mass effect on the left lateral ventricle. 2. No midline shift, intercurrent hemorrhage or hydrocephalus. . Venous Doppler Study 08/27/18 00:00 CONCLUSION: 1. The study is negative for bilateral lower extremity deep venous thrombosis. Head MRI 08/28/18 06:58 CONCLUSION: 1. No significant change in the overall appearance of the large cerebral infarct involving the left mid and left posterior parietal area compared to the prior examination. 2. Otherwise, no significant changes are seen compared to the prior study.. 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 He is to his of many years and have 2 children Kamille and Kaushik. Spiritual: Uniformer available. Legal: No healthcare surrogate form or living will available, however family is working together in support of their mother who would be the decision maker. Ethical issues impacting care: None noted. . Important Contacts: : Carmen Rae Daughter: Kamille Tinaejro . Prognosis: His prognosis is guarded. He suffered an initial ischemic stroke, likely due to atrial fibrillation and was placed on Eliquis which resulted in a GI bleed and subsequently a hemorrhagic CVA. At this time he remains in atrial fibrillation but unable to be anticoagulated due to the hemorrhagic stroke. He is at risk for further thromboembolic events. He remains aphasic with right- sided weakness and a high risk for falls from the first stroke. Due to the configuration of their apartment which has multiple levels in different rooms, family feels he is unsafe to come home as no one will be there constantly to help him. Plan for discharge to rehab with hospice services once rehab is complete. . Code Status: No Code DNR Plan: PLAN: Legal decision maker: At this time the patient is not capacitated for decision-making and it is uncertain whether he will ever regain capacity. At this time his Carmen would be the healthcare proxy decision-maker per [place] statutes. Where she unable to serve, the patient has 2 adult children, Kamille and Kaushik, who would be next in the statutory hierarchy. Goals: Comfort oriented CODE STATUS: DO NOT RESUSCITATE SYMPTOMS: * Confusion: Baseline mental status is difficult to assess due to aphasia. When asked if he knows where he is he shakes his head no. At times does not appear to understand the questions asked and simply gazes off in space. * Agitation: Resolved with low-dose Seroquel. Patient is calm and cooperative at this evaluation. No further recommendations. Palliative care will continue to follow the patient during hospital course as condition evolves, to assist patient/decision-maker with understanding of their medical conditions, weighing benefits/burdens of treatment options, for clarification of goals of treatment. Additionally will assist with any symptoms of palliative concern. . Attestation Attestation: To help prompt me to consider important information that might be impacting today's encounter and assessment, information from prior notes written by myself or my colleagues may have been "brought forward" into today's note. My signature on this note, however, is an attestation that I personally performed the exam, history, and/or decision-making noted today, and, unless otherwise indicated, the interactions with patient, family, and staff as well as the review of records all occurred today. I also attest that the listed assessment and stated plan reflect my best clinical judgment today based on the combination of historical information, prior notes, and today's exam/ interactions. When time spent is documented, it refers only to time spent today by the signer, or if indicated, combined time spent today by collaborating physician/nurse practitioner. .
[2018-08-30] MEDS: Pantoprazole Inj 40 MG Vial IV.PUSH SCH (17:31)
[2018-08-31] MEDS: Insulin NovoLOG Aspart Correctional Sugar Inj SQ SCH ×4 (08:05→20:55)
[2018-08-31] MEDS: Amoxicillin/Clavulanate 500/125 MG Tablet PO SCH ×3 (09:35→17:00)
[2018-08-31] MEDS: QUEtiapine 25 MG Tablet PO SCH ×2 (09:36→20:55)
[2018-08-31] MEDS: dilTIAZem CD 120 MG Capsule PO SCH (09:36)
--- NOTE | 2018-08-31 09:53 | P.PNIM ---
Subjective Interval history: f/u; TIA in no acute distress. awake and looks comfortable. no fever. Physical Exam Vital signs: Vital Signs 08/30/18 12:00 08/30/18 20:00 08/31/18 00:00 Temperature 97.1 F L 96.4 F L 97.3 F L Pulse Rate 93 H 83 101 H Respiratory Rate 18 18 20 Blood Pressure 162/89 H 136/73 167/95 H Pulse Oximetry 96 95 93 L 08/31/18 08:00 Temperature 98.8 F Pulse Rate 112 H Respiratory Rate 18 Blood Pressure 175/94 H Pulse Oximetry 95 Intake & Output 08/30/18 08/31/18 08/31/18 18:59 06:59 18:59 Intake Total 240 / 240 Balance 240 / 240 Weight 89 kg Intake: Oral 240 / 240 Other: # Voids 2 # Urine Diapers 2 # Bowel Movements 1 2 - Constitutional no acute distress - Routine Respiratory Exam Present: CTA bilaterally - Routine Cardiovascular Exam Present: RRR - Routine Abdominal Exam Present: soft - Routine Extremities Exam Comments: no pedal edema. - Routine Neurological Exam Present: alert Results - Labs CBC & Chem 7: 08/27/18 05:30 08/30/18 05:30 Laboratory Results - last 24 hr 08/30/18 08/30/18 08/30/18 11:12 16:03 16:04 POC Glucose 214 H 202 H 207 H 08/30/18 08/31/18 20:54 07:27 POC Glucose 216 H 174 H Microbiology 08/26/18 15:20 Blood - Peripheral Aerobic Blood Culture - Preliminary No growth in 4 days 08/26/18 15:20 Blood - Peripheral Anaerobic Blood Culture - Preliminary No growth in 4 days 08/26/18 15:20 Blood - Peripheral Aerobic Blood Culture - Preliminary No growth in 4 days 08/26/18 15:20 Blood - Peripheral Anaerobic Blood Culture - Final Staphylococcus coag negative - Procedures none. Assessment and Plan - Plan A/P - acute encephalopathy with history of recent CVA CT head with no acute abnormality-MRI brain with njo significant change. neurology f/u appreciated; cleared for discharge on Eliquis.- PT/ST consulted. trial of Seroquel. -recent GI bleed- s/p EGD with gastritis H/H stable-with no reported active GI bleed. hemoccult negative. continue PPI - evaluated by GI and GI has signed off. -cellulitis of bilateral lower extremities-improving. switched to oral antibiotics . venous doppler of lower extremities with no DVT. -questionable pneumonia; on antibiotics as noted above. one bottle of blood cultures with staph. coag negative; likely contamination. -a-fib; resumed Cardizem and Eliuis - continue to monitor. -diabetes mellitus; accu-check with SSI -DNR status per my d/w the family. -Hypokalemia; replaced. - consulted palliative care to assist with goals of care -DVT prophylaxis with SCD's Discharge Planning: SNF vs home. d/w the case management.
[2018-09-01] MEDS: Insulin NovoLOG Aspart Correctional Sugar Inj SQ SCH ×4 (07:58→22:21)
[2018-09-01] MEDS: dilTIAZem CD 180 MG Capsule PO SCH (09:13)
[2018-09-01] MEDS: Amoxicillin/Clavulanate 500/125 MG Tablet PO SCH ×3 (09:13→17:10)
[2018-09-01] MEDS: QUEtiapine 25 MG Tablet PO SCH ×2 (09:14→20:24)
--- NOTE | 2018-09-01 11:02 | P.PNIM ---
Subjective Interval history: Patient seen and examined this morning. Afebrile vital signs stable. He has aphasia. He is a pleasant elderly male in overall reports that he is doing okay. He can communicate some even with his stroke. At this time we are still awaiting placement in a senior living facility. Patient understands and agrees to this plan of care. Physical Exam Vital signs: Vital Signs 08/31/18 12:00 08/31/18 16:00 08/31/18 20:00 Temperature 98.4 F 99.1 F 98.3 F Pulse Rate 112 H 102 H 105 H Respiratory Rate 18 18 20 Blood Pressure 166/94 H 165/91 H 160/102 H Pulse Oximetry 96 95 94 L 09/01/18 00:00 09/01/18 04:00 09/01/18 08:00 Temperature 97.6 F 98.1 F 97.7 F Pulse Rate 103 H 97 H 93 H Respiratory Rate 20 20 18 Blood Pressure 160/88 H 151/91 H 163/89 H Pulse Oximetry 93 L 93 L 95 Intake & Output 08/31/18 09/01/18 09/01/18 18:59 06:59 18:59 Intake Total 360 / 360 Output Total 575 / 575 Balance -215 / -215 Weight 93.8 kg Intake: Oral 360 / 360 Output: Urine 575 / 575 Other: Date of Last Bowel Movement 09/01/18 # Bowel Movements 2 # Emeses 1 Narrative: GEN: Well-developed, well-nourished patient. No acute distress. Aphasia CV: Regular rate and rhythm without obvious murmurs LUNGS: Clear to auscultation bilaterally. Normal respiratory effort. No wheezes , rales, rhonchi. GI: Soft, nontender, nondistended. No palpable masses. Bowel sounds WNL. EXT: No edema. NEURO/PSYCH: Afocal. Awake, alert unable to access orientation do to aphasia Results - Labs CBC & Chem 7: 08/27/18 05:30 08/30/18 05:30 Laboratory Results - last 24 hr 08/31/18 08/31/18 08/31/18 11:33 16:44 20:55 POC Glucose 218 H 220 H 175 H 09/01/18 07:35 POC Glucose 155 H Microbiology 08/26/18 15:20 Blood - Peripheral Aerobic Blood Culture - Final No growth in 5 days 08/26/18 15:20 Blood - Peripheral Anaerobic Blood Culture - Final No growth in 5 days 08/26/18 15:20 Blood - Peripheral Aerobic Blood Culture - Final No growth in 5 days 08/26/18 15:20 Blood - Peripheral Anaerobic Blood Culture - Final Staphylococcus coag negative - Procedures none. Assessment and Plan - Assessment (1) CVA (cerebral vascular accident) Code(s): I63.9 - Cerebral infarction, unspecified Status: Acute - Plan A/P - acute encephalopathy with history of recent CVA CT head with no acute abnormality-MRI brain with no significant change. neurology f/u appreciated; cleared for discharge on Eliquis.- PT/ST consulted. trial of Seroquel. Working with case management for placement to senior living facility -recent GI bleed- s/p EGD with gastritis H/H stable-with no reported active GI bleed. hemoccult negative. continue PPI - evaluated by GI and GI has signed off. -cellulitis of bilateral lower extremities-improving. switched to oral antibiotics . venous doppler of lower extremities with no DVT. -questionable pneumonia; on antibiotics as noted above. one bottle of blood cultures with staph. coag negative; likely contamination. -a-fib; resumed Cardizem and Eliuis - continue to monitor. -diabetes mellitus; accu-check with SSI -DNR status per my d/w the family. -Hypokalemia; replaced. - consulted palliative care to assist with goals of care -DVT prophylaxis with SCD's Discharge Planning: Pending placement in senior living facility working with case management (1) CVA (cerebral vascular accident) Qualifiers: CVA mechanism: embolism Precerebral and cerebral artery: middle cerebral artery Laterality of affected vessel: left Qualified Code(s): I63.412 - Cerebral infarction due to embolism of left middle cerebral artery
[2018-09-01] MEDS ORDERED: Lisinopril 5 MG Tablet PO SCH (12:00)
[2018-09-01] MEDS: Metoprolol Tartrate 25 MG Tablet PO SCH (20:24)
--- NOTE | 2018-09-02 07:58 | P.PNIM ---
Subjective Interval history: Pt seen and examined. No complaints. Denies CP, SOB, abdominal pain, N/V. Physical Exam Vital signs: Vital Signs 09/01/18 08:00 09/01/18 13:57 09/01/18 15:41 Temperature 97.7 F 98.4 F Pulse Rate 93 H 78 97 H Respiratory Rate 18 18 Blood Pressure 163/89 H 147/88 H 161/84 H Pulse Oximetry 95 96 09/01/18 20:00 09/02/18 00:00 Temperature 97.4 F L 97.1 F L Pulse Rate 81 79 Respiratory Rate 18 18 Blood Pressure 158/93 H 133/73 Pulse Oximetry 93 L 96 Intake & Output 09/01/18 09/02/18 09/02/18 18:59 06:59 18:59 Intake Total 200 / 200 Balance 200 / 200 Weight 93.8 kg 93.8 kg Intake: Oral 200 / 200 Other: # Incontinent Voids 2 Date of Last Bowel Movement 09/01/18 # Bowel Movements 3 Narrative: GENERAL: WN, WD elderly male resting in bed in [facility]. SKIN: Warm and dry. HEENT: AT/NC. Pupils equal and round. MMM. NECK: Supple no tender LAD or JVD. HEART: RRR no m/r/g. LUNGS: CTAB without wheezes or crackles. ABDOMEN: +BS, soft, NT, ND. EXTREMITIES: No LE edema. Calves supple and nontender. Dried bullae over toes bilaterally. NEURO: Awake and alert. + expressive aphasia. RUE/RLE strength 4/5. LUE/LLE strength 5/5. Results - Labs CBC & Chem 7: 08/27/18 05:30 08/30/18 05:30 Laboratory Results - last 24 hr 09/01/18 09/01/18 09/01/18 11:15 17:04 20:24 POC Glucose 212 H 248 H 241 H 09/01/18 22:17 POC Glucose 262 H - Procedures none. Assessment and Plan - Assessment (1) CVA (cerebral vascular accident) Code(s): I63.9 - Cerebral infarction, unspecified Status: Acute - Plan 72 year old male with history of CVA, GIB, AFIB, and DM admitted on 08/26 with AMS. He had initially presented to [place] on 07/14/18 after being found down in his house and was diagnosed with a large left-sided MCA cerebral stroke. During that time he had also been diagnosed with AFIB w/ RVR and was placed on Eliquis. He was discharged to [facility] on 07/24; he presented back to the ED on 07/28 with coffee-ground emesis and guiaac positive stool. He underwent EGD showing esophagitis and gastritis, and his Eliquis dose was reduced. He was discharged back to the SNF on 08/02 until his subsequent readmission on 08/26. CT head revealed resolving evidence of hemorrhage. 1. CVA with encephalopathy - Initial left-sided MCA diagnosed 07/14 and presenting 08/26 with AMS found to have resolving evidence of hemorrhage - MRI 08/28 showing no significant change in the overall appearance of the large cerebral infarct - Neuro consulted earlier in course who had recommended continuing Eliquis - ST/PT/OT following - Family unable to care for patient at home - Case management working with placement - Palliative care following - Seroquel BID 2. AFIB - Rate-controlled - Continue home diltiazem, metoprolol, and Eliquis 3. DM - SSI per protocol 4. HTN - BPs have been elevated - Continue metoprolol - Increase Lisinopril to 10 mg daily 5. Recent GIB - EGD from prior admission showing esophagitis and gastritis with no active bleeding - Continue PPI - Hemoccult negative this admission - Monitor closely while on OAC 6. Bilateral foot wounds/cellulitis - Doppler U/S negative for DVT - Improving - Continue Augmentin for a total of 7 days (stop 09/03) - Wound care following 7. Questionable PNA - CXR on admission with bilateral interstitial opacities - Patient has been covered with Augmentin as above - Plan to discontinue tomorrow DVT prophylaxis: on Eliquis Discharge Planning: Cleared for D/C, case management assisting with placement (1) CVA (cerebral vascular accident) Qualifiers: CVA mechanism: embolism Precerebral and cerebral artery: middle cerebral artery Laterality of affected vessel: left Qualified Code(s): I63.412 - Cerebral infarction due to embolism of left middle cerebral artery
[2018-09-02] MEDS: Insulin NovoLOG Aspart Correctional Sugar Inj SQ SCH ×4 (08:08→21:39)
[2018-09-02] MEDS: Amoxicillin/Clavulanate 500/125 MG Tablet PO SCH ×3 (09:36→18:28)
[2018-09-02] MEDS: QUEtiapine 25 MG Tablet PO SCH ×2 (09:36→21:40)
[2018-09-02] MEDS: Metoprolol Tartrate 25 MG Tablet PO SCH ×2 (09:36→21:40)
[2018-09-02] MEDS: Lisinopril 10 MG Tablet PO SCH (09:36)
[2018-09-02] MEDS: dilTIAZem CD 180 MG Capsule PO SCH (09:36)
[2018-09-03] MEDS: Insulin NovoLOG Aspart Correctional Sugar Inj SQ SCH ×4 (08:15→21:17)
[2018-09-03] MEDS: dilTIAZem CD 180 MG Capsule PO SCH (08:16)
[2018-09-03] MEDS: Metoprolol Tartrate 25 MG Tablet PO SCH ×2 (08:17→21:08)
[2018-09-03] MEDS: Lisinopril 10 MG Tablet PO SCH (08:17)
[2018-09-03] MEDS: Amoxicillin/Clavulanate 500/125 MG Tablet PO SCH ×2 (08:17→12:58)
[2018-09-03] MEDS: QUEtiapine 25 MG Tablet PO SCH ×2 (08:18→21:08)
--- NOTE | 2018-09-03 14:16 | P.PNIM ---
Subjective Interval history: Pt seen and examined. Eating lunch. No complaints. Denies chest pain, shortness of breath, abdominal pain, nausea, and vomiting. Physical Exam Vital signs: Vital Signs 09/02/18 16:00 09/02/18 20:00 09/03/18 00:00 Temperature 97 F L 97.7 F 95.7 F L Pulse Rate 79 80 80 Respiratory Rate 20 18 18 Blood Pressure 151/77 H 159/86 H 144/70 H Pulse Oximetry 95 92 L 09/03/18 08:18 09/03/18 12:00 Temperature 96.3 F L 96.7 F L Pulse Rate 80 81 Respiratory Rate 17 18 Blood Pressure 151/86 H 168/91 H Pulse Oximetry 95 Intake & Output 09/02/18 09/03/18 09/03/18 18:59 06:59 18:59 Intake Total 840 / 840 200 / 200 Balance 840 / 840 200 / 200 Weight 93.8 kg Intake: Oral 840 / 840 200 / 200 Other: # Voids 2 # Incontinent Voids 12 Date of Last Bowel Movement 09/01/18 # Bowel Movements 1 Narrative: GENERAL: WN, WD elderly male resting in bed in [place]. SKIN: Warm and dry. HEENT: AT/NC. Pupils equal and round. MMM. NECK: Supple no tender LAD or JVD. HEART: RRR no m/r/g. LUNGS: CTAB without wheezes or crackles. ABDOMEN: +BS, soft, NT, ND. EXTREMITIES: No LE edema. Calves supple and nontender. Dried bullae over toes bilaterally. NEURO: Awake and alert. + expressive aphasia. RUE/RLE strength 4/5. LUE/LLE strength 5/5. Results - Labs CBC & Chem 7: 08/27/18 05:30 08/30/18 05:30 Laboratory Results - last 24 hr 09/02/18 09/02/18 09/03/18 16:29 21:37 07:53 POC Glucose 272 H 228 H 235 H 09/03/18 10:57 POC Glucose 247 H - Procedures none. Assessment and Plan - Assessment (1) CVA (cerebral vascular accident) Code(s): I63.9 - Cerebral infarction, unspecified Status: Acute - Plan 72 year old male with history of CVA, GIB, AFIB, and DM admitted on 08/26 with AMS. He had initially presented to [place] on 07/14/18 after being found down in his house and was diagnosed with a large left-sided MCA cerebral stroke. During that time he had also been diagnosed with AFIB w/ RVR and was placed on Eliquis. He was discharged to [facility] on 07/24; he presented back to the ED on 07/28 with coffee-ground emesis and guiaac positive stool. He underwent EGD showing esophagitis and gastritis, and his Eliquis dose was reduced. He was discharged back to the SNF on 08/02 until his subsequent readmission on 08/26. CT head revealed resolving evidence of hemorrhage. 1. CVA with encephalopathy - Initial left-sided MCA diagnosed 07/14 and presenting 08/26 with AMS found to have resolving evidence of hemorrhage - MRI 08/28 showing no significant change in the overall appearance of the large cerebral infarct - Neuro consulted earlier in course who had recommended continuing Eliquis - ST/PT/OT following - Family unable to care for patient at home - Case management working with placement - Palliative care following - Seroquel BID 2. AFIB - Rate-controlled - Continue home diltiazem, metoprolol, and Eliquis 3. DM - Sugars have been elevated - SSI per protocol - Required 12 units yesterday - Will start 5 units Levemir HS 4. HTN - BPs continue to be elevated - Continue metoprolol - Increase Lisinopril to 20 mg daily - Continue to monitor and titrate meds as needed 5. Recent GIB - EGD from prior admission showing esophagitis and gastritis with no active bleeding - Continue PPI - Hemoccult negative this admission 6. Bilateral foot wounds/cellulitis - Doppler U/S negative for DVT - Improving - Completed course of Augmentin - Wound care following 7. Questionable PNA - resolved - CXR on admission with bilateral interstitial opacities - Patient has been covered with Augmentin as above DVT prophylaxis: on Eliquis Discharge Planning: Cleared for D/C, case management assisting with placement (1) CVA (cerebral vascular accident) Qualifiers: CVA mechanism: embolism Precerebral and cerebral artery: middle cerebral artery Laterality of affected vessel: left Qualified Code(s): I63.412 - Cerebral infarction due to embolism of left middle cerebral artery
--- NOTE | 2018-09-03 17:35 | P.PN ---
Subjective Interval history: NOT SEEN Physical Exam Vital signs: Vital Signs 09/02/18 20:00 09/03/18 00:00 09/03/18 08:18 Temperature 97.7 F 95.7 F L 96.3 F L Pulse Rate 80 80 80 Respiratory Rate 18 18 17 Blood Pressure 159/86 H 144/70 H 151/86 H Pulse Oximetry 95 92 L 09/03/18 12:00 09/03/18 17:28 Temperature 96.7 F L 97.4 F L Pulse Rate 81 79 Respiratory Rate 18 16 Blood Pressure 168/91 H 166/76 H Pulse Oximetry 95 95 Intake & Output 09/02/18 09/03/18 09/03/18 18:59 06:59 18:59 Intake Total 840 / 840 200 / 200 800 / 800 Balance 840 / 840 200 / 200 800 / 800 Weight 93.8 kg Intake: Oral 840 / 840 200 / 200 800 / 800 Other: # Voids 2 4 # Incontinent Voids 12 Date of Last Bowel Movement 09/01/18 09/01/18 # Bowel Movements 1 Narrative: GENERAL: WN, WD elderly male resting in bed in [place]. SKIN: Warm and dry. HEART: RRR no m/r/g. LUNGS: CTAB without wheezes or crackles. ABDOMEN: +BS, soft, NT, ND. EXTREMITIES: No LE edema. Calves supple and nontender. Dried bullae over toes bilaterally. NEURO: Awake and alert. + expressive aphasia. RUE/RLE strength 4/5. LUE/LLE strength 5/5. Results - Labs CBC & Chem 7: 08/27/18 05:30 08/30/18 05:30 Laboratory Results - last 24 hr 09/02/18 09/03/18 09/03/18 21:37 07:53 10:57 POC Glucose 228 H 235 H 247 H 09/03/18 16:39 POC Glucose 230 H - Imaging ITS Impressions Chest X-Ray 08/26/18 12:51 CONCLUSION: Patchy interstitial opacities. Possible small right effusion Head CT 08/26/18 12:51 CONCLUSION: 1. Evolving hemorrhagic infarction of the left parieto-occipital mid to low convexities with decreasing blood products and improving mass effect on the left lateral ventricle. 2. No midline shift, intercurrent hemorrhage or hydrocephalus. . Venous Doppler Study 08/27/18 00:00 CONCLUSION: 1. The study is negative for bilateral lower extremity deep venous thrombosis. Head MRI 08/28/18 06:58 CONCLUSION: 1. No significant change in the overall appearance of the large cerebral infarct involving the left mid and left posterior parietal area compared to the prior examination. 2. Otherwise, no significant changes are seen compared to the prior study.. - Procedures none. Assessment and Plan - Assessment (1) CVA (cerebral vascular accident) Code(s): I63.9 - Cerebral infarction, unspecified Status: Acute - Plan 72 year old male with history of CVA, GIB, AFIB, and DM admitted on 08/26 with AMS. He had initially presented to [place] on 07/14/18 after being found down in his house and was diagnosed with a large left-sided MCA cerebral stroke. During that time he had also been diagnosed with AFIB w/ RVR and was placed on Eliquis. He was discharged to [facility] on 07/24; he presented back to the ED on 07/28 with coffee-ground emesis and guaiac positive stool. He underwent EGD showing esophagitis and gastritis, and his Eliquis dose was reduced. He was discharged back to the SNF on 08/02 until his subsequent readmission on 08/26. CT head revealed resolving evidence of hemorrhage. 1. CVA with encephalopathy - Initial left-sided MCA diagnosed 07/14 and presenting 08/26 with AMS found to have resolving evidence of hemorrhage - MRI 08/28 showing no significant change in the overall appearance of the large cerebral infarct - Neuro consulted earlier in course who had recommended continuing Eliquis - ST/PT/OT following - Family unable to care for patient at home - Case management working with placement - Palliative care following - Seroquel BID 2. AFIB - Rate-controlled - Continue home diltiazem, metoprolol, and Eliquis 3. DM - Sugars have been elevated - SSI per protocol - Required 12 units yesterday - Will start 5 units Levemir HS 4. HTN - BPs continue to be elevated - Continue metoprolol - Increase Lisinopril to 20 mg daily - Continue to monitor and titrate meds as needed 5. Recent GIB - EGD from prior admission showing esophagitis and gastritis with no active bleeding - Continue PPI - Hemoccult negative this admission 6. Bilateral foot wounds/cellulitis - Doppler U/S negative for DVT - Improving - Completed course of Augmentin - Wound care following 7. Questionable PNA - resolved - CXR on admission with bilateral interstitial opacities - Patient has been covered with Augmentin as above DVT prophylaxis: on Eliquis Discharge Planning: Cleared for D/C, case management assisting with placement (1) CVA (cerebral vascular accident) Qualifiers: CVA mechanism: embolism Precerebral and cerebral artery: middle cerebral artery Laterality of affected vessel: left Qualified Code(s): I63.412 - Cerebral infarction due to embolism of left middle cerebral artery
[2018-09-03] MEDS: Insulin Detemir Inj 1,000 UNIT/10 ML Vial SQ SCH (21:08)
[2018-09-04] MEDS: Metoprolol Tartrate 25 MG Tablet PO SCH (08:42)
[2018-09-04] MEDS: Lisinopril 20 MG Tablet PO SCH (08:43)
[2018-09-04] MEDS: dilTIAZem CD 180 MG Capsule PO SCH (08:43)
[2018-09-04] MEDS: QUEtiapine 25 MG Tablet PO SCH (08:43)
[2018-09-04] MEDS: Insulin NovoLOG Aspart Correctional Sugar Inj SQ SCH ×4 (08:45→21:00)
--- NOTE | 2018-09-04 11:23 | P.PN ---
Subjective Interval history: Follow-up CVA. Patient awake has no complaints were discussed with nursing who reported stage II sacral ulcer and blisters on the right toes. Physical Exam Vital signs: Vital Signs 09/03/18 12:00 09/03/18 17:28 09/03/18 20:00 Temperature 96.7 F L 97.4 F L 94.5 F L Pulse Rate 81 79 72 Respiratory Rate 18 16 18 Blood Pressure 168/91 H 166/76 H 159/81 H Pulse Oximetry 95 95 94 L 09/04/18 00:00 09/04/18 08:00 Temperature 96.5 F L 98.2 F Pulse Rate 53 L 82 Respiratory Rate 18 18 Blood Pressure 124/65 172/82 H Pulse Oximetry 93 L 96 Intake & Output 09/03/18 09/04/18 09/04/18 18:59 06:59 18:59 Intake Total 800 / 800 150 / 150 Output Total 1500 / 1500 Balance 800 / 800 -1350 / -1350 Weight 92.4 kg Intake: Oral 800 / 800 150 / 150 Output: Urine 1500 / 1500 Other: # Voids 1 Date of Last Bowel Movement 09/01/18 09/03/18 Narrative: GENERAL: WN, WD elderly male resting in bed in [place]. SKIN: Warm and dry. HEART: RRR no m/r/g. LUNGS: CTAB without wheezes or crackles. ABDOMEN: +BS, soft, NT, ND. EXTREMITIES: BLE edema. Calves supple and nontender. Dried bullae over toes bilaterally. NEURO: Awake and alert. + expressive aphasia. RUE/RLE strength 4/5. LUE/LLE strength 5/5. Results - Labs CBC & Chem 7: 08/27/18 05:30 08/30/18 05:30 Laboratory Results - last 24 hr 09/03/18 09/03/18 09/04/18 16:39 21:14 07:42 POC Glucose 230 H 240 H 170 H - Imaging ITS Impressions Chest X-Ray 08/26/18 12:51 CONCLUSION: Patchy interstitial opacities. Possible small right effusion Head CT 08/26/18 12:51 CONCLUSION: 1. Evolving hemorrhagic infarction of the left parieto-occipital mid to low convexities with decreasing blood products and improving mass effect on the left lateral ventricle. 2. No midline shift, intercurrent hemorrhage or hydrocephalus. . Venous Doppler Study 08/27/18 00:00 CONCLUSION: 1. The study is negative for bilateral lower extremity deep venous thrombosis. Head MRI 08/28/18 06:58 CONCLUSION: 1. No significant change in the overall appearance of the large cerebral infarct involving the left mid and left posterior parietal area compared to the prior examination. 2. Otherwise, no significant changes are seen compared to the prior study.. - Procedures none. Assessment and Plan - Assessment (1) CVA (cerebral vascular accident) Code(s): I63.9 - Cerebral infarction, unspecified Status: Acute - Plan 72 year old male with history of CVA, GIB, AFIB, and DM admitted on 08/26 with AMS. He had initially presented to [place] on 07/14/18 after being found down in his house and was diagnosed with a large left-sided MCA cerebral stroke. During that time he had also been diagnosed with AFIB w/ RVR and was placed on Eliquis. He was discharged to [facility] on 07/24; he presented back to the ED on 07/28 with coffee-ground emesis and guaiac positive stool. He underwent EGD showing esophagitis and gastritis, and his Eliquis dose was reduced. He was discharged back to the SNF on 08/02 until his subsequent readmission on 08/26. CT head revealed resolving evidence of hemorrhage. 1. CVA with encephalopathy - Initial left-sided MCA diagnosed 07/14 and presenting 08/26 with AMS found to have resolving evidence of hemorrhage - MRI 08/28 showing no significant change in the overall appearance of the large cerebral infarct - Neuro consulted earlier in course who had recommended continuing Eliquis - ST/PT/OT following - Family unable to care for patient at home - Case management working with placement - Palliative care following - Seroquel BID 2. AFIB - Rate-controlled - Continue home diltiazem, metoprolol, and Eliquis 3. DM - Sugars have been elevated - SSI per protocol -Improving continue 5 units Levemir HS 4. HTN - BPs continue to be elevated - Continue metoprolol - Just increased lisinopril to 20 mg daily - Continue to monitor and titrate meds as needed 5. Recent GIB - EGD from prior admission showing esophagitis and gastritis with no active bleeding - Continue PPI - Hemoccult negative this admission 6. Bilateral foot wounds/cellulitis/sacral decub - Doppler U/S negative for DVT - Improving - Completed course of Augmentin - Wound care following 7. Questionable PNA - resolved - CXR on admission with bilateral interstitial opacities - Patient has been covered with Augmentin as above DVT prophylaxis: on Eliquis Discharge Planning: Cleared for D/C, case management assisting with placement (1) CVA (cerebral vascular accident) Qualifiers: CVA mechanism: embolism Precerebral and cerebral artery: middle cerebral artery Laterality of affected vessel: left Qualified Code(s): I63.412 - Cerebral infarction due to embolism of left middle cerebral artery
--- NOTE | 2018-09-04 14:08 | P.PNPAL ---
Reason for Visit Reason for visit: a. To assist with evaluation and management of symptoms including: Pain, confusion b. To assist medical decision maker(s) with: better understanding of current medical conditions; weighing benefits/burdens of medical treatment options; making medical treatment decisions. Subjective Subjective/Interval History: Patient seen for follow-up of symptom management of pain, confusion and assist family with goals of medical treatment. No longer agitated, stable on Seroquel 25 mg p.o. twice daily. He remains confused and aphasic. He is alert, dependent for all ADLs. His confusion appears to be chronic, waxing and waning, mild to moderate, exacerbated by frequent changes in location. He has now developed a stage II pressure sore on his coccyx in addition to the cellulitis and bullae on his feet and toes. In spite of frequent repositioning , patient's confusion makes it difficult to prevent him repositioning himself in a manner that worsens the pressure ulcers. He is at risk for pain from both the sources however his aphasia and confusion make it questionable whether he can make his needs known. He does have Tylenol available however none has been given. Mechanical repositioning to offload pressure from the injured sites and offloading blankets over the blistered lower extremities appear to be effective for his pain relief at this time. . Family/Friend Interactions: Spoke with the casework supervisor, Joy Mcadams patient's discharge plan and she at this point has not received word from the family or [facility] regarding placement. Spoke with the patient's son, Kaushik, who confirms that they have spoken with an environmental attorney to create a qualified income trust (QIT) to facilitate qualifying for Medicaid for skilled nursing placement. He also verifies that his mother is from his father (the patient) and is not his legal . I did explain that per [place] statutes, since the patient was , that he and his sister would be his healthcare proxies. He stated he had been made aware of that. The patient's children and his ex- continue to work together for harmonious decision-making. He states that he has gone back to [place] and that his sister, Kriss is supplying the environmental attorney with any paperwork required to facilitate Medicaid qualification. I spoke with his sister Kriss who states that she has spoken with Alaina of [facility] and rehab and that conversations have been initiated between the facility and the cattle sprayer to expedite the process of admitting the patient with Medicaid pending. This information was relayed to the casework supervisor, Joy. . Objective Vital Signs: Vital Signs 09/03/18 17:28 09/03/18 20:00 09/04/18 00:00 Temperature 97.4 F L 94.5 F L 96.5 F L Pulse Rate 79 72 53 L Respiratory Rate 16 18 18 Blood Pressure 166/76 H 159/81 H 124/65 Pulse Oximetry 95 94 L 93 L 09/04/18 08:00 09/04/18 12:00 Temperature 98.2 F 98.3 F Pulse Rate 82 93 H Respiratory Rate 18 18 Blood Pressure 172/82 H 151/72 H Pulse Oximetry 96 98 Intake & Output 09/03/18 09/04/18 09/04/18 18:59 06:59 18:59 Intake Total 800 / 800 150 / 150 Output Total 1500 / 1500 Balance 800 / 800 -1350 / -1350 Weight 203 lb 11.314 oz Intake: Oral 800 / 800 150 / 150 Output: Urine 1500 / 1500 Other: # Voids 1 Date of Last Bowel Movement 09/01/18 09/03/18 Physical Exam: CONSTITUTIONAL/GENERAL: This is an adequately nourished patient, in no acute distress. TUBES/LINES/DRAINS: PIV CARDIOVASCULAR: Irregular rhythm, controlled rate without murmurs, gallops, or rubs. No JVD. Peripheral pulses symmetric. RESPIRATORY/CHEST: Symmetric, unlabored respirations. Clear to auscultation. Breath sounds equal bilaterally. No wheezes, rales, or rhonchi. GASTROINTESTINAL: Abdomen soft, non-tender, nondistended. No hepato-splenomegaly , or palpable masses. No guarding. Bowel sounds present. GENITOURINARY: Without palpable bladder distension. MUSCULOSKELETAL: Extremities without clubbing or cyanosis, 1+ dependent edema with blisters and decreasing erythema across both toes. No calf tenderness. No mottling or clubbing. NEUROLOGICAL: Lethargic, arousable, dozes off easily, remains aphasic, speaks 1 word occasionally. PSYCHIATRIC: Calm, cooperative. . Diagnostic Tests Laboratory: Laboratory Results - last 72 hr 09/01/18 09/01/18 09/01/18 17:04 20:24 22:17 POC Glucose 248 H 241 H 262 H 09/02/18 09/02/18 09/02/18 07:34 11:13 16:29 POC Glucose 159 H 205 H 272 H 09/02/18 09/03/18 09/03/18 21:37 07:53 10:57 POC Glucose 228 H 235 H 247 H 09/03/18 09/03/18 09/04/18 16:39 21:14 07:42 POC Glucose 230 H 240 H 170 H 09/04/18 11:34 POC Glucose 201 H Result Diagrams: 08/27/18 05:30 08/30/18 05:30 Microbiology: Microbiology 08/26/18 15:20 Blood - Peripheral Aerobic Blood Culture - Final No growth in 5 days 08/26/18 15:20 Blood - Peripheral Anaerobic Blood Culture - Final No growth in 5 days 08/26/18 15:20 Blood - Peripheral Aerobic Blood Culture - Final No growth in 5 days 08/26/18 15:20 Blood - Peripheral Anaerobic Blood Culture - Final Staphylococcus coag negative 08/29/18 15:00 Stool Stool Occult Blood (TRISTEN) - Final Hemoccult negative Imaging: Chest X-Ray 08/26/18 12:51 CONCLUSION: Patchy interstitial opacities. Possible small right effusion Head CT 08/26/18 12:51 CONCLUSION: 1. Evolving hemorrhagic infarction of the left parieto-occipital mid to low convexities with decreasing blood products and improving mass effect on the left lateral ventricle. 2. No midline shift, intercurrent hemorrhage or hydrocephalus. . Venous Doppler Study 08/27/18 00:00 CONCLUSION: 1. The study is negative for bilateral lower extremity deep venous thrombosis. Head MRI 08/28/18 06:58 CONCLUSION: 1. No significant change in the overall appearance of the large cerebral infarct involving the left mid and left posterior parietal area compared to the prior examination. 2. Otherwise, no significant changes are seen compared to the prior study.. 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 He is to his of many years and have 2 children Kamille and Kaushik. 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 Legal: No healthcare surrogate form or living will available, however family is working together in support of their mother who would be the decision maker. Ethical issues impacting care: None noted. . Important Contacts: : Carmen Rae Daughter: Kamille Tinajero . Prognosis: His prognosis is guarded. He suffered an initial ischemic stroke, likely due to atrial fibrillation and was placed on Eliquis which resulted in a GI bleed and subsequently a hemorrhagic CVA. At this time he remains in atrial fibrillation but unable to be anticoagulated due to the hemorrhagic stroke. He is at risk for further thromboembolic events. He remains aphasic with right- sided weakness and a high risk for falls from the first stroke. Due to the configuration of their apartment which has multiple levels in different rooms, family feels he is unsafe to come home as no one will be there constantly to help him. Plan for discharge to rehab with hospice services once rehab is complete. . Code Status: No Code DNR Plan: PLAN: Legal decision maker: At this time the patient is not capacitated for decision-making and it is uncertain whether he will ever regain capacity. At this time his Carmen would be the healthcare proxy decision-maker per [place] statutes. Where she unable to serve, the patient has 2 adult children, Kamille and Kaushik, who would be next in the statutory hierarchy. Goals: Comfort oriented CODE STATUS: DO NOT RESUSCITATE SYMPTOMS: * Confusion: Baseline mental status is difficult to assess due to aphasia. When asked if he knows where he is he shakes his head no. At times does not appear to understand the questions asked and simply gazes off in space. * Pain: Sources of pain would include stage II coccyx decubiti, blisters on bilateral toes with some resolving cellulitis, invasive lines and bedbound status. Currently pain is being managed by repositioning and pressure offloading however patient does have Tylenol available if needed. No doses of that have been taken thus far. Palliative care will continue to follow the patient during hospital course as condition evolves, to assist patient/decision-maker with understanding of their medical conditions, weighing benefits/burdens of treatment options, for clarification of goals of treatment. Additionally will assist with any symptoms of palliative concern. . Attestation Attestation: To help prompt me to consider important information that might be impacting today's encounter and assessment, information from prior notes written by myself or my colleagues may have been "brought forward" into today's note. My signature on this note, however, is an attestation that I personally performed the exam, history, and/or decision-making noted today, and, unless otherwise indicated, the interactions with patient, family, and staff as well as the review of records all occurred today. I also attest that the listed assessment and stated plan reflect my best clinical judgment today based on the combination of historical information, prior notes, and today's exam/ interactions. When time spent is documented, it refers only to time spent today by the signer, or if indicated, combined time spent today by collaborating physician/nurse practitioner. .
[2018-09-04] MEDS: Insulin Detemir Inj 1,000 UNIT/10 ML Vial SQ SCH (21:00)
[2018-09-05] MEDS: QUEtiapine 25 MG Tablet PO SCH ×3 (00:38→21:05)
[2018-09-05] MEDS: Metoprolol Tartrate 25 MG Tablet PO SCH ×3 (00:38→21:05)
[2018-09-05] MEDS: Lisinopril 20 MG Tablet PO SCH ×2 (08:43→21:05)
[2018-09-05] MEDS: dilTIAZem CD 180 MG Capsule PO SCH (08:43)
[2018-09-05] MEDS: Insulin NovoLOG Aspart Correctional Sugar Inj SQ SCH ×4 (08:44→21:04)
--- NOTE | 2018-09-05 10:39 | P.PN ---
Subjective Interval history: Follow-up hypertension. BP still slightly elevated. Patient has no complaints. Difficult to understand secondary to aphasia which is baseline according to Physical Exam Vital signs: Vital Signs 09/04/18 12:00 09/04/18 16:00 09/04/18 20:00 Temperature 98.3 F 96.8 F L 98.1 F Pulse Rate 93 H 63 79 Respiratory Rate 18 18 20 Blood Pressure 151/72 H 124/71 159/82 H Pulse Oximetry 98 99 95 09/05/18 00:00 09/05/18 06:38 09/05/18 08:00 Temperature 96.8 F L 96.8 F L 98.2 F Pulse Rate 90 70 79 Respiratory Rate 20 20 16 Blood Pressure 170/81 H 167/79 H 160/81 H Pulse Oximetry 96 97 93 L Intake & Output 09/04/18 09/05/18 09/05/18 18:59 06:59 18:59 Intake Total 120 / 120 Output Total 1360 / 1360 Balance -1240 / -1240 Weight 90.8 kg Intake: Oral 120 / 120 Output: Urine 1360 / 1360 Other: # Voids 6 # Urine Diapers 2 1 Date of Last Bowel Movement 09/03/18 # Bowel Movements 1 Narrative: GENERAL: Well-developed, well-nourished in no distress SKIN: Warm and dry. CARDIOVASCULAR: Regular rate and rhythm. RESPIRATORY: No accessory muscle use. Clear to auscultation. Breath sounds equal bilaterally. GASTROINTESTINAL: Abdomen soft, non-tender, nondistended. MUSCULOSKELETAL: Extremities without clubbing, cyanosis but with bilateral lower extremity edema. No obvious deformities. NEUROLOGICAL: Awake and alert. Aphasia per no obvious cranial nerve deficits. Motor grossly within normal limits. Five out of 5 muscle strength in the arms and legs. Results - Labs CBC & Chem 7: 08/27/18 05:30 08/30/18 05:30 Laboratory Results - last 24 hr 09/04/18 09/04/18 09/05/18 11:34 16:41 00:36 POC Glucose 201 H 222 H 242 H 09/05/18 08:39 POC Glucose 159 H - Procedures none Assessment and Plan - Assessment (1) CVA (cerebral vascular accident) Code(s): I63.9 - Cerebral infarction, unspecified Status: Acute - Plan 72 year old male with history of CVA, GIB, AFIB, and DM admitted on 08/26 with AMS. He had initially presented to [place] on 07/14/18 after being found down in his house and was diagnosed with a large left-sided MCA cerebral stroke. During that time he had also been diagnosed with AFIB w/ RVR and was placed on Eliquis. He was discharged to [facility] on 07/24; he presented back to the ED on 07/28 with coffee-ground emesis and guaiac positive stool. He underwent EGD showing esophagitis and gastritis, and his Eliquis dose was reduced. He was discharged back to the SNF on 08/02 until his subsequent readmission on 08/26. CT head revealed resolving evidence of hemorrhage. 1. CVA with encephalopathy - Initial left-sided MCA diagnosed 07/14 and presenting 08/26 with AMS found to have resolving evidence of hemorrhage - MRI 08/28 showing no significant change in the overall appearance of the large cerebral infarct - Neuro consulted earlier in course who had recommended continuing Eliquis - ST/PT/OT following - Family unable to care for patient at home - Case management working with placement - Palliative care following - Seroquel BID 2. AFIB - Rate-controlled - Continue home diltiazem, metoprolol, and Eliquis 3. DM - Sugars have been elevated - SSI per protocol -Improving continue 5 units Levemir HS 4. HTN - BPs continue to be elevated - Continue metoprolol -Adjust lisinopril to 20 mg twice a day - Continue to monitor and titrate meds as needed 5. Recent GIB - EGD from prior admission showing esophagitis and gastritis with no active bleeding - Continue PPI - Hemoccult negative this admission 6. Bilateral foot wounds/cellulitis/sacral decub - Doppler U/S negative for DVT - Improving - Completed course of Augmentin - Wound care following 7. Questionable PNA - resolved - CXR on admission with bilateral interstitial opacities - Patient has been covered with Augmentin as above DVT prophylaxis: on Eliquis Discharge Planning: Patient stable for discharge pending placement (1) CVA (cerebral vascular accident) Qualifiers: CVA mechanism: embolism Precerebral and cerebral artery: middle cerebral artery Laterality of affected vessel: left Qualified Code(s): I63.412 - Cerebral infarction due to embolism of left middle cerebral artery
[2018-09-05] MEDS: Insulin Detemir Inj 1,000 UNIT/10 ML Vial SQ SCH (21:05)
[2018-09-06] MEDS: Insulin NovoLOG Aspart Correctional Sugar Inj SQ SCH ×4 (09:05→21:29)
[2018-09-06] MEDS: dilTIAZem CD 180 MG Capsule PO SCH (09:08)
[2018-09-06] MEDS: Lisinopril 20 MG Tablet PO SCH ×2 (09:08→21:22)
[2018-09-06] MEDS: Metoprolol Tartrate 25 MG Tablet PO SCH ×2 (09:08→21:23)
[2018-09-06] MEDS: QUEtiapine 25 MG Tablet PO SCH ×2 (09:08→21:22)
--- NOTE | 2018-09-06 14:31 | P.PN ---
Subjective Interval history: Follow-up diabetes mellitus. Diabetes not optimal. As usual patient has no complaints remains pleasantly confused. Blood pressure readings improved. Physical Exam Vital signs: Vital Signs 09/05/18 16:00 09/05/18 20:00 09/06/18 00:00 Temperature 97.8 F 98.4 F 96.9 F L Pulse Rate 69 68 70 Respiratory Rate 17 18 20 Blood Pressure 160/77 H 170/82 H 159/86 H Pulse Oximetry 96 97 96 09/06/18 08:00 09/06/18 12:00 Temperature 97.0 F L 99.6 F Pulse Rate 91 H 77 Respiratory Rate 18 18 Blood Pressure 131/82 151/82 H Pulse Oximetry 98 96 Intake & Output 09/05/18 09/06/18 09/06/18 18:59 06:59 18:59 Intake Total 120 / 120 Balance 120 / 120 Weight 91.3 kg Intake: Oral 120 / 120 Other: # Voids 4 4 # Incontinent Voids 4 Date of Last Bowel Movement 09/03/18 09/03/18 Narrative: GENERAL: Well-developed, well-nourished in no distress SKIN: Warm and dry. CARDIOVASCULAR: Regular rate and rhythm. RESPIRATORY: No accessory muscle use. Clear to auscultation. Breath sounds equal bilaterally. GASTROINTESTINAL: Abdomen soft, non-tender, nondistended. MUSCULOSKELETAL: Extremities without clubbing, cyanosis but with bilateral lower extremity edema. NEUROLOGICAL: Awake and alert. Aphasia per no obvious cranial nerve deficits. Motor grossly within normal limits. Five out of 5 muscle strength in the arms and legs. Results - Labs CBC & Chem 7: 08/27/18 05:30 08/30/18 05:30 Laboratory Results - last 24 hr 09/05/18 09/05/18 09/06/18 16:28 20:04 08:13 POC Glucose 243 H 281 H 142 H 09/06/18 11:10 POC Glucose 189 H - Imaging ITS Impressions Chest X-Ray 08/26/18 12:51 CONCLUSION: Patchy interstitial opacities. Possible small right effusion Head CT 08/26/18 12:51 CONCLUSION: 1. Evolving hemorrhagic infarction of the left parieto-occipital mid to low convexities with decreasing blood products and improving mass effect on the left lateral ventricle. 2. No midline shift, intercurrent hemorrhage or hydrocephalus. . Venous Doppler Study 08/27/18 00:00 CONCLUSION: 1. The study is negative for bilateral lower extremity deep venous thrombosis. Head MRI 08/28/18 06:58 CONCLUSION: 1. No significant change in the overall appearance of the large cerebral infarct involving the left mid and left posterior parietal area compared to the prior examination. 2. Otherwise, no significant changes are seen compared to the prior study.. - Procedures none Assessment and Plan - Assessment (1) CVA (cerebral vascular accident) Code(s): I63.9 - Cerebral infarction, unspecified Status: Acute - Plan 72 year old male with history of CVA, GIB, AFIB, and DM admitted on 08/26 with AMS. He had initially presented to [place] on 07/14/18 after being found down in his house and was diagnosed with a large left-sided MCA cerebral stroke. During that time he had also been diagnosed with AFIB w/ RVR and was placed on Eliquis. He was discharged to [facility] on 07/24; he presented back to the ED on 07/28 with coffee-ground emesis and guaiac positive stool. He underwent EGD showing esophagitis and gastritis, and his Eliquis dose was reduced. He was discharged back to the SNF on 08/02 until his subsequent readmission on 08/26. CT head revealed resolving evidence of hemorrhage. 1. CVA with encephalopathy - Initial left-sided MCA diagnosed 07/14 and presenting 08/26 with AMS found to have resolving evidence of hemorrhage - MRI 08/28 showing no significant change in the overall appearance of the large cerebral infarct - Neuro consulted earlier in course who had recommended continuing Eliquis - ST/PT/OT following - Family unable to care for patient at home - Case management working with placement - Palliative care following - Seroquel BID 2. AFIB - Rate-controlled - Continue home diltiazem, metoprolol, and Eliquis 3. DM - Sugars have been elevated - SSI per protocol - Increase Levemir to 10 units at bedtime for better control 4. HTN - BPs improving - Continue metoprolol - Adjusted lisinopril to 20 mg twice a day - Continue to monitor and titrate meds as needed 5. Recent GIB - EGD from prior admission showing esophagitis and gastritis with no active bleeding - Continue PPI - Hemoccult negative this admission 6. Bilateral foot wounds/cellulitis/sacral decub - Doppler U/S negative for DVT - Improving - Completed course of Augmentin - Wound care following 7. Questionable PNA - resolved - CXR on admission with bilateral interstitial opacities - Patient has been covered with Augmentin as above DVT prophylaxis: on Eliquis Discharge Planning: Patient stable for discharge pending placement. Changed from [employer] to Medicare needs 3 [place] dc on Saturday 09/08 (1) CVA (cerebral vascular accident) Qualifiers: CVA mechanism: embolism Precerebral and cerebral artery: middle cerebral artery Laterality of affected vessel: left Qualified Code(s): I63.412 - Cerebral infarction due to embolism of left middle cerebral artery
[2018-09-06] MEDS: Insulin Detemir Inj 1,000 UNIT/10 ML Vial SQ SCH (21:28)
[2018-09-07] MEDS: Insulin NovoLOG Aspart Correctional Sugar Inj SQ SCH ×4 (08:10→21:31)
[2018-09-07] MEDS: dilTIAZem CD 180 MG Capsule PO SCH (08:12)
[2018-09-07] MEDS: QUEtiapine 25 MG Tablet PO SCH ×2 (08:12→21:26)
[2018-09-07] MEDS: Metoprolol Tartrate 25 MG Tablet PO SCH ×2 (08:12→21:26)
[2018-09-07] MEDS: Lisinopril 20 MG Tablet PO SCH ×2 (08:12→21:26)
--- NOTE | 2018-09-07 10:22 | P.PN ---
Subjective Interval history: Follow-up hypertension and diabetes mellitus. Patient has no new complaints awaiting placement Physical Exam Vital signs: Vital Signs 09/06/18 12:00 09/06/18 16:00 09/06/18 20:00 Temperature 99.6 F 99.0 F 96.3 F L Pulse Rate 77 78 66 Respiratory Rate 18 18 16 Blood Pressure 151/82 H 149/88 H 155/89 H Pulse Oximetry 96 95 94 L 09/07/18 00:00 09/07/18 08:00 Temperature 97.7 F 97.4 F L Pulse Rate 59 L 76 Respiratory Rate 16 18 Blood Pressure 137/85 162/81 H Pulse Oximetry 94 L 93 L Intake & Output 09/06/18 09/07/18 09/07/18 18:59 06:59 18:59 Intake Total 360 / 360 Balance 360 / 360 Weight 88.2 kg Intake: Oral 360 / 360 Other: # Voids 4 # Incontinent Voids 5 Date of Last Bowel Movement 09/03/18 09/03/18 Narrative: GENERAL: Well-developed, well-nourished in no distress CARDIOVASCULAR: Regular rate and rhythm. RESPIRATORY: No accessory muscle use. Clear to auscultation. Breath sounds equal bilaterally. GASTROINTESTINAL: Abdomen soft, non-tender, nondistended. MUSCULOSKELETAL: Extremities without clubbing, cyanosis but with bilateral lower extremity edema. NEUROLOGICAL: Awake and alert. Aphasia per no obvious cranial nerve deficits. Motor grossly within normal limits. Five out of 5 muscle strength in the arms and legs. Results - Labs CBC & Chem 7: 08/27/18 05:30 08/30/18 05:30 Laboratory Results - last 24 hr 09/06/18 09/06/18 09/06/18 11:10 16:18 21:26 POC Glucose 189 H 235 H 286 H 09/07/18 07:09 POC Glucose 188 H - Procedures none Assessment and Plan - Assessment (1) CVA (cerebral vascular accident) Code(s): I63.9 - Cerebral infarction, unspecified Status: Acute - Plan 72 year old male with history of CVA, GIB, AFIB, and DM admitted on 08/26 with AMS. He had initially presented to [place] on 07/14/18 after being found down in his house and was diagnosed with a large left-sided MCA cerebral stroke. During that time he had also been diagnosed with AFIB w/ RVR and was placed on Eliquis. He was discharged to [facility] on 07/24; he presented back to the ED on 07/28 with coffee-ground emesis and guaiac positive stool. He underwent EGD showing esophagitis and gastritis, and his Eliquis dose was reduced. He was discharged back to the SNF on 08/02 until his subsequent readmission on 08/26. CT head revealed resolving evidence of hemorrhage. 1. CVA with encephalopathy - Initial left-sided MCA diagnosed 07/14 and presenting 08/26 with AMS found to have resolving evidence of hemorrhage - MRI 08/28 showing no significant change in the overall appearance of the large cerebral infarct - Neuro consulted earlier in course who had recommended continuing Eliquis - ST/PT/OT following - Family unable to care for patient at home - Case management working with placement - Palliative care following - Seroquel BID 2. AFIB - Rate-controlled - Continue home diltiazem, metoprolol, and Eliquis 3. DM - Sugars have been elevated - SSI per protocol - Increase Levemir to 10 units at bedtime for better control 4. HTN - BPs improving - Continue metoprolol - Adjusted lisinopril to 20 mg twice a day - Continue to monitor and titrate meds as needed 5. Recent GIB - EGD from prior admission showing esophagitis and gastritis with no active bleeding - Continue PPI - Hemoccult negative this admission 6. Bilateral foot wounds/cellulitis/sacral decub - Doppler U/S negative for DVT - Improving - Completed course of Augmentin - Wound care following 7. Questionable PNA - resolved - CXR on admission with bilateral interstitial opacities - Patient has been covered with Augmentin as above DVT prophylaxis: on Eliquis Discharge Planning: Patient stable for discharge pending placement. Changed from [employer] to Medicare needs 3 [place] dc on Saturday 09/08 (1) CVA (cerebral vascular accident) Qualifiers: CVA mechanism: embolism Precerebral and cerebral artery: middle cerebral artery Laterality of affected vessel: left Qualified Code(s): I63.412 - Cerebral infarction due to embolism of left middle cerebral artery
[2018-09-07] MEDS: Insulin Detemir Inj 1,000 UNIT/10 ML Vial SQ SCH (21:27)
--- NOTE | 2018-09-08 08:39 | P.PN ---
Subjective Interval history: Follow-up diabetes mellitus. Slightly hyperglycemic patient has no symptoms remains pleasantly confused. Discussed with nursing and case management Physical Exam Vital signs: Vital Signs 09/07/18 11:37 09/07/18 16:00 09/07/18 20:00 Temperature 97.8 F 97.7 F 98.1 F Pulse Rate 74 72 70 Respiratory Rate 18 18 19 Blood Pressure 156/84 H 140/75 158/80 H Pulse Oximetry 95 94 L 94 L 09/08/18 00:00 Temperature 97.2 F L Pulse Rate 51 L Respiratory Rate 20 Blood Pressure 129/62 Pulse Oximetry 98 Intake & Output 09/07/18 09/08/18 09/08/18 19:59 06:59 18:59 Output Total Balance Weight Output: Urine Other: Date of Last Bowel Movement Narrative: GENERAL: Well-developed, well-nourished in no distress CARDIOVASCULAR: Regular rate and rhythm. RESPIRATORY: No accessory muscle use. Clear to auscultation. Breath sounds equal bilaterally. GASTROINTESTINAL: Abdomen soft, non-tender, nondistended. MUSCULOSKELETAL: Extremities without clubbing, cyanosis but with bilateral lower extremity edema. NEUROLOGICAL: Awake and alert. Aphasia no other neuro deficits Results - Labs CBC & Chem 7: 08/27/18 05:30 08/30/18 05:30 Laboratory Results - last 24 hr 09/07/18 09/07/18 09/08/18 12:05 21:30 08:09 POC Glucose 258 H 228 H 123 H - Procedures none Assessment and Plan - Assessment (1) CVA (cerebral vascular accident) Code(s): I63.9 - Cerebral infarction, unspecified Status: Acute - Plan 72 year old male with history of CVA, GIB, AFIB, and DM admitted on 08/26 with AMS. He had initially presented to [place] on 07/14/18 after being found down in his house and was diagnosed with a large left-sided MCA cerebral stroke. During that time he had also been diagnosed with AFIB w/ RVR and was placed on Eliquis. He was discharged to [facility] on 07/24; he presented back to the ED on 07/28 with coffee-ground emesis and guaiac positive stool. He underwent EGD showing esophagitis and gastritis, and his Eliquis dose was reduced. He was discharged back to the SNF on 08/02 until his subsequent readmission on 08/26. CT head revealed resolving evidence of hemorrhage. 1. CVA with encephalopathy - Initial left-sided MCA diagnosed 07/14 and presenting 08/26 with AMS found to have resolving evidence of hemorrhage - MRI 08/28 showing no significant change in the overall appearance of the large cerebral infarct - Neuro consulted earlier in course who had recommended continuing Eliquis - ST/PT/OT following - Family unable to care for patient at home - Case management working with placement - Palliative care following - Seroquel BID 2. AFIB - Rate-controlled - Continue home diltiazem, metoprolol, and Eliquis 3. DM - Sugars have been elevated - SSI per protocol - Increase Levemir to 16 units at bedtime. Hypoglycemia protocol 4. HTN - BPs improving - Continue metoprolol - Adjusted lisinopril to 20 mg twice a day - Continue to monitor and titrate meds as needed 5. Recent GIB - EGD from prior admission showing esophagitis and gastritis with no active bleeding - Continue PPI - Hemoccult negative this admission 6. Bilateral foot wounds/cellulitis/sacral decub - Doppler U/S negative for DVT - Improving - Completed course of Augmentin - Wound care following 7. Questionable PNA - resolved - CXR on admission with bilateral interstitial opacities - Patient has been covered with Augmentin as above DVT prophylaxis: on Eliquis Discharge Planning: Patient stable for discharge pending placement. (1) CVA (cerebral vascular accident) Qualifiers: CVA mechanism: embolism Precerebral and cerebral artery: middle cerebral artery Laterality of affected vessel: left Qualified Code(s): I63.412 - Cerebral infarction due to embolism of left middle cerebral artery
[2018-09-08] MEDS: QUEtiapine 25 MG Tablet PO SCH ×2 (08:48→21:28)
[2018-09-08] MEDS: dilTIAZem CD 180 MG Capsule PO SCH (08:49)
[2018-09-08] MEDS: Metoprolol Tartrate 25 MG Tablet PO SCH ×2 (08:49→21:28)
[2018-09-08] MEDS: Lisinopril 20 MG Tablet PO SCH ×2 (08:49→21:30)
[2018-09-08] MEDS: Insulin NovoLOG Aspart Correctional Sugar Inj SQ SCH ×4 (08:50→21:28)
[2018-09-08] MEDS: Insulin Detemir Inj 1,000 UNIT/10 ML Vial SQ SCH (21:27)
[2018-09-09] MEDS: Insulin NovoLOG Aspart Correctional Sugar Inj SQ SCH ×4 (07:43→20:43)
[2018-09-09] MEDS: QUEtiapine 25 MG Tablet PO SCH ×2 (08:24→20:50)
[2018-09-09] MEDS: Metoprolol Tartrate 25 MG Tablet PO SCH ×2 (08:25→20:49)
[2018-09-09] MEDS: Lisinopril 20 MG Tablet PO SCH ×2 (08:25→20:49)
[2018-09-09] MEDS: dilTIAZem CD 180 MG Capsule PO SCH (08:25)
--- NOTE | 2018-09-09 11:05 | P.PN ---
Subjective Interval history: Follow-up hypertension. BP again slightly elevated patient has no complaints. Physical Exam Vital signs: Vital Signs 09/08/18 12:00 09/08/18 16:00 09/08/18 20:00 Temperature 97.0 F L 97.6 F 97.1 F L Pulse Rate 84 62 66 Respiratory Rate 16 16 18 Blood Pressure 167/82 H 131/64 154/87 H Pulse Oximetry 93 L 95 93 L 09/09/18 00:00 09/09/18 08:00 Temperature 96.4 F L 97.6 F Pulse Rate 75 80 Respiratory Rate 18 20 Blood Pressure 146/75 H 160/77 H Pulse Oximetry 96 95 Intake & Output 09/08/18 09/09/18 09/09/18 18:59 06:59 18:59 Intake Total 120 / 120 240 / 240 Balance 120 / 120 240 / 240 Weight 90.5 kg Intake: Oral 120 / 120 240 / 240 Other: # Voids 4 Date of Last Bowel Movement 09/03/18 09/03/18 Narrative: GENERAL: Well-developed, well-nourished in no distress CARDIOVASCULAR: Regular rate and rhythm. RESPIRATORY: No accessory muscle use. Clear to auscultation. GASTROINTESTINAL: Abdomen soft, non-tender, nondistended. MUSCULOSKELETAL: Extremities without clubbing, cyanosis but with bilateral lower extremity edema. NEUROLOGICAL: Awake and alert. Aphasia no other neuro deficits Results - Labs CBC & Chem 7: 08/27/18 05:30 08/30/18 05:30 Laboratory Results - last 24 hr 09/08/18 09/08/18 09/08/18 11:58 16:28 20:23 POC Glucose 165 H 299 H 207 H 09/09/18 07:28 POC Glucose 138 H - Imaging ITS Impressions Chest X-Ray 08/26/18 12:51 CONCLUSION: Patchy interstitial opacities. Possible small right effusion Head CT 08/26/18 12:51 CONCLUSION: 1. Evolving hemorrhagic infarction of the left parieto-occipital mid to low convexities with decreasing blood products and improving mass effect on the left lateral ventricle. 2. No midline shift, intercurrent hemorrhage or hydrocephalus. . Venous Doppler Study 08/27/18 00:00 CONCLUSION: 1. The study is negative for bilateral lower extremity deep venous thrombosis. Head MRI 08/28/18 06:58 CONCLUSION: 1. No significant change in the overall appearance of the large cerebral infarct involving the left mid and left posterior parietal area compared to the prior examination. 2. Otherwise, no significant changes are seen compared to the prior study.. - Procedures none Assessment and Plan - Assessment (1) CVA (cerebral vascular accident) Code(s): I63.9 - Cerebral infarction, unspecified Status: Acute - Plan 72 year old male with history of CVA, GIB, AFIB, and DM admitted on 08/26 with AMS. He had initially presented to [place] on 07/14/18 after being found down in his house and was diagnosed with a large left-sided MCA cerebral stroke. During that time he had also been diagnosed with AFIB w/ RVR and was placed on Eliquis. He was discharged to [facility] on 07/24; he presented back to the ED on 07/28 with coffee-ground emesis and guaiac positive stool. He underwent EGD showing esophagitis and gastritis, and his Eliquis dose was reduced. He was discharged back to the SNF on 08/02 until his subsequent readmission on 08/26 for acute encephalopathy. CT head revealed resolving evidence of hemorrhage. 1. CVA with encephalopathy - Initial left-sided MCA diagnosed 07/14 and presenting 08/26 with AMS found to have resolving evidence of hemorrhage - MRI 08/28 showing no significant change in the overall appearance of the large cerebral infarct - Neuro consulted earlier in course who had recommended continuing Eliquis - ST/PT/OT following - Family unable to care for patient at home - Case management working with placement - Palliative care following - Seroquel BID 2. AFIB - Rate-controlled - Continue home diltiazem, metoprolol, and Eliquis 3. DM - Sugars have been elevated - SSI per protocol - Increased Levemir to 16 units at bedtime. Hypoglycemia protocol 4. HTN - BPs improving - Increase metoprolol to 50 mg twice a day for better control - Adjusted lisinopril to 20 mg twice a day - Continue to monitor and titrate meds as needed 5. Recent GIB - EGD from prior admission showing esophagitis and gastritis with no active bleeding - Continue PPI - Hemoccult negative this admission 6. Bilateral foot wounds/cellulitis/sacral decub - Doppler U/S negative for DVT - Improving - Completed course of Augmentin - Wound care following 7. Questionable PNA - resolved - CXR on admission with bilateral interstitial opacities - Patient has been covered with Augmentin as above DVT prophylaxis: on Eliquis Discharge Planning: Patient stable for discharge pending placement. (1) CVA (cerebral vascular accident) Qualifiers: CVA mechanism: embolism Precerebral and cerebral artery: middle cerebral artery Laterality of affected vessel: left Qualified Code(s): I63.412 - Cerebral infarction due to embolism of left middle cerebral artery
[2018-09-09] MEDS: Insulin Detemir Inj 1,000 UNIT/10 ML Vial SQ SCH (20:44)
[2018-09-10] MEDS: Insulin NovoLOG Aspart Correctional Sugar Inj SQ SCH ×4 (07:30→21:07)
[2018-09-10] MEDS: dilTIAZem CD 180 MG Capsule PO SCH (09:11)
[2018-09-10] MEDS: QUEtiapine 25 MG Tablet PO SCH ×2 (09:11→21:01)
[2018-09-10] MEDS: Lisinopril 20 MG Tablet PO SCH ×2 (09:11→21:01)
[2018-09-10] MEDS: Metoprolol Tartrate 25 MG Tablet PO SCH ×2 (09:12→21:01)
--- NOTE | 2018-09-10 11:22 | P.PN ---
Subjective Interval history: Follow-up for CVA with encephalopathy, A. fib, hypertension. Patient is currently resting in bed. No acute concerns. Patient's is at bedside. Physical Exam Vital signs: Vital Signs 09/09/18 12:00 09/09/18 16:00 09/09/18 20:00 Temperature 98.4 F 97.6 F 97.0 F L Pulse Rate 80 74 68 Respiratory Rate 21 20 18 Blood Pressure 152/82 H 176/86 H 121/58 L Pulse Oximetry 97 96 96 09/10/18 00:00 09/10/18 08:00 Temperature 94.3 F L 98.2 F Pulse Rate 54 L 80 Respiratory Rate 18 20 Blood Pressure 134/61 191/84 H Pulse Oximetry 96 96 Intake & Output 09/09/18 09/10/18 09/10/18 18:59 06:59 18:59 Intake Total 840 / 840 400 / 400 240 / 240 Output Total 400 / 400 900 / 900 200 / 200 Balance 440 / 440 -500 / -500 40 / 40 Weight 90.1 kg Intake: Oral 840 / 840 400 / 400 240 / 240 Output: Urine 400 / 400 900 / 900 200 / 200 Other: Date of Last Bowel Movement 09/03/18 09/03/18 Narrative: GENERAL: Alert, NAD. SKIN: Warm and dry. HEAD: Normocephalic. EYES: No scleral icterus. No injection or drainage. NECK: Supple, trachea midline. No JVD or lymphadenopathy. CARDIOVASCULAR: Regular rate and rhythm without murmurs, gallops, or rubs. RESPIRATORY: Breath sounds equal bilaterally. No accessory muscle use. GASTROINTESTINAL: Abdomen soft, non-tender, nondistended. MUSCULOSKELETAL: No cyanosis, or edema. BACK: Nontender without obvious deformity. No CVA tenderness. Results - Labs CBC & Chem 7: 08/27/18 05:30 08/30/18 05:30 Laboratory Results - last 24 hr 09/09/18 09/09/18 09/09/18 11:25 16:30 20:19 POC Glucose 131 H 237 H 310 H 09/10/18 07:28 POC Glucose 79 - Imaging Chest X-Ray 08/26/18 12:51 CONCLUSION: Patchy interstitial opacities. Possible small right effusion Head CT 08/26/18 12:51 CONCLUSION: 1. Evolving hemorrhagic infarction of the left parieto-occipital mid to low convexities with decreasing blood products and improving mass effect on the left lateral ventricle. 2. No midline shift, intercurrent hemorrhage or hydrocephalus. . Venous Doppler Study 08/27/18 00:00 CONCLUSION: 1. The study is negative for bilateral lower extremity deep venous thrombosis. Head MRI 08/28/18 06:58 CONCLUSION: 1. No significant change in the overall appearance of the large cerebral infarct involving the left mid and left posterior parietal area compared to the prior examination. 2. Otherwise, no significant changes are seen compared to the prior study.. - Procedures none Assessment and Plan - Assessment (1) CVA (cerebral vascular accident) Code(s): I63.9 - Cerebral infarction, unspecified Status: Acute - Plan 72 year old male with history of CVA, GIB, AFIB, and DM admitted on 08/26 with AMS. He had initially presented to [place] on 07/14/18 after being found down in his house and was diagnosed with a large left-sided MCA cerebral stroke. During that time he had also been diagnosed with AFIB w/ RVR and was placed on Eliquis. He was discharged to [facility] on 07/24; he presented back to the ED on 07/28 with coffee-ground emesis and guaiac positive stool. He underwent EGD showing esophagitis and gastritis, and his Eliquis dose was reduced. He was discharged back to the SNF on 08/02 until his subsequent readmission on 08/26 for acute encephalopathy. CT head revealed resolving evidence of hemorrhage. 1. CVA with encephalopathy - Initial left-sided MCA diagnosed 07/14 and presenting 08/26 with AMS found to have resolving evidence of hemorrhage - MRI 08/28 showing no significant change in the overall appearance of the large cerebral infarct - Neuro consulted earlier in course who had recommended continuing Eliquis - ST/PT/OT following - Family unable to care for patient at home - Case management working with placement - Palliative care following - Seroquel BID 2. AFIB - Rate-controlled - Continue home diltiazem, metoprolol, and Eliquis 3. DM - Sugars have been elevated - SSI per protocol - Increased Levemir to 16 units at bedtime. Hypoglycemia protocol 4. HTN - BPs improving - May need to consider low dose Amlodipine 5mg Qday. BP this morning high 190s systolic. - Adjusted lisinopril to 20 mg twice a day - Continue to monitor and titrate meds as needed 5. Recent GIB - EGD from prior admission showing esophagitis and gastritis with no active bleeding - Continue PPI - Hemoccult negative this admission 6. Bilateral foot wounds/cellulitis/sacral decub - Doppler U/S negative for DVT - Improving - Completed course of Augmentin - Wound care following 7. Questionable PNA - resolved - CXR on admission with bilateral interstitial opacities - Patient has been covered with Augmentin DNR. DVT prophylaxis: on Eliquis Discharge: D/C when SNF placement arranged. (1) CVA (cerebral vascular accident) Qualifiers: CVA mechanism: embolism Precerebral and cerebral artery: middle cerebral artery Laterality of affected vessel: left Qualified Code(s): I63.412 - Cerebral infarction due to embolism of left middle cerebral artery
[2018-09-10] MEDS: Insulin Detemir Inj 1,000 UNIT/10 ML Vial SQ SCH (21:07)
[2018-09-11] MEDS: Insulin NovoLOG Aspart Correctional Sugar Inj SQ SCH ×4 (08:52→20:47)
[2018-09-11] MEDS: QUEtiapine 25 MG Tablet PO SCH ×2 (09:55→20:47)
[2018-09-11] MEDS: Lisinopril 20 MG Tablet PO SCH ×2 (09:55→20:48)
[2018-09-11] MEDS: dilTIAZem CD 180 MG Capsule PO SCH (09:55)
[2018-09-11] MEDS: Metoprolol Tartrate 25 MG Tablet PO SCH ×2 (09:55→20:47)
--- NOTE | 2018-09-11 10:39 | P.PN ---
Subjective Interval history: Follow-up for CVA with encephalopathy, A. fib, hypertension. Patient is currently doing well. He is alert and sitting in his bed. His first initial words are understandable. However as he talks he goes into gibberish words that do not make sense. Patient remains very pleasant. Physical Exam Vital signs: Vital Signs 09/10/18 12:00 09/10/18 16:00 09/10/18 20:00 Temperature 97.4 F L 97.3 F L 98.4 F Pulse Rate 66 54 L 60 Respiratory Rate 20 20 18 Blood Pressure 140/70 153/71 H 146/70 H Pulse Oximetry 95 95 94 L 09/11/18 01:28 09/11/18 08:00 Temperature 97.1 F L 97.9 F Pulse Rate 54 L 78 Respiratory Rate 18 20 Blood Pressure 157/77 H 135/72 Pulse Oximetry 94 L 97 Intake & Output 09/10/18 09/11/18 09/11/18 18:59 06:59 18:59 Intake Total 720 / 720 120 / 120 Output Total 950 / 950 Balance -230 / -230 120 / 120 Weight 92 kg Intake: Oral 720 / 720 120 / 120 Output: Urine 950 / 950 Other: # Voids 1 2 Narrative: GENERAL: Alert, NAD. SKIN: Warm and dry. HEAD: Normocephalic. EYES: No scleral icterus. No injection or drainage. NECK: Supple, trachea midline. No JVD or lymphadenopathy. CARDIOVASCULAR: Regular rate and rhythm without murmurs, gallops, or rubs. RESPIRATORY: Breath sounds equal bilaterally. No accessory muscle use. GASTROINTESTINAL: Abdomen soft, non-tender, nondistended. MUSCULOSKELETAL: No cyanosis, or edema. BACK: Nontender without obvious deformity. No CVA tenderness. Results - Labs CBC & Chem 7: 08/27/18 05:30 08/30/18 05:30 Laboratory Results - last 24 hr 09/10/18 09/10/18 09/10/18 11:50 17:15 21:00 POC Glucose 221 H 257 H 183 H 09/11/18 07:33 POC Glucose 78 - Procedures none Assessment and Plan - Assessment (1) CVA (cerebral vascular accident) Code(s): I63.9 - Cerebral infarction, unspecified Status: Acute - Plan 72 year old male with history of CVA, GIB, AFIB, and DM admitted on 08/26 with AMS. He had initially presented to [place] on 07/14/18 after being found down in his house and was diagnosed with a large left-sided MCA cerebral stroke. During that time he had also been diagnosed with AFIB w/ RVR and was placed on Eliquis. He was discharged to [facility] on 07/24; he presented back to the ED on 07/28 with coffee-ground emesis and guaiac positive stool. He underwent EGD showing esophagitis and gastritis, and his Eliquis dose was reduced. He was discharged back to the SNF on 08/02 until his subsequent readmission on 08/26 for acute encephalopathy. CT head revealed resolving evidence of hemorrhage. 1. CVA with encephalopathy - Initial left-sided MCA diagnosed 07/14 and presenting 08/26 with AMS found to have resolving evidence of hemorrhage - MRI 08/28 showing no significant change in the overall appearance of the large cerebral infarct - Neuro consulted earlier in course who had recommended continuing Eliquis - ST/PT/OT following - Family unable to care for patient at home - Case management working with placement - Palliative care following - Seroquel BID 2. AFIB - Rate-controlled - Continue home diltiazem, metoprolol, and Eliquis 3. DM - Sugars have been elevated - SSI per protocol - Increased Levemir to 16 units at bedtime. Hypoglycemia protocol 4. HTN - BPs improving - May need to consider low dose Amlodipine 5mg Qday. BP this morning high 190s systolic. - Adjusted lisinopril to 20 mg twice a day - Continue to monitor and titrate meds as needed 5. Recent GIB - EGD from prior admission showing esophagitis and gastritis with no active bleeding - Continue PPI - Hemoccult negative this admission 6. Bilateral foot wounds/cellulitis/sacral decub - Doppler U/S negative for DVT - Improving - Completed course of Augmentin - Wound care following 7. Questionable PNA - resolved - CXR on admission with bilateral interstitial opacities - Patient has been covered with Augmentin DNR. DVT prophylaxis: on Eliquis 09/11/2018: No acute changes in management. Discharge when SNF is arranged. (1) CVA (cerebral vascular accident) Qualifiers: CVA mechanism: embolism Precerebral and cerebral artery: middle cerebral artery Laterality of affected vessel: left Qualified Code(s): I63.412 - Cerebral infarction due to embolism of left middle cerebral artery
[2018-09-11] MEDS ORDERED: Bisacodyl 10 MG Supp RECTAL PRN (15:10)
[2018-09-11] MEDS ORDERED: Influenza (Quadrivalent) Vaccine 0.5 ML Syringe IM ONE (15:59)
[2018-09-11] MEDS: Clotrimazole 1% Cream 15 GM Tube TOPICAL SCH (17:20)
[2018-09-11] MEDS: Insulin Detemir Inj 1,000 UNIT/10 ML Vial SQ SCH (20:46)
[2018-09-11] MEDS: Senna/Docusate Sodium 8.6/50 MG Tablet PO SCH (20:47)
--- NOTE | 2018-09-12 08:00 | P.PN ---
Subjective Interval history: Follow-up for CVA with encephalopathy, A. fib, hypertension. Patient is currently doing well. He remains very pleasant. Sitting in his chair and had breakfast. No acute concerns. Physical Exam Vital signs: Vital Signs 09/11/18 08:00 09/11/18 12:00 09/11/18 16:00 Temperature 97.9 F 98.5 F 97.1 F L Pulse Rate 78 58 L 75 Respiratory Rate 20 20 20 Blood Pressure 135/72 128/68 152/76 H Pulse Oximetry 97 93 L 09/11/18 20:00 09/12/18 00:00 Temperature 98.4 F 97.1 F L Pulse Rate 65 51 L Respiratory Rate 20 18 Blood Pressure 147/71 H 126/58 L Pulse Oximetry 95 97 Intake & Output 09/11/18 09/12/18 09/12/18 18:59 06:59 18:59 Intake Total 810 / 810 60 / 60 Output Total 1100 / 1100 Balance 810 / 810 -1040 / -1040 Weight 89.9 kg Intake: Oral 810 / 810 60 / 60 Output: Urine 1100 / 1100 Other: # Voids 0 # Incontinent Voids 5 1 Narrative: GENERAL: Alert, NAD. SKIN: Warm and dry. HEAD: Normocephalic. EYES: No scleral icterus. No injection or drainage. NECK: Supple, trachea midline. No JVD or lymphadenopathy. CARDIOVASCULAR: Regular rate and rhythm without murmurs, gallops, or rubs. RESPIRATORY: Breath sounds equal bilaterally. No accessory muscle use. GASTROINTESTINAL: Abdomen soft, non-tender, nondistended. MUSCULOSKELETAL: No cyanosis. Right right with significant edema possibly due to MAVIS hose. No erythema. BACK: Nontender without obvious deformity. No CVA tenderness. Results - Labs CBC & Chem 7: 08/27/18 05:30 08/30/18 05:30 Laboratory Results - last 24 hr 09/11/18 09/11/18 09/11/18 07:33 11:37 17:09 POC Glucose 78 150 H 242 H 09/11/18 09/12/18 20:43 07:24 POC Glucose 271 H 100 - Procedures none Assessment and Plan - Assessment (1) CVA (cerebral vascular accident) Code(s): I63.9 - Cerebral infarction, unspecified Status: Acute - Plan 72 year old male with history of CVA, GIB, AFIB, and DM admitted on 08/26 with AMS. He had initially presented to [place] on 07/14/18 after being found down in his house and was diagnosed with a large left-sided MCA cerebral stroke. During that time he had also been diagnosed with AFIB w/ RVR and was placed on Eliquis. He was discharged to [facility] on 07/24; he presented back to the ED on 07/28 with coffee-ground emesis and guaiac positive stool. He underwent EGD showing esophagitis and gastritis, and his Eliquis dose was reduced. He was discharged back to the SNF on 08/02 until his subsequent readmission on 08/26 for acute encephalopathy. CT head revealed resolving evidence of hemorrhage. 1. CVA with encephalopathy - Initial left-sided MCA diagnosed 07/14 and presenting 08/26 with AMS found to have resolving evidence of hemorrhage - MRI 08/28 showing no significant change in the overall appearance of the large cerebral infarct - Neuro consulted earlier in course who had recommended continuing Eliquis - ST/PT/OT following - Family unable to care for patient at home - Case management working with placement - Palliative care following - Seroquel BID 2. AFIB - Rate-controlled - Continue home diltiazem, metoprolol, and Eliquis 3. DM - Sugars have been elevated - SSI per protocol - Increased Levemir to 16 units at bedtime. Hypoglycemia protocol 4. HTN - BPs improving - May need to consider low dose Amlodipine 5mg Qday. BP this morning high 190s systolic. - Adjusted lisinopril to 20 mg twice a day - Continue to monitor and titrate meds as needed 5. Recent GIB - EGD from prior admission showing esophagitis and gastritis with no active bleeding - Continue PPI - Hemoccult negative this admission 6. Bilateral foot wounds/cellulitis/sacral decub - Doppler U/S negative for DVT - Completed course of Augmentin - Wound care following - Will hold of using MAVIS hose - causing some swelling of the right foot. No sign of cellulitis. 7. Questionable PNA - resolved - CXR on admission with bilateral interstitial opacities - Patient has been covered with Augmentin DNR. DVT prophylaxis: on Eliquis Discharge when SNF is arranged. (1) CVA (cerebral vascular accident) Qualifiers: CVA mechanism: embolism Precerebral and cerebral artery: middle cerebral artery Laterality of affected vessel: left Qualified Code(s): I63.412 - Cerebral infarction due to embolism of left middle cerebral artery
[2018-09-12] MEDS: dilTIAZem CD 180 MG Capsule PO SCH (08:06)
[2018-09-12] MEDS: Lisinopril 20 MG Tablet PO SCH ×2 (08:06→20:36)
[2018-09-12] MEDS: Metoprolol Tartrate 25 MG Tablet PO SCH ×2 (08:06→20:36)
[2018-09-12] MEDS: Senna/Docusate Sodium 8.6/50 MG Tablet PO SCH ×2 (08:06→20:36)
[2018-09-12] MEDS: QUEtiapine 25 MG Tablet PO SCH ×2 (08:06→20:36)
[2018-09-12] MEDS: Insulin NovoLOG Aspart Correctional Sugar Inj SQ SCH ×4 (08:07→20:36)
[2018-09-12] MEDS: Clotrimazole 1% Cream 15 GM Tube TOPICAL SCH ×2 (14:52→17:26)
[2018-09-12] MEDS: Insulin Detemir Inj 1,000 UNIT/10 ML Vial SQ SCH (20:35)
[2018-09-13] MEDS: Senna/Docusate Sodium 8.6/50 MG Tablet PO SCH ×2 (08:22→22:11)
[2018-09-13] MEDS: Lisinopril 20 MG Tablet PO SCH ×2 (08:22→22:11)
[2018-09-13] MEDS: Metoprolol Tartrate 25 MG Tablet PO SCH ×3 (08:22→22:13)
[2018-09-13] MEDS: QUEtiapine 25 MG Tablet PO SCH ×2 (08:22→22:11)
[2018-09-13] MEDS: Clotrimazole 1% Cream 15 GM Tube TOPICAL SCH ×3 (08:22→17:01)
[2018-09-13] MEDS: dilTIAZem CD 180 MG Capsule PO SCH (08:22)
--- NOTE | 2018-09-13 09:20 | P.PN ---
Subjective Interval history: Follow-up for CVA with encephalopathy, A. fib, hypertension. Patient remains very pleasant. No acute concerns. As he talks first few words are understandable but after that it becomes very gibberish. No fever or chills. Physical Exam Vital signs: Vital Signs 09/12/18 12:00 09/12/18 16:00 09/12/18 20:00 Temperature 97.8 F 97 F L 97.8 F Pulse Rate 50 L 53 L 55 L Respiratory Rate 50 H 20 20 Blood Pressure 137/75 159/82 H 142/66 H Pulse Oximetry 95 94 L 96 09/13/18 00:00 09/13/18 08:00 Temperature 96 F L 97.9 F Pulse Rate 46 L 77 Respiratory Rate 20 18 Blood Pressure 144/69 H 146/83 H Pulse Oximetry 98 96 Intake & Output 09/12/18 09/13/18 09/13/18 18:59 06:59 18:59 Intake Total 581 / 581 Balance 581 / 581 Weight 90.3 kg Intake: Oral 581 / 581 Other: # Voids 10 12 Date of Last Bowel Movement 09/03/18 09/03/18 # Bowel Movements 0 Narrative: GENERAL: Alert, NAD. SKIN: Warm and dry. HEAD: Normocephalic. EYES: No scleral icterus. No injection or drainage. NECK: Supple, trachea midline. No JVD or lymphadenopathy. CARDIOVASCULAR: Regular rate and rhythm without murmurs, gallops, or rubs. RESPIRATORY: Breath sounds equal bilaterally. No accessory muscle use. GASTROINTESTINAL: Abdomen soft, non-tender, nondistended. MUSCULOSKELETAL: No cyanosis. Feet without any edema BACK: Nontender without obvious deformity. No CVA tenderness. Results - Labs CBC & Chem 7: 08/27/18 05:30 08/30/18 05:30 Laboratory Results - last 24 hr 09/12/18 09/12/18 09/12/18 12:41 15:57 20:32 POC Glucose 288 H 182 H 159 H 09/13/18 06:59 POC Glucose 79 - Procedures none Assessment and Plan - Assessment (1) CVA (cerebral vascular accident) Code(s): I63.9 - Cerebral infarction, unspecified Status: Acute - Plan 72 year old male with history of CVA, GIB, AFIB, and DM admitted on 08/26 with AMS. He had initially presented to [place] on 07/14/18 after being found down in his house and was diagnosed with a large left-sided MCA cerebral stroke. During that time he had also been diagnosed with AFIB w/ RVR and was placed on Eliquis. He was discharged to [facility] on 07/24; he presented back to the ED on 07/28 with coffee-ground emesis and guaiac positive stool. He underwent EGD showing esophagitis and gastritis, and his Eliquis dose was reduced. He was discharged back to the SNF on 08/02 until his subsequent readmission on 08/26 for acute encephalopathy. CT head revealed resolving evidence of hemorrhage. 1. CVA with encephalopathy - Initial left-sided MCA diagnosed 07/14 and presenting 08/26 with AMS found to have resolving evidence of hemorrhage - MRI 08/28 showing no significant change in the overall appearance of the large cerebral infarct - Neuro consulted earlier in course who had recommended continuing Eliquis - ST/PT/OT following - Family unable to care for patient at home - Case management working with placement - Palliative care following - Seroquel BID 2. AFIB - Rate-controlled - Continue home diltiazem, metoprolol, and Eliquis 3. DM - Sugars have been elevated - SSI per protocol - Increased Levemir to 16 units at bedtime. Hypoglycemia protocol 4. HTN - BPs improving - May need to consider low dose Amlodipine 5mg Qday. BP this morning high 190s systolic. - Adjusted lisinopril to 20 mg twice a day - Continue to monitor and titrate meds as needed 5. Recent GIB - EGD from prior admission showing esophagitis and gastritis with no active bleeding - Continue PPI - Hemoccult negative this admission 6. Bilateral foot wounds/cellulitis/sacral decub - Doppler U/S negative for DVT - Completed course of Augmentin - Wound care following - hold of using MAVIS hose. No sign of cellulitis. 7. Questionable PNA - resolved - CXR on admission with bilateral interstitial opacities - Patient has been covered with Augmentin DNR. DVT prophylaxis: on Eliquis 09/13/2018. No acute changes in management. Discharge when SNF is arranged. (1) CVA (cerebral vascular accident) Qualifiers: CVA mechanism: embolism Precerebral and cerebral artery: middle cerebral artery Laterality of affected vessel: left Qualified Code(s): I63.412 - Cerebral infarction due to embolism of left middle cerebral artery
--- NOTE | 2018-09-13 11:54 | P.PNPAL ---
Late entry from 09/12/2018, spoke with patient's daughter, Kriss, today who is picking up the paperwork from the conservator artifacts today to open his trust account and will bring that paperwork to the detention facility, [facility] re[facility], for copying and to initiate the Medicaid application. Per Kriss, facility states they will take him once Medicaid is pending. Hopefully will be able to discharge in the next 1-2 days.
[2018-09-13] MEDS: Insulin NovoLOG Aspart Correctional Sugar Inj SQ SCH ×3 (15:25→22:12)
[2018-09-13] MEDS: Insulin Detemir Inj 1,000 UNIT/10 ML Vial SQ SCH (22:12)
--- NOTE | 2018-09-14 08:12 | P.PN ---
Subjective Interval history: Follow-up for CVA with encephalopathy, A. fib, hypertension. Patient is currently sitting in his chair. Tolerating diet well. Remains afebrile. Difficult to understand him due to gibberish words. Remains very pleasant. Physical Exam Vital signs: Vital Signs 09/13/18 12:00 09/13/18 16:00 09/13/18 20:00 Temperature 98.3 F 97.4 F L 97.9 F Pulse Rate 65 61 56 L Respiratory Rate 18 18 Blood Pressure 156/72 H 161/81 H 127/62 Pulse Oximetry 98 98 95 09/14/18 00:00 Temperature 97.6 F Pulse Rate 64 Respiratory Rate 18 Blood Pressure 123/70 Pulse Oximetry 96 Intake & Output 09/13/18 09/14/18 09/14/18 18:59 06:59 18:59 Intake Total 581 / 581 Output Total 400 / 400 Balance 181 / 181 Weight 92.1 kg Intake: Oral 581 / 581 Output: Urine 400 / 400 Other: # Voids 12 # Incontinent Voids 1 4 # Urine Diapers 1 Date of Last Bowel Movement 09/03/18 # Bowel Movements 0 # Emeses 1 Narrative: GENERAL: Alert, NAD. SKIN: Warm and dry. HEAD: Normocephalic. EYES: No scleral icterus. No injection or drainage. NECK: Supple, trachea midline. No JVD or lymphadenopathy. CARDIOVASCULAR: Regular rate and rhythm without murmurs, gallops, or rubs. RESPIRATORY: Breath sounds equal bilaterally. No accessory muscle use. GASTROINTESTINAL: Abdomen soft, non-tender, nondistended. MUSCULOSKELETAL: No cyanosis. Feet without any edema BACK: Nontender without obvious deformity. No CVA tenderness. Results - Labs CBC & Chem 7: 08/27/18 05:30 08/30/18 05:30 Laboratory Results - last 24 hr 09/13/18 09/13/18 09/13/18 11:26 16:04 22:01 POC Glucose 129 H 267 H 228 H 09/14/18 07:20 POC Glucose 80 - Procedures none Assessment and Plan - Assessment (1) CVA (cerebral vascular accident) Code(s): I63.9 - Cerebral infarction, unspecified Status: Acute - Plan 72 year old male with history of CVA, GIB, AFIB, and DM admitted on 08/26 with AMS. He had initially presented to [place] on 07/14/18 after being found down in his house and was diagnosed with a large left-sided MCA cerebral stroke. During that time he had also been diagnosed with AFIB w/ RVR and was placed on Eliquis. He was discharged to [facility] on 07/24; he presented back to the ED on 07/28 with coffee-ground emesis and guaiac positive stool. He underwent EGD showing esophagitis and gastritis, and his Eliquis dose was reduced. He was discharged back to the SNF on 08/02 until his subsequent readmission on 08/26 for acute encephalopathy. CT head revealed resolving evidence of hemorrhage. 1. CVA with encephalopathy - Initial left-sided MCA diagnosed 07/14 and presenting 08/26 with AMS found to have resolving evidence of hemorrhage - MRI 08/28 showing no significant change in the overall appearance of the large cerebral infarct - Neuro consulted earlier in course who had recommended continuing Eliquis - ST/PT/OT following - Family unable to care for patient at home - Case management working with placement - Palliative care following - Seroquel BID 2. AFIB - Rate-controlled - Continue home diltiazem, metoprolol, and Eliquis 3. DM - Sugars have been elevated - SSI per protocol - Increased Levemir to 16 units at bedtime. Hypoglycemia protocol 4. HTN - BPs improving - May need to consider low dose Amlodipine 5mg Qday. BP this morning high 190s systolic. - Adjusted lisinopril to 20 mg twice a day - Continue to monitor and titrate meds as needed 5. Recent GIB - EGD from prior admission showing esophagitis and gastritis with no active bleeding - Continue PPI - Hemoccult negative this admission 6. Bilateral foot wounds/cellulitis/sacral decub - Doppler U/S negative for DVT - Completed course of Augmentin - Wound care following - hold of using MAVIS hose. No sign of cellulitis. 7. Questionable PNA - resolved - CXR on admission with bilateral interstitial opacities - Patient has been covered with Augmentin DNR. DVT prophylaxis: on Eliquis 09/14/2018. No acute changes in management. Discharge when SNF is arranged. (1) CVA (cerebral vascular accident) Qualifiers: CVA mechanism: embolism Precerebral and cerebral artery: middle cerebral artery Laterality of affected vessel: left Qualified Code(s): I63.412 - Cerebral infarction due to embolism of left middle cerebral artery
[2018-09-14] MEDS: Senna/Docusate Sodium 8.6/50 MG Tablet PO SCH ×2 (08:35→21:57)
[2018-09-14] MEDS: dilTIAZem CD 180 MG Capsule PO SCH (08:35)
[2018-09-14] MEDS: Insulin NovoLOG Aspart Correctional Sugar Inj SQ SCH ×4 (08:36→22:01)
[2018-09-14] MEDS: Metoprolol Tartrate 25 MG Tablet PO SCH ×2 (08:36→21:57)
[2018-09-14] MEDS: QUEtiapine 25 MG Tablet PO SCH ×2 (08:36→21:57)
[2018-09-14] MEDS: Lisinopril 20 MG Tablet PO SCH ×2 (08:36→21:58)
[2018-09-14] MEDS: Clotrimazole 1% Cream 15 GM Tube TOPICAL SCH ×3 (08:37→17:02)
[2018-09-14] MEDS: Insulin Detemir Inj 1,000 UNIT/10 ML Vial SQ SCH (21:58)
[2018-09-15] MEDS: Insulin NovoLOG Aspart Correctional Sugar Inj SQ SCH ×4 (07:56→21:46)
[2018-09-15] MEDS: QUEtiapine 25 MG Tablet PO SCH ×2 (09:31→21:44)
[2018-09-15] MEDS: Metoprolol Tartrate 25 MG Tablet PO SCH ×2 (09:31→21:44)
[2018-09-15] MEDS: Senna/Docusate Sodium 8.6/50 MG Tablet PO SCH ×2 (09:31→21:44)
[2018-09-15] MEDS: Clotrimazole 1% Cream 15 GM Tube TOPICAL SCH ×3 (09:31→17:06)
[2018-09-15] MEDS: Lisinopril 20 MG Tablet PO SCH ×2 (09:31→21:44)
[2018-09-15] MEDS: dilTIAZem CD 180 MG Capsule PO SCH (09:31)
--- NOTE | 2018-09-15 10:08 | P.PN ---
Subjective Interval history: Follow-up for CVA with encephalopathy, A. fib, hypertension. Patient is doing well. Speech is difficult to understand. Few words are normal but rest of the words are all gibberish. Tolerating diet well. No fever, chills. Physical Exam Vital signs: Vital Signs 09/14/18 12:00 09/14/18 16:00 09/14/18 20:00 Temperature 97.9 F 98.5 F 98.2 F Pulse Rate 50 L 54 L 58 L Respiratory Rate 18 Blood Pressure 109/57 L 113/55 L 133/69 Pulse Oximetry 98 98 96 09/15/18 00:00 09/15/18 08:00 Temperature 97.6 F 97.6 F Pulse Rate 81 71 Respiratory Rate 18 20 Blood Pressure 138/75 171/85 H Pulse Oximetry 96 94 L Intake & Output 09/14/18 09/15/18 09/15/18 18:59 06:59 18:59 Weight 90.2 kg Other: # Voids 3 # Incontinent Voids 5 Date of Last Bowel Movement 09/03/18 09/15/18 # Bowel Movements 0 1 Narrative: GENERAL: Alert, NAD. SKIN: Warm and dry. HEAD: Normocephalic. EYES: No scleral icterus. No injection or drainage. NECK: Supple, trachea midline. No JVD or lymphadenopathy. CARDIOVASCULAR: Regular rate and rhythm without murmurs, gallops, or rubs. RESPIRATORY: Breath sounds equal bilaterally. No accessory muscle use. GASTROINTESTINAL: Abdomen soft, non-tender, nondistended. MUSCULOSKELETAL: No cyanosis. Feet without any edema BACK: Nontender without obvious deformity. No CVA tenderness. Results - Labs CBC & Chem 7: 08/27/18 05:30 08/30/18 05:30 Laboratory Results - last 24 hr 09/14/18 09/14/18 09/14/18 11:33 16:48 21:47 POC Glucose 103 330 H 126 H 09/15/18 07:52 POC Glucose 124 H - Procedures none Assessment and Plan - Assessment (1) CVA (cerebral vascular accident) Code(s): I63.9 - Cerebral infarction, unspecified Status: Acute - Plan 72 year old male with history of CVA, GIB, AFIB, and DM admitted on 08/26 with AMS. He had initially presented to [place] on 07/14/18 after being found down in his house and was diagnosed with a large left-sided MCA cerebral stroke. During that time he had also been diagnosed with AFIB w/ RVR and was placed on Eliquis. He was discharged to [facility] on 07/24; he presented back to the ED on 07/28 with coffee-ground emesis and guaiac positive stool. He underwent EGD showing esophagitis and gastritis, and his Eliquis dose was reduced. He was discharged back to the SNF on 08/02 until his subsequent readmission on 08/26 for acute encephalopathy. CT head revealed resolving evidence of hemorrhage. 1. CVA with encephalopathy - Initial left-sided MCA diagnosed 07/14 and presenting 08/26 with AMS found to have resolving evidence of hemorrhage - MRI 08/28 showing no significant change in the overall appearance of the large cerebral infarct - Neuro consulted earlier in course who had recommended continuing Eliquis - ST/PT/OT following - Family unable to care for patient at home - Case management working with placement - Palliative care following - Seroquel BID 2. AFIB - Rate-controlled - Continue home diltiazem, metoprolol, and Eliquis 3. DM - Sugars have been elevated - SSI per protocol - Increased Levemir to 16 units at bedtime. Hypoglycemia protocol 4. HTN - BPs improving - May need to consider low dose Amlodipine 5mg Qday. BP this morning high 190s systolic. - Adjusted lisinopril to 20 mg twice a day - Continue to monitor and titrate meds as needed 5. Recent GIB - EGD from prior admission showing esophagitis and gastritis with no active bleeding - Continue PPI - Hemoccult negative this admission 6. Bilateral foot wounds/cellulitis/sacral decub - Doppler U/S negative for DVT - Completed course of Augmentin - Wound care following - hold of using MAVIS hose. No sign of cellulitis. 7. Questionable PNA - resolved - CXR on admission with bilateral interstitial opacities - Patient has been covered with Augmentin DNR. DVT prophylaxis: on Eliquis 09/15/2018. No acute changes in management. Discharge when SNF is arranged. (1) CVA (cerebral vascular accident) Qualifiers: CVA mechanism: embolism Precerebral and cerebral artery: middle cerebral artery Laterality of affected vessel: left Qualified Code(s): I63.412 - Cerebral infarction due to embolism of left middle cerebral artery
[2018-09-15] MEDS: Insulin Detemir Inj 1,000 UNIT/10 ML Vial SQ SCH (21:45)
[2018-09-16] MEDS: Insulin NovoLOG Aspart Correctional Sugar Inj SQ SCH ×3 (07:30→16:37)
[2018-09-16] MEDS: dilTIAZem CD 180 MG Capsule PO SCH (08:23)
[2018-09-16] MEDS: QUEtiapine 25 MG Tablet PO SCH (08:24)
[2018-09-16] MEDS: Senna/Docusate Sodium 8.6/50 MG Tablet PO SCH (08:24)
[2018-09-16] MEDS: Metoprolol Tartrate 25 MG Tablet PO SCH (08:24)
[2018-09-16] MEDS: Lisinopril 20 MG Tablet PO SCH (08:24)
[2018-09-16] MEDS: Clotrimazole 1% Cream 15 GM Tube TOPICAL SCH ×2 (08:29→12:09)
[2018-09-16 09:22] VITALS: O2SAT 97
[2018-09-16 16:32] VITALS: BP 107/57; PULSE 53; RESP 17; TEMP 97.2
== END 2018-09-16 17:52 ==
LOC: PHED 12:34 → PHEDA 15:36 → PH3 16:52
PROVIDERS: ADMIT Hospitalist; ATTEND Hospitalist